=== PATIENT | female | born 1955 | race African-American/Black ===

== ENCOUNTER 2016-07-10 20:57 | Inpatient (IN) | payer OTHER ==
[2016-07-10] MEDS ORDERED: SODIUM CHLORIDE 0.9% 500 ML INFUS.BAG IV ONE ×2 (21:11→23:05)
[2016-07-10] MEDS ORDERED: ASPIRIN 81 MG CHEWABLE TABLETS PO ONE (21:12)
[2016-07-10 21:40] LABS: BASOPHIL 0.7 % (0-2.0); MCH 32.3 pg (25.7-33.7); MCHC 34.2 g/dl (32.0-36.0); MEAN CELL VOLUME 94.4 fl (80-96); MEAN PLT VOLUME 8.6 fl (7.5-11.1); NEUTROPHILS 66.3 % (42.8-82.8); PLATELET COUNT 184 K/MM3 (134-434); RDW 14.2 % (11.6-15.6); WHITE BLOOD COUNT 7.5 K/mm3 (4.0-10.0)
[2016-07-10] MEDS ORDERED: ASPIRIN 325 MG TABLET ONE (21:41)
[2016-07-10 21:52] LABS: INR 0.91 (0.82-1.09)
[2016-07-10 21:57] LABS: URINE APPEARANCE CLEAR; URINE BLOOD NEGATIVE (NEGATIVE); URINE COLOR YELLOW; URINE GLUCOSE (UA) NEGATIVE (NEGATIVE); URINE KETONE TRACE (NEGATIVE); URINE NITRITE NEGATIVE (NEGATIVE); URINE PROTEIN NEGATIVE (NEGATIVE); URINE UROBILINOGEN NEGATIVE E.U./dl (0.2-1.0)
[2016-07-10 22:01] LABS: URINE LEUK ESTERASE TRACE (NEGATIVE)
[2016-07-10 22:02] LABS: URINE BACTERIA RARE /hpf (NONE SEEN); URINE HYALINE CAST 9 /lpf; URINE RBC 1 /hpf (0-3); URINE WBC 6 /hpf (3-5)
[2016-07-10 22:02] LABS: ALBUMIN 3.8 g/dl (3.4-5.0); ANION GAP 8 (8-16); BILIRUBIN,TOTAL 0.6 mg/dL (0.2-1.0); CO2 31 mmol/L (21-32); CREATININE 1.3 mg/dL (0.55-1.02); GLUCOSE,RANDOM 142 mg/dL (74-106); MAGNESIUM 2.2 mg/dL (1.8-2.4); PHOSPHOROUS 3.5 mg/dL (2.5-4.9); SGOT/AST 14 U/L (15-37); SGPT/ALT 15 U/L (12-78); TOT PROT 6.4 g/dl (6.4-8.2)
[2016-07-10 22:03] LABS: ALK PHOS 67 U/L (45-117); TROPONIN I < 0.02 ng/ml (0.00-0.05)
--- NOTE | 2016-07-10 22:17 | PDOC ---
History of Present Illness - General History Source: Patient Exam Limitations: No Limitations - History of Present Illness Initial Comments: 07/10/16 22:18 The patient is a 61-year-old female with a significant past medical history of diabetes, HTN, CAD, A-fib, [place], heart stents, COPD, and presents to the emergency department via EMS with chest pain for 1 day. The patient reports that she experienced left shoulder pain yesterday, and she could not move her shoulder due to the pain. She reports she woke up today with chest pain. She states the pain is localized to the epigastric and substernal region, radiates to the right chest, and describes the pain as a burning sensation with a severity of 7/10. She was given a nitroglycerine tablet by EMS en route, with no relief of pain. The patient denies shortness of breath, headache and dizziness. The patient denies fever, chills, nausea, vomit, diarrhea and constipation. The patient denies dysuria, frequency, urgency and hematuria. Allergies: NKDA Past Surgical History: heart stent PCP: Dr. Bianchi <Tiffany Jamil - Last Filed: 07/10/16 22:38> <Alexis Horton - Last Filed: 07/10/16 23:26> - General Chief Complaint: Chest Pain Stated Complaint: CHEST PAIN Past History <Tiffany Jamil - Last Filed: 07/10/16 22:38> - Past Medical History Cardiac Disorders: Yes (cardiac stent, CAD, [place]) COPD: Yes CHF: No Diabetes: Yes GI Disorders: Yes (gallstones) HTN: Yes Hypercholesterolemia: Yes Psychiatric Problems: Yes (ANXIETY) Suicide Attempt (Hx): No Seizures: Yes - Surgical History Cardiac Surgery: Yes - Immunization History Immunization Up to Date: No - Psycho/Social/Smoking Cessation Hx Anxiety: No Suicidal Ideation: No Smoking Status: Yes Smoking History: Current some day smoker Have you smoked in the past 12 months: Yes Number of Cigarettes Smoked Daily: 3 Information on smoking cessation initiated: No 'Breaking Loose' booklet given: 05/28/15 Hx Alcohol Use: No Drug/Substance Use Hx: No Substance Use Type: None Hx Substance Use Treatment: No <Alexis Horton - Last Filed: 07/10/16 23:26> - Past Medical History Allergies/Adverse Reactions: Allergies Allergy/AdvReac Type Severity Reaction Status Date / Time No Known Allergies Allergy Verified 07/10/16 23:04 Home Medications: Ambulatory Orders Albuterol Sulfate Inhaler - [Ventolin HFA Inhaler -] 1 - 2 inh PO QID PRN #1 inhaler 07/02/14 Duloxetine HCl [Cymbalta -] 60 mg PO DAILY 07/02/14 Albuterol Sulfate 0.042% [Ventolin 0.042% (Half-Strength) -] 1 neb PO QID Cyanocobalamin [Vitamin B12 -] 1,000 mcg PO DAILY 07/16/14 Ranolazine [Ranexa] 500 mg PO BID 07/16/14 Doxepin HCl [Sinequan -] 25 mg PO HS 05/28/15 Acetaminophen [Tylenol .Regular Strength -] 650 mg PO Q4H PRN #0 tablet Alprazolam [Xanax] 1 mg PO HS PRN #0 06/01/15 Bacitracin - [Bacitracin Topical Ointment -] 1 applic TP BID #1 tube 06/01/15 Cholecalciferol (Vitamin D3) [Vitamin D3 -] 1,000 unit PO DAILY #30 tab Levetiracetam [Keppra -] 750 mg PO BID #180 tablet 06/01/15 Metoprolol Succinate [Toprol XL -] 12.5 mg PO DAILY #30 tab.sr.24h 06/01/15 Oxycodone HCl [Roxicodone -] 2.5 mg PO Q6H PRN #10 tablet 06/01/15 Polyethylene Glycol 3350 [Miralax 119 gm Btl -] 17 gm PO DAILY #1 bottle Zolpidem Tartrate [Ambien] 5 mg PO HS PRN #30 tablet 06/01/15 Review of Systems - Review of Systems Able to Perform ROS?: Yes Comments:: 07/10/16 22:18 GENERAL/CONSTITUTIONAL: No fever or chills. No weakness. HEAD, EYES, EARS, NOSE AND THROAT: No change in vision. No ear pain or discharge. No sore throat. CARDIOVASCULAR: (+) Chest pain. No shortness of breath. RESPIRATORY: No cough, wheezing, or hemoptysis. GASTROINTESTINAL: No nausea, vomiting, diarrhea or constipation. GENITOURINARY: No dysuria, frequency, or change in urination. MUSCULOSKELETAL: (+) Left shoulder pain. No joint or muscle swelling or pain. No neck or back pain. SKIN: No rash NEUROLOGIC: No headache, vertigo, loss of consciousness, or change in strength/ sensation. ENDOCRINE: No increased thirst. No abnormal weight change. HEMATOLOGIC/LYMPHATIC: No anemia, easy bleeding, or history of blood clots. ALLERGIC/IMMUNOLOGIC: No hives or skin allergy. <OmeroTiffany - Last Filed: 07/10/16 22:38> *Physical Exam - Vital Signs Last Vital Signs Temp Pulse Resp BP Pulse Ox 98.9 F 80 18 92/56 98 07/10/16 21:29 07/10/16 21:29 07/10/16 21:29 07/10/16 21:29 07/10/16 21:55 - Physical Exam Comments: 07/10/16 22:18 GENERAL: Awake, alert, and fully oriented, (+) appears mildly anxious HEAD: No signs of trauma EYES: PERRLA, EOMI, sclera anicteric, conjunctiva clear ENT: Auricles normal inspection, hearing grossly normal, nares patent, oropharynx clear without exudates. Moist mucosa NECK: Normal ROM, supple, no lymphadenopathy, JVD, or masses LUNGS: Breath sounds equal, clear to auscultation bilaterally. No wheezes, and no crackles HEART: Regular rate and rhythm, normal S1 and S2, no murmurs, rubs or gallops ABDOMEN: Soft, nontender, normoactive bowel sounds. No guarding, no rebound. No masses EXTREMITIES: Normal range of motion, no edema. No clubbing or cyanosis. No cords, erythema, or tenderness NEUROLOGICAL: Cranial nerves II through XII grossly intact. Normal speech, normal gait SKIN: Warm, (+) mildly dry, normal turgor, no rashes or lesions noted. <JamilTiffany - Last Filed: 07/10/16 22:38> - Vital Signs Last Vital Signs Temp Pulse Resp BP Pulse Ox 98.9 F 80 18 92/56 98 07/10/16 21:29 07/10/16 21:29 07/10/16 21:29 07/10/16 21:29 07/10/16 21:55 <Alexis Horton - Last Filed: 07/10/16 23:26> Heart Score/ECG Review - ECG Impressions Comment:: 07/10/16 22:19 Normal sinus rhythm Abnormal ECG nl axis + LVH Nonspecific T wave abnormality <Tiffany Jamil - Last Filed: 07/10/16 22:38> ED Treatment Course - LABORATORY CBC & Chemistry Diagram: 07/10/16 21:30 07/10/16 21:30 - ADDITIONAL ORDERS Additional order review: Laboratory Results 07/10/16 07/10/16 07/10/16 21:45 21:30 21:30 INR Sodium 139 Potassium 4.1 Chloride 100 Carbon Dioxide 31 Anion Gap 8 BUN 13 Creatinine 1.3 H D Creat Clearance w eGFR 41.50 Random Glucose 142 H D Lactic Acid 2.035 H* Calcium 9.0 Phosphorus 3.5 Magnesium 2.2 Total Bilirubin 0.6 D AST 14 L D ALT 15 Alkaline Phosphatase 67 Creatine Kinase 53 Troponin I < 0.02 B-Natriuretic Peptide 134.49 H Total Protein 6.4 Albumin 3.8 Lipase 143 Urine Color Yellow Urine Appearance Clear Urine pH 5.0 Ur Specific [place] 1.023 Urine Protein Negative Urine Glucose (UA) Negative Urine Ketones Trace H Urine Blood Negative Urine Nitrite Negative Urine Bilirubin 2.0 Urine Urobilinogen Negative Ur Leukocyte Esterase Trace H Urine RBC 1 Urine WBC 6 Ur Epithelial Cells Moderate Urine Bacteria Rare Hyaline Casts 9 07/10/16 21:30 INR 0.91 Sodium Potassium Chloride Carbon Dioxide Anion Gap BUN Creatinine Creat Clearance w eGFR Random Glucose Lactic Acid Calcium Phosphorus Magnesium Total Bilirubin AST ALT Alkaline Phosphatase Creatine Kinase Troponin I B-Natriuretic Peptide Total Protein Albumin Lipase Urine Color Urine Appearance Urine pH Ur Specific [place] Urine Protein Urine Glucose (UA) Urine Ketones Urine Blood Urine Nitrite Urine Bilirubin Urine Urobilinogen Ur Leukocyte Esterase Urine RBC Urine WBC Ur Epithelial Cells Urine Bacteria Hyaline Casts 07/10/16 21:30 RBC 4.30 MCV 94.4 MCHC 34.2 RDW 14.2 MPV 8.6 Neutrophils % 66.3 D Lymphocytes % 23.8 D Monocytes % 7.2 Eosinophils % 2.0 Basophils % 0.7 - Medications Given in the ED: ED Medications Discontinued Medications Generic Name Dose Route Start Last Admin Trade Name Freq PRN Reason Stop Dose Admin Aspirin 324 mg 07/10/16 21:12 07/10/16 21:37 Asa - PO 07/10/16 21:13 324 mg ONCE ONE Administration Sodium Chloride 500 ml 07/10/16 21:11 07/10/16 21:37 Normal Saline - IV 07/10/16 21:12 500 ml ONCE ONE Administration <Tiffany Jamil - Last Filed: 07/10/16 22:38> - LABORATORY CBC & Chemistry Diagram: 07/10/16 21:30 07/10/16 21:30 - ADDITIONAL ORDERS Additional order review: Laboratory Results 07/10/16 07/10/16 07/10/16 21:45 21:30 21:30 INR 0.91 Sodium 139 Potassium 4.1 Chloride 100 Carbon Dioxide 31 Anion Gap 8 BUN 13 Creatinine 1.3 H D Creat Clearance w eGFR 41.50 Random Glucose 142 H D Calcium 9.0 Phosphorus 3.5 Magnesium 2.2 Total Bilirubin 0.6 D AST 14 L D ALT 15 Alkaline Phosphatase 67 Creatine Kinase 53 Troponin I < 0.02 B-Natriuretic Peptide 134.49 H Total Protein 6.4 Albumin 3.8 Lipase 143 Urine Color Yellow Urine Appearance Clear Urine pH 5.0 Ur Specific [place] 1.023 Urine Protein Negative Urine Glucose (UA) Negative Urine Ketones Trace H Urine Blood Negative Urine Nitrite Negative Urine Bilirubin 2.0 Urine Urobilinogen Negative Ur Leukocyte Esterase Trace H Urine RBC 1 Urine WBC 6 Ur Epithelial Cells Moderate Urine Bacteria Rare Hyaline Casts 9 07/10/16 21:30 RBC 4.30 MCV 94.4 MCHC 34.2 RDW 14.2 MPV 8.6 Neutrophils % 66.3 D Lymphocytes % 23.8 D Monocytes % 7.2 Eosinophils % 2.0 Basophils % 0.7 - RADIOLOGY Radiology Studies Ordered: Category Date Time Status CHEST X-RAY PORTABLE* [RAD] Stat Radiology 07/10/16 21:14 Ordered Radiograph Interpretation: 07/10/16 23:23 CXR shows adequate inflammation; osteopenia noted; no acute pathology otherwise ; there is calcification of the chondral aspects b/l. - Medications Given in the ED: ED Medications Discontinued Medications Generic Name Dose Route Start Last Admin Trade Name Freq PRN Reason Stop Dose Admin Aspirin 324 mg 07/10/16 21:12 07/10/16 21:37 Asa - PO 07/10/16 21:13 324 mg ONCE ONE Administration Sodium Chloride 500 ml 07/10/16 21:11 07/10/16 21:37 Normal Saline - IV 07/10/16 21:12 500 ml ONCE ONE Administration <Alexis Horton - Last Filed: 07/10/16 23:26> Medical Decision Making - Medical Decision Making 07/10/16 23:24 This is a 61yo F with PMH CAD s/p stenting, DM, hypertension, hyperlipidemia who presents with chest pain and radiation to the RIGHT shoulder. She has a subclinical UTI and lactate elevation, which may be related to this or dehydration as she appears clinically dry. She has a reassuring EKG with only subtle changes from previous on file. Troponin is negative at this time and her WBC is also wnl. She will be endorsed to Dr. Barriga who will continue evaluation of the patient; admit to telemetry. <Alexis Horton - Last Filed: 07/10/16 23:26> *DC/Admit/Observation/Transfer - Attestations Scribe Attestion: 07/10/16 22:19 Documentation prepared by Tiffany Jamil, acting as medical billing instructor for Alexis Horton MD. <Tiffany Jamil - Last Filed: 07/10/16 22:38> - Discharge Dispostion Admit: Yes Decision to Admit order Date/Time: 07/10/16 23:26 - Attestations Physician Attestion: 07/10/16 23:26 I, Dr. Alexis Horton MD, attest that this document has been prepared under my direction and personally reviewed by me in its entirety. I further attest, that it accurately reflects all work, treatment, procedures and medical decision -making performed by me. <Alexis Horton - Last Filed: 07/10/16 23:26> Diagnosis at time of Disposition: Dehydration Urinary tract infection Qualifiers: Urinary tract infection type: acute cystitis Hematuria presence: without hematuria Qualified Code(s): N30.00 - Acute cystitis without hematuria Chest pain Qualifiers: Chest pain type: precordial pain Qualified Code(s): R07.2 - Precordial pain - Discharge Dispostion Condition at time of disposition: Guarded - Referrals Referrals: Kulwant Bianchi MD [Primary Care Provider] -
[2016-07-10] MEDS ORDERED: OXYCODONE/APAP 5/325MG COMBO TABLET PO ONE (23:09)
[2016-07-10] MEDS ORDERED: OXYCODONE/APAP 5/325MG COMBO TABLET ONE (23:16)
[2016-07-10] MEDS ORDERED: NITROFURANTOIN MACROCRYSTAL 50 MG CAPSULE (FP) ONE (23:25)
[2016-07-10] MEDS: NITROFURANTOIN MACROCRYSTAL 50 MG CAPSULE (FP) PO SCH (23:26)
[2016-07-10 23:58] LABS: CHOLESTEROL 176 mg/dL (50-200); LDL CHOLESTEROL (ONLY SJRH) 69 mg/dL (5-100)
[2016-07-11] MEDS ORDERED: ATORVASTATIN CA 40 MG TABLET (FP) PO ONE (00:30)
[2016-07-11] MEDS: ZOLPIDEM TARTRATE 5 MG TABLET PO PRN ×2 (01:21→21:35)
[2016-07-11 02:08] LABS: TROPONIN I < 0.02 ng/ml (0.00-0.05)
[2016-07-11 05:52] VITALS: BMI 17.4
[2016-07-11] MEDS ORDERED: DULoxetine HCL 30 MG CAPSULE.DR (FP) PO ONE (09:11)
--- NOTE | 2016-07-11 09:32 | HP ---
Admitting History and Physical - Admission History of Present Illness: 61-year-old female with a significant past medical history of diabetes, HTN, CAD , A-fib, [place], heart stents, COPD, and presents to the emergency department via EMS with chest pain --epigastric painfor 1 day. The patient reports that she experienced left shoulder pain yesterday, and she could not move her shoulder due to the pain. She reports she woke up yesterday with chest pain. She states the pain is localized to the epigastric and substernal region, radiates to the right chest, and describes the pain as a burning sensation with a severity of 7/ 10. She was given a nitroglycerine tablet by EMS en route, with no relief of pain. 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 No: CVA Cardiovascular: Yes: CAD, HTN, Other (PCI STENT). No: AFIB Pulmonary: Yes: Asthma, COPD Endocrine: Yes: Diabetes Mellitus - Past Surgical History Past Surgical History: Yes: Hysterectomy, Stent - Smoking History Smoking history: Current some day smoker Have you smoked in the past 12 months: Yes Aproximately how many cigarettes per day: 3 - Alcohol/Substance Use Hx Alcohol Use: No History of Substance Use: reports: None - Social History ADL: Independent History of Recent Travel: No Home Medications - Allergies Allergies/Adverse Reactions: Allergies Allergy/AdvReac Type Severity Reaction Status Date / Time No Known Allergies Allergy Verified 07/10/16 23:04 - Home Medications Home Medications: Ambulatory Orders Albuterol Sulfate Inhaler - [Ventolin HFA Inhaler -] 1 - 2 inh PO QID PRN #1 inhaler 07/02/14 Duloxetine HCl [Cymbalta -] 60 mg PO DAILY 07/02/14 Albuterol Sulfate 0.042% [Ventolin 0.042% (Half-Strength) -] 1 neb PO QID Cyanocobalamin [Vitamin B12 -] 1,000 mcg PO DAILY 07/16/14 Ranolazine [Ranexa] 500 mg PO BID 07/16/14 Doxepin HCl [Sinequan -] 25 mg PO HS 05/28/15 Acetaminophen [Tylenol .Regular Strength -] 650 mg PO Q4H PRN #0 tablet Alprazolam [Xanax] 1 mg PO HS PRN #0 06/01/15 Bacitracin - [Bacitracin Topical Ointment -] 1 applic TP BID #1 tube 06/01/15 Cholecalciferol (Vitamin D3) [Vitamin D3 -] 1,000 unit PO DAILY #30 tab Levetiracetam [Keppra -] 750 mg PO BID #180 tablet 06/01/15 Metoprolol Succinate [Toprol XL -] 12.5 mg PO DAILY #30 tab.sr.24h 06/01/15 Oxycodone HCl [Roxicodone -] 2.5 mg PO Q6H PRN #10 tablet 06/01/15 Polyethylene Glycol 3350 [Miralax 119 gm Btl -] 17 gm PO DAILY #1 bottle Zolpidem Tartrate [Ambien] 5 mg PO HS PRN #30 tablet 06/01/15 Family Disease History - Family Disease History Family Disease History: Diabetes: Father, Other: Mother (alzheimers), Sister (3 strokes) Review of Systems - Review of Systems Cardiovascular: reports: Chest Pain. denies: Palpitations Respiratory: denies: Cough, Hemoptysis, Wheezing Gastrointestinal: reports: Abdominal Pain. denies: Diarrhea Genitourinary: reports: No Symptoms Neurological: reports: No Symptoms Physical Examination Vital Signs: Vital Signs Temperature 98.1 F 07/11/16 06:00 Pulse Rate 75 07/11/16 06:00 Respiratory Rate 16 07/11/16 06:00 Blood Pressure 106/53 07/11/16 06:00 O2 Sat by Pulse Oximetry (%) 99 07/11/16 01:51 Cardiovascular: Yes: Regular Rate and Rhythm, Murmur Respiratory: Yes: Regular, CTA Bilaterally Gastrointestinal: Yes: Normal Bowel Sounds, Soft, Tenderness, Epigastrium Edema: No Imaging - Results X-ray: Report Reviewed Problem List - Problems (1) Chest pain Assessment/Plan: ATYPICAL BUT WITH H/O STENT MUST CONSIDER CARDIAC SOURCE FOLLOW CE CARDIO ECHO OBTAIN PREVIOUS W/U ON ASA Code(s): R07.9 - CHEST PAIN, UNSPECIFIED Qualifiers: Chest pain type: precordial pain Qualified Code(s): R07.2 - Precordial pain (2) Epigastric abdominal pain Assessment/Plan: US GI PPI MAY NEED EGD Code(s): R10.13 - EPIGASTRIC PAIN (3) Seizure disorder Assessment/Plan: SAME MEDS Code(s): G40.909 - EPILEPSY, UNSP, NOT INTRACTABLE, WITHOUT STATUS EPILEPTICUS (4) CAD (coronary artery disease) Assessment/Plan: ABOVE Code(s): I25.10 - ATHSCL HEART DISEASE OF [place] CORONARY ARTERY W/O ANG PCTRS (5) DM (diabetes mellitus) Assessment/Plan: MONITOR BGM W SS Code(s): E11.9 - TYPE 2 DIABETES MELLITUS WITHOUT COMPLICATIONS
[2016-07-11] MEDS: DULoxetine HCL 60 MG CAPSULE.DR PO SCH (09:50)
[2016-07-11] MEDS: RANOLAZINE E.R. 500 MG TABLET (FP) PO SCH ×2 (09:50→21:26)
[2016-07-11] MEDS: CHOLECALCIFEROL (VITAMIN D3) 1,000 UNIT TABLET (FP) PO SCH (09:51)
[2016-07-11] MEDS: levETIRAcetam 250 MG TABLET (FP) PO SCH ×2 (09:51→21:26)
[2016-07-11] MEDS: CYANOCOBALAMIN 1,000 MCG TABLET (FP) PO SCH (09:51)
[2016-07-11] MEDS: HEPARIN NA (PORCINE) 5,000 UNITS/ML 1ML VIAL SQ SCH ×2 (09:51→21:26)
[2016-07-11] MEDS: METOPROLOL SUCCINATE 25 MG TAB.SR.24H (FP) PO SCH (09:56)
[2016-07-11] MEDS: POLYETHYLENE GLYCOL 3350 119 GM BTL PO SCH (09:59)
[2016-07-11] MEDS ORDERED: ASPIRIN 325 MG ENTERIC COATED TABLET (FP) PO SCH (10:00)
[2016-07-11] MEDS: PANTOPRAZOLE SODIUM 100 ML IVPB SCH ×2 (10:02→21:27)
--- NOTE | 2016-07-11 11:09 | EKG ---
Test Reason : Blood Pressure : / mmHG Vent. Rate : 084 BPM Atrial Rate : 084 BPM P-R Int : 126 ms QRS Dur : 082 ms QT Int : 350 ms P-R-T Axes : 070 057 080 degrees QTc Int : 413 ms NORMAL SINUS RHYTHM NORMAL ECG WHEN COMPARED WITH ECG OF 10-JUL-2016 21:10, CRITERIA FOR SEPTAL INFARCT ARE NO LONGER PRESENT Confirmed by ALISON MONTAGUE MD ([id number]) on 07/11/2016 11:09:05 AM Referred By: Pam CROSS Confirmed By:ALISON MONTAGUE MD
--- NOTE | 2016-07-11 11:33 | EKG ---
Test Reason : Blood Pressure : / mmHG Vent. Rate : 083 BPM Atrial Rate : 083 BPM P-R Int : 122 ms QRS Dur : 082 ms QT Int : 370 ms P-R-T Axes : 068 058 080 degrees QTc Int : 434 ms NORMAL SINUS RHYTHM SEPTAL INFARCT (CITED ON OR BEFORE 16-JUL-2014) ABNORMAL ECG WHEN COMPARED WITH ECG OF 28-MAY-2015 17:16, NO SIGNIFICANT CHANGE WAS FOUND Confirmed by ALISON MONTAGUE MD ([id number]) on 07/11/2016 11:32:56 AM Referred By: Confirmed By:ALISON MONTAGUE MD
--- NOTE | 2016-07-11 11:41 | CONSULT ---
Consult - text type - Consultation Consultation Note: CARDIOLOGY. SKED BY DR. Fajardo TO SEE PT. 61 YO FEMALE 07/10/16 CHEST PAIN. PT SEEN, EXAMINED. X RAYS, ECG REVIEWED. WORKING DX: NON CARDIAC MUSCULOSKELETAL CHEST PAIN. HISTORY CONSISTENT WITH THIS DIAGNOSIS. DIFF DX: MYOCARDIAL ISCHEMIA /ASHD WITHOUT INFARCTION AND NORMAL ECG. REC: OBTAIN PRIOR RECORDS CARDIAC CATH REPORTS, ETC NOT PRESENTLY AVAILABLE. REPEAT ECG TROPONIN LEVELS. CHRISTINA-I / ARB THERAPY IF NOT CONTRAINDICATED OR INTOLERANT IN THE PAST AWAIT ECHOCARDIOGRAM STRESS NUCLEAR STUDY OUT PATIENT. THANKS FULL NOTE DICTATED. WILL FOLLOW
--- NOTE | 2016-07-11 13:13 | CON.GI ---
Consult Consult Specialty:: GI Referred by:: Dr Barriga Reason for Consultation:: Abdominal pain - History of Present Illness Chief Complaint: Severe chest pain initially and now abdominal pain History of Present Illness: 61 F with h/o CAD s/p PCI, HTN, DM, AF (currently in sinus rhythm) COPD (active smoker) admitted with 2 day h/o CP with earlier L arm radiation. She subsequently states her pain became epigastric. She states the pain is severe and she is requesting pain meds. She had no response to NTG earlier. She has not been to our office for an extended period of time and states she had EGD 4 years ago-unk results. 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 No: AFIB Pulmonary: Yes: Asthma, COPD Endocrine: Yes: Diabetes Mellitus - Past Surgical History Past Surgical History: Yes: Hysterectomy, Stent - Alcohol/Substance Use Hx Alcohol Use: No History of Substance Use: reports: None - Smoking History Smoking history: Current some day smoker Have you smoked in the past 12 months: Yes Aproximately how many cigarettes per day: 3 - Social History Usual Living Arrangement: Alone ADL: Independent History of Recent Travel: No Home Medications - Allergies Allergies/Adverse Reactions: Allergies Allergy/AdvReac Type Severity Reaction Status Date / Time No Known Allergies Allergy Verified 07/10/16 23:04 - Home Medications Home Medications: Ambulatory Orders Albuterol Sulfate Inhaler - [Ventolin HFA Inhaler -] 1 - 2 inh PO QID PRN #1 inhaler 07/02/14 Duloxetine HCl [Cymbalta -] 60 mg PO DAILY 07/02/14 Albuterol Sulfate 0.042% [Ventolin 0.042% (Half-Strength) -] 1 neb PO QID Cyanocobalamin [Vitamin B12 -] 1,000 mcg PO DAILY 07/16/14 Ranolazine [Ranexa] 500 mg PO BID 07/16/14 Doxepin HCl [Sinequan -] 25 mg PO HS 05/28/15 Acetaminophen [Tylenol .Regular Strength -] 650 mg PO Q4H PRN #0 tablet Alprazolam [Xanax] 1 mg PO HS PRN #0 06/01/15 Bacitracin - [Bacitracin Topical Ointment -] 1 applic TP BID #1 tube 06/01/15 Cholecalciferol (Vitamin D3) [Vitamin D3 -] 1,000 unit PO DAILY #30 tab Levetiracetam [Keppra -] 750 mg PO BID #180 tablet 06/01/15 Metoprolol Succinate [Toprol XL -] 12.5 mg PO DAILY #30 tab.sr.24h 06/01/15 Oxycodone HCl [Roxicodone -] 2.5 mg PO Q6H PRN #10 tablet 06/01/15 Polyethylene Glycol 3350 [Miralax 119 gm Btl -] 17 gm PO DAILY #1 bottle Zolpidem Tartrate [Ambien] 5 mg PO HS PRN #30 tablet 06/01/15 Family Disease History - Family Disease History Family Disease History: Diabetes: Father, Other: Mother (alzheimers), Sister (3 strokes) Physical Exam-GI Vital Signs: Vital Signs Temperature 97.5 F L 07/11/16 09:49 Pulse Rate 78 07/11/16 09:49 Respiratory Rate 18 07/11/16 09:49 Blood Pressure 123/65 07/11/16 09:49 O2 Sat by Pulse Oximetry (%) 99 07/11/16 09:00 Constitutional: Yes: Anxious, Moderate Distress, Thin HENT: Yes: Normocephalic Neck: Yes: Supple Cardiovascular: Yes: Regular Rate and Rhythm Respiratory: Yes: CTA Bilaterally, Poor Air Entry (bilat) Gastrointestinal Inspection: Yes: WNL ...Auscultate: Yes: Normoactive Bowel Sounds ...Palpate: Yes: Soft, Tenderness, Tenderness, Epigastium (She had involuntary guarding and there was tenderness in every quadrant.) Labs: INR, PTT INR 0.91 (0.82-1.09) 07/10/16 21:30 CBC, BMP 07/10/16 21:30 07/10/16 21:30 Hepatic Panel Total Bilirubin 0.6 mg/dL (0.2-1.0) D 07/10/16 21:30 AST 14 U/L (15-37) L D 07/10/16 21:30 ALT 15 U/L (12-78) 07/10/16 21:30 Alkaline Phosphatase 67 U/L (45-117) 07/10/16 21:30 Albumin 3.8 g/dl (3.4-5.0) 07/10/16 21:30 Abnormal Lab Results 07/10/16 07/10/16 07/10/16 21:30 21:30 21:45 Creatinine 1.3 H D Random Glucose 142 H D Lactic Acid 2.035 H* AST 14 L D B-Natriuretic Peptide 134.49 H HDL Cholesterol Urine Ketones Trace H Ur Leukocyte Esterase Trace H 07/10/16 23:06 Creatinine Random Glucose Lactic Acid AST B-Natriuretic Peptide HDL Cholesterol 106 H Urine Ketones Ur Leukocyte Esterase Imaging - Results EKG: Report Reviewed (No change since prior EKG) Assessment/Plan 61 Patient with above history with severe abdominal pain. She now states she is having post-prandial vomiting Of note, lactic acid elevated on admission (now normal) and prior sonogram showed mild dilatation of both the CBD and the PD. Triglycerides and Lipase normal and LFTs normal Rec: Clear liquid diet MRI/MRCP to better evaluate ductal abnormalities CA19-9 Protonix Pain meds
[2016-07-11] MEDS: ACETAMINOPHEN 325 MG TABLET (FP) PO PRN ×2 (14:03→22:23)
[2016-07-11] MEDS: oxyCODONE HCL 5 MG TABLET PO PRN ×2 (14:03→22:22)
--- NOTE | 2016-07-11 16:01 | CONS ---
DATE OF CONSULTATION: 07/11/2016 REQUESTING PHYSICIAN: Flo Barriga MD PATIENT PROFILE: The patient is a 61-year-old female admitted on July 10, 2016, because of chest pain. The patient has known atherosclerotic heart disease. She had a "small" myocardial infarction in 2004 and underwent coronary arteriography and revascularization by PCTA/stenting. The details of the angiographic report, myocardial infarction, and subsequent followup is not presently available. She states that she has undergone regular angiographic procedures to check on the stent, which has been reportedly patent as of 2 years ago. She does not know who her electric switch tester is. She was in her usual state of health until about 2 days prior to admission, when she complained of left shoulder pain. On the night prior to admission, she had severe pain in the left shoulder and on the day of admission she had severe chest pain with associated nausea. No diaphoresis. The symptoms occurred at rest. Moving the left shoulder caused discomfort. She came to the hospital urgently. She was given nitroglycerin without any particular benefit. She continues to complain of chest pressure but states that it is diminished from prior to admission. She complains primarily at this time of dizziness/lightheadedness without syncope. The patient was told that she had atrial fibrillation in the past, previously treated with Plavix and aspirin but not any other anticoagulation or antithrombotic therapy. Has a previous history of diabetes, hypertension, and hyperlipidemia. Present medications include Ranexa 500 mg b.i.d., aspirin 325 mg daily, Lipitor 40 mg per day, vitamin D3, vitamin B12, Sinequan 25 mg per day, Cymbalta 60 mg per day, heparin 5000 units b.i.d., Keppra 750 daily, Toprol 12.5 mg daily, nitrofuran, Protonix. ALLERGIES: None known. REVIEW OF SYSTEMS: General: No fever or chills. Gastrointestinal: She reports having had gallstones and feels that these symptoms are secondary to "my gallbladder." Seizure disorder. Anxious depression. Hypertension, hyperlipidemia, [id number] diabetes. SOCIAL HISTORY: She lives at home and manages her own affairs. There is no history of alcohol abuse. She continues to smoke less than one-half pack of cigarettes per day. She has a devoted family. FAMILY HISTORY: There is a family history of diabetes. Mother had dementia and sisters had strokes. EXAMINATION: General: On examination, the patient appears in no acute distress, lying flat. Vital Signs: Temperature afebrile. Pulse is 70 and regular. Blood pressure is 123/60. The respiratory rate is 18 per minute. The weight is 95 pounds. The oxygen saturation is 99% on ambient air. NECK: There is no neck vein distention. There is no carotid bruit. Lungs: The lung mena are clear. Heart: The heart sounds are normal. No murmur, no gallop is audible. The PMI is normal and not displaced. Abdomen: Soft and nontender. There is no organ enlargement. There is no scleral icterus. Extremities: There is no peripheral edema. DATABASE: The electrocardiogram demonstrates sinus rhythm, normal tracing. There are no ST and T-wave changes seen. The chest x-ray was reviewed, it is an AP portal film. The heart size cannot be adequately assessed due to the technique of the film, however, there is no infiltrate, effusion, or pulmonary vascular congestion. LABORATORY STUDIES OF NOTE: The white blood cell count is 7.5, hematocrit 41%, platelet count is 184,000. The INR is 0.9. The electrolytes are normal. BUN 13, creatinine 1.3, glucose 142. The BNP level is 135, troponin level is less than 0.02 on 2 determinations. The cholesterol is 176, triglycerides 129, LDL 69, and HDL 106. The urinalysis is negative for protein and glucose. IMPRESSION: The working diagnosis is non-cardiac musculoskeletal chest pain. The history is consistent with this diagnosis. The differential diagnosis would include myocardial ischemia/atherosclerotic heart disease despite a normal electrocardiogram and normal troponin levels. The patient has multiple risk factors for the development of atherosclerotic disease and has known atherosclerotic coronary disease as reflected by requirement for PCTA/stenting procedures. With regard to medical therapy, CHRISTINA-I/ARB therapy is attractive in the setting of a previous myocardial infarction, diabetes, and atherosclerotic heart disease with hypertension. The patient's history of atrial fibrillation raises the concern of adequate anticoagulation/antithrombotic therapy despite the presence of sinus rhythm at this time. Of critical importance in the management of this patient will be review of prior data not presently available. I have recommended the followin. Obtain prior records regarding cardiac catheterization report, noninvasive studies, cardiology followup, etcetera, not presently available. 2. Repeat ECG and troponin level. 3. Complete cessation of smoking. 4. Risk factor modification. 5. CHRISTINA-I/ARB therapy if not contraindicated or was thought to be intolerant of these agents in the past. 6. Await echocardiogram ordered by primary care. 7. Stress nuclear study as an outpatient. Thank you for allowing me to take part in the care of this pleasant patient. Will follow along with you. OLLIE BYRD M.D. KATLIN/[id number]
[2016-07-11] MEDS ORDERED: PT OWN MED DRAWER 7, Y5N ONE (21:21)
[2016-07-11] MEDS: ATORVASTATIN CA 40 MG TABLET (FP) PO SCH (21:26)
[2016-07-11] MEDS: DOXEPIN HCL 25 MG CAPSULE PO SCH (21:26)
[2016-07-11] MEDS: NITROFURANTOIN MACROCRYSTAL 50 MG CAPSULE (FP) PO SCH (22:30)
[2016-07-12 07:42] LABS: BASOPHIL 0.9 % (0-2.0); EOSINOPHIL 2.8 % (0-4.5); MCH 32.3 pg (25.7-33.7); MCHC 33.9 g/dl (32.0-36.0); MEAN CELL VOLUME 95.2 fl (80-96); NEUTROPHILS 47.9 % (42.8-82.8); PLATELET COUNT 156 K/MM3 (134-434); RDW 14.2 % (11.6-15.6); WHITE BLOOD COUNT 4.9 K/mm3 (4.0-10.0)
--- NOTE | 2016-07-12 08:57 | PN ---
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 RN NOTE -> C/O ABD PAIN - Current Medication List Current Medications: Active Medications Acetaminophen (Tylenol -) 650 mg PO Q4H PRN PRN Reason: FEVER OR PAIN Last Admin: 07/11/16 22:23 Dose: 650 mg Aspirin (Ecotrin -) 325 mg PO DAILY [facility] Last Admin: 07/11/16 09:51 Dose: 325 mg Atorvastatin Calcium (Lipitor -) 40 mg PO HS [facility] Last Admin: 07/11/16 21:26 Dose: 40 mg Cholecalciferol (Vitamin D3 -) 1,000 unit PO DAILY [facility] Last Admin: 07/11/16 09:51 Dose: 1,000 unit Cyanocobalamin (Vitamin B12 -) 1,000 mcg PO DAILY [facility] Last Admin: 07/11/16 09:51 Dose: 1,000 mcg Doxepin HCl (Sinequan -) 25 mg PO HS [facility] Last Admin: 07/11/16 21:26 Dose: 25 mg Duloxetine HCl (Cymbalta -) 60 mg PO DAILY [facility] Last Admin: 07/11/16 09:50 Dose: 60 mg Heparin Sodium (Porcine) (Heparin -) 5,000 unit SQ BID [facility] Last Admin: 07/11/16 21:26 Dose: 5,000 unit Pantoprazole Sodium (Protonix 40mg Ivpb (Pre-Docked)) 100 mls @ 200 mls/hr IVPB BID [facility] Last Admin: 07/11/16 21:27 Dose: 200 mls/hr Levetiracetam (Keppra -) 750 mg PO BID [facility] Last Admin: 07/11/16 21:26 Dose: 750 mg Metoprolol Succinate (Toprol Xl -) 12.5 mg PO DAILY [facility] Last Admin: 07/11/16 09:56 Dose: 12.5 mg Nitrofurantoin Macrocrystals (Macrodantin -) 100 mg PO ONCE [facility] Last Admin: 07/11/16 22:30 Dose: 100 mg Oxycodone HCl (Roxicodone -) 2.5 mg PO Q6H PRN PRN Reason: PAIN Last Admin: 07/11/16 22:22 Dose: 2.5 mg Polyethylene Glycol (Miralax (For Daily Use) -) 17 gm PO DAILY [facility] Last Admin: 07/11/16 09:59 Dose: 17 gm Ranolazine (Ranexa -) 500 mg PO BID [facility] Last Admin: 07/11/16 21:26 Dose: 500 mg Zolpidem Tartrate (Ambien -) 5 mg PO HS PRN PRN Reason: INSOMNIA Last Admin: 07/11/16 21:35 Dose: 5 mg - Objective Vital Signs: Vital Signs Temperature 97.3 F L 07/12/16 08:25 Pulse Rate 75 07/12/16 08:25 Respiratory Rate 18 07/12/16 08:26 Blood Pressure 121/73 07/12/16 08:25 O2 Sat by Pulse Oximetry (%) 99 07/12/16 08:26 Constitutional: Yes: Calm Cardiovascular: Yes: WNL Respiratory: Yes: WNL Gastrointestinal: Yes: Tenderness (MILD DISCOMFORT WITH DEEP PALPATION). No: Tenderness, Rebound Edema: No Labs: CBC, BMP 07/12/16 05:35 INR, PTT INR 0.91 (0.82-1.09) 07/10/16 21:30 Assessment/Plan (1) Chest pain Assessment/Plan: ATYPICAL BUT WITH H/O STENT MUST CONSIDER CARDIAC SOURCE TROP NEG > NO ACS CARDIO ON CASE ECHO -> F/U OBTAIN PREVIOUS W/U ON ASA Code(s): R07.9 - CHEST PAIN, UNSPECIFIED Qualifiers: Chest pain type: precordial pain Qualified Code(s): R07.2 - Precordial pain (2) Epigastric abdominal pain Assessment/Plan: US -> MILD CBD & PANCREATIC DUCT DILATED GI ON CASE PPI MAY NEED EGD MRI/MRCP PENDING Na 152 -> F/U REPEAT CMP + NEED RENAL IF PERSIST Code(s): R10.13 - EPIGASTRIC PAIN (3) Seizure disorder Assessment/Plan: SAME MEDS Code(s): G40.909 - EPILEPSY, UNSP, NOT INTRACTABLE, WITHOUT STATUS EPILEPTICUS (4) CAD (coronary artery disease) Assessment/Plan: ABOVE Code(s): I25.10 - ATHSCL HEART DISEASE OF [place] CORONARY ARTERY W/O ANG PCTRS (5) DM (diabetes mellitus) Assessment/Plan: MONITOR BGM W SS Code(s): E11.9 - TYPE 2 DIABETES MELLITUS WITHOUT COMPLICATIONS 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
[2016-07-12] MEDS ORDERED: DULoxetine HCL 30 MG CAPSULE.DR (FP) PO ONE (10:57)
[2016-07-12] MEDS ORDERED: PT OWN MED DRAWER 7, Y5N ONE (10:58)
[2016-07-12] MEDS: levETIRAcetam 250 MG TABLET (FP) PO SCH ×2 (11:00→21:57)
[2016-07-12] MEDS: METOPROLOL SUCCINATE 25 MG TAB.SR.24H (FP) PO SCH (11:00)
[2016-07-12] MEDS: CYANOCOBALAMIN 1,000 MCG TABLET (FP) PO SCH (11:00)
[2016-07-12] MEDS: HEPARIN NA (PORCINE) 5,000 UNITS/ML 1ML VIAL SQ SCH ×2 (11:01→21:58)
[2016-07-12] MEDS: RANOLAZINE E.R. 500 MG TABLET (FP) PO SCH ×2 (11:01→21:57)
[2016-07-12] MEDS: CHOLECALCIFEROL (VITAMIN D3) 1,000 UNIT TABLET (FP) PO SCH (11:01)
[2016-07-12] MEDS: DULoxetine HCL 60 MG CAPSULE.DR PO SCH (11:01)
[2016-07-12] MEDS: PANTOPRAZOLE SODIUM 100 ML IVPB SCH ×2 (11:02→21:58)
[2016-07-12] MEDS: oxyCODONE HCL 5 MG TABLET PO PRN ×2 (11:07→17:43)
[2016-07-12] MEDS: POLYETHYLENE GLYCOL 3350 119 GM BTL PO SCH (11:14)
[2016-07-12 11:25] LABS: ALBUMIN 3.7 g/dl (3.4-5.0); ANION GAP 9 (8-16); BILIRUBIN,TOTAL 0.5 mg/dL (0.2-1.0); CALCIUM 9.7 mg/dL (8.5-10.1); CHOLESTEROL 189 mg/dL (50-200); CO2 33 mmol/L (21-32); CREATININE 0.9 mg/dL (0.55-1.02); GLUCOSE,RANDOM 86 mg/dL (74-106); SGOT/AST 17 U/L (15-37); SGPT/ALT 12 U/L (12-78); TOT PROT 6.4 g/dl (6.4-8.2)
[2016-07-12 11:28] LABS: ALK PHOS 68 U/L (45-117); TROPONIN I < 0.02 ng/ml (0.00-0.05)
[2016-07-12 11:31] LABS: LDL CHOLESTEROL (ONLY SJRH) 68 mg/dL (5-100)
[2016-07-12] MEDS: ACETAMINOPHEN 325 MG TABLET (FP) PO PRN ×2 (17:44→23:57)
[2016-07-12] MEDS: ZOLPIDEM TARTRATE 5 MG TABLET PO PRN (21:56)
[2016-07-12] MEDS: DOXEPIN HCL 25 MG CAPSULE PO SCH (21:56)
[2016-07-12] MEDS: ATORVASTATIN CA 40 MG TABLET (FP) PO SCH (21:57)
[2016-07-13 07:19] LABS: BASOPHIL 1.3 % (0-2.0); EOSINOPHIL 4.3 % (0-4.5); MCH 32.3 pg (25.7-33.7); MCHC 34.1 g/dl (32.0-36.0); MEAN CELL VOLUME 94.7 fl (80-96); MEAN PLT VOLUME 8.6 fl (7.5-11.1); NEUTROPHILS 44.8 % (42.8-82.8); PLATELET COUNT 161 K/MM3 (134-434); WHITE BLOOD COUNT 4.7 K/mm3 (4.0-10.0)
[2016-07-13 07:44] LABS: ALBUMIN 3.2 g/dl (3.4-5.0); ALK PHOS 54 U/L (45-117); ANION GAP 4 (8-16); BILIRUBIN,TOTAL 0.3 mg/dL (0.2-1.0); CALCIUM 9.1 mg/dL (8.5-10.1); CO2 36 mmol/L (21-32); CREATININE 0.8 mg/dL (0.55-1.02); GLUCOSE,RANDOM 93 mg/dL (74-106); SGOT/AST 12 U/L (15-37); SGPT/ALT 13 U/L (12-78); TOT PROT 5.9 g/dl (6.4-8.2)
[2016-07-13] MEDS ORDERED: DULoxetine HCL 30 MG CAPSULE.DR (FP) PO SCH (10:00)
[2016-07-13] MEDS: RANOLAZINE E.R. 500 MG TABLET (FP) PO SCH (10:02)
[2016-07-13] MEDS: PANTOPRAZOLE SODIUM 100 ML IVPB SCH (10:02)
[2016-07-13] MEDS: levETIRAcetam 250 MG TABLET (FP) PO SCH (10:03)
[2016-07-13] MEDS: METOPROLOL SUCCINATE 25 MG TAB.SR.24H (FP) PO SCH (10:03)
[2016-07-13] MEDS: CHOLECALCIFEROL (VITAMIN D3) 1,000 UNIT TABLET (FP) PO SCH (10:03)
[2016-07-13] MEDS: CYANOCOBALAMIN 1,000 MCG TABLET (FP) PO SCH (10:04)
[2016-07-13] MEDS: oxyCODONE HCL 5 MG TABLET PO PRN (10:04)
[2016-07-13] MEDS: POLYETHYLENE GLYCOL 3350 119 GM BTL PO SCH (10:05)
[2016-07-13] MEDS: HEPARIN NA (PORCINE) 5,000 UNITS/ML 1ML VIAL SQ SCH (10:05)
[2016-07-13] MEDS ORDERED: PT OWN MED DRAWER 7, Y5N ONE (13:39)
[2016-07-13] MEDS ORDERED: metroNIDAZOLE 250 MG TABLET PO SCH (14:00)
[2016-07-13 14:50] VITALS: BP 111/67; PULSE 85; TEMP 99.3
--- NOTE | 2016-07-13 16:29 | DS ---
Physical Examination Vital Signs: Vital Signs Temperature 99.3 F 07/13/16 14:00 Pulse Rate 85 07/13/16 14:00 Respiratory Rate 20 07/13/16 14:00 Blood Pressure 111/67 07/13/16 14:00 O2 Sat by Pulse Oximetry (%) 96 07/12/16 21:00 Constitutional: Yes: No Distress Eyes: Yes: WNL HENT: Yes: WNL Neck: Yes: WNL Cardiovascular: Yes: WNL Respiratory: Yes: WNL Gastrointestinal: Yes: WNL ...Rectal Exam: Yes: WNL Renal/: Yes: WNL Breast(s): Yes: WNL Musculoskeletal: Yes: WNL Extremities: Yes: WNL Edema: No Peripheral Pulses WNL: Yes Integumentary: Yes: WNL Wound/Incision: Yes: Clean/Dry Neurological: Yes: WNL ...Motor Strength: WNL Psychiatric: Yes: WNL Labs: CBC, BMP 07/13/16 05:35 07/13/16 05:35 Discharge Summary Reason For Visit: CHEST PAIN Current Active Problems Adult behavior problem (Acute) Chest pain (Acute) Dehydration (Acute) Epigastric abdominal pain (Acute) Fall at home (Acute) Seizure disorder (Acute) UTI (urinary tract infection) (Acute) Procedures: Principal: mrcp no acute mass/normal Other Procedures: labs/sono Hospital Course: admitted worked up for abd and chest pain, mrcp shows no acute mass but may need to repeat as outpatient with contrast if symptoms persist. see gi dr monteiro as outpatient, see pmd in 1 week. stress test outpatient. Condition: Improved - Instructions Diet, Activity, Other Instructions: soft kayce Referrals: Kulwant Bianchi MD [Primary Care Provider] - Disposition: HOME - Home Medications Comprehensive Discharge Medication List: Ambulatory Orders Albuterol Sulfate Inhaler - [Ventolin HFA Inhaler -] 1 - 2 inh PO QID PRN #1 inhaler 07/02/14 Duloxetine HCl [Cymbalta -] 60 mg PO DAILY 07/02/14 Albuterol Sulfate 0.042% [Ventolin 0.042% (Half-Strength) -] 1 neb PO QID Cyanocobalamin [Vitamin B12 -] 1,000 mcg PO DAILY 07/16/14 Ranolazine [Ranexa] 500 mg PO BID 07/16/14 Doxepin HCl [Sinequan -] 25 mg PO HS 05/28/15 Acetaminophen [Tylenol .Regular Strength -] 650 mg PO Q4H PRN #0 tablet Alprazolam [Xanax] 1 mg PO HS PRN #0 06/01/15 Bacitracin - [Bacitracin Topical Ointment -] 1 applic TP BID #1 tube 06/01/15 Cholecalciferol (Vitamin D3) [Vitamin D3 -] 1,000 unit PO DAILY #30 tab Levetiracetam [Keppra -] 750 mg PO BID #180 tablet 06/01/15 Metoprolol Succinate [Toprol XL -] 12.5 mg PO DAILY #30 tab.sr.24h 06/01/15 Oxycodone HCl [Roxicodone -] 2.5 mg PO Q6H PRN #10 tablet 06/01/15 Polyethylene Glycol 3350 [Miralax 119 gm Btl -] 17 gm PO DAILY #1 bottle Zolpidem Tartrate [Ambien] 5 mg PO HS PRN #30 tablet 06/01/15 Aspirin Coated [Ecotrin -] 325 mg PO DAILY 07/13/16 Atorvastatin Ca [Lipitor] 40 mg PO HS #30 tablet 07/13/16 Metoclopramide HCl [Reglan -] 5 mg PO TIDAC #30 tablet 07/13/16 Nitrofurantoin Macrocrystal [Macrodantin -] 100 mg PO QID #12 07/13/16 Pantoprazole Sodium [Protonix 40Mg Ivpb (Pre-Docked)] 100 ml IVPB BID #30 bag
[2016-07-13] MEDS ORDERED: METOCLOPRAMIDE HCL 10 MG TABLET (FP) PO SCH (16:30)
--- NOTE | 2016-07-13 18:05 | PN ---
GI Progress Note Subjective: reviwed chart,patient still with epigastric pain, MRCP --dilated Gallb ladder with mildly dilated CBD, lfts, normal - Objective Vital Signs: Vital Signs Temperature 99.3 F 07/13/16 14:00 Pulse Rate 85 07/13/16 14:00 Respiratory Rate 20 07/13/16 14:00 Blood Pressure 111/67 07/13/16 14:00 O2 Sat by Pulse Oximetry (%) 96 07/12/16 21:00 Constitutional: Well Nourished Eyes: Yes: Conjunctiva Clear HENT: Yes: Atraumatic Neck: Yes: Supple Cardiovascular: Yes: Regular Rate and Rhythm Respiratory: Yes: CTA Bilaterally ...Palpate: Yes: Soft, Tenderness, Epigastium. No: Firm/Rigid, Guarding, Hepatomegaly, Mass, Pulsatile Mass Labs: CBC, BMP 07/13/16 05:35 07/13/16 05:35 INR, PTT INR 0.91 (0.82-1.09) 07/10/16 21:30 Problem List - Problems (1) Sphincter of Oddi dysfunction Assessment/Plan: abdominal ultrasound in 2013 had similar dilated CBD R> will continue conservative management if pain persists will need sphincter of oddi manommetry Code(s): K83.4 - SPASM OF SPHINCTER OF ODDI
== END 2016-07-13 17:15 | disposition home or self-care (01) | DRG 445 ==
LOC: JER 20:57 → JERBED 23:21 → J4W 07-11 01:29
PROVIDERS: ADMIT Family Medicine; ATTEND Family Medicine
DX: K83.4 Spasm of sphincter of Oddi (principal); N39.0 Urinary tract infection, site not specified; R07.89 Other chest pain; I25.10 Atherosclerotic heart disease of native coronary artery without angina pectoris; I48.91 Unspecified atrial fibrillation; I25.2 Old myocardial infarction; J44.9 Chronic obstructive pulmonary disease, unspecified; E86.0 Dehydration; J45.909 Unspecified asthma, uncomplicated; E11.9 Type 2 diabetes mellitus without complications; F17.210 Nicotine dependence, cigarettes, uncomplicated; R10.13 Epigastric pain; G40.909 Epilepsy, unspecified, not intractable, without status epilepticus; Z95.5 Presence of coronary angioplasty implant and graft
CPT/HCPCS: 36415; 71010-TC; 74182-TC; 76700-TC; 80053; 80061; 81003; 81015; 82550; 83036; 83605; 83690; 83721; 83735; 83880; 84100; 84484; 85025; 85610; 86301; 86850; 86900; 86901; 87040; 87086; 93005; 93010; 99285-25; A9576; J1644

== ENCOUNTER 2016-11-17 18:19 | Inpatient (IN) | payer OTHER ==
--- NOTE | 2016-11-17 20:25 | PDOC ---
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 History obtained from the patient is contradictory to that which is obtained by the daughters. The patient herself notes that for the past couple of weeks, she has been having more seizures, wetting her bed (very abnormal for her), having difficulty balancing and walking, and falling more frequently. She notes headache, vision changes (everything appears white), tingling in her fingers, and mild left-sided weakness. She notes memory problems which are worsening. She also notes recent productive cough, but denies any fever, chills, nausea, vomiting, diarrhea, constipation, abdominal pain, chest pain, palpitations, or shortness of breath. The daughters' recollection of their mother's recent change in health begins with increase in her alcohol consumption and self-administered narcotic pain medications. They state she is drinking up to 20 beers a day, hiding pain medications from family and her home health aid, and taking excessive pain medications. They note her memory has worsened significantly and she has had difficulty speaking, worsening over the past two weeks. Per their report, she has become paranoid that they are trying to take her money and control her. The only physical signs they note are different are a worsened cough with sputum production. Past History - Past Medical History Allergies/Adverse Reactions: Allergies Allergy/AdvReac Type Severity Reaction Status Date / Time No Known Allergies Allergy Verified 11/17/16 18:30 Home Medications: Ambulatory Orders Albuterol Sulfate Inhaler - [Ventolin HFA Inhaler -] 1 - 2 inh PO QID PRN #1 inhaler 07/02/14 Duloxetine HCl [Cymbalta -] 60 mg PO DAILY 07/02/14 Albuterol Sulfate 0.042% [Ventolin 0.042% (Half-Strength) -] 1 neb PO QID Cyanocobalamin [Vitamin B12 -] 1,000 mcg PO DAILY 07/16/14 Ranolazine [Ranexa] 500 mg PO BID 07/16/14 Doxepin HCl [Sinequan -] 25 mg PO HS 05/28/15 Alprazolam [Xanax] 1 mg PO HS PRN #0 06/01/15 Cholecalciferol (Vitamin D3) [Vitamin D3 -] 1,000 unit PO DAILY #30 tab Levetiracetam [Keppra -] 750 mg PO BID #180 tablet 06/01/15 Metoprolol Succinate [Toprol XL -] 12.5 mg PO DAILY #30 tab.sr.24h 06/01/15 Oxycodone HCl [Roxicodone -] 2.5 mg PO Q6H PRN #10 tablet 06/01/15 Polyethylene Glycol 3350 [Miralax 119 gm Btl -] 17 gm PO DAILY #1 bottle Zolpidem Tartrate [Ambien] 5 mg PO HS PRN #30 tablet 06/01/15 Aspirin Coated [Ecotrin -] 325 mg PO DAILY 07/13/16 Atorvastatin Ca [Lipitor] 40 mg PO HS #30 tablet 07/13/16 Metoclopramide HCl [Reglan -] 5 mg PO TIDAC #30 tablet 07/13/16 Cardiac Disorders: Yes (cardiac stent, CAD, [place]) COPD: Yes CHF: No Diabetes: Yes GI Disorders: Yes (gallstones) HTN: Yes Hypercholesterolemia: Yes Psychiatric Problems: Yes (ANXIETY) Suicide Attempt (Hx): No Seizures: Yes - Surgical History Cardiac Surgery: Yes - Immunization History Immunization Up to Date: No - Psycho/Social/Smoking Cessation Hx Anxiety: No Suicidal Ideation: No Smoking Status: Yes Smoking History: Current some day smoker Have you smoked in the past 12 months: Yes Number of Cigarettes Smoked Daily: 10 Information on smoking cessation initiated: No 'Breaking Loose' booklet given: 05/28/15 Hx Alcohol Use: No Drug/Substance Use Hx: No Substance Use Type: None Hx Substance Use Treatment: No Review of Systems - Review of Systems Able to Perform ROS?: Yes (some memory issues) Constitutional: Yes: Weakness. No: Chills, Fever, Unexplained wgt Loss HEENTM: Yes: Recent change in vision. No: Nose Congestion, Throat Pain Respiratory: Yes: Cough, Shortness of Breath Cardiac (ROS): No: Chest Pain, Palpitations ABD/GI: No: Constipated, Diarrhea, Nausea, Vomiting : No: Burning, Dysuria Musculoskeletal: No: Back Pain, Neck Pain Integumentary: No: Bruising, Rash Neurological: Yes: Headache, Seizure, Tingling, Weakness (mild left-sided), Dizziness, Other (bed wetting). No: Numbness Psychiatric: Yes: Depression Endocrine: No: Unexplained Weight Gain, Unexplained Weight Loss *Physical Exam - Vital Signs Last Vital Signs Temp Pulse Resp BP Pulse Ox 98.5 F 83 18 107/70 100 11/17/16 18:20 11/17/16 18:20 11/17/16 18:20 11/17/16 18:20 11/17/16 18:20 - Physical Exam General Appearance: Yes: Thin, Other. No: Apparent Distress HEENT: positive: EOMI, Normal Voice, Hearing Grossly Normal. negative: Scleral Icterus (R), Scleral Icterus (L), Nasal Congestion Neck: positive: Trachea midline, Supple. negative: Tender, Rigid Respiratory/Chest: positive: Lungs Clear, Normal Breath Sounds. negative: Respiratory Distress, Crackles, Rhonchi, Stridor, Wheezing Cardiovascular: positive: Regular Rhythm, Regular Rate. negative: Murmur Gastrointestinal/Abdominal: positive: Normal Bowel Sounds, Soft. negative: Tender, Organomegaly, Pulsatile Mass, Guarding Musculoskeletal: positive: Normal Inspection. negative: Decreased Range of Motion, Vertebral Tenderness Extremity: positive: Normal Capillary Refill, Normal Inspection, Normal Range of Motion. negative: Tender, Cyanosis Integumentary: positive: Normal Color, Dry, Warm. negative: Erythema, Rash, Bruising Neurologic: positive: county ordinary II-XII NML intact (slight left-sided facial droop stated to be chronic), Alert, Normal Mood/Affect, Normal Response, Motor Strength 5/5, Finger to Nose (normal), Disoriented (oriented to own name, birthday, hospital name, and city, but believes this is February), Other (no pronator drift) Heart Score/ECG Review #1 ECG reviewed & interpreted by me at: 20:50 NSR, rate of 79, old septal infarct ED Treatment Course - LABORATORY CBC & Chemistry Diagram: 11/17/16 20:48 11/17/16 20:48 Medical Decision Making - Medical Decision Making 61 yo female with h/o CVA p/w word-finding difficulty, balance issues, multiple falls, wetting bed x2 weeks. DDX includes Wenicke's encephalopathy, CVA, substance abuse, dementia, infection (e.g. UTI, pneumonia). Workup w/ CBC, CMP, Mg, UA, urine cx, UDS, serum acetaminophen, CXR, non- contrast head CT. Ordered are 1 L IVF NS, thiamine, folate. 11/17/16 23:16 UA clean catch shows leukocyte esterase but many squamous cells. Will give empiric abx but order straight cath specimen UA and culture as well. Spoke with daughter on the phone who expresses deep concern and requests admission. Plan is to admit for further management and long-term care planning. *DC/Admit/Observation/Transfer Diagnosis at time of Disposition: Depression with suicidal ideation, Dizziness Opiate dependence Qualifiers: Substance use status: uncomplicated Qualified Code(s): F11.20 - Opioid dependence, uncomplicated UTI (urinary tract infection) Qualifiers: Urinary tract infection type: acute cystitis Hematuria presence: without hematuria Qualified Code(s): N30.00 - Acute cystitis without hematuria - Discharge Dispostion Condition at time of disposition: Guarded Admit: Yes - Attestations Physician Attestion: 11/17/16 23:56 I, Dr. Milla Leal, attest that this document has been prepared under my direction and personally reviewed by me in its entirety. I further attest, that it accurately reflects all work, treatment, procedures and medical decision -making performed by me.
[2016-11-17] MEDS ORDERED: THIAMINE HCL 200 MG/2 ML VIAL IVPB ONE (20:31)
[2016-11-17] MEDS ORDERED: SODIUM CHLORIDE 500 ML IV STA (20:31)
[2016-11-17] MEDS ORDERED: FOLIC ACID 5 MG/1 ML IVPB ONE (20:31)
[2016-11-17 21:19] LABS: URINE APPEARANCE CLOUDY; URINE BILIRUBIN NEGATIVE (NEGATIVE); URINE BLOOD NEGATIVE (NEGATIVE); URINE COLOR YELLOW; URINE GLUCOSE (UA) NEGATIVE (NEGATIVE); URINE KETONE NEGATIVE (NEGATIVE); URINE NITRITE NEGATIVE (NEGATIVE); URINE PROTEIN NEGATIVE (NEGATIVE); URINE UROBILINOGEN NEGATIVE mg/dL (0.2-1.0)
[2016-11-17 21:23] LABS: BASOPHIL 0.4 % (0-2.0); EOSINOPHIL 3.2 % (0-4.5); MCH 31.5 pg (25.7-33.7); MCHC 33.7 g/dl (32.0-36.0); MEAN CELL VOLUME 93.3 fl (80-96); MEAN PLT VOLUME 9.6 fl (7.5-11.1); NEUTROPHILS 62.3 % (42.8-82.8); PLATELET COUNT 178 K/MM3 (134-434); RDW 14.8 % (11.6-15.6); WHITE BLOOD COUNT 7.3 K/mm3 (4.0-10.0)
[2016-11-17 21:29] LABS: URINE LEUK ESTERASE 1+ (NEGATIVE)
[2016-11-17] MEDS ORDERED: FOLIC ACID INJECTION - 1 MG, THIAMINE HCL 100 MG, MULTIVIT INJECTION ADULT 10 ML in SOD... IVPB ONE (21:30)
[2016-11-17 21:38] LABS: URINE MARIJUANA THC NEGATIVE ng/ml (CUTOFF=50)
[2016-11-17 21:54] LABS: ALBUMIN 3.4 g/dl (3.4-5.0); ANION GAP 6 (8-16); CALCIUM 9.2 mg/dL (8.5-10.1); CO2 33 mmol/L (21-32); CREATININE 0.8 mg/dL (0.55-1.02); GLUCOSE,RANDOM 79 mg/dL (74-106); SGPT/ALT 20 U/L (12-78)
[2016-11-17 21:55] LABS: URINE BACTERIA FEW /hpf (NONE SEEN); URINE MUCUS RARE; URINE RBC 4 /hpf (0-3); URINE WBC 19 /hpf (3-5)
[2016-11-17 21:56] LABS: ALK PHOS 70 U/L (45-117); BILIRUBIN,TOTAL 0.3 mg/dL (0.2-1.0); TOT PROT 6.5 g/dl (6.4-8.2)
[2016-11-17 21:57] LABS: MAGNESIUM 2.5 mg/dL (1.8-2.4); SGOT/AST 22 U/L (15-37)
[2016-11-18] MEDS ORDERED: CEFAZOLIN 1 GM in DEXTROSE 5%-WATER - 50 ML IVPB ONE (00:03)
--- NOTE | 2016-11-18 01:29 | PDOC ---
Attending Attestation - Resident Resident Name: ElvisMilla - ED Attending Attestation I have performed the following: I have examined & evaluated the patient, The case was reviewed & discussed with the resident, I agree w/resident's findings & plan, Exceptions are as noted - HPI HPI: 11/18/16 01:23 61-year-old female with multiple comorbidities, history of opiate dependence, psychiatric illness is brought in by EMS for numerous complaints including generalized weakness, malaise, frequent falls, ataxia, increased forgetfulness, confusion, and suicidal ideations. - Physicial Exam PE: 11/18/16 01:25 Patient's awake and alert, oriented to self and place but not date, follows commands, moving all tremors symmetrically. There is no evidence of meningismus. Lungs are clear, serial abdominal exams reveal no focal tenderness. There is no petechial rash lower extremity deformity. - Medical Decision Making 11/18/16 01:28 61-year-old female with multiple comorbidities, history of appeared dependence presents to the ER with confusion, ataxia, frequent falls, and suicidal ideations. CT of head shows no evidence of acute intracranial pathology. Chest x -ray reveals no evidence of infiltrate or effusion. EKG reveals no evidence of acute ischemia or arrhythmia. CBC/CMP are within normal limit. Urinalysis reveals numerous WBCs but also many epithelial cells. Urine toxicology screen reveals opiates only. Will treat for urinary tract infection. We'll administer thiamine for possible Wernicke's encephalopathy given history of heavy alcohol use. Will admit for further evaluation and treatment.
[2016-11-18] MEDS ORDERED: CEFAZOLIN (PRE-DOCKED) 50 ML IVPB ONE (02:58)
[2016-11-18 03:45] VITALS: BMI 17.9
[2016-11-18] MEDS ORDERED: FOLIC ACID INJECTION - 1 MG, THIAMINE HCL 100 MG, MULTIVIT INJECTION ADULT 10 ML in SOD... IVPB ONE (06:12)
[2016-11-18] MEDS ORDERED: ACETAMINOPHEN 325 MG TABLET (FP) PO PRN (06:12)
[2016-11-18] MEDS ORDERED: ALBUTEROL SO4 0.083% IH SOL 2.5 MG/3 ML VIAL.NEB. NEB PRN (06:15)
--- NOTE | 2016-11-18 08:50 | CON.NEURO ---
Consult - History of Present Illness History of Present Illness: 61-year-old female with multiple comorbidities, history of opiate dependence, psychiatric illness is brought in by EMS for numerous complaints including generalized weakness, malaise, frequent falls, ataxia, increased forgetfulness, confusion, and suicidal ideations (as per chart) As per her she states she fell down stairs and became confused,; unclear if she hit her head; she denies drugs, last ETOH was mother day; she denies medication overuse or opiods. she states she ahs been sad since her twin two yrs ago, lsoing weight etc,- has psychiatrist as oupt. she appaers cooperative now. wants to go home. 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 No: AFIB Pulmonary: Yes: Asthma, COPD ...: No Endocrine: Yes: Diabetes Mellitus - Past Surgical History Past Surgical History: Yes: Hysterectomy, Stent - Alcohol/Substance Use Hx Alcohol Use: No History of Substance Use: reports: None - Smoking History Smoking history: Current some day smoker Have you smoked in the past 12 months: Yes Aproximately how many cigarettes per day: 10 - Social History Usual Living Arrangement: Alone ADL: Independent History of Recent Travel: No Home Medications - Allergies Allergies/Adverse Reactions: Allergies Allergy/AdvReac Type Severity Reaction Status Date / Time No Known Allergies Allergy Verified 11/17/16 18:30 - Home Medications Home Medications: Ambulatory Orders Albuterol Sulfate Inhaler - [Ventolin HFA Inhaler -] 1 - 2 inh PO QID PRN #1 inhaler 07/02/14 Duloxetine HCl [Cymbalta -] 60 mg PO DAILY 07/02/14 Albuterol Sulfate 0.042% [Ventolin 0.042% (Half-Strength) -] 1 neb PO QID Cyanocobalamin [Vitamin B12 -] 1,000 mcg PO DAILY 07/16/14 Ranolazine [Ranexa] 500 mg PO BID 07/16/14 Doxepin HCl [Sinequan -] 25 mg PO HS 05/28/15 Alprazolam [Xanax] 1 mg PO HS PRN #0 06/01/15 Cholecalciferol (Vitamin D3) [Vitamin D3 -] 1,000 unit PO DAILY #30 tab Levetiracetam [Keppra -] 750 mg PO BID #180 tablet 06/01/15 Metoprolol Succinate [Toprol XL -] 12.5 mg PO DAILY #30 tab.sr.24h 06/01/15 Oxycodone HCl [Roxicodone -] 2.5 mg PO Q6H PRN #10 tablet 06/01/15 Polyethylene Glycol 3350 [Miralax 119 gm Btl -] 17 gm PO DAILY #1 bottle Zolpidem Tartrate [Ambien] 5 mg PO HS PRN #30 tablet 06/01/15 Aspirin Coated [Ecotrin -] 325 mg PO DAILY 07/13/16 Atorvastatin Ca [Lipitor] 40 mg PO HS #30 tablet 07/13/16 Metoclopramide HCl [Reglan -] 5 mg PO TIDAC #30 tablet 07/13/16 Family Disease History - Family Disease History Family Disease History: Diabetes: Father, Other: Mother (alzheimers), Sister (3 strokes) Physical Exam-Neuro Vital Signs: Vital Signs Temperature 98.5 F 11/18/16 06:01 Pulse Rate 77 11/18/16 06:01 Respiratory Rate 18 11/18/16 06:01 Blood Pressure 104/53 11/18/16 06:01 O2 Sat by Pulse Oximetry (%) 100 11/18/16 00:38 Constitutional: Yes: Well Nourished, No Distress, Calm Neck: Yes: Supple Labs: CBCD WBC 7.3 K/mm3 (4.0-10.0) D 11/17/16 20:48 RBC 3.91 M/mm3 (3.60-5.2) 11/17/16 20:48 Hgb 12.3 GM/dL (10.7-15.3) 11/17/16 20:48 Hct 36.5 % (32.4-45.2) 11/17/16 20:48 MCV 93.3 fl (80-96) 11/17/16 20:48 MCHC 33.7 g/dl (32.0-36.0) 11/17/16 20:48 RDW 14.8 % (11.6-15.6) 11/17/16 20:48 Plt Count 178 K/MM3 (134-434) 11/17/16 20:48 MPV 9.6 fl (7.5-11.1) D 11/17/16 20:48 CMP Sodium 141 mmol/L (136-145) 11/17/16 20:48 Potassium 5.0 mmol/L (3.5-5.1) D 11/17/16 20:48 Chloride 102 mmol/L (98-107) 11/17/16 20:48 Carbon Dioxide 33 mmol/L (21-32) H 11/17/16 20:48 Anion Gap 6 (8-16) L 11/17/16 20:48 BUN 14 mg/dL (7-18) D 11/17/16 20:48 Creatinine 0.8 mg/dL (0.55-1.02) 11/17/16 20:48 Creat Clearance w eGFR > 60 (>60) 11/17/16 20:48 Calcium 9.2 mg/dL (8.5-10.1) 11/17/16 20:48 Total Bilirubin 0.3 mg/dL (0.2-1.0) 11/17/16 20:48 AST 22 U/L (15-37) D 11/17/16 20:48 ALT 20 U/L (12-78) D 11/17/16 20:48 Alkaline Phosphatase 70 U/L (45-117) D 11/17/16 20:48 Total Protein 6.5 g/dl (6.4-8.2) 11/17/16 20:48 Albumin 3.4 g/dl (3.4-5.0) 11/17/16 20:48 - Neuro Exam Level Of Consciousness: Yes: Alert, Oriented to Person, Oriented to Place (awake , alert , oriented to perosnn, place, month, yr, president, calm and cooperative ; EOMI, no Facial, motor : 5/5, no drift, no tremor or asterixis, reflxes symmetric) NIH Stroke Scale - Total Score NIH Stroke Scale Score: 0 Imaging - Results Cat Scan: Report Reviewed, Image Reviewed Assessment/Plan 61-year-old female with multiple comorbidities, history of opiate dependence, psychiatric illness is brought in by EMS for numerous complaints including generalized weakness, malaise, frequent falls, ataxia, increased forgetfulness, confusion, and suicidal ideations (as per chart) As per her she states she fell down stairs and became confused,; unclear if she hit her head; she denies drugs, last ETOH was mother day; she denies medication overuse or opiods. she states she ahs been sad since her twin two yrs ago, lsoing weight etc,- has psychiatrist as oupt. she appears cooperative now. wants to go home. CT Hd (-), no focal exam ? psychotic breakdown, no signs of drug toxicity, stroke, meningitis , seizures etc; labs WNL not sure why she is on keppra though may maintain for now tox screen +opioid -no signs of withdrawl suspect she is close to baseline now PSYCH FU /addiction medicine Dr Gomez [phone]
[2016-11-18] MEDS ORDERED: levETIRAcetam 500 MG TABLET (FP) PO SCH (10:00)
[2016-11-18 10:08] LABS: LDL CHOLESTEROL (ONLY SJRH) 60 mg/dL (5-100)
--- NOTE | 2016-11-18 10:10 | HP ---
Admitting History and Physical - Primary Care Physician PCP: Kulwant Bianchi - Admission Chief Complaint: AMS/UTI History of Present Illness: 61 Y/O FEMALE HISTORY OF ETOH/SUBS ABUSE PRESENTS TO ED WITH FAMILY C/O CONFUSION, MEMORY LOSS, AND AGITATED. PATIENT WITH HTN, OA, ON TYLENOL #3 OUT PATIENT. SEIZURE HISTORY UNCLEAR, NEUROLOGY CONSULT CALLED FOR WORKUP. 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 No: CVA Cardiovascular: Yes: CAD, HTN, Other (PCI STENT). No: AFIB Pulmonary: Yes: Asthma, COPD ...: No Endocrine: Yes: Diabetes Mellitus - Past Surgical History Past Surgical History: Yes: Hysterectomy, Stent - Smoking History Smoking history: Current some day smoker Have you smoked in the past 12 months: Yes Aproximately how many cigarettes per day: 10 - Alcohol/Substance Use Hx Alcohol Use: No History of Substance Use: reports: None - Social History ADL: Independent History of Recent Travel: No Home Medications - Allergies Allergies/Adverse Reactions: Allergies Allergy/AdvReac Type Severity Reaction Status Date / Time No Known Allergies Allergy Verified 11/17/16 18:30 - Home Medications Home Medications: Ambulatory Orders Albuterol Sulfate Inhaler - [Ventolin HFA Inhaler -] 1 - 2 inh PO QID PRN #1 inhaler 07/02/14 Duloxetine HCl [Cymbalta -] 60 mg PO DAILY 07/02/14 Albuterol Sulfate 0.042% [Ventolin 0.042% (Half-Strength) -] 1 neb PO QID Cyanocobalamin [Vitamin B12 -] 1,000 mcg PO DAILY 07/16/14 Ranolazine [Ranexa] 500 mg PO BID 07/16/14 Doxepin HCl [Sinequan -] 25 mg PO HS 05/28/15 Alprazolam [Xanax] 1 mg PO HS PRN #0 06/01/15 Cholecalciferol (Vitamin D3) [Vitamin D3 -] 1,000 unit PO DAILY #30 tab Levetiracetam [Keppra -] 750 mg PO BID #180 tablet 06/01/15 Metoprolol Succinate [Toprol XL -] 12.5 mg PO DAILY #30 tab.sr.24h 06/01/15 Oxycodone HCl [Roxicodone -] 2.5 mg PO Q6H PRN #10 tablet 06/01/15 Polyethylene Glycol 3350 [Miralax 119 gm Btl -] 17 gm PO DAILY #1 bottle Zolpidem Tartrate [Ambien] 5 mg PO HS PRN #30 tablet 06/01/15 Aspirin Coated [Ecotrin -] 325 mg PO DAILY 07/13/16 Atorvastatin Ca [Lipitor] 40 mg PO HS #30 tablet 07/13/16 Metoclopramide HCl [Reglan -] 5 mg PO TIDAC #30 tablet 07/13/16 Family Disease History - Family Disease History Family Disease History: Diabetes: Father, Other: Mother (alzheimers), Sister (3 strokes) Review of Systems - Review of Systems Constitutional: reports: Loss of Appetite, Weakness Eyes: reports: No Symptoms HENT: reports: No Symptoms Neck: reports: No Symptoms Cardiovascular: reports: No Symptoms Respiratory: reports: No Symptoms Gastrointestinal: reports: Abdominal Pain Genitourinary: reports: Frequency Breasts: reports: No Symptoms Reported Musculoskeletal: reports: No Symptoms, Extremity Pain Integumentary: reports: No Symptoms Neurological: reports: Pre-Existing Deficit Endocrine: reports: No Symptoms Hematology/Lymphatic: reports: No Symptoms Psychiatric: reports: Anxiety, Depression, Panic, Paranoia Physical Examination Vital Signs: Vital Signs Temperature 98.5 F 11/18/16 06:01 Pulse Rate 77 11/18/16 06:01 Respiratory Rate 18 11/18/16 06:01 Blood Pressure 104/53 11/18/16 06:01 O2 Sat by Pulse Oximetry (%) 100 11/18/16 00:38 Findings/Remarks: in bed. urinary frequency Constitutional: Yes: Mild Distress Eyes: Yes: WNL HENT: Yes: WNL Neck: Yes: WNL Cardiovascular: Yes: WNL Respiratory: Yes: WNL Gastrointestinal: Yes: WNL Renal/: Yes: WNL Musculoskeletal: Yes: Back Pain Extremities: Yes: WNL Edema: No Peripheral Pulses WNL: Yes Integumentary: Yes: WNL Wound/Incision: Yes: Clean/Dry Neurological: Yes: Pre-Existing Deficit ...Motor Strength: LLE, RLE Psychiatric: Yes: Agitated, Other Problem List - Problems (1) Adult behavior problem Code(s): F69 - UNSPECIFIED DISORDER OF ADULT PERSONALITY AND BEHAVIOR (2) Alcohol dependence with uncomplicated withdrawal Code(s): F10.230 - ALCOHOL DEPENDENCE WITH WITHDRAWAL, UNCOMPLICATED (3) Depression with suicidal ideation Code(s): F32.9 - MAJOR DEPRESSIVE DISORDER, SINGLE EPISODE, UNSPECIFIED R45.851 - SUICIDAL IDEATIONS (4) Opiate dependence Code(s): F11.20 - OPIOID DEPENDENCE, UNCOMPLICATED Qualifiers: Substance use status: uncomplicated Qualified Code(s): F11.20 - Opioid dependence, uncomplicated (5) Seizure disorder Code(s): G40.909 - EPILEPSY, UNSP, NOT INTRACTABLE, WITHOUT STATUS EPILEPTICUS (6) UTI (urinary tract infection) Code(s): N39.0 - URINARY TRACT INFECTION, SITE NOT SPECIFIED Qualifiers: Urinary tract infection type: acute cystitis Hematuria presence: without hematuria Qualified Code(s): N30.00 - Acute cystitis without hematuria Assessment/Plan DR LAURYN LAW FOR SUBSTANCE ABUSE LIBRIUM TAPER THIAMINE AND FOLIC ACID LABS PSYCHIATRY AND NEURO EVAL DVT PROPHYLAXIS
[2016-11-18 10:12] LABS: CHOLESTEROL 160 mg/dL (50-200)
[2016-11-18] MEDS: METOPROLOL SUCCINATE 25 MG TAB.SR.24H (FP) PO SCH (10:57)
[2016-11-18] MEDS: RANOLAZINE E.R. 500 MG TABLET (FP) PO SCH ×2 (10:57→21:27)
[2016-11-18] MEDS: ASPIRIN 325 MG ENTERIC COATED TABLET (FP) PO SCH (10:57)
[2016-11-18] MEDS: PANTOPRAZOLE 40 MG TABLET (FP) PO SCH (10:57)
[2016-11-18] MEDS: DULoxetine HCL 30 MG CAPSULE.DR (FP) PO SCH (10:57)
[2016-11-18] MEDS: DOXEPIN HCL 25 MG CAPSULE PO SCH (10:58)
[2016-11-18] MEDS: LEVETIRACETAM 500 MG, LEVETIRACETAM 250 MG PO SCH ×2 (10:58→21:27)
--- NOTE | 2016-11-18 11:52 | EKG ---
Test Reason : Blood Pressure : / mmHG Vent. Rate : 079 BPM Atrial Rate : 079 BPM P-R Int : 146 ms QRS Dur : 086 ms QT Int : 380 ms P-R-T Axes : 065 065 079 degrees QTc Int : 435 ms NORMAL SINUS RHYTHM SEPTAL INFARCT , AGE UNDETERMINED ABNORMAL ECG WHEN COMPARED WITH ECG OF 11-JUL-2016 09:36, SEPTAL INFARCT IS NOW PRESENT Confirmed by SAMIA BORRERO, SHAHZAD ([id number]) on 11/18/2016 11:52:18 AM Referred By: Confirmed By:SHAHZAD GRACIA MD
[2016-11-18] MEDS ORDERED: chlordiazePOXIDE HCL 25 MG CAPSULE PO SCH (12:00)
[2016-11-18] MEDS ORDERED: chlordiazePOXIDE HCL 25 MG CAPSULE PO PRN (12:58)
--- NOTE | 2016-11-18 13:09 | CONSULT ---
Consult Detox [facility] Reason for Current Admission/Consult: Alcohol withdrawal sx. Referred by:: Kulwant Bianchi MD - History History of Present Illness: 61 y/o woman was BIBA to ED because her daughters were very concern about her frequent falls,memory loss and continued alcohol consumption. Pt. minimizes her alcohol intake,however it appears that her daughters are correct. 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 No: AFIB Pulmonary: Yes: Asthma, COPD ...: No Endocrine: Yes: Diabetes Mellitus - Past Surgical History Past Surgical History: Yes: Hysterectomy, Stent - Significant Medical Findings: Laboratory Results - last 24 hr 11/17/16 11/17/16 11/17/16 20:45 20:48 20:48 WBC 7.3 D RBC 3.91 Hgb 12.3 Hct 36.5 MCV 93.3 MCH 31.5 MCHC 33.7 RDW 14.8 Plt Count 178 MPV 9.6 D Neutrophils % 62.3 D Lymphocytes % 26.2 D Monocytes % 7.9 Eosinophils % 3.2 Basophils % 0.4 Sodium 141 Potassium 5.0 D Chloride 102 Carbon Dioxide 33 H Anion Gap 6 L BUN 14 D Creatinine 0.8 Creat Clearance w eGFR > 60 POC Glucometer Random Glucose 79 Hemoglobin A1c % Calcium 9.2 Magnesium 2.5 H Total Bilirubin 0.3 AST 22 D ALT 20 D Alkaline Phosphatase 70 D Total Protein 6.5 Albumin 3.4 Triglycerides Cholesterol Total LDL Cholesterol HDL Cholesterol Urine Color Urine Appearance Urine pH Ur Specific Rule Urine Protein Urine Glucose (UA) Urine Ketones Urine Blood Urine Nitrite Urine Bilirubin Urine Urobilinogen Ur Leukocyte Esterase Urine RBC Urine WBC Ur Epithelial Cells Urine Bacteria Urine Mucus Opiates Screen Methadone Screen Acetaminophen < 2.000 L Barbiturate Screen Phencyclidine Screen Ur Amphetamines Screen MDMA (Ecstasy) Screen Benzodiazepines Screen Cocaine Screen U Marijuana (THC) Screen 11/17/16 11/17/16 11/18/16 21:04 21:04 06:39 WBC RBC Hgb Hct MCV MCH MCHC RDW Plt Count MPV Neutrophils % Lymphocytes % Monocytes % Eosinophils % Basophils % Sodium Potassium Chloride Carbon Dioxide Anion Gap BUN Creatinine Creat Clearance w eGFR POC Glucometer 112 Random Glucose Hemoglobin A1c % Calcium Magnesium Total Bilirubin AST ALT Alkaline Phosphatase Total Protein Albumin Triglycerides Cholesterol Total LDL Cholesterol HDL Cholesterol Urine Color Yellow Urine Appearance Cloudy Urine pH 6.0 Ur Specific Rule 1.015 Urine Protein Negative Urine Glucose (UA) Negative Urine Ketones Negative Urine Blood Negative Urine Nitrite Negative Urine Bilirubin Negative Urine Urobilinogen Negative Ur Leukocyte Esterase 1+ H Urine RBC 4 Urine WBC 19 Ur Epithelial Cells Many Urine Bacteria Few Urine Mucus Rare Opiates Screen Positive Methadone Screen Negative Acetaminophen Barbiturate Screen Negative Phencyclidine Screen Negative Ur Amphetamines Screen Negative MDMA (Ecstasy) Screen Negative Benzodiazepines Screen Negative Cocaine Screen Negative U Marijuana (THC) Screen Negative 11/18/16 11/18/16 08:40 08:40 WBC RBC Hgb Hct MCV MCH MCHC RDW Plt Count MPV Neutrophils % Lymphocytes % Monocytes % Eosinophils % Basophils % Sodium Potassium Chloride Carbon Dioxide Anion Gap BUN Creatinine Creat Clearance w eGFR POC Glucometer Random Glucose Hemoglobin A1c % 5.7 D Calcium Magnesium Total Bilirubin AST ALT Alkaline Phosphatase Total Protein Albumin Triglycerides 173 H Cholesterol 160 Total LDL Cholesterol 60 HDL Cholesterol 81 Urine Color Urine Appearance Urine pH Ur Specific Rule Urine Protein Urine Glucose (UA) Urine Ketones Urine Blood Urine Nitrite Urine Bilirubin Urine Urobilinogen Ur Leukocyte Esterase Urine RBC Urine WBC Ur Epithelial Cells Urine Bacteria Urine Mucus Opiates Screen Methadone Screen Acetaminophen Barbiturate Screen Phencyclidine Screen Ur Amphetamines Screen MDMA (Ecstasy) Screen Benzodiazepines Screen Cocaine Screen U Marijuana (THC) Screen labs noted CIWA Score - CIWA Score Nausea/Vomitin-No Nausea/No Vomiting Muscle Tremors: 4-Moderate,w/Arms Extend Anxiety: 4-Mod. Anxious/Guarded Agitation: 3 Paroxysmal Sweats: 3 Orientation: 0-Oriented Tacttile Disturbances: 2-Mild Itch/Numbness/Burn Auditory Disturbances: 0-None Visual Disturbances: 0-None Headache: 0-None Present CIWA-Ar Total Score: 16 Assessment Plan - Diagnosis (1) Alcohol dependence with uncomplicated withdrawal Status: Acute - Medication Detox Regimen/Protocol: Librium
--- NOTE | 2016-11-18 14:28 | CONSULT ---
Consult Consult Specialty:: infectious diseases Reason for Consultation:: uti - History of Present Illness History of Present Illness: 61 yo female with h/o CVA and seizures , .. The patient mentions that for the past couple of weeks, she has been having more seizures, wetting her bed (, having difficulty balancing and walking, and falling more frequently. She notes headache, vision changes (everything appears white), tingling in her fingers, and mild left-sided weakness. She notes memory problems which are worsening. She also notes recent productive cough, but denies any fever, chills, nausea, vomiting, diarrhea, constipation, abdominal pain, chest pain, palpitations, or shortness of breath. according to the daughters' of their mother's recent change in health begins with increase in her alcohol consumption and self-administered narcotic pain medications. They state she is drinking up to 20 beers a day, hiding pain medications from family and her home health aid, and taking excessive pain medications. They note her memory has worsened significantly and she has had difficulty speaking, worsening over the past two weeks. Per their report, she has become paranoid that they are trying to take her money and control her. The only physical signs they note are different are a worsened cough with sputum production. 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 No: AFIB Pulmonary: Yes: Asthma, COPD ...: No Endocrine: Yes: Diabetes Mellitus - Past Surgical History Past Surgical History: Yes: Hysterectomy, Stent - Alcohol/Substance Use Hx Alcohol Use: No History of Substance Use: reports: None - Smoking History Smoking history: Current some day smoker Have you smoked in the past 12 months: Yes Aproximately how many cigarettes per day: 10 - Social History Usual Living Arrangement: Alone ADL: Independent History of Recent Travel: No Home Medications - Allergies Allergies/Adverse Reactions: Allergies Allergy/AdvReac Type Severity Reaction Status Date / Time No Known Allergies Allergy Verified 11/17/16 18:30 - Home Medications Home Medications: Ambulatory Orders Albuterol Sulfate Inhaler - [Ventolin HFA Inhaler -] 1 - 2 inh PO QID PRN #1 inhaler 07/02/14 Duloxetine HCl [Cymbalta -] 60 mg PO DAILY 07/02/14 Albuterol Sulfate 0.042% [Ventolin 0.042% (Half-Strength) -] 1 neb PO QID Cyanocobalamin [Vitamin B12 -] 1,000 mcg PO DAILY 07/16/14 Ranolazine [Ranexa] 500 mg PO BID 07/16/14 Doxepin HCl [Sinequan -] 25 mg PO HS 05/28/15 Alprazolam [Xanax] 1 mg PO HS PRN #0 06/01/15 Cholecalciferol (Vitamin D3) [Vitamin D3 -] 1,000 unit PO DAILY #30 tab Levetiracetam [Keppra -] 750 mg PO BID #180 tablet 06/01/15 Metoprolol Succinate [Toprol XL -] 12.5 mg PO DAILY #30 tab.sr.24h 06/01/15 Oxycodone HCl [Roxicodone -] 2.5 mg PO Q6H PRN #10 tablet 06/01/15 Polyethylene Glycol 3350 [Miralax 119 gm Btl -] 17 gm PO DAILY #1 bottle Zolpidem Tartrate [Ambien] 5 mg PO HS PRN #30 tablet 06/01/15 Aspirin Coated [Ecotrin -] 325 mg PO DAILY 07/13/16 Atorvastatin Ca [Lipitor] 40 mg PO HS #30 tablet 07/13/16 Metoclopramide HCl [Reglan -] 5 mg PO TIDAC #30 tablet 07/13/16 Family Disease History - Family Disease History Family Disease History: Diabetes: Father, Other: Mother (alzheimers), Sister (3 strokes) Review of Systems - Review of Systems Constitutional: reports: No Symptoms Eyes: reports: No Symptoms HENT: reports: No Symptoms Neck: reports: No Symptoms Cardiovascular: reports: No Symptoms Respiratory: reports: No Symptoms Gastrointestinal: reports: No Symptoms Genitourinary: reports: No Symptoms Musculoskeletal: reports: No Symptoms Integumentary: reports: No Symptoms Neurological: reports: Confusion, Other Endocrine: reports: No Symptoms Hematology/Lymphatic: reports: No Symptoms Psychiatric: reports: No Symptoms Physical Exam Vital Signs: Vital Signs Temperature 98.3 F 11/18/16 14:23 Pulse Rate 79 11/18/16 14:23 Respiratory Rate 18 11/18/16 14:23 Blood Pressure 112/63 11/18/16 14:23 O2 Sat by Pulse Oximetry (%) 100 11/18/16 11:12 Constitutional: Yes: Calm, Other Eyes: Yes: Conjunctiva Clear Cardiovascular: Yes: Regular Rate and Rhythm Respiratory: Yes: Regular, CTA Bilaterally Gastrointestinal: Yes: Normal Bowel Sounds, Soft Musculoskeletal: Yes: WNL Extremities: Yes: WNL Neurological: Yes: Alert, Other (patient stuttering) Psychiatric: Yes: Alert Imaging - Results Chest X-ray: Report Reviewed, Image Reviewed Cat Scan: Report Reviewed, Image Reviewed Assessment/Plan with her alcholo issues i also think she might have a uti as she is not bale to hold urine - Diagnosis (1) Alcohol dependence with uncomplicated withdrawal Status: Acute uti confusion neuro has seen the patient plan will start on ceftriaxone await for all cx reports
[2016-11-18] MEDS ORDERED: cefTRIAXone SODIUM 1 GM VIAL ONE (15:19)
[2016-11-18] MEDS ORDERED: DEXTROSE 5%-WATER - 50 ML IVPB ONE (15:19)
[2016-11-18] MEDS: CEFTRIAXONE 1 GM in DEXTROSE 5%-WATER - 50 ML IVPB SCH (16:31)
[2016-11-18] MEDS: chlordiazePOXIDE HCL 25 MG CAPSULE PO SCH ×2 (16:32→23:25)
[2016-11-18] MEDS ORDERED: PT OWN MED DRAWER 7, Y5N ONE (18:31)
[2016-11-18] MEDS ORDERED: CLOTRIMAZOLE 1% VAGINAL CREAM WITH APPLICATOR 45 GM TUBE VG SCH (22:00)
[2016-11-19] MEDS: chlordiazePOXIDE HCL 25 MG CAPSULE PO SCH ×2 (05:12→10:03)
[2016-11-19] MEDS ORDERED: cefTRIAXone SODIUM 1 GM VIAL ONE (09:18)
[2016-11-19] MEDS ORDERED: PT OWN MED DRAWER 7, Y5N ONE (09:18)
[2016-11-19] MEDS ORDERED: DEXTROSE 5%-WATER - 50 ML IVPB ONE (09:18)
[2016-11-19] MEDS: METOPROLOL SUCCINATE 25 MG TAB.SR.24H (FP) PO SCH (09:23)
[2016-11-19] MEDS: DOXEPIN HCL 25 MG CAPSULE PO SCH (09:23)
[2016-11-19] MEDS: PANTOPRAZOLE 40 MG TABLET (FP) PO SCH (09:23)
[2016-11-19] MEDS: RANOLAZINE E.R. 500 MG TABLET (FP) PO SCH (09:23)
[2016-11-19] MEDS: ASPIRIN 325 MG ENTERIC COATED TABLET (FP) PO SCH (09:25)
[2016-11-19] MEDS: DULoxetine HCL 30 MG CAPSULE.DR (FP) PO SCH (09:25)
[2016-11-19] MEDS: CEFTRIAXONE 1 GM in DEXTROSE 5%-WATER - 50 ML IVPB SCH (09:25)
[2016-11-19] MEDS: LEVETIRACETAM 500 MG, LEVETIRACETAM 250 MG PO SCH (09:25)
--- NOTE | 2016-11-19 10:47 | CON.PSY ---
Psychiatry Consult Chief Complaint: I dont want to kill mysalf, Life is good. My daughter telling everyone. she wants money from. My sistervdied TWO YERS AGO, I AM OK WITH IT. I dont want to . - Previous Psychiatric Treatment Outpatient: Less than 6 mos ago Inpatient: None - Previous Substance Abuse Treatment Outpatient: None - Reason for Previous Treatment Reason for Previous Treatment: Major Depression - Current Medications Current Medications: Active Medications Acetaminophen (Tylenol -) 650 mg PO Q8H PRN PRN Reason: FEVER OR PAIN Last Admin: 11/18/16 10:58 Dose: 650 mg Albuterol Sulfate (Ventolin 0.083% Nebulizer Soln -) 1 amp NEB Q8H PRN PRN Reason: SHORT OF BREATH/WHEEZING Aspirin (Ecotrin -) 325 mg PO DAILY [facility] [place] Last Admin: 11/19/16 09:25 Dose: 325 mg Chlordiazepoxide HCl (Librium -) 25 mg PO Q4H PRN PRN Reason: WITHDRAWAL(CONT SUBST) Stop: 11/21/16 12:57 Chlordiazepoxide HCl (Librium -) 50 mg PO [id number] [facility] [place] Stop: 11/19/16 11:01 Last Admin: 11/19/16 10:03 Dose: 50 mg Doxepin HCl (Sinequan -) 25 mg PO DAILY [facility] [place] Last Admin: 11/19/16 09:23 Dose: 25 mg Duloxetine HCl (Cymbalta -) 60 mg PO DAILY [facility] [place] Last Admin: 11/19/16 09:25 Dose: 60 mg Ceftriaxone Sodium 1 gm/ (Dextrose) 50 mls @ 100 mls/hr IVPB DAILY [facility] [place] Last Admin: 11/19/16 09:25 Dose: 100 mls/hr Levetiracetam 500 mg/ (Levetiracetam 250 mg) 750 mg PO BID [facility] [place] Last Admin: 11/19/16 09:25 Dose: 750 mg Metoprolol Succinate (Toprol Xl -) 12.5 mg PO DAILY [facility] [place] Last Admin: 11/19/16 09:23 Dose: 12.5 mg Pantoprazole Sodium (Protonix -) 40 mg PO DAILY [facility] [place] Last Admin: 11/19/16 09:23 Dose: 40 mg Ranolazine (Ranexa -) 500 mg PO BID [facility] [place] Last Admin: 11/19/16 09:23 Dose: 500 mg - Allergies Allergies: Allergies Allergy/AdvReac Type Severity Reaction Status Date / Time No Known Allergies Allergy Verified 11/17/16 18:30 - Current Living Status Usual Living Arrangement: Alone - Current Mental Status Evaluation Appearance: Well Groomed Attitude: Cooperative - Affect Affect: Constrictive Appropriateness: Appropriate to Content - Mood Mood: Euthymic - Speech/Language Expressive: Coherent - Psychomotor Activity Psychomotor Activity: Normal - Thought Process Thought Process: Intact - Thought Content Hallucinations: Absent Delusions: Absent - Self Perception Self Perception: No Impairment - Cognition Attention: Alert Orientation: Time Memory, Immediate Recall: Intact Memory, Short Term: 3/3 Memory, Remote with Promptin/3 - Concentration Serial Sevens Intact: No Simple Calculations Intact: No - Abstraction Proverb Interpretation: Intact Judgement: Minimally Impaired - Insight Insight: Intact - Impulse Control Impulse Control: Minimally Impaired - Suicidal Ideation Suicidal Ideation: No Assessment/Plan 1) Patient is not suicidal at this time. 2) d/C 1:1 3) D/C Librium yohannes call , patient is very sedated. give Librium Prn if needed. 4) Discharge when medically stable. 5) Follow up at [facility]. Gsa an appointment on Tuesday.
--- NOTE | 2016-11-19 13:01 | PN ---
Progress Note, Physician History of Present Illness: patient looking much better no events - Current Medication List Current Medications: Active Medications Acetaminophen (Tylenol -) 650 mg PO Q8H PRN PRN Reason: FEVER OR PAIN Last Admin: 11/18/16 10:58 Dose: 650 mg Albuterol Sulfate (Ventolin 0.083% Nebulizer Soln -) 1 amp NEB Q8H PRN PRN Reason: SHORT OF BREATH/WHEEZING Aspirin (Ecotrin -) 325 mg PO DAILY [facility] Last Admin: 11/19/16 09:25 Dose: 325 mg Chlordiazepoxide HCl (Librium -) 25 mg PO Q4H PRN PRN Reason: WITHDRAWAL(CONT SUBST) Stop: 11/21/16 12:57 Doxepin HCl (Sinequan -) 25 mg PO DAILY [facility] Last Admin: 11/19/16 09:23 Dose: 25 mg Duloxetine HCl (Cymbalta -) 60 mg PO DAILY [facility] Last Admin: 11/19/16 09:25 Dose: 60 mg Ceftriaxone Sodium 1 gm/ (Dextrose) 50 mls @ 100 mls/hr IVPB DAILY [facility] Last Admin: 11/19/16 09:25 Dose: 100 mls/hr Levetiracetam 500 mg/ (Levetiracetam 250 mg) 750 mg PO BID [facility] Last Admin: 11/19/16 09:25 Dose: 750 mg Metoprolol Succinate (Toprol Xl -) 12.5 mg PO DAILY [facility] Last Admin: 11/19/16 09:23 Dose: 12.5 mg Pantoprazole Sodium (Protonix -) 40 mg PO DAILY [facility] Last Admin: 11/19/16 09:23 Dose: 40 mg Ranolazine (Ranexa -) 500 mg PO BID [facility] Last Admin: 11/19/16 09:23 Dose: 500 mg - Objective Vital Signs: Vital Signs Temperature 98.6 F 11/19/16 08:38 Pulse Rate 67 11/19/16 11:32 Respiratory Rate 18 11/19/16 09:00 Blood Pressure 111/60 11/19/16 08:38 O2 Sat by Pulse Oximetry (%) 91 L 11/19/16 11:32 Constitutional: Yes: No Distress, Calm Cardiovascular: Yes: Regular Rate and Rhythm Respiratory: Yes: Regular, CTA Bilaterally Gastrointestinal: Yes: Normal Bowel Sounds, Soft Musculoskeletal: Yes: WNL Extremities: Yes: WNL Neurological: Yes: Alert, Oriented Psychiatric: Yes: Alert Assessment/Plan e - Diagnosis (1) Alcohol dependence with uncomplicated withdrawal Status: Acute uti confusion neuro has seen the patient plan will start on ceftriaxone await for all cx reports
[2016-11-19 15:11] VITALS: BP 104/59; PULSE 75; TEMP 97.5
--- NOTE | 2016-11-19 15:13 | DS ---
Physical Examination Vital Signs: Vital Signs Temperature 98.6 F 11/19/16 08:38 Pulse Rate 67 11/19/16 11:32 Respiratory Rate 18 11/19/16 09:00 Blood Pressure 111/60 11/19/16 08:38 O2 Sat by Pulse Oximetry (%) 91 L 11/19/16 11:32 Findings/Remarks: patient has appointment with psychiatry tuesday, no aggression, feeling better, seen by dr galvez psychiatry and has been taken off librium. on iv abx for uti. Constitutional: Yes: No Distress Eyes: Yes: WNL HENT: Yes: WNL Neck: Yes: WNL Cardiovascular: Yes: WNL Respiratory: Yes: WNL Gastrointestinal: Yes: WNL Renal/: Yes: WNL Musculoskeletal: Yes: WNL Extremities: Yes: WNL Edema: No Peripheral Pulses WNL: Yes Integumentary: Yes: WNL Wound/Incision: Yes: Clean/Dry Neurological: Yes: WNL ...Motor Strength: WNL Psychiatric: Yes: Other Discharge Summary Reason For Visit: DEPRESSION W/ SUICIDAL IDEATION OPIATE DEPENDENCE Current Active Problems Adult behavior problem (Acute) Alcohol dependence with uncomplicated withdrawal (Acute) Depression with suicidal ideation (Acute) Dizziness (Acute) Fall at home (Acute) Opiate dependence (Acute) Seizure disorder (Acute) UTI (urinary tract infection) (Acute) Procedures: Principal: head ct scan /labs Hospital Course: admitted for librium taper, taken off by psychiatry, changed iv abx for po abx treating uti, follow up with psychiatry out patient, see dr ohara in 1 week, f/ u urine cultures. Condition: Improved - Instructions Diet, Activity, Other Instructions: low sodium see dr ohara 1 week psychiatry follow up tuesday11/22/16 Disposition: HOME - Home Medications Comprehensive Discharge Medication List: Ambulatory Orders Albuterol Sulfate Inhaler - [Ventolin HFA Inhaler -] 1 - 2 inh PO QID PRN #1 inhaler 07/02/14 Duloxetine HCl [Cymbalta -] 60 mg PO DAILY 07/02/14 Albuterol Sulfate 0.042% [Ventolin 0.042% (Half-Strength) -] 1 neb PO QID Cyanocobalamin [Vitamin B12 -] 1,000 mcg PO DAILY 07/16/14 Ranolazine [Ranexa] 500 mg PO BID 07/16/14 Doxepin HCl [Sinequan -] 25 mg PO HS 05/28/15 Alprazolam [Xanax] 1 mg PO HS PRN #0 06/01/15 Cholecalciferol (Vitamin D3) [Vitamin D3 -] 1,000 unit PO DAILY #30 tab Levetiracetam [Keppra -] 750 mg PO BID #180 tablet 06/01/15 Metoprolol Succinate [Toprol XL -] 12.5 mg PO DAILY #30 tab.sr.24h 06/01/15 Oxycodone HCl [Roxicodone -] 2.5 mg PO Q6H PRN #10 tablet 06/01/15 Polyethylene Glycol 3350 [Miralax 119 gm Btl -] 17 gm PO DAILY #1 bottle Zolpidem Tartrate [Ambien] 5 mg PO HS PRN #30 tablet 06/01/15 Aspirin Coated [Ecotrin -] 325 mg PO DAILY 07/13/16 Atorvastatin Ca [Lipitor] 40 mg PO HS #30 tablet 07/13/16 Metoclopramide HCl [Reglan -] 5 mg PO TIDAC #30 tablet 07/13/16
[2016-11-19] MEDS ORDERED: chlordiazePOXIDE HCL 25 MG CAPSULE PO SCH (17:00)
[2016-11-19] MEDS ORDERED: CEPHALEXIN MONOHYDRATE 500 MG CAPSULE (UD) PO SCH (22:00)
[2016-11-20] MEDS ORDERED: chlordiazePOXIDE 5 MG CAPSULE PO SCH (17:00)
== END 2016-11-19 16:01 | disposition home or self-care (01) | DRG 897 ==
LOC: JER 18:19 → JERBED 11-18 00:38 → J7W 11-18 03:33
PROVIDERS: ADMIT Family Medicine; ATTEND Family Medicine
PROC: HZ2ZZZZ Detoxification Services for Substance Abuse Treatment (ICD-10-PCS; principal; 2016-11-17)
DX: F10.230 Alcohol dependence with withdrawal, uncomplicated (principal); N39.0 Urinary tract infection, site not specified; Z68.1 Body mass index [BMI] 19.9 or less, adult; Z72.0 Tobacco use; F69 Unspecified disorder of adult personality and behavior; F32.9 Major depressive disorder, single episode, unspecified; G40.909 Epilepsy, unspecified, not intractable, without status epilepticus; R41.82 Altered mental status, unspecified
CPT/HCPCS: 36415; 70450-TC; 71010-TC; 80053; 80061; 80307; 81003; 81015; 83036; 83721; 83735; 85025; 87086; 93005; 93010; 97116-GP; 97162-GP; 99285-25

== ENCOUNTER 2016-12-20 06:11 | Day surgery (SDC) | payer OTHER ==
[2016-12-16 14:20] VITALS: BMI 16.8
[2016-12-20] MEDS ORDERED: PROPOFOL 20 ML ONE ×2 (08:04)
[2016-12-20] MEDS ORDERED: SUCCINYLCHOLINE CHLORIDE 200 MG/10 ML VIAL ONE (08:05)
[2016-12-20] MEDS ORDERED: MIDAZOLAM HCL 2 MG/2 ML SINGLE DOSE VIAL ONE ×2 (08:05→10:06)
[2016-12-20] MEDS ORDERED: ONDANSETRON 4 MG/2 ML VIAL IVPUSH PRN (08:55)
[2016-12-20] MEDS ORDERED: oxyCODONE HCL 5 MG TABLET PO PRN (08:55)
[2016-12-20] MEDS ORDERED: LACTATED RINGERS SOLUTION 1,000 ML IV SCH (09:00)
[2016-12-20] MEDS ORDERED: ceFAZolin SODIUM 1 GM VIAL IVPB ONE (09:40)
[2016-12-20] MEDS ORDERED: ceFAZolin SODIUM 1 GM VIAL ONE ×2 (09:53)
[2016-12-20] MEDS ORDERED: LIDOCAINE HCL 1%, 10 MG/ML (20ML VIAL) IJ ONE ×2 (10:17)
--- NOTE | 2016-12-20 11:10 | OP ---
Operative Note - Note: Operative Date: 12/20/16 Pre-Operative Diagnosis: urge incontinence; neurogenic bladder Operation: InterStim II Therapy Full System Implant Implants: InterStim II Neuromodulator Post-Operative Diagnosis: Same as Pre-op Surgeon: Gabriel Brooke Anesthesia: Fractional
[2016-12-20] MEDS ORDERED: oxyCODONE HCL 5 MG TABLET ONE (11:59)
[2016-12-20 12:00] VITALS: TEMP 98.5
[2016-12-20 13:30] VITALS: BP 130/70; PULSE 97
--- NOTE | 2016-12-21 00:52 | OP ---
DATE OF OPERATION: 12/20/2016 PREOPERATIVE DIAGNOSIS: Urge incontinence and neurogenic bladder. POSTOPERATIVE DIAGNOSIS: Urge incontinence and neurogenic bladder. PROCEDURE: Interstim 2 therapy full system implant. SURGEON: Jason Walls MD ANESTHESIA: General. INDICATIONS FOR THE PROCEDURE: Patient has severe urinary frequency and urgency with urge incontinence. The patient was informed of the risks and benefits of the procedures and agreed to undertake this procedure. DESCRIPTION OF PROCEDURE: The patient was properly identified and placed in prone position as per operating room protocol. MAC anesthesia was administered. The patient was given 1 g of Ancef. Pillows were placed under the lower abdomen to flatten the sacrum and under the shins to allow the toes to dangle freely. Tape was placed on each buttock and pulled laterally to separate cheeks adequately to visualize anal sphincter. The patient was prepped and draped in the usual sterile manner using ChloraPrep prep solution. The C-arm was moved into the PA position to provide fluoroscopy visual and the midline of the vertebrae. S1 notches and medial foraminal borders were marked. The C-arm was moved to the lateral position to image the area from sacral promontory to the coccyx. Local injection of lidocaine was administered. A 3.5-inch size needle was introduced approximately 2 cm above the SI notch and 3 cm lateral to the vertebral midline, feeling for foraminal margins until the S3 foramen was identified and penetrated. The depth of the needle was confirmed and adjusted fluoroscopically. Proper needle position was confirmed by patient identification of location of sensation, direct observation of the lifting of the perineum or bellowing, and observation of plantar flexion of the great toe utilizing the test stimulator box. The needle stylet was removed and a directional guidewire was placed and confirmed fluoroscopically. The foramen needle was removed. An incision was made peripherally to the directional guidewire through the fascial layer. The dilator and introducer sheath were placed over the directional guidewire and directed into the foramen until the opaque marker of the dilator was seen on the anterior rim of the sacrum. The dilator obturator was unlocked and removed. The lead was then placed through the introducer sheath to the first white line. Position was checked fluoroscopically. The lead was then further introduced until 3 electrodes were visible below the sacrum. Each electrode was tested for location of patient sensation, visualization of elliot and plantar flexion of the great toe. After satisfactory positioning was confirmed, under continuous fluoroscopy, the introducer sheath was retracted, deploying the lead tines into the perisacral tissue. Further incision was made into the subcutaneous tissue posterior to the iliac crest and blunt dissection was continued until the gluteal fascia was identified and hemostasis was achieved, allowing for a sufficient pocket for the neurostimulator. A tunneling tool and tube were placed from the lead subcutaneously to the incised pocket site. The tunneling tool was removed and the lead was fed through the tube and pulled out at the pocket site. The lead was cleansed of bodily fluids and a boot was placed over the lead. The lead was inserted into the InterStim II pulse generator and the metal bands were aligned with the white lead tip clearly visible in the distal portion of the pulse generator header. The single set screw was tightened with the hex wrench. The pulse generator was placed into the subcutaneous pocket with the etched identification side placed upward and the extension wrapped counterclockwise around the pulse generator. The programming head was placed over the implanted neurostimulator. The impedance was verified to ensure adequate lead placement and the parameters were within normal limits. If impedance is greater than the normal limits, a second interrogation is required. If the second interrogation is required, further troubleshooting may be required. Impedances were checked, confirmed to be within normal limits at greater than 50 and less than 4000. After implantation of the neurostimulator was completed, complex programming of the neurostimulator was performed based on impedance values. Final electrode sensations were set to 0+1-2-. Estimated time for analysis and complex programming was 30 minutes. The wounds were irrigated with antibiotic solution and water and closed with a subcutaneous and subcuticular stitch. Counts were correct. Steri-Strips and gauze were placed over the incision under the cable connector. The estimated blood loss was less than 3 mL. The patient was transferred to postop in satisfactory condition. Using the clinician sas programmer, the patient was programmed to the lead of optimum sensation and given instructions on utilizing the patient sas programmer prior to discharge. JASON WALLS M.D. [id number]
== END 2016-12-20 13:00 | disposition home or self-care (01) ==
LOC: JASU-SURG 06:11
PROVIDERS: ATTEND Urology
PROC: 01HY0MZ Insertion of Neurostimulator Lead into Peripheral Nerve, Open Approach (ICD-10-PCS; 2016-12-20)
PROC: 0JH70BZ Insertion of Single Array Stimulator Generator into Back Subcutaneous Tissue and Fascia, Open Approach (ICD-10-PCS; principal; 2016-12-20 08:00)
DX: N31.9 Neuromuscular dysfunction of bladder, unspecified (principal); N39.41 Urge incontinence
CPT/HCPCS: 64581; 64590; C1767; C1778; 76000-TC; 94760

== ENCOUNTER 2017-01-26 07:15 | Day surgery (SDC) | payer OTHER ==
[2017-01-24 10:28] VITALS: BMI 16.8
[2017-01-26] MEDS ORDERED: ROPIVACAINE HCL 0.5% 30ML VIAL ONE (09:09)
[2017-01-26] MEDS ORDERED: MIDAZOLAM HCL 2 MG/2 ML SINGLE DOSE VIAL ONE ×2 (09:11)
--- NOTE | 2017-01-26 09:14 | HP ---
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 No: CVA Cardiovascular: Yes: CAD, HTN, Other (PCI STENT). No: AFIB Pulmonary: Yes: Asthma, COPD Endocrine: Yes: Diabetes Mellitus - Current Medications Current Medications: Home Medications Medication Instructions Recorded Albuterol Sulfate Inhaler - 1 - 2 inh PO QID PRN #1 inhaler 07/02/14 [Ventolin HFA Inhaler -] Cyanocobalamin [Vitamin B12 -] 1,000 mcg PO DAILY 07/16/14 Cholecalciferol (Vitamin D3) 1,000 unit PO DAILY #30 tab 06/01/15 [Vitamin D3 -] Levetiracetam [Keppra -] 750 mg PO BID #180 tablet 06/01/15 Metoprolol Succinate [Toprol XL -] 12.5 mg PO DAILY #30 tab.sr.24h 06/01/15 Metoclopramide HCl [Reglan -] 5 mg PO TIDAC #30 tablet 07/13/16 Aspirin Coated [Ecotrin -] 325 mg PO DAILY #30 tab 11/19/16 Linagliptin [Tradjenta] 5 mg PO DAILY 12/16/16 Amlodipine Besylate 2.5 mg PO DAILY 01/24/[address] 36,000 Units Capsule 36,000 units PO DAILY 01/24/17 Nitroglycerin Sublingual 0.4 mg SL PRN PRN 01/24/17 Ranolazine [Ranexa] 500 mg PO BID 01/24/17 Hydrocodone/Acetaminophen [[place] 1 each PO Q6H PRN #40 tablet MDD 4 01/26/17 5-325 Tablet] Satellite Physical Exam - Physical Examination Vital Signs: Vital Signs Period Temp Pulse Resp BP Sys/Voss Pulse Ox Last 24 Hr 98.8 F 79 20 94/58 96 General Appearance: Well Nourished, Well Developed, Alert & Oriented x3 ENT: Clear Lung: Normal air movement Heart: Regular rate & rhythm Extremities: Other (right shoulder- + ttp, decr rom, + neer, + wang, nvi MRI = impingement, labral tear) Neurological: Intact, Alert, Oriented Satellite Impression/Plan - Impression/Plan Impression: right shoulder impingement, labral tear Operative Procedure: right shoulder arthroscopy with SAD and possible labral repair Date to be Performed: 01/26/17
[2017-01-26] MEDS ORDERED: ceFAZolin SODIUM 1 GM VIAL IVPB ONE (10:25)
[2017-01-26] MEDS ORDERED: ACETAMINOPHEN 325 MG TABLET (FP) PO PRN (10:40)
[2017-01-26] MEDS ORDERED: morphine CARPU-JECT 2 MG/1 ML DISP.SYRIN IVPUSH PRN (10:40)
[2017-01-26] MEDS ORDERED: ONDANSETRON 4 MG/2 ML VIAL IVPUSH PRN (10:40)
[2017-01-26] MEDS ORDERED: LACTATED RINGERS SOLUTION 1,000 ML IV SCH (10:45)
--- NOTE | 2017-01-26 11:19 | OP ---
Operative Note - Note: Operative Date: 01/26/17 ([facility]) Pre-Operative Diagnosis: right shoulder internal derangement Operation: right shoulder arthroscopy with labral repair, subacromial decompression, distal clavicle excision, and manioulation under anesthesia Implants: 2 arthrex pushlocks Post-Operative Diagnosis: Same as Pre-op Surgeon: Mino Hernandez Mailing Section Clerk: Randy Dominguez Anesthesiologist/FORKLIFT TECHNICIAN: Alexx Lund Anesthesia: General, Local Specimens Removed: shavings Estimated Blood Loss (mls): 5 Operative Report Dictated: Yes
--- NOTE | 2017-01-26 12:10 | OP ---
DATE OF OPERATION: 01/26/2017 PREOPERATIVE DIAGNOSIS: Right shoulder impingement syndrome, labral tear, and adhesive capsulitis. POSTOPERATIVE DIAGNOSIS: Right shoulder impingement syndrome, labral tear, and adhesive capsulitis. PROCEDURES: 1. Right shoulder arthroscopy and arthroscopic labral repair. 2. Right shoulder subacromial decompression. 3. Distal clavicle excision. 4. Manipulation under anesthesia. SURGEON: Belinda Chapman MD HEALTHCARE ANALYST: RONNELL Rogers AUTOMOTIVE COLLISION ESTIMATOR: Alexx Lund CRNA ANESTHESIA: Right interscalene block and LMA anesthesia. DRAINS: None. COMPLICATIONS: None. BLOOD LOSS: None. BLOOD GIVEN: None. FLUID REPLACEMENT: 500 mL. DESCRIPTION OF PROCEDURE: The patient is a 61-year-old female with a preoperative diagnosis of a right shoulder impingement syndrome, labral tear, and adhesive capsulitis. After understanding the potential risks, complications, alternatives, benefits of surgery versus nonsurgical treatment, the patient elected to undergo this procedure. Patient brought to the operating room, peripheral IV placed, and IV sedation was given. One gram of IV Ancef was given. A right interscalene block was performed. LMA anesthesia was induced. She was placed in the beach-chair position with ample padding throughout. There was a manipulation under anesthesia putting the patient through a full range of motion for flexion and abduction, and when it got to forward flexion above 120 degrees, I felt something give way, and she had a much improved range of motion. The right upper extremity was prepped and draped in sterile fashion. The bony landmarks were marked out with a marking pen. Posterior portal was established. A diagnostic glenohumeral arthroscopy was performed. The patient did have a little, very small undersurface supraspinatus fraying. She had a clear labral tear from the 12 o'clock to the 3 o'clock position. There was intraarticular synovitis. She had no significant glenohumeral osteoarthritis. An anterior portal was established with a spinal needle. A Green cannula was introduced into the glenohumeral joint. An arthroscopic synovectomy was performed with ArthroCare wand. A holden was used to free up the torn portion of the labrum from the glenoid rim. Next, in the standard technique, we put in 2 Arthrex push-lock anchors to repair the labrum from the 1 o'clock to 3 o'clock position. A probe was introduced into the joint after the arthroscopic labral repair was seen to have a good anterior bumper with good stability. Next, our attention turned to the subacromial space. A lateral portal was established under direct visualization using a spinal needle. A Green cannula was introduced into the subacromial space. The patient had a lot of subacromial bursitis. An extensive debridement was done with the ArthroCare Wand doing a soft tissue bursectomy. This exposed a large spur on the undersurface of the acromion and an even larger double spur on the undersurface of the clavicle. A 5.5-mm oval bur was used to do a bony subacromial decompression, was fine-tuned in reverse, and was used to take off these 2 spurs on the end of the distal clavicle. It was also cleaned up and reversed. The shaver was then introduced into the joint. All debris was removed. The bursectomy was completed. The top surface of the rotator cuff was directly visualized through a full range of motion. There was no rotator cuff tear. The area was copiously irrigated and washed out. All instrumentation and saline removed. The arthroscopy portals were closed with 3-0 nylon sutures. It was Aquacel, and she was put into a shoulder immobilizer. Total operative repair was about 40 minutes. There were no complications during the case. The patient tolerated the procedure quite well and was brought to the ambulatory recovery room in stable condition. BELINDA CHAPMAN M.D. [id number]
[2017-01-26 13:02] VITALS: TEMP 98.4
[2017-01-26 16:04] VITALS: BP 108/73; PULSE 94
--- NOTE | 2017-01-27 15:19 | PATH ---
Surgical Pathology Report Patient Name: SANDEEP HERNANDEZ [facility]. Rec. #: [id number] /Age/Gender: 1955 (Age: 61) / F Account: [id number] Location: [facility] SURGICAL Taken: 01/26/2017 Received: 01/26/2017 Reported: 01/27/2017 Physicians: Mino Hernandez M.D. Specimen(s) Received RIGHT SHOULDER SHAVINGS Clinical History Right shoulder tear Final Diagnosis RIGHT SHOULDER, ARTHROSCOPIC SHAVING: PORTIONS OF SYNOVIUM, CARTILAGE, SKELETAL MUSCLE AND BONE CONSISTENT WITH ARTHROSCOPIC SHAVINGS. Electronically Signed Yeyo Matta M.D. Gross Description Received in formalin, labeled "right shoulder shavings," is a 4.3 x 3.0 x 0.3 cm. aggregate of guido-yellow soft tissue fragments. A software sales representative portion is submitted in one cassette. /01/26/201701/26/2017
== END 2017-01-26 13:15 | disposition home or self-care (01) ==
LOC: JASU-SURG 07:15
PROVIDERS: ATTEND Orthopaedic Surgery
PROC: 0PB94ZZ Excision of Right Clavicle, Percutaneous Endoscopic Approach (ICD-10-PCS; 2017-01-26)
PROC: 0RBJ4ZZ Excision of Right Shoulder Joint, Percutaneous Endoscopic Approach (ICD-10-PCS; 2017-01-26)
PROC: 0RQJ4ZZ Repair Right Shoulder Joint, Percutaneous Endoscopic Approach (ICD-10-PCS; principal; 2017-01-26 09:30)
DX: M75.41 Impingement syndrome of right shoulder (principal); M75.01 Adhesive capsulitis of right shoulder; S43.491A Other sprain of right shoulder joint, initial encounter; X58.XXXA Exposure to other specified factors, initial encounter; Y93.9 Activity, unspecified; Y92.9 Unspecified place or not applicable
CPT/HCPCS: 88304-TC; 94760

== ENCOUNTER 2017-05-24 14:58 | Emergency (ER) | payer OTHER ==
--- NOTE | 2017-05-24 15:26 | PDOC ---
History of Present Illness - General Stated Complaint: CHEST PAIN Time Seen by Provider: 05/24/17 15:10 - History of Present Illness Initial Comments: 05/24/17 15:28 62 yo F with h/o HTN, NIDDM, HLD, CAD, COPD, CVA ( w/residual right sided deficits/weakness), psychiatric illness, seizure disorder who presents with chest pain. Pt. reports acute onset substernal chest pain at rest at aprox. 0600 AM this morning while sleeping. Pleuritic chest pain worse with cough, deep inhalation. Also endorses chronic cough, but now productive with green sputum for the past week. Endorses fevers/chills with home temp 101. Denies SOB , hemoptysis, leg swelling/pain, or wheezing. 3 Nitro and 1 ASA today, with no improvement in pain. Denies home 02 use. Denies abdominal pain, constipation, diarrhea, BPR, urinary complaints, lightheadedness, sensory disturbances, LOC. Patient awaiting call to schedule EKG stress test. Last stress test 1 year ago. Tobacco 1/2 PPD for [address] years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 Lainez. PMD Dr. Barriga. Flu+ 04/2017 Past History - Past Medical History Allergies/Adverse Reactions: Allergies Allergy/AdvReac Type Severity Reaction Status Date / Time No Known Allergies Allergy Verified 01/26/17 07:52 Home Medications: Ambulatory Orders Albuterol Sulfate Inhaler - [Ventolin HFA Inhaler -] 1 - 2 inh PO QID PRN #1 inhaler 07/02/14 Cyanocobalamin [Vitamin B12 -] 1,000 mcg PO DAILY 07/16/14 Cholecalciferol (Vitamin D3) [Vitamin D3 -] 1,000 unit PO DAILY #30 tab Levetiracetam [Keppra -] 750 mg PO BID #180 tablet 06/01/15 Metoprolol Succinate [Toprol XL -] 12.5 mg PO DAILY #30 tab.sr.24h 06/01/15 Metoclopramide HCl [Reglan -] 5 mg PO TIDAC #30 tablet 07/13/16 Aspirin Coated [Ecotrin -] 325 mg PO DAILY #30 tab 11/19/16 Linagliptin [Tradjenta] 5 mg PO DAILY 12/16/16 Amlodipine Besylate 2.5 mg PO DAILY 01/24/[address] 36,000 Units Capsule 36,000 units PO DAILY 01/24/17 Nitroglycerin Sublingual 0.4 mg SL PRN PRN 01/24/17 Ranolazine [Ranexa] 500 mg PO BID 01/24/17 Azithromycin 250 mg PO DAILY 4 Days #4 tablet MDD 1 tab 05/24/17 Doxepin HCl 50 mg PO HS 05/24/17 Trazodone HCl 150 mg PO DAILY 05/24/17 Anemia: No Asthma: No Cancer: No Cardiac Disorders: Yes (cardiac stent, CAD, [place]) CVA: No COPD: Yes CHF: No Diabetes: Yes GI Disorders: Yes (gallstones) Disorders: No HTN: Yes Hypercholesterolemia: Yes Liver Disease: No Psychiatric Problems: Yes (ANXIETY) Seizures: Yes (hx grand mal seizures, last one 11/2016) Thyroid Disease: No - Surgical History Abdominal Surgery: No Appendectomy: No Cardiac Surgery: Yes (stents 2011) Cholecystectomy: No Lung Surgery: No Neurologic Surgery: No Orthopedic Surgery: No - Immunization History Immunization Up to Date: No - Suicide/Smoking/Psychosocial Hx Smoking Status: Yes Smoking History: Current some day smoker Have you smoked in the past 12 months: Yes Number of Cigarettes Smoked Daily: 10 'Breaking Loose' booklet given: 01/26/17 Hx Alcohol Use: No Drug/Substance Use Hx: No Substance Use Type: None Hx Substance Use Treatment: No Review of Systems - Review of Systems Comments:: 05/24/17 15:24 GENERAL/CONSTITUTIONAL: No fever or chills. No weakness. HEAD, EYES, EARS, NOSE AND THROAT: No change in vision. No ear pain or discharge. No sore throat.- CARDIOVASCULAR: + chest pain. No SOB RESPIRATORY:+ cough. No wheezing, or hemoptysis. GASTROINTESTINAL: No nausea, vomiting, diarrhea or constipation. GENITOURINARY: No dysuria, frequency, or change in urination. MUSCULOSKELETAL: No joint or muscle swelling or pain. No neck or back pain. SKIN: No rash NEUROLOGIC: No headache, vertigo, loss of consciousness, or change in strength/ sensation. ENDOCRINE: No increased thirst. No abnormal weight change HEMATOLOGIC/LYMPHATIC: No anemia, easy bleeding, or history of blood clots. ALLERGIC/IMMUNOLOGIC: No hives or skin allergy. *Physical Exam - Physical Exam Comments: 05/24/17 15:42 GENERAL: Awake, alert, and fully oriented, in no acute distress HEAD: No signs of trauma, normocephalic, atraumatic EYES: PERRLA, EOMI, sclera anicteric, conjunctiva clear ENT: Hearing grossly normal, nares patent, oropharynx clear without exudates. Moist mucosa NECK: Normal ROM, supple, no lymphadenopathy, JVD, or masses LUNGS: Labored breathing. speaks full sentences, clear to auscultation bilaterally HEART: Regular rate and rhythm, normal S1 and S2, no murmurs, rubs or gallops, peripheral pulses normal and equal bilaterally. EXTREMITIES : Normal inspection, Normal range of motion, no edema. No clubbing or cyanosis. SKIN: Warm, Dry, normal turgor, no rashes or lesions noted. ED Treatment Course - LABORATORY CBC & Chemistry Diagram: 05/24/17 16:15 05/24/17 16:16 Medical Decision Making - Medical Decision Making 05/24/17 16:04 62 yo F with h/o HTN, NIDDM, HLD, CAD, COPD, CVA ( w/residual right sided deficits/weakness), psychiatric illness, seizure disorder who presents with acute onset substernal chest pain at rest at aprox. 0600 AM this morning while sleeping. Pleuritic chest pain worse with cough, deep inhalation. + productive cough, fevers/chills. 3 Nitro and 1 ASA today, with no improvement in pain. Denies SOB, hemoptysis, leg swelling/pain, or wheezing, abdominal pain, constipation, diarrhea, BPR, urinary complaints, lightheadedness, sensory disturbances, LOC.Tobacco 1/2 PPD for 20 years. 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 Lainez. PMD Dr. Barriga. Physical exam unremarkable. Hemodynamically stable. ACS/AR r/o d/t atypical chest pain and risk factors. Pleuritic chest pain and presentation suspicious for PNA vs. acute COPD exacerbation in setting of increased sputum production and tobacco use. ED Course: CBC, CMP, Cardiac Profile, Influenza A/B EKG, CXR UA 05/24/17 17:15 CXR: No acute pathology CBC: Unremarkable EKG: NSR with absent BIB or STD. Normal interval duration. Azithromycin 500 mg PO. 05/24/17 18:15 CMP: Unremarkable. Trop: neg 05/24/17 18:28 Azithromycin sent to pharmacy. Pt. stable and ready for d/c with return precautions. Advsied to f/u with PMD. *DC/Admit/Observation/Transfer Diagnosis at time of Disposition: COPD (chronic obstructive pulmonary disease) Qualifiers: COPD type: COPD with acute exacerbation Qualified Code(s): J44.1 - Chronic obstructive pulmonary disease with (acute) exacerbation Chest pain Qualifiers: Chest pain type: chest pain on breathing Qualified Code(s): R07.1 - Chest pain on breathing - Discharge Dispostion Condition at time of disposition: Stable Admit: No - Prescriptions Prescriptions: Azithromycin 250 mg PO DAILY 4 Days #4 tablet MDD 1 tab - Referrals - Patient Instructions Printed Discharge Instructions: DI for Atypical Chest Pain Additional Instructions: Please return to the emergency department with any new or worsening symptoms or concerns. Please follow up with your primary care physician within the next 1-3 days. Please take Azithromycin daily for four days. - Post Discharge Activity - Attestations Physician Attestion: 05/24/17 18:13 I attest to the information provided in this note.
[2017-05-24 15:43] VITALS: BMI 17.7
[2017-05-24 16:51] LABS: BASO % 0.9 % (0-2.0); EOS % 1.1 % (0-4.5); HEMATOCRIT 39.3 % (32.4-45.2); HEMOGLOBIN 13.4 GM/dL (10.7-15.3); LYMPH % 22.9 % (8-40); MCH 31.3 pg (25.7-33.7); MCHC 34.1 g/dl (32.0-36.0); MEAN CELL VOLUME 91.9 fl (80-96); MEAN PLT VOLUME 9.6 fl (7.5-11.1); MONO % 6.7 % (3.8-10.2); NEUT % 68.4 % (42.8-82.8); PLATELET COUNT 216 K/MM3 (134-434); RBC 4.28 M/mm3 (3.60-5.2); RDW 13.6 % (11.6-15.6); WHITE BLOOD COUNT 7.7 K/mm3 (4.0-10.0)
[2017-05-24 17:05] LABS: INR 0.93 (0.82-1.09); PROTHROMBIN TIME (PATIENT) 10.5 SEC (9.98-11.88)
[2017-05-24 17:47] LABS: ALBUMIN 3.7 g/dl (3.4-5.0); ANION GAP 7 (8-16); BLOOD UREA NITROGEN 9 mg/dL (7-18); CALCIUM 9.3 mg/dL (8.5-10.1); CHLORIDE 100 mmol/L (98-107); CO2 31 mmol/L (21-32); CREATININE 0.8 mg/dL (0.55-1.02); GLUCOSE,RANDOM 114 mg/dL (74-106); SGPT/ALT 15 U/L (12-78); SODIUM 138 mmol/L (136-145)
[2017-05-24 17:48] LABS: ALK PHOS 82 U/L (45-117); BILIRUBIN,TOTAL 0.4 mg/dL (0.2-1.0); TOT PROT 7.2 g/dl (6.4-8.2)
[2017-05-24 17:50] LABS: POTASSIUM 4.2 mmol/L (3.5-5.1); SGOT/AST 18 U/L (15-37)
--- NOTE | 2017-05-24 18:04 | PDOC ---
Attending Attestation - Resident Resident Name: Chandra Marino - ED Attending Attestation I have performed the following: I have examined & evaluated the patient, The case was reviewed & discussed with the resident, I agree w/resident's findings & plan, Exceptions are as noted - HPI HPI: 05/24/17 18:02 62y F hx of htn, dm, copd, cva with residual R sided weakness, seizure, presents with chest pain that is substernal, woke her from sleep, that is pleuritic, worse with cough that is productive of greenish sputum, endorses some subjective fever/chils. denies sob, hemoptysis, wheezing. took nitro at home without significant improvement. was recently treated for flu recently. - Physicial Exam PE: exam noted for clear lungs pt in no acute distress, speaing complete sentences, no accessory muscle use no edema in lower extermities - Medical Decision Making cxr clear influenza negative labs otherwise unremaqrkable will tx with zpack for copd exacerbation due to increased cough/sputum production Heart Score/ECG Review - ECG Impressions Comment:: 05/24/17 20:18 ekg performed at 15:19 on 05/24/17 rate of 80 sinus rhythm no signs of ischemia normal axis
[2017-05-24] MEDS ORDERED: AZITHROMYCIN 250 MG TABLET PO ONE (18:11)
[2017-05-24] MEDS ORDERED: AZITHROMYCIN 500 MG TABLET ONE (18:16)
[2017-05-24] MEDS ORDERED: ACETAMINOPHEN 325 MG TABLET (FP) PO ONE (18:20)
[2017-05-24] MEDS ORDERED: ACETAMINOPHEN 325 MG TABLET (FP) ONE (18:24)
[2017-05-24] MEDS ORDERED: IBUPROFEN 400 MG TABLET (FP) PO ONE ×2 (18:26)
[2017-05-24 18:35] LABS: URINE APPEARANCE CLEAR; URINE BILIRUBIN NEGATIVE (NEGATIVE); URINE BLOOD NEGATIVE (NEGATIVE); URINE COLOR LTYELLOW; URINE GLUCOSE (UA) NEGATIVE (NEGATIVE); URINE KETONE TRACE (NEGATIVE); URINE LEUK ESTERASE NEGATIVE (NEGATIVE); URINE NITRITE NEGATIVE (NEGATIVE); URINE PROTEIN NEGATIVE (NEGATIVE); URINE UROBILINOGEN NEGATIVE mg/dL (0.2-1.0)
[2017-05-24 18:49] VITALS: BP 109/67; PULSE 88; TEMP 98
--- NOTE | 2017-05-25 08:04 | EKG ---
Test Reason : Blood Pressure : / mmHG Vent. Rate : 080 BPM Atrial Rate : 080 BPM P-R Int : 116 ms QRS Dur : 078 ms QT Int : 360 ms P-R-T Axes : 069 044 082 degrees QTc Int : 415 ms NORMAL SINUS RHYTHM POSSIBLE ANTERIOR INFARCT (CITED ON OR BEFORE 16-JUL-2014) T WAVE ABNORMALITY, CONSIDER LATERAL ISCHEMIA ABNORMAL ECG WHEN COMPARED WITH ECG OF 17-NOV-2016 20:41, QUESTIONABLE CHANGE IN INITIAL FORCES OF ANTEROSEPTAL LEADS Confirmed by MATI BORRERO, AURELIA ([id number]) on 05/25/2017 8:04:15 AM Referred By: Confirmed By:AURELIA THORNE MD
== END 2017-05-24 18:49 | disposition home or self-care (01) ==
LOC: JER 14:58
DX: J44.1 Chronic obstructive pulmonary disease with (acute) exacerbation (principal); R07.1 Chest pain on breathing; I25.10 Atherosclerotic heart disease of native coronary artery without angina pectoris; I10 Essential (primary) hypertension; F17.210 Nicotine dependence, cigarettes, uncomplicated; Z95.5 Presence of coronary angioplasty implant and graft; E11.9 Type 2 diabetes mellitus without complications; Z79.84 Long term (current) use of oral hypoglycemic drugs; E78.00 Pure hypercholesterolemia, unspecified; G40.909 Epilepsy, unspecified, not intractable, without status epilepticus; I69.851 Hemiplegia and hemiparesis following other cerebrovascular disease affecting right dominant side
CPT/HCPCS: 36415; 71045-TC; 80053; 81003; 82550; 84484; 85025; 85610; 87804; 93005; 93010; 99285-25

== ENCOUNTER 2017-12-20 15:16 | Inpatient (IN) | payer OTHER ==
--- NOTE | 2017-12-20 15:32 | PDOC ---
History of Present Illness - General History Source: Patient Exam Limitations: No Limitations - History of Present Illness Initial Comments: 12/20/17 16:15 The patient is a 62 year old female, with a significant PMH of CAD, cardiac stents (2011), [place], COPD, DM, HTN, HLD, gallstones, grand mal seizures, and anxiety, who presents to the ED with 1 week of shortness of breath. The patient states that she has been giving herself nebulizer treatments at home with no relief of her symptoms. She visited Dr. Bianchi (PCP) yesterday and was given steroids and antibiotics The patients symptoms worsened today while she was in the shower and her daughter called for an ambulance. On exam, the patient states that she is feeling better after a few treatments, but is experiencing a mild headache. The patient denies chest pain and dizziness. Denies fever, chills, nausea, vomiting, diarrhea and constipation. Allergies: NKA Past surgical history: Cardiac stents (2011). Social history: None reported PCP: Dr. Kulwant Bianchi <Gretchen Brush - Last Filed: 12/20/17 17:19> <Madiha Mcdonald - Last Filed: 12/20/17 17:54> - General Chief Complaint: Shortness of Breath Stated Complaint: SOB Time Seen by Provider: 12/20/17 15:32 Past History <Gretchen Brush - Last Filed: 12/20/17 17:19> - Past Medical History Anemia: No Asthma: No Cancer: No Cardiac Disorders: Yes (cardiac stent, CAD, [place]) CVA: No COPD: Yes CHF: No Diabetes: Yes GI Disorders: Yes (gallstones) Disorders: No HTN: Yes Hypercholesterolemia: Yes Liver Disease: No Psychiatric Problems: Yes (ANXIETY) Seizures: Yes (hx grand mal seizures, last one 11/2016) Thyroid Disease: No - Surgical History Abdominal Surgery: No Appendectomy: No Cardiac Surgery: Yes (stents 2011) Cholecystectomy: No Lung Surgery: No Neurologic Surgery: No Orthopedic Surgery: No - Immunization History Immunization Up to Date: No - Suicide/Smoking/Psychosocial Hx Smoking Status: Yes Smoking History: Current some day smoker Have you smoked in the past 12 months: Yes Number of Cigarettes Smoked Daily: 10 'Breaking Loose' booklet given: 01/26/17 Hx Alcohol Use: No Drug/Substance Use Hx: No Substance Use Type: None Hx Substance Use Treatment: No <Madiha Mcdonald - Last Filed: 12/20/17 17:54> - Past Medical History Allergies/Adverse Reactions: Allergies Allergy/AdvReac Type Severity Reaction Status Date / Time No Known Allergies Allergy Verified 12/20/17 15:32 Home Medications: Ambulatory Orders Albuterol Sulfate Inhaler - [Ventolin HFA Inhaler -] 1 - 2 inh PO QID PRN #1 inhaler 07/02/14 Cyanocobalamin [Vitamin B12 -] 1,000 mcg PO DAILY 07/16/14 levETIRAcetam [Keppra -] 750 mg PO BID #180 tablet 06/01/15 Metoclopramide HCl [Reglan -] 5 mg PO TIDAC #30 tablet 07/13/16 Linagliptin [Tradjenta] 5 mg PO DAILY 12/16/16 Nitroglycerin Sublingual 0.4 mg SL PRN PRN 01/24/17 Ranolazine [Ranexa] 500 mg PO BID 01/24/17 Doxepin HCl 100 mg PO HS 05/24/17 Aspirin Coated [Ecotrin -] 81 mg PO DAILY 12/20/17 Cholecalciferol (Vitamin D3) [Vitamin D3 -] 5,000 unit PO Q7D 12/20/17 Lipase/Protease/Amylase [Zenpep Dr 25,000 Unit Capsule] 1 each PO TID 12/20/17 Metoprolol Succinate [Toprol XL -] 25 mg PO BID 12/20/17 Rifaximin [Xifaxan] 550 mg PO TID 12/20/17 Review of Systems - Review of Systems Able to Perform ROS?: Yes Comments:: 12/20/17 16:20 GENERAL/CONSTITUTIONAL: No fever or chills. No weakness. HEAD, EYES, EARS, NOSE AND THROAT: No change in vision. No ear pain or discharge. No sore throat. CARDIOVASCULAR: (+)shortness of breath. No chest pain. RESPIRATORY: (+)wheezing. No cough, or hemoptysis. GASTROINTESTINAL: No nausea, vomiting, diarrhea or constipation. GENITOURINARY: No dysuria, frequency, or change in urination. MUSCULOSKELETAL: No joint or muscle swelling or pain. No neck or back pain. SKIN: No rash NEUROLOGIC: (+)headache. No vertigo, loss of consciousness, or change in strength/sensation. ENDOCRINE: No increased thirst. No abnormal weight change. HEMATOLOGIC/LYMPHATIC: No anemia, easy bleeding, or history of blood clots. ALLERGIC/IMMUNOLOGIC: No hives or skin allergy. <Gretchen Brush - Last Filed: 12/20/17 17:19> *Physical Exam - Vital Signs Last Vital Signs Temp Pulse Resp BP Pulse Ox 98.5 F 78 18 106/67 97 12/20/17 15:30 12/20/17 15:30 12/20/17 15:30 12/20/17 15:30 12/20/17 15:30 - Physical Exam Comments: 12/20/17 16:22 GENERAL: Awake, alert, and fully oriented, in no acute distress HEAD: No signs of trauma EYES: PERRLA, EOMI, sclera anicteric, conjunctiva clear ENT: Auricles normal inspection, hearing grossly normal, nares patent, oropharynx clear without exudates. Moist mucosa NECK: Normal ROM, supple, no lymphadenopathy, JVD, or masses LUNGS: (+)Diffuse wheezing, mild conversational dyspnea. No crackles HEART: Regular rate and rhythm, normal S1 and S2, no murmurs, rubs or gallops ABDOMEN: Soft, nontender, normoactive bowel sounds. No guarding, no rebound. No masses EXTREMITIES: Normal range of motion, no edema. No clubbing or cyanosis. No cords, erythema, or tenderness NEUROLOGICAL: Cranial nerves II through XII grossly intact. SKIN: Warm, Dry, normal turgor, no rashes or lesions noted. <Gretchen Brush - Last Filed: 12/20/17 17:19> ED Treatment Course - LABORATORY CBC & Chemistry Diagram: 12/20/17 15:40 12/20/17 15:40 - RADIOLOGY Radiology Studies Ordered: 12/20/17 17:19 Chest X-Ray was reviewed by Dr. Mcdonald and over-read by Radiology. Impression: No acute pathology. Slight hyperaeration. <Gretchen Brush - Last Filed: 12/20/17 17:19> - LABORATORY CBC & Chemistry Diagram: 12/20/17 15:40 12/20/17 15:40 <Madiha Mcdonald - Last Filed: 12/20/17 17:54> Medical Decision Making - Medical Decision Making 12/20/17 16:15 pt presents to the ED complaining of wheezing and shortness of breath despite nebs, medrol and antibiotics. Sent by Dr. Bianchi for admission. Patient feels improved after nebs from EMs but is still tachypneic with diffuse wheezing. Will admit to medicine for continued treatment of COPD exacerbation. Will treat with nebs and steroids, check CXR and labs. <Madiha Mcdonald - Last Filed: 12/20/17 17:54> *DC/Admit/Observation/Transfer - Attestations Scribe Attestion: 12/20/17 16:23 Documentation prepared by Gretchen Brush, acting as medical assistant supervisor for Madiha Mcdonald MD. <Gretchen Brush - Last Filed: 12/20/17 17:19> - Discharge Dispostion Decision to Admit order: Yes <Madiha Mcdonald - Last Filed: 12/20/17 17:54> Diagnosis at time of Disposition: COPD (chronic obstructive pulmonary disease) - Discharge Dispostion Condition at time of disposition: Good - Referrals Referrals: Kulwant Bianchi MD [Primary Care Provider] -
[2017-12-20] MEDS ORDERED: methylPREDNISolone NA SUCC 125 MG/2 ML VIAL IVPUSH ONE (15:49)
[2017-12-20] MEDS ORDERED: ALBUTEROL SO4 2.5/IPRATROPIUM 0.5 INH SOL 3 ML VIAL.NEB. NEB ONE (16:00)
[2017-12-20] MEDS ORDERED: methylPREDNISolone NA SUCC 125 MG/2 ML VIAL ONE (16:00)
[2017-12-20] MEDS: ALBUTEROL SO4 2.5/IPRATROPIUM 0.5 INH SOL 3 ML VIAL.NEB. NEB SCH (16:04)
[2017-12-20 16:20] LABS: BASO % 1.4 % (0-2.0); EOS % 8.1 % (0-4.5); HEMATOCRIT 32.9 % (32.4-45.2); HEMOGLOBIN 10.7 GM/dL (10.7-15.3); MCH 26.7 pg (25.7-33.7); MCHC 32.4 g/dl (32.0-36.0); MEAN CELL VOLUME 82.5 fl (80-96); MEAN PLT VOLUME 7.8 fl (7.5-11.1); MONO % 8.1 % (3.8-10.2); NEUT % 58.4 % (42.8-82.8); PLATELET COUNT 324 K/MM3 (134-434); RBC 3.99 M/mm3 (3.60-5.2); RDW 17.9 % (11.6-15.6); WHITE BLOOD COUNT 7.4 K/mm3 (4.0-10.0)
[2017-12-20 17:00] LABS: ALBUMIN 3.4 g/dl (3.4-5.0); ALK PHOS 58 U/L (45-117); ANION GAP 9 MMOL/L (8-16); BILIRUBIN,TOTAL 0.2 mg/dL (0.2-1.0); BLOOD UREA NITROGEN 13 mg/dL (7-18); CALCIUM 9.2 mg/dL (8.5-10.1); CHLORIDE 105 mmol/L (98-107); CO2 28 mmol/L (21-32); CREATININE 0.7 mg/dL (0.55-1.02); GLUCOSE,RANDOM 83 mg/dL (74-106); N-TERMINAL BNP 182.63 pg/ml (5-125); POTASSIUM 4.6 mmol/L (3.5-5.1); SGOT/AST 10 U/L (15-37); SGPT/ALT 11 U/L (12-78); SODIUM 142 mmol/L (136-145); TOT PROT 6.7 g/dl (6.4-8.2)
[2017-12-20] MEDS ORDERED: ALBUTEROL SO4 2.5/IPRATROPIUM 0.5 INH SOL 3 ML VIAL.NEB. NEB PRN (17:49)
[2017-12-20] MEDS: methylPREDNISolone NA SUCC 40 MG/1 ML VIAL IVPUSH SCH (17:56)
[2017-12-20] MEDS ORDERED: methylPREDNISolone NA SUCC 40 MG/1 ML VIAL ONE (17:56)
--- NOTE | 2017-12-20 17:56 | HP ---
Admitting History and Physical - Primary Care Physician PCP: Kulwant Bianchi - Admission Chief Complaint: SOB. CHEST PAIN History of Present Illness: SEEN IN MY OFFICE YESTERDAY DEVELOPED ACUTE ON CHRONIC ASTHMA EXACERBATION. TREATED OUTPATIENT WITH NEBS, ZPAC, MEDROL DOSE PACK BUT WORSENED WITH SEVERE DYSPNEA TODAY. H/O SEIZURE, HTN, DM . 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 No: CVA Cardiovascular: Yes: CAD, HTN, Other (PCI STENT). No: AFIB Pulmonary: Yes: Asthma, COPD Endocrine: Yes: Diabetes Mellitus - Past Surgical History Past Surgical History: Yes: Hysterectomy, Stent - Smoking History Smoking history: Current some day smoker Have you smoked in the past 12 months: Yes Aproximately how many cigarettes per day: 10 - Alcohol/Substance Use Hx Alcohol Use: No History of Substance Use: reports: None - Social History ADL: Independent History of Recent Travel: No Home Medications - Allergies Allergies/Adverse Reactions: Allergies Allergy/AdvReac Type Severity Reaction Status Date / Time No Known Allergies Allergy Verified 12/20/17 15:32 - Home Medications Home Medications: Ambulatory Orders Albuterol Sulfate Inhaler - [Ventolin HFA Inhaler -] 1 - 2 inh PO QID PRN #1 inhaler 07/02/14 Cyanocobalamin [Vitamin B12 -] 1,000 mcg PO DAILY 07/16/14 Cholecalciferol (Vitamin D3) [Vitamin D3 -] 1,000 unit PO DAILY #30 tab Metoprolol Succinate [Toprol XL -] 12.5 mg PO DAILY #30 tab.sr.24h 06/01/15 levETIRAcetam [Keppra -] 750 mg PO BID #180 tablet 06/01/15 Metoclopramide HCl [Reglan -] 5 mg PO TIDAC #30 tablet 07/13/16 Aspirin Coated [Ecotrin -] 325 mg PO DAILY #30 tab 11/19/16 Linagliptin [Tradjenta] 5 mg PO DAILY 12/16/16 Amlodipine Besylate 2.5 mg PO DAILY 01/24/[address] 36,000 Units Capsule 36,000 units PO DAILY 01/24/17 Nitroglycerin Sublingual 0.4 mg SL PRN PRN 01/24/17 Ranolazine [Ranexa] 500 mg PO BID 01/24/17 Azithromycin 250 mg PO DAILY 4 Days #4 tablet MDD 1 tab 05/24/17 Doxepin HCl 50 mg PO HS 05/24/17 Trazodone HCl 150 mg PO DAILY 05/24/17 Family Disease History - Family Disease History Family Disease History: Diabetes: Father, Other: Mother (alzheimers), Sister (3 strokes) Review of Systems - Review of Systems Constitutional: reports: Weakness Eyes: reports: No Symptoms HENT: reports: No Symptoms Neck: reports: No Symptoms Cardiovascular: reports: Shortness of Breath Respiratory: reports: SOB Gastrointestinal: reports: No Symptoms Genitourinary: reports: No Symptoms Musculoskeletal: reports: No Symptoms Integumentary: reports: No Symptoms Neurological: reports: No Symptoms Endocrine: reports: No Symptoms Hematology/Lymphatic: reports: No Symptoms Psychiatric: reports: No Symptoms Physical Examination Vital Signs: Vital Signs Temperature 98.5 F 12/20/17 15:30 Pulse Rate 78 12/20/17 15:30 Respiratory Rate 18 12/20/17 15:30 Blood Pressure 106/67 12/20/17 15:30 O2 Sat by Pulse Oximetry (%) 96 12/20/17 17:46 Constitutional: Yes: Moderate Distress Eyes: Yes: WNL HENT: Yes: WNL Neck: Yes: WNL Cardiovascular: Yes: Tachycardia Respiratory: Yes: Cough, On Nasal O2, SOB, Wheezes Gastrointestinal: Yes: WNL Renal/: Yes: WNL Musculoskeletal: Yes: WNL Extremities: Yes: WNL Edema: No Peripheral Pulses WNL: Yes Integumentary: Yes: WNL Wound/Incision: Yes: Clean/Dry Neurological: Yes: WNL ...Motor Strength: WNL Psychiatric: Yes: WNL Labs: CBC, BMP 12/20/17 15:40 12/20/17 15:40 Imaging - Results Chest X-ray: Report Reviewed Problem List - Problems (1) Asthma exacerbation in COPD Code(s): J44.1 - CHRONIC OBSTRUCTIVE PULMONARY DISEASE W (ACUTE) EXACERBATION; J45.901 - UNSPECIFIED ASTHMA WITH (ACUTE) EXACERBATION (2) COPD (chronic obstructive pulmonary disease) Code(s): J44.9 - CHRONIC OBSTRUCTIVE PULMONARY DISEASE, UNSPECIFIED (3) Chest pain Code(s): R07.9 - CHEST PAIN, UNSPECIFIED (4) DM (diabetes mellitus) Code(s): E11.9 - TYPE 2 DIABETES MELLITUS WITHOUT COMPLICATIONS (5) Hypertension Code(s): I10 - ESSENTIAL (PRIMARY) HYPERTENSION Assessment/Plan IV STEROIDS NEBS PULM EVAL DVT PROPHYLAXIS ECHO R/O CARDIAC EVENT CHECK ENZYMES 02 SUPPORT
[2017-12-20 20:57] VITALS: BMI 17.9
[2017-12-20] MEDS: INSULIN SLIDING SCALE (NOVOLOG) 1 VIAL SQ SCH (21:46)
[2017-12-20] MEDS: HEPARIN NA (PORCINE) 5,000 UNITS/ML 1ML VIAL SQ SCH (21:46)
[2017-12-20] MEDS: traZODone HCL 50 MG TABLET (FP) PO SCH (21:47)
[2017-12-20] MEDS: levETIRAcetam 500 MG TABLET (FP) PO SCH (21:47)
[2017-12-20] MEDS: RANOLAZINE E.R. 500 MG TABLET (FP) PO SCH (21:47)
[2017-12-21] MEDS: methylPREDNISolone NA SUCC 40 MG/1 ML VIAL IVPUSH SCH ×3 (02:00→18:09)
[2017-12-21] MEDS: INSULIN SLIDING SCALE (NOVOLOG) 1 VIAL SQ SCH ×4 (06:31→21:29)
[2017-12-21 06:59] LABS: HEMATOCRIT 35.1 % (32.4-45.2); MCHC 31.4 g/dl (32.0-36.0); MEAN CELL VOLUME 82.8 fl (80-96); MEAN PLT VOLUME 7.7 fl (7.5-11.1); PLATELET COUNT 327 K/MM3 (134-434); RBC 4.24 M/mm3 (3.60-5.2); WHITE BLOOD COUNT 9.2 K/mm3 (4.0-10.0)
[2017-12-21 07:35] LABS: ALBUMIN 3.4 g/dl (3.4-5.0); ANION GAP 10 MMOL/L (8-16); BLOOD UREA NITROGEN 15 mg/dL (7-18); CALCIUM 9.6 mg/dL (8.5-10.1); CHLORIDE 105 mmol/L (98-107); CHOLESTEROL 174 mg/dL (50-200); CO2 28 mmol/L (21-32); CREATININE 0.9 mg/dL (0.55-1.02); GLUCOSE,RANDOM 196 mg/dL (74-106); POTASSIUM 4.7 mmol/L (3.5-5.1); SGOT/AST 9 U/L (15-37); SGPT/ALT 11 U/L (12-78); SODIUM 143 mmol/L (136-145)
[2017-12-21 07:37] LABS: ALK PHOS 57 U/L (45-117); BILIRUBIN,TOTAL 0.2 mg/dL (0.2-1.0); HDL CHOLESTEROL 99 mg/dL (40-60); TRIGLYCERIDES 71 mg/dL (35-160)
--- NOTE | 2017-12-21 08:34 | PN ---
Progress Note, Physician Chief Complaint: AWAKE ALERT ECHO BEDSIDE NAD - Current Medication List Current Medications: Active Medications Albuterol/Ipratropium (Duoneb -) 1 amp NEB Q6H PRN PRN Reason: SHORTNESS OF BREATH Aspirin (Asa -) 325 mg PO DAILY [facility] Doxepin HCl (Sinequan -) 50 mg PO DAILY [facility] Heparin Sodium (Porcine) (Heparin -) 5,000 unit SQ BID [facility] Last Admin: 12/20/17 21:46 Dose: 5,000 unit Insulin Aspart (Novolog Vial Sliding Scale -) 1 vial SQ ACHS [facility]; Protocol Last Admin: 12/21/17 06:31 Dose: Not Given Levetiracetam (Keppra -) 750 mg PO BID [facility] Last Admin: 12/20/17 21:47 Dose: 750 mg Methylprednisolone Sodium Succinate (Solu-Medrol -) 40 mg IVPUSH Q8H-IV [facility] Last Admin: 12/21/17 02:00 Dose: 40 mg Metoprolol Succinate (Toprol Xl -) 12.5 mg PO DAILY [facility] Pantoprazole Sodium (Protonix -) 40 mg PO DAILY [facility] Ranolazine (Ranexa -) 500 mg PO BID [facility] Last Admin: 12/20/17 21:47 Dose: 500 mg Trazodone HCl (Desyrel -) 150 mg PO HS [facility] Last Admin: 12/20/17 21:47 Dose: 150 mg - Objective Vital Signs: Vital Signs Temperature 98.9 F 12/20/17 20:47 Pulse Rate 89 12/20/17 20:47 Respiratory Rate 18 12/20/17 21:00 Blood Pressure 127/47 12/20/17 20:47 O2 Sat by Pulse Oximetry (%) 96 12/20/17 21:00 Constitutional: Yes: Mild Distress Eyes: Yes: WNL HENT: Yes: WNL Neck: Yes: WNL Cardiovascular: Yes: WNL Respiratory: Yes: On Nasal O2, Wheezes Gastrointestinal: Yes: WNL Genitourinary: Yes: WNL Musculoskeletal: Yes: WNL Extremities: Yes: WNL Edema: No Peripheral Pulses WNL: Yes Integumentary: Yes: WNL Wound/Incision: Yes: Clean/Dry Neurological: Yes: WNL ...Motor Strength: WNL Psychiatric: Yes: WNL Labs: CBC, BMP 12/21/17 06:00 12/21/17 06:00 Problem List - Problems (1) Asthma exacerbation in COPD Code(s): J44.1 - CHRONIC OBSTRUCTIVE PULMONARY DISEASE W (ACUTE) EXACERBATION; J45.901 - UNSPECIFIED ASTHMA WITH (ACUTE) EXACERBATION (2) COPD (chronic obstructive pulmonary disease) Code(s): J44.9 - CHRONIC OBSTRUCTIVE PULMONARY DISEASE, UNSPECIFIED (3) Chest pain Code(s): R07.9 - CHEST PAIN, UNSPECIFIED (4) DM (diabetes mellitus) Code(s): E11.9 - TYPE 2 DIABETES MELLITUS WITHOUT COMPLICATIONS (5) Hypertension Code(s): I10 - ESSENTIAL (PRIMARY) HYPERTENSION Assessment/Plan ECHO RESULTS PENDING CARDIO/PULM WORKUP IV STEROIDS NEBS 02 SUPPORT PAIN CONTROL
[2017-12-21] MEDS ORDERED: INSULIN (NOVOLOG) ASPART 100 UNITS/ML 10ML VIAL ONE ×2 (10:32→16:51)
[2017-12-21] MEDS ORDERED: PT OWN MED DRAWER 7, Y5N ONE ×2 (10:33→21:16)
[2017-12-21] MEDS: PANTOPRAZOLE 40 MG TABLET (FP) PO SCH (10:38)
[2017-12-21] MEDS: ASPIRIN 325 MG TABLET PO SCH (10:39)
[2017-12-21] MEDS: levETIRAcetam 500 MG TABLET (FP) PO SCH ×2 (10:39→21:29)
[2017-12-21] MEDS: RANOLAZINE E.R. 500 MG TABLET (FP) PO SCH ×2 (10:40→21:30)
[2017-12-21] MEDS: HEPARIN NA (PORCINE) 5,000 UNITS/ML 1ML VIAL SQ SCH ×2 (10:40→21:29)
[2017-12-21] MEDS: metoPROLOL SUCCINATE 25 MG TAB.SR.24H (FP) PO SCH (10:47)
--- NOTE | 2017-12-21 10:49 | EKG ---
Test Reason : Blood Pressure : / mmHG Vent. Rate : 079 BPM Atrial Rate : 079 BPM P-R Int : 116 ms QRS Dur : 074 ms QT Int : 378 ms P-R-T Axes : 072 066 083 degrees QTc Int : 433 ms NORMAL SINUS RHYTHM NORMAL ECG WHEN COMPARED WITH ECG OF 24-MAY-2017 15:19, BORDERLINE CRITERIA FOR ANTERIOR INFARCT ARE NO LONGER PRESENT Confirmed by MATI BORRERO, AURELIA ([id number]) on 12/21/2017 10:49:01 AM Referred By: Confirmed By:AURELIA THORNE MD
[2017-12-21] MEDS: DOXEPIN HCL 25 MG CAPSULE PO SCH (12:40)
--- NOTE | 2017-12-21 13:56 | CON.CARD ---
Consult Consult Specialty:: cardiology Referred by:: Tash Reason for Consultation:: Shortness of breath - History of Present Illness Chief Complaint: Shortness of breath History of Present Illness: The patient is a 62-year-old female, former smoker (quit 2 months ago), history of diabetes, hypertension, hyperlipidemia, COPD/asthma, coronary artery disease and myocardial infarction, prior stents in 2011, seizure disorder, anxiety, now presenting with shortness of breath over the past 2 days. The patient was giving bronchodilator inhalers and nebulizers. She symptomatically better. She claims that she has good exercise tolerance. Denied exertional dyspnea nor chest pains. She is currently comfortable and symptom free. 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 No: AFIB Pulmonary: Yes: Asthma, COPD Endocrine: Yes: Diabetes Mellitus - Past Surgical History Past Surgical History: Yes: Hysterectomy, Stent - Alcohol/Substance Use Hx Alcohol Use: No History of Substance Use: reports: None - Smoking History Smoking history: Former smoker Have you smoked in the past 12 months: Yes Aproximately how many cigarettes per day: 10 - Social History Usual Living Arrangement: Alone ADL: Independent History of Recent Travel: No Home Medications - Allergies Allergies/Adverse Reactions: Allergies Allergy/AdvReac Type Severity Reaction Status Date / Time No Known Allergies Allergy Verified 12/20/17 15:32 - Home Medications Home Medications: Ambulatory Orders Albuterol Sulfate Inhaler - [Ventolin HFA Inhaler -] 1 - 2 inh PO QID PRN #1 inhaler 07/02/14 Cyanocobalamin [Vitamin B12 -] 1,000 mcg PO DAILY 07/16/14 levETIRAcetam [Keppra -] 750 mg PO BID #180 tablet 06/01/15 Metoclopramide HCl [Reglan -] 5 mg PO TIDAC #30 tablet 07/13/16 Linagliptin [Tradjenta] 5 mg PO DAILY 12/16/16 Nitroglycerin Sublingual 0.4 mg SL PRN PRN 01/24/17 Ranolazine [Ranexa] 500 mg PO BID 01/24/17 Doxepin HCl 100 mg PO HS 05/24/17 Aspirin Coated [Ecotrin -] 81 mg PO DAILY 12/20/17 Cholecalciferol (Vitamin D3) [Vitamin D3 -] 5,000 unit PO Q7D 12/20/17 Lipase/Protease/Amylase [Zenpep Dr 25,000 Unit Capsule] 1 each PO TID 12/20/17 Megestrol Acetate [Megace -] 20 mg PO DAILY 12/20/17 Metoprolol Succinate [Toprol XL -] 25 mg PO BID 12/20/17 Rifaximin [Xifaxan] 550 mg PO TID 12/20/17 Family Disease History - Family Disease History Family Disease History: Diabetes: Father, Other: Mother (alzheimers), Sister (3 strokes) Review of Systems - Review of Systems Constitutional: reports: No Symptoms Eyes: reports: No Symptoms HENT: reports: No Symptoms Neck: reports: No Symptoms Cardiovascular: reports: Shortness of Breath Respiratory: reports: SOB on Exertion, Wheezing Gastrointestinal: reports: No Symptoms Genitourinary: reports: No Symptoms Breasts: reports: No Symptoms Reported Musculoskeletal: reports: No Symptoms Integumentary: reports: No Symptoms Neurological: reports: No Symptoms Endocrine: reports: No Symptoms Hematology/Lymphatic: reports: No Symptoms Psychiatric: reports: No Symptoms Vital Signs: Vital Signs Temperature 98.3 F 12/21/17 09:41 Pulse Rate 88 12/21/17 09:41 Respiratory Rate 20 12/21/17 09:41 Blood Pressure 110/57 12/21/17 09:41 O2 Sat by Pulse Oximetry (%) 96 12/20/17 21:00 Constitutional: Yes: Well Nourished, No Distress, Calm Eyes: Yes: WNL, Conjunctiva Clear, EOM Intact HENT: Yes: WNL, Atraumatic, Normocephalic Neck: Yes: WNL, Supple, Trachea Midline Respiratory: Yes: On Nasal O2, Wheezes Gastrointestinal: Yes: WNL, Normal Bowel Sounds, Soft Renal/: Yes: WNL Cardiovascular: Yes: WNL, Regular Rate and Rhythm JVD: No Carotid Bruit: No PMI: Non-Displaced Heart Sounds: Yes: S1, S2 Murmur: Yes: Systolic Murmur, Grade 2 Musculoskeletal: Yes: WNL Extremities: Yes: WNL Edema: No Peripheral Pulses WNL: Yes Peripheral Pulses: 2+ Left Carotid, 2+ Right Carotid, 2+ Left Femoral, 2+ Right Femoral, 2+ Left Popliteal, 2+ Right Popliteal, 2+ Left Doralis Pedis, 2+ Right Dorsalis Pedis Integumentary: Yes: WNL Neurological: Yes: WNL ...Motor Strength: WNL Psychiatric: Yes: WNL - Other Data Labs, Other Data: CBC, BMP 12/21/17 06:00 12/21/17 06:00 Troponin, BNP 12/20/17 15:40 Troponin I < 0.02 B-Natriuretic Peptide 182.63 H Troponin, BNP 12/20/17 15:40 Troponin I < 0.02 B-Natriuretic Peptide 182.63 H Assessment/Plan 62-year-old female with a history of diabetes, hypertension, hyperlipidemia, COPD, coronary artery disease and myocardial infarction, status post stenting in 2011, seizure disorder, anxiety, now presenting with shortness of breath. There is no evidence of ischemia nor acute coronary syndrome. No chest pains. The patient is in sinus rhythm. There are no acute ECG changes. Cardiac markers are normal. The patient improved with nebulizer and bronchodilator inhalers. There is no CHF. There is no need for further cardiac workup at this point. The patient is stable from the cardiac standpoint. Continue home medications. Please do not hesitate to call us PRN. Please arrange for an outpatient appointment with within 2 weeks of discharge.
--- NOTE | 2017-12-21 14:59 | PN ---
Progress Note (short form) - Note Progress Note: PULMONARY CONSULTATION DICTATED 12/21/17 IMP COPD EXACERBATION ASHD S/P STENT DM SEIZURES HTN HLD PLAN IV STEROIDS INHALED BRONCHODILATORS O2 PFTS OUTPATIENT LOW DOSE CHEST CT OUTPATIENT FOR LUNG CANCER SCREENING DR ROBERTO Problem List - Problems (1) CAD (coronary artery disease) Code(s): I25.10 - ATHSCL HEART DISEASE OF [place] CORONARY ARTERY W/O ANG PCTRS Qualifiers: Coronary Disease-Associated Artery/Lesion type: [place] artery [place] vs. transplanted heart: [place] heart (2) COPD exacerbation Code(s): J44.1 - CHRONIC OBSTRUCTIVE PULMONARY DISEASE W (ACUTE) EXACERBATION (3) Chest pain Code(s): R07.9 - CHEST PAIN, UNSPECIFIED (4) DM (diabetes mellitus) Code(s): E11.9 - TYPE 2 DIABETES MELLITUS WITHOUT COMPLICATIONS (5) Hypertension Code(s): I10 - ESSENTIAL (PRIMARY) HYPERTENSION (6) Seizure disorder Code(s): G40.909 - EPILEPSY, UNSP, NOT INTRACTABLE, WITHOUT STATUS EPILEPTICUS (7) Tobacco dependence Code(s): F17.200 - NICOTINE DEPENDENCE, UNSPECIFIED, UNCOMPLICATED
[2017-12-21] MEDS ORDERED: ALBUTEROL SO4 0.083% IH SOL 2.5 MG/3 ML VIAL.NEB. NEB PRN (15:00)
[2017-12-21] MEDS: ACETAMINOPHEN 325 MG TABLET (FP) PO PRN (15:52)
--- NOTE | 2017-12-21 15:56 | CONS ---
PULMONARY CONSULTATION DATE OF CONSULTATION: 12/21/2017 REFERRING PHYSICIAN: Kulwant Bianchi MD HISTORY OF PRESENT ILLNESS: The patient is a 62-year-old female with a past medical history of ASHD, status post stent; hypertension; COPD; diabetes, noninsulin dependent; long-standing history of tobacco use, quit approximately a month ago; admitted to [facility] with a few-day history of increasing shortness of breath, cough, and chest congestion. Patient developed some shortness of breath and wheezing a few days prior to admission. At the time, she was treated with nebulizer therapy, Z-Jose Francisco, and a Medrol Dosepak. Despite these measures symptoms worsened, at which time she presented to the emergency room. In the ER, she was felt to be in acute exacerbation of COPD. She was started on bronchodilators and steroids with good clinical response and transferred up to the floor for further management. Patient denies any history of recent travel. She denies any history of DVT or PE in the past. Does have a weight loss of a few pounds. Denies any hemoptysis. She states she has a dry cough. There is no history of recent URI symptoms. PAST MEDICAL HISTORY: Again includes history of hypertension, ASHD status post stents, COPD, diabetes, history of seizures. REVIEW OF SYSTEMS: Positive cough. Positive shortness of breath. Positive wheezing. Positive left-sided chest discomfort. She had no midsternal chest pain, no hemoptysis, no fevers, no night sweats, no recent URI, no chest congestion. CURRENT MEDICATIONS: Include Solu-Medrol of 40 q.8, heparin, Keppra, Desyrel, Sinequan, DuoNeb, Ranexa, pantoprazole, and aspirin. SOCIAL HISTORY: Born in [place] and moved to the [facility] many years ago. No occupational exposures. PHYSICAL EXAMINATION: General: The patient is a well-developed, well-nourished female, awake, alert, in no acute distress. Vital signs: She is afebrile, blood pressure is 110/57, respiratory rate is 20, O2 saturation is 96% on room air. HEENT: Exam is normocephalic, atraumatic. Neck: Supple without any adenopathy. Heart: Regular S1 and S2. Chest: Has a few scattered bilateral wheezes. Abdomen: Soft. Bowel sounds are positive. Extremities: No cyanosis, edema. LABORATORIES: WBC is 9.2, hemoglobin 11, hematocrit 35.2, with a platelet count of 347,000. BUN is 15, creatinine 0.9. IMAGING: Chest x-ray: No infiltrates and no effusions. IMPRESSION: 1. Dyspnea, secondary to chronic obstructive pulmonary disease exacerbation. 2. Atherosclerotic heart disease, status post stents. 3. Diabetes. 4. History of seizure disorder. PLAN: IV steroids. Inhaled bronchodilators. Will start inhaled steroids low-dose CT in view of the patient's long-standing history of tobacco use. Monitor peak flow. Pulmonary function tests as an outpatient. AISSATOU ROBERTO M.D. [id number]
--- NOTE | 2017-12-21 16:42 | ECHO ---
Name: SANDEEP HERNANDEZ Exam:Adult Echocardiogram Study Date: 12/21/2017 09:07 AM Age: 62 yrs Reason For Study: SOB CHECK VALVES Height: 62 in Weight: 96 lb BSA: 1.4 m2 MMode/2D Measurements & Calculations IVSd: 0.75 cm Ao root diam: 2.6 cm LVIDd: 4.5 cm LA dimension: 3.1 cm LVIDs: 2.9 cm LVPWd: 0.76 cm EDV(Teich): 94.2 ml ESV(Teich): 31.2 ml Doppler Measurements & Calculations MV E max calderon: 67.6 cm/sec MR max calderon: 235.3 cm/sec MV A max calderon: 74.5 cm/sec MR max P.1 mmHg MV E/A: 0.91 TR max calderon: 119.0 cm/sec Med Peak E' Calderon: 3.8 cm/sec TR max P.7 mmHg Med E/e': 17.8 Lat Peak E' Calderon: 4.4 cm/sec Lat E/e': 15.4 Procedure A two-dimensional transthoracic echocardiogram with color flow and Doppler was performed. Left Ventricle The left ventricular size, thickness and function are normal. The left ventricular ejection fraction is normal. E/A reversal consistent with but not diagnostic of poor LV compliance. The left ventricular w all motion is normal. Right Ventricle The right ventricle is not well visualized. Atria Normal left and right atrial size and function. Mitral Valve There is mild mitral valve thickening. There is no mitral valve stenosis. There is trace to mild mitr al regurgitation. Tricuspid Valve There is mild tricuspid valve thickening. There is Trace to mild tricuspid regurgitation. Right ventr icular systolic pressure is normal. Aortic Valve The aortic valve is normal in structure and function. No hemodynamically significant valvular aortic stenosis. No aortic regurgitation is present. Pulmonic Valve The pulmonic valve is not well visualized. There is no pulmonic valvular stenosis. There is no pulmon ic valvular regurgitation. Great Vessels The aortic root is normal size. Pericardium/Pleura There is no pericardial effusion. Interpretation Summary The left ventricular size, thickness and function are normal There is Trace to mild tricuspid regurgitation. Right ventricular systolic pressure is normal. The left ventricular wall motion is normal. E/A reversal consistent with but not diagnostic of poor LV compliance The left ventricular ejection fraction is normal. There is trace to mild mitral regurgitation. MD Guille Lorenz 12/21/2017 02:16 PM
[2017-12-21] MEDS: traZODone HCL 50 MG TABLET (FP) PO SCH (21:28)
[2017-12-21] MEDS: BUDESONIDE/FORMETEROL FUMARATE 160/4.5 mcg INHALER IH SCH (21:30)
[2017-12-21] MEDS ORDERED: guaiFENesin/D-METHORPHAN HB 5 ML UNIT-DOSE CUPS PO ONE (23:00)
[2017-12-21] MEDS ORDERED: guaiFENesin/D-M SUGAR-FREE/ACLHOL-FREE 118 ML BOTTLE PO ONE (23:00)
[2017-12-22] MEDS: methylPREDNISolone NA SUCC 40 MG/1 ML VIAL IVPUSH SCH ×2 (02:04→10:41)
[2017-12-22] MEDS: INSULIN SLIDING SCALE (NOVOLOG) 1 VIAL SQ SCH ×4 (06:34→21:35)
[2017-12-22] MEDS ORDERED: INSULIN (NOVOLOG) ASPART 100 UNITS/ML 10ML VIAL ONE (06:46)
--- NOTE | 2017-12-22 07:43 | PN ---
Progress Note, Physician History of Present Illness: c/o wheezing - Current Medication List Current Medications: Active Medications Acetaminophen (Tylenol -) 650 mg PO Q6H PRN PRN Reason: FEVER Last Admin: 12/21/17 15:52 Dose: 650 mg Albuterol Sulfate (Ventolin 0.083% Nebulizer Soln -) 1 amp NEB Q4H PRN PRN Reason: SHORT OF BREATH/WHEEZING Last Admin: 12/21/17 20:43 Dose: 1 amp Aspirin (Asa -) 325 mg PO DAILY [facility] Last Admin: 12/21/17 10:39 Dose: 325 mg Budesonide/Formoterol Fumarate (Symbicort 160/4.5mcg -) 2 puff IH BID [facility] Last Admin: 12/21/17 21:30 Dose: 2 puff Doxepin HCl (Sinequan -) 50 mg PO DAILY [facility] Last Admin: 12/21/17 12:40 Dose: 50 mg Heparin Sodium (Porcine) (Heparin -) 5,000 unit SQ BID [facility] Last Admin: 12/21/17 21:29 Dose: 5,000 unit Insulin Aspart (Novolog Vial Sliding Scale -) 1 vial SQ [facility]; Protocol Last Admin: 12/22/17 06:34 Dose: 2 units Levetiracetam (Keppra -) 750 mg PO BID [facility] Last Admin: 12/21/17 21:29 Dose: 750 mg Methylprednisolone Sodium Succinate (Solu-Medrol -) 40 mg IVPUSH Q8H-IV [facility] Last Admin: 12/22/17 02:04 Dose: 40 mg Metoprolol Succinate (Toprol Xl -) 12.5 mg PO DAILY [facility] Last Admin: 12/21/17 10:47 Dose: 12.5 mg Pantoprazole Sodium (Protonix -) 40 mg PO DAILY [facility] Last Admin: 12/21/17 10:38 Dose: 40 mg Ranolazine (Ranexa -) 500 mg PO BID [facility] Last Admin: 12/21/17 21:30 Dose: 500 mg Tiotropium [place] (Spiriva Respimat) 2 puff IH DAILY [facility] Trazodone HCl (Desyrel -) 150 mg PO HS [facility] Last Admin: 12/21/17 21:28 Dose: 150 mg - Objective Vital Signs: Vital Signs Temperature 98.8 F 12/22/17 06:00 Pulse Rate 66 12/22/17 06:00 Respiratory Rate 20 12/22/17 06:00 Blood Pressure 101/44 12/22/17 06:00 O2 Sat by Pulse Oximetry (%) 96 12/21/17 21:00 Cardiovascular: Yes: S1, S2 Respiratory: Yes: On Nasal O2, SOB on Exertion, Wheezes Gastrointestinal: Yes: Normal Bowel Sounds, Soft Edema: No Labs: CBC, BMP 12/21/17 06:00 12/21/17 06:00 Problem List - Problems (1) Asthma exacerbation in COPD Assessment/Plan: IV STEROIDS NEBS PULM EVAL DVT PROPHYLAXIS NEBS 02 SUPPORT Code(s): J44.1 - CHRONIC OBSTRUCTIVE PULMONARY DISEASE W (ACUTE) EXACERBATION; J45.901 - UNSPECIFIED ASTHMA WITH (ACUTE) EXACERBATION (2) CAD (coronary artery disease) Assessment/Plan: ECHO NL LV -CE ENZYMES NEG -CRDIO ON BOARD Code(s): I25.10 - ATHSCL HEART DISEASE OF [place] CORONARY ARTERY W/O ANG PCTRS Qualifiers: Coronary Disease-Associated Artery/Lesion type: [place] artery [place] vs. transplanted heart: [place] heart (3) DM (diabetes mellitus) Assessment/Plan: BGM WITH SS Code(s): E11.9 - TYPE 2 DIABETES MELLITUS WITHOUT COMPLICATIONS (4) Hypertension Assessment/Plan: Vital Signs Period Temp Pulse Resp BP Sys/Voss Pulse Ox Last 24 Hr 98.3 F-98.8 F 66-89 20-22 101-124/44-62 96-96 Code(s): I10 - ESSENTIAL (PRIMARY) HYPERTENSION
[2017-12-22] MEDS: ALBUTEROL SO4 2.5/IPRATROPIUM 0.5 INH SOL 3 ML VIAL.NEB. NEB SCH ×4 (08:00→20:31)
[2017-12-22] MEDS ORDERED: PT OWN MED DRAWER 7, Y5N ONE ×2 (10:35→10:56)
[2017-12-22] MEDS: TIOTROPIUM BROMIDE 2.5 MCG (SPIRIVA) RESPIMAT INHALER IH SCH (10:39)
[2017-12-22] MEDS: PANTOPRAZOLE 40 MG TABLET (FP) PO SCH (10:40)
[2017-12-22] MEDS: BUDESONIDE/FORMETEROL FUMARATE 160/4.5 mcg INHALER IH SCH ×2 (10:40→21:35)
[2017-12-22] MEDS: HEPARIN NA (PORCINE) 5,000 UNITS/ML 1ML VIAL SQ SCH ×2 (10:40→21:36)
[2017-12-22] MEDS: levETIRAcetam 500 MG TABLET (FP) PO SCH ×2 (10:41→21:36)
[2017-12-22] MEDS: RANOLAZINE E.R. 500 MG TABLET (FP) PO SCH ×2 (10:41→21:35)
[2017-12-22] MEDS: ASPIRIN 325 MG TABLET PO SCH (10:41)
[2017-12-22] MEDS: metoPROLOL SUCCINATE 25 MG TAB.SR.24H (FP) PO SCH (10:42)
[2017-12-22] MEDS: DOXEPIN HCL 25 MG CAPSULE PO SCH (10:44)
[2017-12-22] MEDS ORDERED: guaiFENesin/D-METHORPHAN HB 10 ML UNIT-DOSE CUPS PO PRN (11:35)
--- NOTE | 2017-12-22 13:58 | PN ---
Progress Note (short form) - Note Progress Note: PULMONARY States breathing is better today. Cough and wheezing less. Vital Signs Period Temp Pulse Resp BP Sys/Voss Pulse Ox Last 24 Hr 98.3 F-98.8 F 66-89 18-22 101-124/44-62 96 Intake & Output 12/19/17 12/20/17 12/21/17 12/22/17 23:59 23:59 23:59 23:59 Intake Total 1190 300 Balance 1190 300 Weight 44.565 kg 44.452 kg Gen: NAD at rest Heart: RRR Lung: decreased breath sounds at the bases Abd: soft, nontender Ext: no edema CBC, BMP 12/21/17 06:00 12/21/17 06:00 Active Medications Acetaminophen (Tylenol -) 650 mg PO Q6H PRN PRN Reason: FEVER Last Admin: 12/21/17 15:52 Dose: 650 mg Albuterol Sulfate (Ventolin 0.083% Nebulizer Soln -) 1 amp NEB Q4H PRN PRN Reason: SHORT OF BREATH/WHEEZING Last Admin: 12/21/17 20:43 Dose: 1 amp Albuterol/Ipratropium (Duoneb -) 1 amp NEB RQID [facility] Last Admin: 12/22/17 11:40 Dose: 1 amp Aspirin (Asa -) 325 mg PO DAILY [facility] Last Admin: 12/22/17 10:41 Dose: 325 mg Budesonide/Formoterol Fumarate (Symbicort 160/4.5mcg -) 2 puff IH BID [facility] Last Admin: 12/22/17 10:40 Dose: 2 puff Doxepin HCl (Sinequan -) 50 mg PO DAILY [facility] Last Admin: 12/22/17 10:44 Dose: 50 mg Guaifenesin (Robitussin Dm -) 10 ml PO Q6H PRN PRN Reason: COUGH Last Admin: 12/22/17 13:10 Dose: 10 ml Heparin Sodium (Porcine) (Heparin -) 5,000 unit SQ BID [facility] Last Admin: 12/22/17 10:40 Dose: 5,000 unit Insulin Aspart (Novolog Vial Sliding Scale -) 1 vial SQ [facility]; Protocol Last Admin: 12/22/17 11:40 Dose: 4 units Levetiracetam (Keppra -) 750 mg PO BID [facility] Last Admin: 12/22/17 10:41 Dose: 750 mg Methylprednisolone Sodium Succinate (Solu-Medrol -) 40 mg IVPUSH Q8H-IV [facility] Last Admin: 12/22/17 10:41 Dose: 40 mg Metoprolol Succinate (Toprol Xl -) 12.5 mg PO DAILY [facility] Last Admin: 12/22/17 10:42 Dose: 12.5 mg Pantoprazole Sodium (Protonix -) 40 mg PO DAILY [facility] Last Admin: 12/22/17 10:40 Dose: 40 mg Ranolazine (Ranexa -) 500 mg PO BID [facility] Last Admin: 12/22/17 10:41 Dose: 500 mg Tiotropium [place] (Spiriva Respimat) 2 puff IH DAILY [facility] Last Admin: 12/22/17 10:39 Dose: 2 puff Trazodone HCl (Desyrel -) 150 mg PO HS [facility] Last Admin: 12/21/17 21:28 Dose: 150 mg A/P Acute COPD Exacerbation CAD HTN DM Seizure Disorder - can decrease medrol to q12h - inhaled bronchodilators - if continues to improve, can likely change steroids to PO prednisone 40mg daily in AM and taper as outpt - outpt PFTs - when ready for discharge, check ambulatory SpO2 to assess for home O2 - DVT prophylaxis
[2017-12-22] MEDS: traZODone HCL 50 MG TABLET (FP) PO SCH (21:35)
[2017-12-22] MEDS ORDERED: methylPREDNISolone NA SUCC 40 MG/1 ML VIAL IVPUSH SCH (22:00)
[2017-12-22] MEDS: ACETAMINOPHEN 325 MG TABLET (FP) PO PRN (23:05)
[2017-12-23] MEDS: INSULIN SLIDING SCALE (NOVOLOG) 1 VIAL SQ SCH ×4 (06:16→22:46)
--- NOTE | 2017-12-23 08:32 | DS ---
Physical Examination Vital Signs: Vital Signs Temperature 98.7 F 12/22/17 21:28 Pulse Rate 77 12/22/17 21:28 Respiratory Rate 18 12/22/17 21:28 Blood Pressure 104/58 12/22/17 21:28 O2 Sat by Pulse Oximetry (%) 96 12/22/17 21:00 Findings/Remarks: The patient is a 62-year-old female, former smoker (quit 2 months ago), history of diabetes, hypertension, hyperlipidemia, COPD/asthma, coronary artery disease and myocardial infarction, prior stents in 2011, seizure disorder, anxiety, now presenting with shortness of breath over the past 2 days. Cardiovascular: Yes: Regular Rate and Rhythm Respiratory: Yes: Wheezes (MINMAL) Gastrointestinal: Yes: Normal Bowel Sounds, Soft Edema: No Labs: CBC, BMP 12/21/17 06:00 12/21/17 06:00 Discharge Summary Reason For Visit: OBSTRUCTIVE CHRONIC BRONCHITIS WITH EXACERBATION Current Active Problems Asthma exacerbation in COPD (Acute) COPD (chronic obstructive pulmonary disease) (Acute) Hospital Course: - Problems (1) Asthma exacerbation in COPD Assessment/Plan: IV STEROIDS NEBS--TO PO PULM EVAL NOTED DVT PROPHYLAXIS NEBS 02 SUPPORT Code(s): J44.1 - CHRONIC OBSTRUCTIVE PULMONARY DISEASE W (ACUTE) EXACERBATION; J45.901 - UNSPECIFIED ASTHMA WITH (ACUTE) EXACERBATION (2) CAD (coronary artery disease) Assessment/Plan: ECHO NL LV -CE ENZYMES NEG -CRDIO ON BOARD Code(s): I25.10 - ATHSCL HEART DISEASE OF [place] CORONARY ARTERY W/O ANG PCTRS Qualifiers: Coronary Disease-Associated Artery/Lesion type: [place] artery [place] vs. transplanted heart: [place] heart (3) DM (diabetes mellitus) Assessment/Plan: BGM WITH SS Code(s): E11.9 - TYPE 2 DIABETES MELLITUS WITHOUT COMPLICATIONS (4) Hypertension Assessment/Plan: Vital Signs Period Temp Pulse Resp BP Sys/Voss Pulse Ox Last 24 Hr 98.3 F-98.8 F 66-89 20-22 101-124/44-62 96-96 Code(s): I10 - ESSENTIAL (PRIMARY) HYPERTENSION DC HOME IF OK WITH PULM Condition: Good - Instructions Referrals: Kulwant Bianchi MD [Primary Care Provider] - 1 Week Disposition: HOME - Home Medications Comprehensive Discharge Medication List: Ambulatory Orders Albuterol Sulfate Inhaler - [Ventolin HFA Inhaler -] 1 - 2 inh PO QID PRN #1 inhaler 07/02/14 Cyanocobalamin [Vitamin B12 -] 1,000 mcg PO DAILY 07/16/14 levETIRAcetam [Keppra -] 750 mg PO BID #180 tablet 06/01/15 Metoclopramide HCl [Reglan -] 5 mg PO TIDAC #30 tablet 07/13/16 Linagliptin [Tradjenta] 5 mg PO DAILY 12/16/16 Nitroglycerin Sublingual 0.4 mg SL PRN PRN 01/24/17 Ranolazine [Ranexa] 500 mg PO BID 01/24/17 Doxepin HCl 100 mg PO HS 05/24/17 Aspirin Coated [Ecotrin -] 81 mg PO DAILY 12/20/17 Cholecalciferol (Vitamin D3) [Vitamin D3 -] 5,000 unit PO Q7D 12/20/17 Lipase/Protease/Amylase [Zenpep Dr 25,000 Unit Capsule] 1 each PO TID 12/20/17 Megestrol Acetate [Megace -] 20 mg PO DAILY 12/20/17 Metoprolol Succinate [Toprol XL -] 25 mg PO BID 12/20/17 Rifaximin [Xifaxan -] 550 mg PO TID 12/20/17 Guaifenesin Dm [Robitussin Dm -] 10 ml PO Q6H PRN cup 12/23/17 Metoprolol Succinate [Toprol XL -] 12.5 mg PO DAILY tab.sr.24h 12/23/17 Pantoprazole Sodium [Protonix -] 40 mg PO DAILY #30 tablet.ec 12/23/17 predniSONE [Deltasone -] 10 mg PO DAILY #30 tablet 12/23/17
[2017-12-23] MEDS: ALBUTEROL SO4 2.5/IPRATROPIUM 0.5 INH SOL 3 ML VIAL.NEB. NEB SCH ×4 (08:54→20:50)
[2017-12-23] MEDS ORDERED: PT OWN MED DRAWER 7, Y5N ONE ×3 (09:38→22:36)
[2017-12-23] MEDS: ACETAMINOPHEN 325 MG TABLET (FP) PO PRN (09:51)
[2017-12-23] MEDS: levETIRAcetam 500 MG TABLET (FP) PO SCH ×2 (09:52→22:40)
[2017-12-23] MEDS: RANOLAZINE E.R. 500 MG TABLET (FP) PO SCH ×2 (09:53→22:40)
[2017-12-23] MEDS: PANTOPRAZOLE 40 MG TABLET (FP) PO SCH (09:53)
[2017-12-23] MEDS: ASPIRIN 325 MG TABLET PO SCH (09:53)
[2017-12-23] MEDS: metoPROLOL SUCCINATE 25 MG TAB.SR.24H (FP) PO SCH (09:53)
[2017-12-23] MEDS: BUDESONIDE/FORMETEROL FUMARATE 160/4.5 mcg INHALER IH SCH ×2 (09:54→22:41)
[2017-12-23] MEDS: TIOTROPIUM BROMIDE 2.5 MCG (SPIRIVA) RESPIMAT INHALER IH SCH (09:54)
[2017-12-23] MEDS: HEPARIN NA (PORCINE) 5,000 UNITS/ML 1ML VIAL SQ SCH ×2 (09:59→22:41)
[2017-12-23] MEDS ORDERED: predniSONE 20 MG TABLET (UD) PO SCH (10:00)
[2017-12-23] MEDS: guaiFENesin/D-METHORPHAN HB 5 ML UNIT-DOSE CUPS PO PRN ×2 (10:18→22:56)
[2017-12-23] MEDS: DOXEPIN HCL 25 MG CAPSULE PO SCH (10:18)
[2017-12-23] MEDS ORDERED: INSULIN (NOVOLOG) ASPART 100 UNITS/ML 10ML VIAL ONE ×4 (11:51→18:07)
--- NOTE | 2017-12-23 12:29 | PN ---
Progress Note (short form) - Note Progress Note: PULMONARY LOW GRADE TEMP COMPLAINING OF WHEEZING THIS AM ANICTERIC B/L END EXP WHEEZE S1S1 BS+ SOFT NO EDEMA LABS/MEDS/IMAGES/NOTES REVIEWED IMP COPD EXACERBATION ASHD S/P STENT DM SEIZURES HTN HLD PLAN IV STEROIDS INHALED BRONCHODILATORS O2 PFTS OUTPATIENT LOW DOSE CHEST CT OUTPATIENT FOR LUNG CANCER SCREENING WILL CONTINUE INHOSPITAL TREATMENT FOR TODAY SPOKE WITH DEMARCO HUTTON MD
[2017-12-23] MEDS: methylPREDNISolone NA SUCC 40 MG/1 ML VIAL IVPUSH SCH ×2 (12:30→17:48)
[2017-12-23] MEDS: traZODone HCL 50 MG TABLET (FP) PO SCH (22:41)
[2017-12-24] MEDS: methylPREDNISolone NA SUCC 40 MG/1 ML VIAL IVPUSH SCH ×3 (02:36→17:13)
[2017-12-24] MEDS: INSULIN SLIDING SCALE (NOVOLOG) 1 VIAL SQ SCH ×3 (06:55→17:11)
[2017-12-24] MEDS: ALBUTEROL SO4 2.5/IPRATROPIUM 0.5 INH SOL 3 ML VIAL.NEB. NEB SCH ×3 (08:30→16:14)
--- NOTE | 2017-12-24 09:00 | PN ---
Progress Note, Physician Chief Complaint: COPD exacerbation History of Present Illness: NAD in bed receiving neb tx Wants to go home Continues to wheeze - Current Medication List Current Medications: Active Medications Acetaminophen (Tylenol -) 650 mg PO Q6H PRN PRN Reason: FEVER Last Admin: 12/23/17 09:51 Dose: 650 mg Albuterol Sulfate (Ventolin 0.083% Nebulizer Soln -) 1 amp NEB Q4H PRN PRN Reason: SHORT OF BREATH/WHEEZING Last Admin: 12/21/17 20:43 Dose: 1 amp Albuterol/Ipratropium (Duoneb -) 1 amp NEB RQID [facility] Last Admin: 12/23/17 20:50 Dose: 1 amp Aspirin (Asa -) 325 mg PO DAILY [facility] Last Admin: 12/23/17 09:53 Dose: 325 mg Budesonide/Formoterol Fumarate (Symbicort 160/4.5mcg -) 2 puff IH BID [facility] Last Admin: 12/23/17 22:41 Dose: 2 puff Doxepin HCl (Sinequan -) 50 mg PO DAILY [facility] Last Admin: 12/23/17 10:18 Dose: 50 mg Guaifenesin (Guaifenesin Dm Syrup) 10 ml PO Q6H PRN PRN Reason: COUGH Last Admin: 12/23/17 22:56 Dose: 10 ml Heparin Sodium (Porcine) (Heparin -) 5,000 unit SQ BID [facility] Last Admin: 12/23/17 22:41 Dose: 5,000 unit Insulin Aspart (Novolog Vial Sliding Scale -) 1 vial SQ ACHS [facility]; Protocol Last Admin: 12/24/17 06:55 Dose: 2 units Levetiracetam (Keppra -) 750 mg PO BID [facility] Last Admin: 12/23/17 22:40 Dose: 750 mg Methylprednisolone Sodium Succinate (Solu-Medrol -) 40 mg IVPUSH Q8H-IV [facility] Last Admin: 12/24/17 02:36 Dose: 40 mg Metoprolol Succinate (Toprol Xl -) 12.5 mg PO DAILY [facility] Last Admin: 12/23/17 09:53 Dose: 12.5 mg Pantoprazole Sodium (Protonix -) 40 mg PO DAILY [facility] Last Admin: 12/23/17 09:53 Dose: 40 mg Ranolazine (Ranexa -) 500 mg PO BID [facility] Last Admin: 12/23/17 22:40 Dose: 500 mg Tiotropium [place] (Spiriva Respimat) 2 puff IH DAILY [facility] Last Admin: 12/23/17 09:54 Dose: 2 puff Trazodone HCl (Desyrel -) 150 mg PO HS [facility] Last Admin: 12/23/17 22:41 Dose: 150 mg - Objective Vital Signs: Vital Signs Temperature 98.8 F 12/24/17 05:39 Pulse Rate 67 12/24/17 05:39 Respiratory Rate 18 12/24/17 05:39 Blood Pressure 134/58 12/24/17 05:39 O2 Sat by Pulse Oximetry (%) 95 12/23/17 21:00 Constitutional: Yes: Well Nourished, No Distress, Calm Cardiovascular: Yes: Regular Rate and Rhythm Respiratory: Yes: Wheezes (diffuse) Gastrointestinal: Yes: Normal Bowel Sounds, Soft Musculoskeletal: Yes: WNL Extremities: Yes: WNL Edema: No Peripheral Pulses WNL: Yes Neurological: Yes: Alert, Oriented Psychiatric: Yes: Alert, Oriented Labs: CBC, BMP 12/21/17 06:00 12/21/17 06:00 Problem List - Problems (1) Asthma exacerbation in COPD Assessment/Plan: -Seen by pulmonary -bronchodilators -IV solumedrol -Pre and post ambulating SpO2 -BGMs ACHS due to IV solumedrol -Pt not diabetic at A1C 6.0% Code(s): J44.1 - CHRONIC OBSTRUCTIVE PULMONARY DISEASE W (ACUTE) EXACERBATION; J45.901 - UNSPECIFIED ASTHMA WITH (ACUTE) EXACERBATION Assessment/Plan see problem list
[2017-12-24] MEDS: guaiFENesin/D-METHORPHAN HB 5 ML UNIT-DOSE CUPS PO PRN (09:50)
[2017-12-24] MEDS ORDERED: PT OWN MED DRAWER 7, Y5N ONE (10:32)
[2017-12-24] MEDS: ASPIRIN 325 MG TABLET PO SCH (10:33)
[2017-12-24] MEDS: levETIRAcetam 500 MG TABLET (FP) PO SCH (10:33)
[2017-12-24] MEDS: PANTOPRAZOLE 40 MG TABLET (FP) PO SCH (10:34)
[2017-12-24] MEDS: RANOLAZINE E.R. 500 MG TABLET (FP) PO SCH (10:34)
[2017-12-24] MEDS: metoPROLOL SUCCINATE 25 MG TAB.SR.24H (FP) PO SCH (10:34)
[2017-12-24] MEDS: BUDESONIDE/FORMETEROL FUMARATE 160/4.5 mcg INHALER IH SCH (10:35)
[2017-12-24] MEDS: TIOTROPIUM BROMIDE 2.5 MCG (SPIRIVA) RESPIMAT INHALER IH SCH (10:35)
[2017-12-24] MEDS: DOXEPIN HCL 25 MG CAPSULE PO SCH (10:36)
[2017-12-24] MEDS: HEPARIN NA (PORCINE) 5,000 UNITS/ML 1ML VIAL SQ SCH (10:39)
--- NOTE | 2017-12-24 12:33 | PN ---
Progress Note (short form) - Note Progress Note: PULMONARY States breathing continues to improve. Cough and wheezing less. Vital Signs Period Temp Pulse Resp BP Sys/Voss Pulse Ox Last 24 Hr 98.1 F-98.8 F 67-100 18-22 101-134/53-64 93-95 Gen: NAD at rest Heart: RRR Lung: scattered wheezes Abd: soft, nontender Ext: no edema CBC, BMP 12/21/17 06:00 12/21/17 06:00 Active Medications Acetaminophen (Tylenol -) 650 mg PO Q6H PRN PRN Reason: FEVER Last Admin: 12/23/17 09:51 Dose: 650 mg Albuterol Sulfate (Ventolin 0.083% Nebulizer Soln -) 1 amp NEB Q4H PRN PRN Reason: SHORT OF BREATH/WHEEZING Last Admin: 12/21/17 20:43 Dose: 1 amp Albuterol/Ipratropium (Duoneb -) 1 amp NEB RQID [facility] Last Admin: 12/24/17 11:49 Dose: 1 amp Aspirin (Asa -) 325 mg PO DAILY [facility] Last Admin: 12/24/17 10:33 Dose: 325 mg Budesonide/Formoterol Fumarate (Symbicort 160/4.5mcg -) 2 puff IH BID [facility] Last Admin: 12/24/17 10:35 Dose: 2 puff Doxepin HCl (Sinequan -) 50 mg PO DAILY [facility] Last Admin: 12/24/17 10:36 Dose: 50 mg Guaifenesin (Guaifenesin Dm Syrup) 10 ml PO Q6H PRN PRN Reason: COUGH Last Admin: 12/24/17 09:50 Dose: 10 ml Heparin Sodium (Porcine) (Heparin -) 5,000 unit SQ BID [facility] Last Admin: 12/24/17 10:39 Dose: 5,000 unit Insulin Aspart (Novolog Vial Sliding Scale -) 1 vial SQ ACHS [facility]; Protocol Last Admin: 12/24/17 11:58 Dose: 4 units Levetiracetam (Keppra -) 750 mg PO BID [facility] Last Admin: 12/24/17 10:33 Dose: 750 mg Methylprednisolone Sodium Succinate (Solu-Medrol -) 40 mg IVPUSH Q8H-IV [facility] Last Admin: 12/24/17 09:48 Dose: 40 mg Metoprolol Succinate (Toprol Xl -) 12.5 mg PO DAILY [facility] Last Admin: 12/24/17 10:34 Dose: 12.5 mg Pantoprazole Sodium (Protonix -) 40 mg PO DAILY [facility] Last Admin: 12/24/17 10:34 Dose: 40 mg Ranolazine (Ranexa -) 500 mg PO BID [facility] Last Admin: 12/24/17 10:34 Dose: 500 mg Tiotropium [place] (Spiriva Respimat) 2 puff IH DAILY [facility] Last Admin: 12/24/17 10:35 Dose: 2 puff Trazodone HCl (Desyrel -) 150 mg PO HS [facility] Last Admin: 12/23/17 22:41 Dose: 150 mg A/P Acute COPD Exacerbation CAD HTN DM Seizure Disorder - inhaled bronchodilators - can change steroids PO prednisone 40mg daily and taper as outpt - outpt PFTs - check ambulatory SpO2 to assess for home O2 - DVT prophylaxis - can d/c home with prednisone taper from pulmonary standpoint
[2017-12-24 14:56] VITALS: BP 124/72; PULSE 105; TEMP 98.6
== END 2017-12-24 18:18 | disposition home or self-care (01) | DRG 191 ==
LOC: JER 15:16 → JERBED 16:18 → J5S 19:40
PROVIDERS: ADMIT Family Medicine; ATTEND Family Medicine
DX: J44.1 Chronic obstructive pulmonary disease with (acute) exacerbation (principal); J45.901 Unspecified asthma with (acute) exacerbation; I25.10 Atherosclerotic heart disease of native coronary artery without angina pectoris; I25.2 Old myocardial infarction; I10 Essential (primary) hypertension; E11.9 Type 2 diabetes mellitus without complications; E78.5 Hyperlipidemia, unspecified; F41.9 Anxiety disorder, unspecified; G40.909 Epilepsy, unspecified, not intractable, without status epilepticus; F17.210 Nicotine dependence, cigarettes, uncomplicated
CPT/HCPCS: 36415; 71045-TC-FY; 80053; 80061; 82550; 82962; 83036; 83721; 83880; 84484; 85025; 85027; 93005; 93010; 93306-TC; 94640; 94761; 99284-25; J1644; J7620

== ENCOUNTER 2018-05-18 15:15 | Inpatient (IN) | payer OTHER ==
--- NOTE | 2018-05-18 15:35 | PDOC ---
History of Present Illness - General Chief Complaint: Chest Pain Stated Complaint: CHEST PAIN Time Seen by Provider: 05/18/18 15:34 History Source: Patient Exam Limitations: No Limitations - History of Present Illness Initial Comments: 05/18/18 15:37 The patient is a 62-year-old female, former smoker (quit 2 months ago), history of diabetes, hypertension, hyperlipidemia, COPD/asthma, coronary artery disease and myocardial infarction, prior stents in 2011, seizure disorder, anxiety, who presents due to L sided CP that started 2 days ago. preceding cp patient had n/v /d fri-sat that since resolved. her cp is new, charp, L sided over the entire rib cage, radiating to back and LUE, exacerbated by movement and deep inspiration. She had baseline palpitations, orthopnea (2 pillows), sob and dry cough that have slightly worsened. reports decreased appetite, denies peripheral edema, f/c, abd pain. + baseline vertigo limiting ambulation, ambulates with walker Last tte 11/2017 normal EF, mild TR, MR 05/18/18 16:10 05/18/18 16:14 05/18/18 16:32 Past History - Past Medical History Allergies/Adverse Reactions: Allergies Allergy/AdvReac Type Severity Reaction Status Date / Time No Known Allergies Allergy Verified 12/20/17 15:32 Home Medications: Ambulatory Orders Albuterol Sulfate Inhaler - [Ventolin HFA Inhaler -] 1 - 2 inh PO QID PRN #1 inhaler 07/02/14 Cyanocobalamin [Vitamin B12 -] 1,000 mcg PO DAILY 07/16/14 levETIRAcetam [Keppra -] 750 mg PO BID #180 tablet 06/01/15 Metoclopramide HCl [Reglan -] 5 mg PO TIDAC #30 tablet 07/13/16 Linagliptin [Tradjenta] 5 mg PO DAILY 12/16/16 Nitroglycerin Sublingual 0.4 mg SL PRN PRN 01/24/17 Ranolazine [Ranexa] 500 mg PO BID 01/24/17 Doxepin HCl 100 mg PO HS 05/24/17 Aspirin Coated [Ecotrin -] 81 mg PO DAILY 12/20/17 Cholecalciferol (Vitamin D3) [Vitamin D3 -] 5,000 unit PO Q7D 12/20/17 Lipase/Protease/Amylase [Zenpep Dr 25,000 Unit Capsule] 1 each PO TID 12/20/17 Megestrol Acetate [Megace -] 20 mg PO DAILY 12/20/17 Metoprolol Succinate [Toprol XL -] 25 mg PO BID 12/20/17 Rifaximin [Xifaxan -] 550 mg PO TID 12/20/17 Guaifenesin Dm [Robitussin Dm -] 10 ml PO Q6H PRN cup 12/23/17 Metoprolol Succinate [Toprol XL -] 12.5 mg PO DAILY tab.sr.24h 12/23/17 Pantoprazole Sodium [Protonix -] 40 mg PO DAILY #30 tablet.ec 12/23/17 predniSONE [Deltasone -] 10 mg PO DAILY #30 tablet 12/23/17 Anemia: No Asthma: No Cancer: No Cardiac Disorders: Yes (cardiac stent, CAD, DC) CVA: No COPD: Yes CHF: No Diabetes: Yes GI Disorders: Yes (gallstones) Disorders: No HTN: Yes Hypercholesterolemia: Yes Liver Disease: No Psychiatric Problems: Yes (ANXIETY) Seizures: Yes (hx grand mal seizures, last one 11/2016) Thyroid Disease: No - Surgical History Abdominal Surgery: No Appendectomy: No Cardiac Surgery: Yes (stents 2011) Cholecystectomy: No Lung Surgery: No Neurologic Surgery: No Orthopedic Surgery: No - Immunization History Immunization Up to Date: No - Suicide/Smoking/Psychosocial Hx Smoking Status: Yes Smoking History: Never smoked Have you smoked in the past 12 months: Yes Number of Cigarettes Smoked Daily: 10 'Breaking Loose' booklet given: 12/20/17 Hx Alcohol Use: No Drug/Substance Use Hx: No Substance Use Type: None Hx Substance Use Treatment: No Cardiac Specific PMH - Complaint Specific PMHX Cardiac Stent: Yes Pacemaker: No Review of Systems - Review of Systems Able to Perform ROS?: Yes Is the patient limited [place] proficient: No Constitutional: No: Chills, Fever HEENTM: No: Throat Pain, Difficulty Swallowing Respiratory: Yes: Cough, Orthopnea, Shortness of Breath, SOB with Exertion, SOB at Rest. No: Wheezing, Productive cough, Hemoptysis Cardiac (ROS): Yes: Chest Pain, Palpitations. No: Edema, Irregular Heart Rate, Syncope ABD/GI: No: Abdominal Distended, Constipated, Diarrhea, Nausea, Vomiting : No: Dysuria Musculoskeletal: Yes: Back Pain Neurological: No: Headache, Numbness, Paresthesia Psychiatric: Yes: Anxiety, Depression Hematologic/Lymphatic: Yes: Anemia *Physical Exam - Vital Signs Last Vital Signs Temp Pulse Resp BP Pulse Ox 98.2 F 84 18 102/51 L 100 05/18/18 15:27 05/18/18 15:27 05/18/18 15:27 05/18/18 15:27 05/18/18 15:41 - Physical Exam General Appearance: Yes: Nourished, Appropriately Dressed, Mild Distress HEENT: positive: EOMI, Normal Voice, Symmetrical. negative: Pale Conjunctivae, Scleral Icterus (R), Scleral Icterus (L) Neck: positive: Trachea midline, Normal Thyroid, Supple. negative: Tender, Rigid, Carotid bruit, Stridor, Lymphadenopathy (R), Lymphadenopathy (L) Respiratory/Chest: positive: Wheezing (diffusely [id number] air movement with mild expiratory wheezes) Cardiovascular: positive: Regular Rhythm, Regular Rate, S1, S2. negative: Edema , JVD, Murmur Gastrointestinal/Abdominal: positive: Normal Bowel Sounds, Tender (mildy tender epigastric ), Flat, Soft. negative: Organomegaly, Pulsatile Mass Moderate Sedation - Procedure Monitoring Vital Signs: Procedure Monitoring Vital Signs Temperature 98.2 F 05/18/18 15:27 Pulse Rate 84 05/18/18 15:27 Respiratory Rate 18 05/18/18 15:27 Blood Pressure 102/51 L 05/18/18 15:27 O2 Sat by Pulse Oximetry (%) 100 05/18/18 15:41 ED Treatment Course - LABORATORY CBC & Chemistry Diagram: 05/18/18 15:43 05/18/18 15:43 - ADDITIONAL ORDERS Additional order review: Laboratory Results 05/18/18 05/18/18 15:43 15:43 PT with INR 11.60 INR 0.98 PTT (Actin FS) 29.8 Sodium 137 Potassium 4.4 Chloride 101 Carbon Dioxide 32 Anion Gap 4 L BUN 9 Creatinine 0.7 Creat Clearance w eGFR > 60 Random Glucose 118 H Calcium 9.8 Total Bilirubin 0.2 AST 8 L ALT 9 L Alkaline Phosphatase 73 Troponin I < 0.02 Total Protein 5.8 L Albumin 2.6 L 05/18/18 15:43 RBC 4.21 MCV 79.0 L MCHC 32.3 RDW 23.4 H MPV 7.5 Neutrophils % 83.3 H D Lymphocytes % 8.9 D Monocytes % 5.7 Eosinophils % 1.2 D Basophils % 0.9 EKG NS 78, normal axis, nonspecific t changes/q waves in septal lead (V2), no evidence of acs 05/18/18 16:30 patient refuses tylenol for atypical reproducible cp and demands stronger medication. 05/18/18 17:48 patient has leukocytosis w left shift and negative trop x 1 . CXR shows DELVIN mass vs mucus plug vs atelectasis Ordering CT wo contrast, panculture, rocephin, zithromax, nebs, steroids, toradol for pain clinical picture more consistent with PNA/mucus plug, copd/asthma exacerbation. chest wall pain more likely pleuritic than a cardiac. 05/18/18 17:[address] Dobbins cardiology, who suggested 2 trops and if negative stop tele monitoring 05/18/18 17:52 05/18/18 18:09 05/18/18 18:10 planning admission m/s for further workup. 05/18/18 18:14 - RADIOLOGY Radiology Studies Ordered: Category Date Time Status CHEST CT WITHOUT CONTRAST [CT] Stat CT Scan 05/18/18 17:55 Ordered CXRPORT [CHEST X-RAY PORTABLE*] [RAD] Stat Radiology 05/18/18 16:00 Completed - Medications Given in the ED: ED Medications Discontinued Medications Generic Name Dose Route Start Last Admin Trade Name Freq PRN Reason Stop Dose Admin Acetaminophen 650 mg 05/18/18 16:10 05/18/18 16:14 Tylenol - PO 05/18/18 16:11 650 mg ONCE ONE Administration Albuterol/Ipratropium 1 amp 05/18/18 16:41 05/18/18 17:25 Duoneb - NEB 05/18/18 16:42 Not Given ONCE ONE Albuterol/Ipratropium 1 amp 05/18/18 16:45 05/18/18 17:25 Duoneb - NEB 05/18/18 17:16 1 amp Q15M ARIANA Administration Methylprednisolone Sodium Succinate 40 mg 05/18/18 16:42 05/18/18 17:25 Solu-Medrol - IVPUSH 05/18/18 16:43 40 mg ONCE ONE Administration Sodium Chloride 500 ml 05/18/18 16:54 05/18/18 17:25 Normal Saline - IV 05/18/18 16:55 500 ml ONCE ONE Administration *DC/Admit/Observation/Transfer Diagnosis at time of Disposition: COPD (chronic obstructive pulmonary disease), Lung mass, COPD exacerbation, Asthma exacerbation in COPD, DM (diabetes mellitus), Tobacco dependence, Hypertension, CAD (coronary artery disease), Chest pain - Discharge Dispostion Decision to Admit order: Yes - Referrals Referrals: Kulwant Bianchi MD [Primary Care Provider] - - Patient Instructions - Post Discharge Activity
[2018-05-18 15:56] LABS: BASO % 0.9 % (0-2.0); EOS % 1.2 % (0-4.5); HEMATOCRIT 33.2 % (32.4-45.2); HEMOGLOBIN 10.7 GM/dL (10.7-15.3); LYMPH % 8.9 % (8-40); MCH 25.5 pg (25.7-33.7); MCHC 32.3 g/dl (32.0-36.0); MEAN PLT VOLUME 7.5 fl (7.5-11.1); MONO % 5.7 % (3.8-10.2); NEUT % 83.3 % (42.8-82.8); PLATELET COUNT 360 K/MM3 (134-434); RBC 4.21 M/mm3 (3.60-5.2); RDW 23.4 % (11.6-15.6); WHITE BLOOD COUNT 14.9 K/mm3 (4.0-10.0)
[2018-05-18 16:04] LABS: INR 0.98 (0.83-1.09); PROTHROMBIN TIME (PATIENT) 11.6 SEC (9.7-13.0)
[2018-05-18 16:08] LABS: ACTIVATED PTT 29.8 SECONDS (25.2-36.5)
[2018-05-18] MEDS ORDERED: ACETAMINOPHEN 325 MG TABLET (FP) PO ONE (16:10)
--- NOTE | 2018-05-18 16:11 | PDOC ---
Attending Attestation - Resident Resident Name: Teri Black - ED Attending Attestation I have performed the following: I have examined & evaluated the patient, The case was reviewed & discussed with the resident, I agree w/resident's findings & plan, Exceptions are as noted - HPI HPI: 05/18/18 16:52 63yo female with hx of CAD/VA/COPD from home with 2 days of sob and L sided cp. Pt admits to a cough-nonproductive and no change from her COPD baseline cough. No fevers or chills. No sore throat or rhinorrhea. No abd pain. No n/v/d. Pt states she has taken tylenol at home for the pain, has used her albuterol inhaler twice without relief. Pt states her last appointment with her table hand Dr. Lainez was last summer. States pain is worse with movement, breathing, lifting her arm. Pt does have some chest wall ttp, but denies rash. - Physicial Exam PE: 05/18/18 16:51 Gen: aao3, nad heent: mmm, posterior pharynx clear heart: +s1s2 reg lungs: coarse bs b/l, wheezing diffusely, no rashes to chest wall abd: soft, nt/nd +bs ext: no c/c/e, +radial and pedal pulses intact - Medical Decision Making 05/18/18 16:10 I, Dr. Lindsay Sumner, DO, attest that this document has been prepared under my direction and personally reviewed by me in its entirety. I further attest, that it accurately reflects all work, treatment, procedures and medical decision -making performed by me. 05/18/18 16:49 a/p: 63yo female with sob/cp and cough -no fevers, pain with deep inspiration, no LE swelling -pt with wheezing, coarse bs on inspiration -concern for mild copd exacerbation as cause -hx of CAD -will send labs, ekg, trop -will give nebs -will give steroids -will discuss with cards- Dr. Vincent -tylenol for pain control -will monitor and reassess 05/18/18 16:51 pt refusing to take tylenol 05/18/18 18:03 elevated wbc abnl xray concerning for pna vs mass vs atelectasis abx ordered cultures ordered will obtain ct chest for further eval pt will need admission 05/18/18 19:02 resident discussed the case with KIM who accepts pt to service, covering for Dr. Bianchi Heart Score/ECG Review - ECG Intrepretation Comment:: 05/18/18 16:49 sinus at 78, t wave inversion V2, nl axis, no acute st/t wave findings, no changes from prior ekg
[2018-05-18] MEDS ORDERED: ACETAMINOPHEN 325 MG TABLET (FP) ONE (16:14)
--- NOTE | 2018-05-18 16:20 | EKG ---
Test Reason : Blood Pressure : / mmHG Vent. Rate : 078 BPM Atrial Rate : 078 BPM P-R Int : 112 ms QRS Dur : 080 ms QT Int : 356 ms P-R-T Axes : 068 076 085 degrees QTc Int : 405 ms NORMAL SINUS RHYTHM NONSPECIFIC ST AND T WAVE ABNORMALITY ABNORMAL ECG WHEN COMPARED WITH ECG OF 20-DEC-2017 16:13, NO SIGNIFICANT CHANGE WAS FOUND Confirmed by SAMIA BORRERO, SHAHZAD ([id number]) on 05/18/2018 4:20:36 PM Referred By: Confirmed By:SHAHZAD GRACIA MD
[2018-05-18] MEDS ORDERED: ALBUTEROL SO4 2.5/IPRATROPIUM 0.5 INH SOL 3 ML VIAL.NEB. NEB ONE ×2 (16:41→17:17)
[2018-05-18] MEDS ORDERED: methylPREDNISolone NA SUCC 40 MG/1 ML VIAL IVPUSH ONE (16:42)
[2018-05-18 16:44] LABS: ALBUMIN 2.6 g/dl (3.4-5.0); ALK PHOS 73 U/L (45-117); ANION GAP 4 MMOL/L (8-16); BILIRUBIN,TOTAL 0.2 mg/dL (0.2-1); BLOOD UREA NITROGEN 9 mg/dL (7-18); CALCIUM 9.8 mg/dL (8.5-10.1); CHLORIDE 101 mmol/L (98-107); CO2 32 mmol/L (21-32); CREATININE 0.7 mg/dL (0.55-1.3); GLUCOSE,RANDOM 118 mg/dL (74-106); POTASSIUM 4.4 mmol/L (3.5-5.1); SGOT/AST 8 U/L (15-37); SGPT/ALT 9 U/L (13-61); SODIUM 137 mmol/L (136-145); TOT PROT 5.8 g/dl (6.4-8.2)
[2018-05-18] MEDS ORDERED: SODIUM CHLORIDE 0.9% 1000 ML INFUS.BAG IV ONE (16:54)
[2018-05-18] MEDS ORDERED: methylPREDNISolone NA SUCC 40 MG/1 ML VIAL ONE (17:18)
[2018-05-18] MEDS: ALBUTEROL SO4 2.5/IPRATROPIUM 0.5 INH SOL 3 ML VIAL.NEB. NEB SCH ×2 (17:25→18:45)
[2018-05-18 17:45] LABS: ANISOCYTOSIS 3+; MACROCYTOSIS 2+; PLATELET ESTIMATE ADEQUATE
[2018-05-18] MEDS ORDERED: AZITHROMYCIN IVPB 500 MG in DEXTROSE 5%-WATER - 250 ML IVPB ONE (17:58)
[2018-05-18] MEDS ORDERED: CEFTRIAXONE 2,000 MG in DEXTROSE 5%-WATER - 50 ML IVPB ONE (17:58)
[2018-05-18] MEDS ORDERED: KETOROLAC TROMETHAMINE 60 MG/2 ML VIAL IVPUSH ONE (18:04)
[2018-05-18] MEDS ORDERED: KETOROLAC TROMETHAMINE 30 MG/1 ML VIAL IM ONE (18:46)
[2018-05-18] MEDS ORDERED: CEFTRIAXONE 2 GM/100 ML BAG IVPB ONE (18:48)
[2018-05-18] MEDS ORDERED: KETOROLAC TROMETHAMINE 30 MG/1 ML VIAL ONE (18:48)
[2018-05-18] MEDS ORDERED: AZITHROMYCIN IVPB 500 MG/250 ML BAG IVPB ONE (18:48)
[2018-05-18 19:41] LABS: URINE APPEARANCE CLEAR; URINE BILIRUBIN NEGATIVE (<2.0 mg/dL); URINE COLOR YELLOW; URINE GLUCOSE (UA) NEGATIVE (NEGATIVE); URINE KETONE TRACE (NEGATIVE); URINE LEUK ESTERASE NEGATIVE (NEGATIVE); URINE NITRITE NEGATIVE (NEGATIVE); URINE PROTEIN NEGATIVE (NEGATIVE); URINE UROBILINOGEN NEGATIVE mg/dL (0.2-1.0)
[2018-05-18] MEDS ORDERED: traMADol HCL 50 MG TABLET PO ONE (22:45)
--- NOTE | 2018-05-19 02:12 | HP ---
Admitting History and Physical - Primary Care Physician PCP: Kulwant Bianchi - Admission Chief Complaint: Chest Pain History of Present Illness: This is a 63 y/o woman with a significant medical history of HTN, HLD, CAD, CT s /p Stents (2011),DM, COPD, Asthma, Anxiety, Current Smoker (12 cigarettes/day). Who presents to the ED with left sided chest pain non-radiating while sitting x 4 days. Patient reports that the pain is increased with movement. Patient denies SOB, palpitations. Patient denies fever, chills, cough, dizziness, AP, N/ V,D, constipation, dysuria. 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 No: CVA Cardiovascular: Yes: CAD, HTN, Other (PCI STENT). No: AFIB Pulmonary: Yes: Asthma, COPD Endocrine: Yes: Diabetes Mellitus - Past Surgical History Past Surgical History: Yes: Hysterectomy, Stent - Smoking History Smoking history: Current every day smoker Have you smoked in the past 12 months: Yes Aproximately how many cigarettes per day: 12 - Alcohol/Substance Use Hx Alcohol Use: No History of Substance Use: reports: None - Social History Usual Living Arrangement: Yes: With Child ADL: Independent (ambulates with cane, walker) History of Recent Travel: No Home Medications - Allergies Allergies/Adverse Reactions: Allergies Allergy/AdvReac Type Severity Reaction Status Date / Time No Known Allergies Allergy Verified 12/20/17 15:32 - Home Medications Home Medications: Ambulatory Orders Albuterol Sulfate Inhaler - [Ventolin HFA Inhaler -] 1 - 2 inh PO QID PRN #1 inhaler 07/02/14 Cyanocobalamin [Vitamin B12 -] 1,000 mcg PO DAILY 07/16/14 levETIRAcetam [Keppra -] 750 mg PO BID #180 tablet 06/01/15 Linagliptin [Tradjenta] 5 mg PO DAILY 12/16/16 Nitroglycerin Sublingual 0.4 mg SL PRN PRN 01/24/17 Ranolazine [Ranexa] 500 mg PO BID 01/24/17 Doxepin HCl 100 mg PO HS 05/24/17 Aspirin Coated [Ecotrin -] 81 mg PO DAILY 12/20/17 Cholecalciferol (Vitamin D3) [Vitamin D3 -] 5,000 unit PO Q7D 12/20/17 Metoprolol Succinate [Toprol XL -] 25 mg PO BID 12/20/17 Pantoprazole Sodium [Protonix -] 40 mg PO DAILY #30 tablet.ec 12/23/17 Trazodone HCl 150 mg PO HS 05/18/18 Ferrous Sulfate [Feosol] 325 mg PO TID 05/19/18 Folic Acid - 1 mg PO DAILY 05/19/18 Meclizine HCl [Antivert -] 25 mg PO TID 05/19/18 Mirtazapine [Remeron -] 7.5 mg PO DAILY 05/19/18 Family Disease History - Family Disease History Family Disease History: Diabetes: Father, Mother (alzheimers), Heart Disease: Mother, CA: Brother (Pancreatic, ), Other: Mother, Sister (3 strokes) Review of Systems - Review of Systems Constitutional: reports: No Symptoms Eyes: reports: No Symptoms HENT: reports: No Symptoms Neck: reports: No Symptoms Cardiovascular: reports: Chest Pain Respiratory: reports: No Symptoms Gastrointestinal: reports: No Symptoms Genitourinary: reports: No Symptoms Breasts: reports: No Symptoms Reported Musculoskeletal: reports: No Symptoms Integumentary: reports: No Symptoms Neurological: reports: No Symptoms Endocrine: reports: No Symptoms Hematology/Lymphatic: reports: No Symptoms Psychiatric: reports: No Symptoms Pain Intensity: 4 Physical Examination Vital Signs: Vital Signs Temperature 98.2 F 05/18/18 15:27 Pulse Rate 95 H 05/18/18 19:36 Respiratory Rate 20 05/18/18 19:36 Blood Pressure 110/61 05/18/18 19:36 O2 Sat by Pulse Oximetry (%) 100 05/18/18 19:36 Constitutional: Yes: No Distress, Calm, Thin Eyes: Yes: WNL, Conjunctiva Clear, EOM Intact, PERRL HENT: Yes: WNL, Atraumatic, Normocephalic Neck: Yes: WNL, Supple, Trachea Midline Cardiovascular: Yes: WNL, Regular Rate and Rhythm, S1, S2 Respiratory: Yes: WNL, Regular, CTA Bilaterally Gastrointestinal: Yes: WNL, Normal Bowel Sounds, Soft Renal/: Yes: WNL Breast(s): Yes: WNL Musculoskeletal: Yes: WNL Extremities: Yes: WNL Edema: No Peripheral Pulses WNL: Yes Neurological: Yes: WNL, Alert, Oriented, Cran Nerves II-XII Intact ...Motor Strength: WNL Psychiatric: Yes: WNL, Alert, Oriented Labs: CBC, BMP 05/18/18 15:43 05/18/18 15:43 Imaging - Results Chest X-ray: Report Reviewed, Image Reviewed Cat Scan: Report Reviewed, Image Reviewed EKG: Image Reviewed Problem List - Problems (1) Chest pain Code(s): R07.9 - CHEST PAIN, UNSPECIFIED (2) COPD (chronic obstructive pulmonary disease) Code(s): J44.9 - CHRONIC OBSTRUCTIVE PULMONARY DISEASE, UNSPECIFIED (3) Lung mass Code(s): R91.8 - OTHER NONSPECIFIC ABNORMAL FINDING OF LUNG FIELD (4) CAD (coronary artery disease) Code(s): I25.10 - ATHSCL HEART DISEASE OF [place] CORONARY ARTERY W/O ANG PCTRS (5) DM (diabetes mellitus) Code(s): E11.9 - TYPE 2 DIABETES MELLITUS WITHOUT COMPLICATIONS (6) Hypertension Code(s): I10 - ESSENTIAL (PRIMARY) HYPERTENSION (7) Seizure disorder Code(s): G40.909 - EPILEPSY, UNSP, NOT INTRACTABLE, WITHOUT STATUS EPILEPTICUS (8) Tobacco dependence Code(s): F17.200 - NICOTINE DEPENDENCE, UNSPECIFIED, UNCOMPLICATED Assessment/Plan This is a 63 y/o woman PMHx of: HTN, HLD, CAD, CT s/p Stent, DM COPD, Asthma, Seizure Disorder, Anxiety. Admitted for Chest Pain, COPD Exacerbation for further evaluation of their emergent condition. Plan: Will admit to Telemetry r/o ACS Serial Enzymes neg x2 Cardiology following EKG- reviewed Chest Xray- new density DELVIN, CT chest suggested Chest CT- left upper lobe atelectasis, distal air filled branch vs Superimposed infection 5x3.4cm left superior hilar obstructing soft tissue mass/lesion. Trace left pleural effusion. Centriobular emphysema Rapid Influenza neg A & B Blood Cultures-pending Given Rocephin, Azithromycin, Prednisone, Toradol in ED Will continue Rocephin, Azithromycin for ? PNA and COPD flare Continue steroids w/taper Appreciate Pulmonology consult Duonebs O2 BGMs Monitor CBC, BMP, Lipid Panel, HgbA1c in am Continue home meds FEN- PO fluids as tolerated, replete lytes prn, Low Na, Diabetic Diet DVT ppx- OOB, SCDs, Heparin SQ Dispo: Requires Inpatient Care Visit type - Emergency Visit Emergency Visit: Yes ED Registration Date: 05/18/18 Care time: The patient presented to the Emergency Department on the above date and was hospitalized for further evaluation of their emergent condition. - New Patient This patient is new to me today: Yes Date on this admission: 05/18/18 - Critical Care Critical Care patient: No
[2018-05-19 03:23] VITALS: BMI 17.2
[2018-05-19] MEDS ORDERED: traMADol HCL 50 MG TABLET PO PRN (08:36)
[2018-05-19] MEDS: NICOTINE 7 MG/24 HOURS TOPICAL PATCH TD SCH (09:23)
[2018-05-19] MEDS ORDERED: KETOROLAC TROMETHAMINE 30 MG/1 ML VIAL IM ONE (14:00)
--- NOTE | 2018-05-19 14:53 | CON.PULM ---
Consult Consult Specialty:: PULMONARY Referred by:: DEMARCO Reason for Consultation:: SOB/BACK PAIN - History of Present Illness Chief Complaint: SOB/CHEST PAIN History of Present Illness: 63 FEMALE ACTIVE SMOKER WITH H/O COPD/ASHD/PCI STENTS/DM/SZ DISORDER/ HTN HLD PRESNTS TO ER VIA FAMILY WITH H/O 7 DAYS AGO WITH NAUSEA/VOMITTING AND DIARRHEA. PATIENT STATES 2 DAYS LATER SHE DEVELOPED LEFT MID BACK EXCRUCIATING PAIN UNRELIEVED WITH TYLENOL. SHE BECAME ANOREXIC AND DEVELOPED A COUGH NONPRODUCTIVE. FAMILY VISITED HER YESTERDAY AND INSISTED SHE COMES TO ER. PATIENT HAS LOST 3-[address] CHEST REVIEWED REVEALS A LARGE DENSITY IN DELVIN BOTH ON CXR/CT CHEST WHICH WAS NOT PRESENT IN NOVEMBER OF 2017 WHEN SHE WAS ADMITTED FOR EXACERBATION COPD. - History Source History Provided By: Patient, Family Member, Medical Record Limitations to Obtaining History: No Limitations - Past Medical History EMBEDDED NURSE: Yes: Seizure. 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 No: AFIB Pulmonary: Yes: Asthma, COPD Gastrointestinal: No: Ascites, Cancer Hepatobiliary: No: Cirrhosis Renal/: No: Renal Failure Reproductive: Yes: Postmenopausal ...: No Heme/Onc: No: Anemia Endocrine: Yes: Diabetes Mellitus - Past Surgical History Past Surgical History: Yes: Hysterectomy, Stent - Alcohol/Substance Use Hx Alcohol Use: No History of Substance Use: reports: None - Smoking History Smoking history: Current every day smoker Have you smoked in the past 12 months: Yes Aproximately how many cigarettes per day: 12 - Social History Usual Living Arrangement: Alone ADL: Independent (ambulates with cane, walker) Place of : Other History of Recent Travel: No Home Medications - Allergies Allergies/Adverse Reactions: Allergies Allergy/AdvReac Type Severity Reaction Status Date / Time No Known Allergies Allergy Verified 12/20/17 15:32 - Home Medications Home Medications: Ambulatory Orders Albuterol Sulfate Inhaler - [Ventolin HFA Inhaler -] 1 - 2 inh PO QID PRN #1 inhaler 07/02/14 Cyanocobalamin [Vitamin B12 -] 1,000 mcg PO DAILY 07/16/14 levETIRAcetam [Keppra -] 750 mg PO BID #180 tablet 06/01/15 Linagliptin [Tradjenta] 5 mg PO DAILY 12/16/16 Nitroglycerin Sublingual 0.4 mg SL PRN PRN 01/24/17 Ranolazine [Ranexa] 500 mg PO BID 01/24/17 Doxepin HCl 100 mg PO HS 05/24/17 Aspirin Coated [Ecotrin -] 81 mg PO DAILY 12/20/17 Cholecalciferol (Vitamin D3) [Vitamin D3 -] 5,000 unit PO Q7D 12/20/17 Metoprolol Succinate [Toprol XL -] 25 mg PO BID 12/20/17 Pantoprazole Sodium [Protonix -] 40 mg PO DAILY #30 tablet.ec 12/23/17 Trazodone HCl 150 mg PO HS 05/18/18 Ferrous Sulfate [Feosol] 325 mg PO TID 05/19/18 Folic Acid - 1 mg PO DAILY 05/19/18 Meclizine HCl [Antivert -] 25 mg PO TID 05/19/18 Mirtazapine [Remeron -] 7.5 mg PO DAILY 05/19/18 Family Disease History - Family Disease History Family Disease History: Diabetes: Father, Mother (alzheimers), Heart Disease: Mother, CA: Brother (Pancreatic, ), Other: Mother, Sister (3 strokes) Review of Systems - Review of Systems Cardiovascular: reports: Chest Pain Respiratory: reports: Exercise Intolerance, SOB, SOB on Exertion, Wheezing. denies: Hemoptysis Gastrointestinal: denies: Abdominal Pain Physical Exam Vital Sings: Vital Signs Temperature 98.4 F 05/19/18 09:28 Pulse Rate 84 05/19/18 09:28 Respiratory Rate 20 05/19/18 09:28 Blood Pressure 120/54 L 05/19/18 09:28 O2 Sat by Pulse Oximetry (%) 96 05/19/18 09:00 Constitutional: Yes: Calm Eyes: Yes: EOM Intact HENT: Yes: Normocephalic Neck: Yes: Trachea Midline Cardiovascular: Yes: Regular Rate and Rhythm Respiratory: Yes: Diminished (LEFT UPPER LUNG FIELD) Gastrointestinal: Yes: Normal Bowel Sounds Edema: No Integumentary: Yes: WNL Neurological: Yes: Alert Psychiatric: Yes: Alert Labs: CBC, BMP 05/18/18 15:43 05/18/18 15:43 REST REVIEWED Imaging - Results Chest X-ray: Report Reviewed, Image Reviewed Cat Scan: Report Reviewed, Image Reviewed Problem List - Problems (1) Asthma exacerbation in COPD Code(s): J44.1 - CHRONIC OBSTRUCTIVE PULMONARY DISEASE W (ACUTE) EXACERBATION; J45.901 - UNSPECIFIED ASTHMA WITH (ACUTE) EXACERBATION (2) CAD (coronary artery disease) Code(s): I25.10 - ATHSCL HEART DISEASE OF [place] CORONARY ARTERY W/O ANG PCTRS (3) COPD (chronic obstructive pulmonary disease) Code(s): J44.9 - CHRONIC OBSTRUCTIVE PULMONARY DISEASE, UNSPECIFIED (4) Chest pain Code(s): R07.9 - CHEST PAIN, UNSPECIFIED (5) DM (diabetes mellitus) Code(s): E11.9 - TYPE 2 DIABETES MELLITUS WITHOUT COMPLICATIONS (6) Hypertension Code(s): I10 - ESSENTIAL (PRIMARY) HYPERTENSION (7) Lung mass Code(s): R91.8 - OTHER NONSPECIFIC ABNORMAL FINDING OF LUNG FIELD Assessment/Plan LEFT UPPER LOBE DENSITY DEVELOPED SINCE NOVEMBER 2017 A LARGE COMPONENT OF DENSITY APPEARS TO BE ATELECTASIS GIVEN APPEARANCE ON CT EXTREME PAIN COMPONENT WORRISOME FOR UNDERLYING NEOPLASTIC DISEASE (LEFT ENDOBRONCHIAL LESION WITH ATELECTASIS AND POSSIBLE BONE METS) ANOTHER POSSIBILITY WOULD BE ASPIRATION GIVEN RECENT VOMITING EPISODES BUT WOULD NOT EXPLAIN THE PAIN. PATIENT WILL REQUIRE BRONCHOSCOPY TO EVALUATE ENDOBRONCHIAL ANATOMY SHOUD ALSO HAVE A BONE SCAN/CEA LEVEL O2 SUPPLEMENTATION REQUIRED/BRONCHODILATORS/NICOTINE PATCH ANALGESI DVT PROPHYLAXSIS WILL FOLLOW THANK YOU Perez HUTTON MD
[2018-05-19] MEDS ORDERED: oxyCODONE/APAP 1 EACH - MUST ORDER COMBO PRODUCT NR ONE (15:10)
[2018-05-19] MEDS: DOCUSATE SODIUM 100 MG CAPSULE (FP) PO PRN (16:32)
[2018-05-19] MEDS: FERROUS SO4 325 MG TABLET (FP) PO SCH (17:28)
[2018-05-19] MEDS ORDERED: MECLIZINE HCL 25 MG TABLET (FP) PO PRN (17:40)
--- NOTE | 2018-05-19 17:49 | PN ---
Progress Note, Physician Chief Complaint: Chest pain COPD exacerbation History of Present Illness: Previous notes and event reviewed awake and alert NAD continue to have chest pain, pain is reproducible with palpation, troponin x 3 neg - Current Medication List Current Medications: Active Medications Acetaminophen/Codeine Phosphate (Tylenol # 3 -) 1 tab PO Q6H PRN PRN Reason: PAIN LEVEL 4 - 6 Albuterol/Ipratropium (Duoneb -) 1 amp NEB Q6H PRN PRN Reason: SHORTNESS OF BREATH Aspirin (Ecotrin -) 81 mg PO DAILY [facility] Cyanocobalamin (Vitamin B12 -) 1,000 mcg PO DAILY [facility] Docusate Sodium (Colace -) 100 mg PO Q8H PRN PRN Reason: CONSTIPATION Last Admin: 05/19/18 16:32 Dose: 100 mg Doxepin HCl (Sinequan -) 100 mg PO HS [facility] Ferrous Sulfate (Feosol -) 325 mg PO TIDCM [facility] Last Admin: 05/19/18 17:28 Dose: 325 mg Folic Acid (Folic Acid -) 1 mg PO DAILY [facility] Insulin Aspart (Novolog Vial Sliding Scale -) 1 vial SQ [facility]; Protocol Levetiracetam (Keppra -) 750 mg PO BID [facility] Meclizine HCl (Antivert -) 25 mg PO TID PRN PRN Reason: VERTIGO Melatonin (Melatonin) 5 mg PO HS PRN PRN Reason: INSOMNIA Metoprolol Succinate (Toprol Xl -) 25 mg PO BID [facility] Mirtazapine (Remeron -) 7.5 mg PO HS [facility] Nicotine (Nicoderm Patch -) 7 mg TD DAILY [facility] Last Admin: 05/19/18 09:23 Dose: 7 mg Nitroglycerin (Nitrostat -) 0.4 mg SL Q5M PRN PRN Reason: FOR CHEST PAIN Non-Formulary Medication (Patient's Own Med) 1 each PO DAILY [facility] Pantoprazole Sodium (Protonix -) 40 mg PO DAILY [facility] Ranolazine (Ranexa -) 500 mg PO BID [facility] Trazodone HCl (Desyrel -) 150 mg PO HS [facility] - Objective Vital Signs: Vital Signs Temperature 98.3 F 05/19/18 15:12 Pulse Rate 86 05/19/18 15:12 Respiratory Rate 20 05/19/18 15:12 Blood Pressure 124/51 L 05/19/18 15:12 O2 Sat by Pulse Oximetry (%) 96 05/19/18 09:00 Constitutional: Yes: No Distress, Calm Eyes: Yes: Conjunctiva Clear Neck: Yes: Supple Cardiovascular: Yes: Regular Rate and Rhythm Respiratory: Yes: Wheezes (b/l) Gastrointestinal: Yes: Normal Bowel Sounds, Soft Musculoskeletal: Yes: WNL Extremities: Yes: WNL Edema: No Peripheral Pulses WNL: No Neurological: Yes: Alert, Oriented Psychiatric: Yes: Alert, Oriented Labs: CBC, BMP 05/18/18 15:43 05/18/18 15:43 INR, PTT INR 0.98 (0.83-1.09) 05/18/18 15:43 Troponin, BNP 05/18/18 05/19/18 21:00 06:48 Troponin I < 0.02 < 0.02 <Ana Cordova - Last Filed: 05/19/18 18:01> - Current Medication List Current Medications: Active Medications Acetaminophen/Codeine Phosphate (Tylenol # 3 -) 1 tab PO Q6H PRN PRN Reason: PAIN LEVEL 4 - 6 Last Admin: 05/20/18 08:50 Dose: 1 tab Albuterol/Ipratropium (Duoneb -) 1 amp NEB Q6H PRN PRN Reason: SHORTNESS OF BREATH Last Admin: 05/20/18 20:20 Dose: 1 amp Cyanocobalamin (Vitamin B12 -) 1,000 mcg PO DAILY [facility] Last Admin: 05/20/18 09:55 Dose: 1,000 mcg Docusate Sodium (Colace -) 100 mg PO Q8H PRN PRN Reason: CONSTIPATION Last Admin: 05/19/18 16:32 Dose: 100 mg Doxepin HCl (Sinequan -) 100 mg PO HS [facility] Last Admin: 05/20/18 21:39 Dose: 100 mg Ferrous Sulfate (Feosol -) 325 mg PO TIDCM [facility] Last Admin: 05/20/18 17:27 Dose: 325 mg Folic Acid (Folic Acid -) 1 mg PO DAILY [facility] Last Admin: 05/20/18 09:55 Dose: 1 mg Piperacillin Sod/Tazobactam (Sod 3.375 gm/ Dextrose) 50 mls @ 100 mls/hr IVPB Q8H-IV [facility]; Protocol Last Admin: 05/21/18 01:19 Dose: 100 mls/hr Insulin Aspart (Novolog Vial Sliding Scale -) 1 vial SQ ACHS [facility]; Protocol Last Admin: 05/21/18 06:35 Dose: Not Given Levetiracetam 500 mg/ (Levetiracetam 250 mg) 750 mg PO BID [facility] Last Admin: 05/20/18 21:42 Dose: 750 mg Meclizine HCl (Antivert -) 25 mg PO Q8H PRN PRN Reason: VERTIGO Last Admin: 05/19/18 23:11 Dose: 25 mg Melatonin (Melatonin) 5 mg PO HS PRN PRN Reason: INSOMNIA Last Admin: 05/19/18 22:50 Dose: 5 mg Metoprolol Succinate (Toprol Xl -) 25 mg PO BID [facility] Last Admin: 05/20/18 21:40 Dose: Not Given Mirtazapine (Remeron -) 7.5 mg PO [facility] Last Admin: 05/20/18 21:38 Dose: 7.5 mg Nicotine (Nicoderm Patch -) 7 mg TD DAILY [facility] Last Admin: 05/20/18 09:55 Dose: 7 mg Nitroglycerin (Nitrostat -) 0.4 mg SL Q5M PRN PRN Reason: FOR CHEST PAIN Last Admin: 05/19/18 23:12 Dose: 0.4 mg Pantoprazole Sodium (Protonix -) 40 mg PO DAILY [facility] Last Admin: 05/20/18 09:55 Dose: 40 mg Ranolazine (Ranexa -) 500 mg PO BID [facility] Last Admin: 05/20/18 21:37 Dose: Not Given Sitagliptin Phosphate (Januvia -) 100 mg PO DAILY@0700 [facility] Last Admin: 05/21/18 06:35 Dose: 100 mg Trazodone HCl (Desyrel -) 150 mg PO HS [facility] Last Admin: 05/20/18 21:37 Dose: 100 mg - Objective Vital Signs: Vital Signs Temperature 98.0 F 05/21/18 09:21 Pulse Rate 101 H 05/21/18 09:21 Respiratory Rate 20 05/21/18 09:21 Blood Pressure 110/56 L 05/21/18 09:21 O2 Sat by Pulse Oximetry (%) 96 05/20/18 21:00 Labs: CBC, BMP 05/21/18 06:00 05/21/18 06:00 INR, PTT INR 0.98 (0.83-1.09) 05/18/18 15:43 <Kulwant Bianchi - Last Filed: 05/21/18 09:28> Problem List - Problems (1) CAD (coronary artery disease) Assessment/Plan: -cont ASA daily -Nitro 0.4mg SL prn for chest pain -cardiology consult Code(s): I25.10 - ATHSCL HEART DISEASE OF [place] CORONARY ARTERY W/O ANG PCTRS (2) COPD exacerbation Assessment/Plan: -pulmonary on board -albuterol neb treatment PRN for SOB -O2 vial NC -keep SpO2 >90% Code(s): J44.1 - CHRONIC OBSTRUCTIVE PULMONARY DISEASE W (ACUTE) EXACERBATION (3) Chest pain Assessment/Plan: -cardiology consult -Nitro 0.4mg SL prn -troponin neg x 3 Code(s): R07.9 - CHEST PAIN, UNSPECIFIED (4) DM (diabetes mellitus) Assessment/Plan: -BGM ACHS, ISS -cont Tradjenta 5mg daily -HgA1c ordered Code(s): E11.9 - TYPE 2 DIABETES MELLITUS WITHOUT COMPLICATIONS (5) Hypertension Assessment/Plan: -continue Metoprolol 25mg BID -low Na diet Code(s): I10 - ESSENTIAL (PRIMARY) HYPERTENSION (6) Tobacco dependence Assessment/Plan: -nicotine patch applied daily Code(s): F17.200 - NICOTINE DEPENDENCE, UNSPECIFIED, UNCOMPLICATED (7) Asthma exacerbation in COPD Assessment/Plan: -pulmonary on board -albuterol neb treatment PRN for SOB -O2 vial NC -keep SpO2 >90% Code(s): J44.1 - CHRONIC OBSTRUCTIVE PULMONARY DISEASE W (ACUTE) EXACERBATION; J45.901 - UNSPECIFIED ASTHMA WITH (ACUTE) EXACERBATION (8) Lung mass Assessment/Plan: -pulmonary on board, recommendations appreciated -DELVIN density since -bone scan, CEA level Code(s): R91.8 - OTHER NONSPECIFIC ABNORMAL FINDING OF LUNG FIELD (9) Seizure disorder Assessment/Plan: -keppra BID -keppra level ordered -seizure precaution Code(s): G40.909 - EPILEPSY, UNSP, NOT INTRACTABLE, WITHOUT STATUS EPILEPTICUS <Ana Cordova - Last Filed: 05/19/18 18:01> Assessment/Plan dvt ppx <Ana Cordova - Last Filed: 05/19/18 18:01> PATIENT SEEN AND EXAMINED AND I AGREE WITH THE ABOVE NOTE <Kulwant Bianchi - Last Filed: 05/21/18 09:28>
[2018-05-19] MEDS: ACETAMINOPHEN WITH CODEINE 300MG/30MG TABLET PO PRN (18:34)
[2018-05-19] MEDS ORDERED: levETIRAcetam 500 MG TABLET (FP) PO SCH (22:00)
[2018-05-19] MEDS ORDERED: DOXEPIN HCL 50 MG CAPSULE PO SCH (22:00)
[2018-05-19] MEDS: traZODone HCL 50 MG TABLET (FP) PO SCH (22:50)
[2018-05-19] MEDS: MELATONIN 5 MG TABLETS PO PRN (22:50)
[2018-05-19] MEDS: metoPROLOL SUCCINATE 25 MG TAB.SR.24H (FP) PO SCH (22:50)
[2018-05-19] MEDS: MIRTAZAPINE 15 MG TABLET (FP) PO SCH (22:51)
[2018-05-19] MEDS: RANOLAZINE E.R. 500 MG TABLET (FP) PO SCH (22:51)
[2018-05-19] MEDS: INSULIN SLIDING SCALE (NOVOLOG) 1 VIAL SQ SCH (22:59)
[2018-05-19] MEDS: NITROGLYCERIN SUBLINGUAL 1/150 0.4 MG TAB SL PRN (23:12)
[2018-05-19] MEDS: DOXEPIN HCL 25 MG CAPSULE PO SCH (23:16)
[2018-05-19] MEDS: ALBUTEROL SO4 2.5/IPRATROPIUM 0.5 INH SOL 3 ML VIAL.NEB. NEB PRN (23:24)
[2018-05-20] MEDS: ACETAMINOPHEN WITH CODEINE 300MG/30MG TABLET PO PRN ×2 (00:03→08:50)
[2018-05-20] MEDS: INSULIN SLIDING SCALE (NOVOLOG) 1 VIAL SQ SCH ×4 (06:30→21:35)
[2018-05-20] MEDS: sitaGLIPtin PHOSPHATE 100 MG TABLET (FP) PO SCH (06:30)
[2018-05-20] MEDS: ALBUTEROL SO4 2.5/IPRATROPIUM 0.5 INH SOL 3 ML VIAL.NEB. NEB PRN ×2 (07:15→20:20)
[2018-05-20 07:26] LABS: HEMATOCRIT 30.7 % (32.4-45.2); HEMOGLOBIN 9.9 GM/dL (10.7-15.3); MCH 25.1 pg (25.7-33.7); MCHC 32.2 g/dl (32.0-36.0); MEAN CELL VOLUME 77.8 fl (80-96); PLATELET COUNT 347 K/MM3 (134-434); RBC 3.94 M/mm3 (3.60-5.2); RDW 23.3 % (11.6-15.6); WHITE BLOOD COUNT 13.1 K/mm3 (4.0-10.0)
[2018-05-20 08:21] LABS: ALBUMIN 2.4 g/dl (3.4-5.0); ALK PHOS 68 U/L (45-117); ANION GAP 8 MMOL/L (8-16); BILIRUBIN,TOTAL 0.1 mg/dL (0.2-1); BLOOD UREA NITROGEN 12 mg/dL (7-18); CALCIUM 10.2 mg/dL (8.5-10.1); CHLORIDE 103 mmol/L (98-107); CO2 30 mmol/L (21-32); CREATININE 0.7 mg/dL (0.55-1.3); GLUCOSE,RANDOM 140 mg/dL (74-106); POTASSIUM 3.9 mmol/L (3.5-5.1); SGOT/AST 11 U/L (15-37); SGPT/ALT 13 U/L (13-61); SODIUM 141 mmol/L (136-145); TOT PROT 5.4 g/dl (6.4-8.2)
[2018-05-20] MEDS: FERROUS SO4 325 MG TABLET (FP) PO SCH ×3 (09:00→17:27)
--- NOTE | 2018-05-20 09:34 | PN ---
Progress Note, Physician Chief Complaint: Chest pain COPD exacerbation DELVIN mass on CT scan History of Present Illness: Previous notes and event reviewed awake and alert NAD patient sts feeling less SOB Urine culture pending WBC elev but trending down - Current Medication List Current Medications: Active Medications Acetaminophen/Codeine Phosphate (Tylenol # 3 -) 1 tab PO Q6H PRN PRN Reason: PAIN LEVEL 4 - 6 Last Admin: 05/20/18 08:50 Dose: 1 tab Albuterol/Ipratropium (Duoneb -) 1 amp NEB Q6H PRN PRN Reason: SHORTNESS OF BREATH Last Admin: 05/20/18 07:15 Dose: 1 amp Aspirin (Ecotrin -) 81 mg PO DAILY [facility] Cyanocobalamin (Vitamin B12 -) 1,000 mcg PO DAILY [facility] Docusate Sodium (Colace -) 100 mg PO Q8H PRN PRN Reason: CONSTIPATION Last Admin: 05/19/18 16:32 Dose: 100 mg Doxepin HCl (Sinequan -) 100 mg PO [facility] Last Admin: 05/19/18 23:16 Dose: 100 mg Ferrous Sulfate (Feosol -) 325 mg PO TIDCM [facility] Last Admin: 05/20/18 09:00 Dose: 325 mg Folic Acid (Folic Acid -) 1 mg PO DAILY [facility] Insulin Aspart (Novolog Vial Sliding Scale -) 1 vial SQ [facility]; Protocol Last Admin: 05/20/18 06:30 Dose: Not Given Levetiracetam 500 mg/ (Levetiracetam 250 mg) 750 mg PO BID [facility] Last Admin: 05/19/18 22:50 Dose: 750 mg Meclizine HCl (Antivert -) 25 mg PO Q8H PRN PRN Reason: VERTIGO Last Admin: 05/19/18 23:11 Dose: 25 mg Melatonin (Melatonin) 5 mg PO HS PRN PRN Reason: INSOMNIA Last Admin: 05/19/18 22:50 Dose: 5 mg Metoprolol Succinate (Toprol Xl -) 25 mg PO BID [facility] Last Admin: 05/19/18 22:50 Dose: 25 mg Mirtazapine (Remeron -) 7.5 mg PO HS [facility] Last Admin: 05/19/18 22:51 Dose: 7.5 mg Nicotine (Nicoderm Patch -) 7 mg TD DAILY [facility] Last Admin: 05/19/18 09:23 Dose: 7 mg Nitroglycerin (Nitrostat -) 0.4 mg SL Q5M PRN PRN Reason: FOR CHEST PAIN Last Admin: 05/19/18 23:12 Dose: 0.4 mg Pantoprazole Sodium (Protonix -) 40 mg PO DAILY [facility] Ranolazine (Ranexa -) 500 mg PO BID [facility] Last Admin: 05/19/18 22:51 Dose: 500 mg Sitagliptin Phosphate (Januvia -) 100 mg PO DAILY@0700 [facility] Last Admin: 05/20/18 06:30 Dose: 100 mg Trazodone HCl (Desyrel -) 150 mg PO HS [facility] Last Admin: 05/19/18 22:50 Dose: 150 mg - Objective Vital Signs: Vital Signs Temperature 98.3 F 05/20/18 09:13 Pulse Rate 78 05/20/18 09:13 Respiratory Rate 20 05/20/18 09:13 Blood Pressure 106/56 L 05/20/18 09:13 O2 Sat by Pulse Oximetry (%) 97 05/19/18 21:00 Constitutional: Yes: No Distress, Calm Eyes: Yes: Conjunctiva Clear Cardiovascular: Yes: Regular Rate and Rhythm Respiratory: Yes: Regular, Diminished Gastrointestinal: Yes: Normal Bowel Sounds, Soft Musculoskeletal: Yes: Muscle Weakness Extremities: Yes: WNL Edema: No Neurological: Yes: Alert, Oriented Psychiatric: Yes: Alert, Oriented Labs: CBC, BMP 05/20/18 06:00 05/20/18 06:00 INR, PTT INR 0.98 (0.83-1.09) 05/18/18 15:43 Microbiology 05/18/18 18:03 Blood Culture - Preliminary Blood - Peripheral Venous NO GROWTH OBTAINED AFTER 24 HOURS, INCUBATION TO CONTINUE FOR 4 DAYS. 05/18/18 19:15 Blood Culture - Preliminary Blood - Peripheral Venous NO GROWTH OBTAINED AFTER 24 HOURS, INCUBATION TO CONTINUE FOR 4 DAYS. <Ana Cordova - Last Filed: 05/20/18 09:29> - Current Medication List Current Medications: Active Medications Acetaminophen/Codeine Phosphate (Tylenol # 3 -) 1 tab PO Q6H PRN PRN Reason: PAIN LEVEL 4 - 6 Last Admin: 05/20/18 08:50 Dose: 1 tab Albuterol/Ipratropium (Duoneb -) 1 amp NEB Q6H PRN PRN Reason: SHORTNESS OF BREATH Last Admin: 05/20/18 20:20 Dose: 1 amp Cyanocobalamin (Vitamin B12 -) 1,000 mcg PO DAILY [facility] Last Admin: 05/20/18 09:55 Dose: 1,000 mcg Docusate Sodium (Colace -) 100 mg PO Q8H PRN PRN Reason: CONSTIPATION Last Admin: 05/19/18 16:32 Dose: 100 mg Doxepin HCl (Sinequan -) 100 mg PO HS [facility] Last Admin: 05/20/18 21:39 Dose: 100 mg Ferrous Sulfate (Feosol -) 325 mg PO TIDCM [facility] Last Admin: 05/20/18 17:27 Dose: 325 mg Folic Acid (Folic Acid -) 1 mg PO DAILY [facility] Last Admin: 05/20/18 09:55 Dose: 1 mg Piperacillin Sod/Tazobactam (Sod 3.375 gm/ Dextrose) 50 mls @ 100 mls/hr IVPB Q8H-IV [facility]; Protocol Last Admin: 05/21/18 01:19 Dose: 100 mls/hr Insulin Aspart (Novolog Vial Sliding Scale -) 1 vial SQ ACHS [facility]; Protocol Last Admin: 05/21/18 06:35 Dose: Not Given Levetiracetam 500 mg/ (Levetiracetam 250 mg) 750 mg PO BID [facility] Last Admin: 05/20/18 21:42 Dose: 750 mg Meclizine HCl (Antivert -) 25 mg PO Q8H PRN PRN Reason: VERTIGO Last Admin: 05/19/18 23:11 Dose: 25 mg Melatonin (Melatonin) 5 mg PO HS PRN PRN Reason: INSOMNIA Last Admin: 05/19/18 22:50 Dose: 5 mg Metoprolol Succinate (Toprol Xl -) 25 mg PO BID [facility] Last Admin: 05/20/18 21:40 Dose: Not Given Mirtazapine (Remeron -) 7.5 mg PO HS [facility] Last Admin: 05/20/18 21:38 Dose: 7.5 mg Nicotine (Nicoderm Patch -) 7 mg TD DAILY [facility] Last Admin: 05/20/18 09:55 Dose: 7 mg Nitroglycerin (Nitrostat -) 0.4 mg SL Q5M PRN PRN Reason: FOR CHEST PAIN Last Admin: 05/19/18 23:12 Dose: 0.4 mg Pantoprazole Sodium (Protonix -) 40 mg PO DAILY [facility] Last Admin: 05/20/18 09:55 Dose: 40 mg Ranolazine (Ranexa -) 500 mg PO BID [facility] Last Admin: 05/20/18 21:37 Dose: Not Given Sitagliptin Phosphate (Januvia -) 100 mg PO DAILY@0700 [facility] Last Admin: 05/21/18 06:35 Dose: 100 mg Trazodone HCl (Desyrel -) 150 mg PO [facility] Last Admin: 05/20/18 21:37 Dose: 100 mg - Objective Vital Signs: Vital Signs Temperature 98.0 F 05/21/18 09:21 Pulse Rate 101 H 05/21/18 09:21 Respiratory Rate 20 05/21/18 09:21 Blood Pressure 110/56 L 05/21/18 09:21 O2 Sat by Pulse Oximetry (%) 96 05/20/18 21:00 Labs: CBC, BMP 05/21/18 06:00 05/21/18 06:00 INR, PTT INR 0.98 (0.83-1.09) 05/18/18 15:43 <Kulwant Bianchi - Last Filed: 05/21/18 09:29> Problem List - Problems (1) CAD (coronary artery disease) Assessment/Plan: -cont ASA daily -Nitro 0.4mg SL prn for chest pain -cardiology consult Code(s): I25.10 - ATHSCL HEART DISEASE OF [place] CORONARY ARTERY W/O ANG PCTRS (2) COPD exacerbation Assessment/Plan: -pulmonary on board -albuterol neb treatment PRN for SOB -O2 vial NC -keep SpO2 >90% Code(s): J44.1 - CHRONIC OBSTRUCTIVE PULMONARY DISEASE W (ACUTE) EXACERBATION (3) Chest pain Assessment/Plan: -cardiology consult -Nitro 0.4mg SL prn -troponin neg x 3 Code(s): R07.9 - CHEST PAIN, UNSPECIFIED (4) DM (diabetes mellitus) Assessment/Plan: -BGM ACHS, ISS -cont Tradjenta 5mg daily -HgA1c 6.9 Code(s): E11.9 - TYPE 2 DIABETES MELLITUS WITHOUT COMPLICATIONS (5) Hypertension Assessment/Plan: -continue Metoprolol 25mg BID -low Na diet Code(s): I10 - ESSENTIAL (PRIMARY) HYPERTENSION (6) Tobacco dependence Assessment/Plan: -nicotine patch applied daily Code(s): F17.200 - NICOTINE DEPENDENCE, UNSPECIFIED, UNCOMPLICATED (7) Asthma exacerbation in COPD Assessment/Plan: -pulmonary on board -albuterol neb treatment PRN for SOB -O2 vial NC -keep SpO2 >90% Code(s): J44.1 - CHRONIC OBSTRUCTIVE PULMONARY DISEASE W (ACUTE) EXACERBATION; J45.901 - UNSPECIFIED ASTHMA WITH (ACUTE) EXACERBATION (8) Lung mass Assessment/Plan: -pulmonary on board, recommendations appreciated -DELVIN density since -bone scan ordered -CEA level pending Code(s): R91.8 - OTHER NONSPECIFIC ABNORMAL FINDING OF LUNG FIELD (9) Seizure disorder Assessment/Plan: -keppra BID -keppra level pending -seizure precaution Code(s): G40.909 - EPILEPSY, UNSP, NOT INTRACTABLE, WITHOUT STATUS EPILEPTICUS <Ana Cordova - Last Filed: 05/20/18 09:29> Assessment/Plan dvt ppx <Ana Cordova - Last Filed: 05/20/18 09:29> PATIENT SEEN AND EXAMINED AND I AGREE WITH THE ABOVE NOTE <Kulwant Bianchi - Last Filed: 05/21/18 09:29>
[2018-05-20] MEDS: FOLIC ACID 1 MG TABLET (FP) PO SCH (09:55)
[2018-05-20] MEDS: CYANOCOBALAMIN 1,000 MCG TABLET (FP) PO SCH (09:55)
[2018-05-20] MEDS: metoPROLOL SUCCINATE 25 MG TAB.SR.24H (FP) PO SCH ×2 (09:55→21:40)
[2018-05-20] MEDS: RANOLAZINE E.R. 500 MG TABLET (FP) PO SCH ×2 (09:55→21:37)
[2018-05-20] MEDS: NICOTINE 7 MG/24 HOURS TOPICAL PATCH TD SCH (09:55)
[2018-05-20] MEDS: PANTOPRAZOLE 40 MG TABLET (FP) PO SCH (09:55)
[2018-05-20] MEDS ORDERED: ASPIRIN COATED 81 MG TABLET.EC PO SCH (10:00)
[2018-05-20] MEDS: traMADol HCL 50 MG TABLET PO ONE ×2 (13:33→13:57)
[2018-05-20] MEDS ORDERED: ACETAMINOPHEN 325 MG TABLET (FP) PO ONE ×2 (13:43→21:15)
[2018-05-20] MEDS ORDERED: oxyCODONE HCL 5 MG TABLET PO ONE ×2 (14:00→21:15)
--- NOTE | 2018-05-20 14:06 | CON.CARD ---
Consult Consult Specialty:: Cardiology - History of Present Illness Chief Complaint: Chest pain History of Present Illness: 63 F with newly diagnosed lung mass was admitted with vomiting diarrhea and severe left sided back and chest pain with normal ECG. CT imaging shows a left sided mass concerning for neoplasm. She has CAD with coronary stent in 2008 after an infarct. cardiac testing is available form a year ago was normal. 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 No: AFIB Pulmonary: Yes: Asthma, COPD Gastrointestinal: No: Ascites, Cancer Hepatobiliary: No: Cirrhosis Renal/: No: Renal Failure ...: No Endocrine: Yes: Diabetes Mellitus - Past Surgical History Past Surgical History: Yes: Hysterectomy, Stent - Alcohol/Substance Use Hx Alcohol Use: No History of Substance Use: reports: None - Smoking History Smoking history: Current every day smoker Have you smoked in the past 12 months: Yes Aproximately how many cigarettes per day: 12 - Social History Usual Living Arrangement: Alone ADL: Independent (ambulates with cane, walker) History of Recent Travel: No Home Medications - Allergies Allergies/Adverse Reactions: Allergies Allergy/AdvReac Type Severity Reaction Status Date / Time No Known Allergies Allergy Verified 12/20/17 15:32 - Home Medications Home Medications: Ambulatory Orders Albuterol Sulfate Inhaler - [Ventolin HFA Inhaler -] 1 - 2 inh PO QID PRN #1 inhaler 07/02/14 Cyanocobalamin [Vitamin B12 -] 1,000 mcg PO DAILY 07/16/14 levETIRAcetam [Keppra -] 750 mg PO BID #180 tablet 06/01/15 Linagliptin [Tradjenta] 5 mg PO DAILY 12/16/16 Nitroglycerin Sublingual 0.4 mg SL PRN PRN 01/24/17 Ranolazine [Ranexa] 500 mg PO BID 01/24/17 Doxepin HCl 100 mg PO HS 05/24/17 Aspirin Coated [Ecotrin -] 81 mg PO DAILY 12/20/17 Cholecalciferol (Vitamin D3) [Vitamin D3 -] 5,000 unit PO Q7D 12/20/17 Metoprolol Succinate [Toprol XL -] 25 mg PO BID 12/20/17 Pantoprazole Sodium [Protonix -] 40 mg PO DAILY #30 tablet.ec 12/23/17 Trazodone HCl 150 mg PO HS 05/18/18 Ferrous Sulfate [Feosol] 325 mg PO TID 05/19/18 Folic Acid - 1 mg PO DAILY 05/19/18 Meclizine HCl [Antivert -] 25 mg PO TID 05/19/18 Mirtazapine [Remeron -] 7.5 mg PO DAILY 05/19/18 Family Disease History - Family Disease History Family Disease History: Diabetes: Father, Mother (alzheimers), Heart Disease: Mother, CA: Brother (Pancreatic, ), Other: Mother, Sister (3 strokes) Review of Systems - Review of Systems Constitutional: reports: Unintentional Wgt. Loss Eyes: reports: No Symptoms HENT: reports: No Symptoms Neck: reports: No Symptoms Cardiovascular: reports: Chest Pain, Shortness of Breath Respiratory: reports: Cough, SOB Gastrointestinal: reports: Vomiting Genitourinary: reports: No Symptoms Vital Signs: Vital Signs Temperature 98.3 F 05/20/18 09:13 Pulse Rate 78 05/20/18 09:13 Respiratory Rate 20 05/20/18 09:13 Blood Pressure 106/56 L 05/20/18 09:13 O2 Sat by Pulse Oximetry (%) 97 05/19/18 21:00 Constitutional: Yes: Well Nourished, No Distress, Calm Eyes: Yes: Conjunctiva Clear HENT: Yes: Atraumatic, Normocephalic Neck: Yes: Supple, Trachea Midline Respiratory: Yes: Regular Gastrointestinal: Yes: Normal Bowel Sounds Cardiovascular: Yes: Regular Rate and Rhythm. No: Pulse Irregular, Gallop JVD: No Carotid Bruit: No PMI: Non-Displaced Heart Sounds: Yes: S1, S2 Murmur: No: Systolic Murmur, Diastolic Murmur Edema: No Peripheral Pulses WNL: Yes - Other Data Labs, Other Data: CBC, BMP 05/20/18 06:00 05/20/18 06:00 INR, PTT INR 0.98 (0.83-1.09) 05/18/18 15:[address] T changes. Problem List - Problems (1) CAD (coronary artery disease) Code(s): I25.10 - ATHSCL HEART DISEASE OF [place] CORONARY ARTERY W/O ANG PCTRS Assessment/Plan 63 F with newly diagnosed lung mass was admitted with vomiting diarrhea and severe left sided back and chest pain with normal ECG. CT imaging shows a left sided mass concerning for neoplasm. She has CAD with coronary stent in 2008 after an infarct. cardiac testing is available form a year ago was normal. No chest pain with exertion, Stable CAD without angina or heart failure. Stress test and echo in 2018 was normal. No cardiac contraindications to broncoscopy. Reconsult as needed.
--- NOTE | 2018-05-20 14:19 | PN ---
Progress Note (short form) - Note Progress Note: PULMONARY LEFT SIDED BACK PAIN CONTINUES VSS/AFEBRILE ANICTERIC DIMINISHED DIFFUSE BREATH SOUNDS S1S2 BS+ NO EDEMA LABS/MEDS/NOTES/IMAGES REVIEWED CALCIUM 10.2 LUNG MASS/LEFT UPPER LOBE ATELECTASIS/BONE PAIN/ELEVATED CALCIUM AWAIT BONE SCAN WILL HAVE FOB/ HOPEFULLY TUESDAY WILL KEEP NPO TUESDAY NIGHT/ASA DISCONTINUED FAMILY AND PATIENT INFORMED TO PLAN R [facility]ENN[facility] Problem List - Problems (1) Asthma exacerbation in COPD Code(s): J44.1 - CHRONIC OBSTRUCTIVE PULMONARY DISEASE W (ACUTE) EXACERBATION; J45.901 - UNSPECIFIED ASTHMA WITH (ACUTE) EXACERBATION (2) CAD (coronary artery disease) Code(s): I25.10 - ATHSCL HEART DISEASE OF [place] CORONARY ARTERY W/O ANG PCTRS (3) COPD (chronic obstructive pulmonary disease) Code(s): J44.9 - CHRONIC OBSTRUCTIVE PULMONARY DISEASE, UNSPECIFIED (4) Chest pain Code(s): R07.9 - CHEST PAIN, UNSPECIFIED (5) DM (diabetes mellitus) Code(s): E11.9 - TYPE 2 DIABETES MELLITUS WITHOUT COMPLICATIONS (6) Hypertension Code(s): I10 - ESSENTIAL (PRIMARY) HYPERTENSION (7) Lung mass Code(s): R91.8 - OTHER NONSPECIFIC ABNORMAL FINDING OF LUNG FIELD
--- NOTE | 2018-05-20 15:49 | PN ---
Progress Note (short form) - Note Progress Note: ID CONSULT DICTATED R/O POST OBSTRUCTIVE PNEUMONIA AWAIT C/S EMPIRIC ZOSYN FOR BRONCHOSCOPY
[2018-05-20] MEDS ORDERED: DEXTROSE 5%-WATER - 50 ML IVPB ONE ×2 (16:53→20:43)
[2018-05-20] MEDS ORDERED: PIPERACILLIN/TAZOBACTAM 3.375 GM VIAL IVPB ONE ×2 (16:53→20:43)
[2018-05-20] MEDS: PIPERACILLIN/TAZOB 3.375 GM 3.375 GM in DEXTROSE 5%-WATER - 50 ML IVPB SCH ×2 (17:27→17:28)
--- NOTE | 2018-05-20 17:33 | CONS ---
DATE OF CONSULTATION: DATE OF DICTATION: 05/20/2018 HISTORY OF PRESENT ILLNESS: The patient is a 63-year-old female with a history of tobacco use who is evaluated for pneumonia. She was admitted to the hospital on May 18, 2018 with a two-day history of worsening left-sided chest pain, dyspnea and poor oral intake. She had been suffering from nausea, vomiting and diarrhea for the week prior to the onset of symptoms. She presented to the hospital where a CAT scan of the chest shows left upper lobe atelectasis with consolidated lung containing air pockets. There was also suggestion of an occluded left upper lobe bronchus. The patient has a history of tobacco use. She reports increasing dyspnea. She denies any cough or sputum production, no hemoptysis. She denies any fever or chills. She has lost weight over the past several weeks. PAST MEDICAL HISTORY: Positive for COPD, coronary artery disease, myocardial infarction, seizure disorder, hyperlipidemia, hypertension, diabetes mellitus. ALLERGIES: No known drug allergies. MEDICATIONS: Tylenol, albuterol, Colace, Sinequan, insulin, Keppra, Antivert, metoprolol, oxycodone, tramadol. SOCIAL HISTORY: The patient lives in the community with family members. She is currently an every-day smoker. REVIEW OF SYSTEMS: Neurologic: No loss of consciousness, seizure activity or focal weakness. Cardiac: Negative for chest pain or palpitations. Respiratory: As per HPI. Gastrointestinal: Positive for nausea, vomiting and diarrhea. Genitourinary: Negative for urinary tract infection. LABORATORY DATA: White count 13.1, hematocrit 30.7, platelet count 347, creatinine 0.7. Urinalysis is negative. Blood and urine cultures are pending. PHYSICAL EXAMINATION: General: The patient is awake. She is lying in bed, slightly short of breath at rest on nasal cannula. Vital Signs: Temperature 97.8, pulse 82 and regular, blood pressure 115/63, respiratory rate 18 per minute. HEENT: Sclerae anicteric. Heart: Heart sounds S1, S2. Lungs: Diminished breath sounds, right upper lung field. No rhonchi or wheezing. No rales. Abdomen: Soft and nontender. Extremities: Negative for edema. IMPRESSION: 1. Rule out post-obstructive left upper lobe pneumonia. 2. Acute exacerbation of chronic obstructive pulmonary disease. PLAN: 1. Concerned about the possibility of an endobronchial lesion, specifically neoplasm, causing a post-obstruction pneumonitis. Will obtain a sputum culture, urine Legionella and pneumococcal antigens. 2. Empiric antibiotic coverage with Zosyn. 3. The patient is scheduled to have a bronchoscopy. The case was discussed with the patient's daughter who was present at the time of the examination. Thank you for the kind referral. CRISTOFER PENA M.D. [id number]
[2018-05-20] MEDS ORDERED: PT OWN MED DRAWER 7, Y5N ONE (20:43)
[2018-05-20] MEDS: traZODone HCL 50 MG TABLET (FP) PO SCH (21:37)
[2018-05-20] MEDS: MIRTAZAPINE 15 MG TABLET (FP) PO SCH (21:38)
[2018-05-20] MEDS: DOXEPIN HCL 25 MG CAPSULE PO SCH (21:39)
[2018-05-21] MEDS ORDERED: PIPERACILLIN/TAZOBACTAM 3.375 GM VIAL IVPB ONE ×3 (01:19→16:33)
[2018-05-21] MEDS: PIPERACILLIN/TAZOB 3.375 GM 3.375 GM in DEXTROSE 5%-WATER - 50 ML IVPB SCH ×3 (01:19→17:22)
[2018-05-21] MEDS ORDERED: DEXTROSE 5%-WATER - 50 ML IVPB ONE ×3 (01:19→16:33)
[2018-05-21] MEDS: INSULIN SLIDING SCALE (NOVOLOG) 1 VIAL SQ SCH ×4 (06:35→23:04)
[2018-05-21] MEDS: sitaGLIPtin PHOSPHATE 100 MG TABLET (FP) PO SCH (06:35)
[2018-05-21 07:18] LABS: HEMATOCRIT 32.2 % (32.4-45.2); HEMOGLOBIN 10.7 GM/dL (10.7-15.3); MCH 26.2 pg (25.7-33.7); MCHC 33.2 g/dl (32.0-36.0); MEAN CELL VOLUME 78.9 fl (80-96); MEAN PLT VOLUME 8.1 fl (7.5-11.1); PLATELET COUNT 363 K/MM3 (134-434); RBC 4.08 M/mm3 (3.60-5.2); RDW 22.8 % (11.6-15.6); WHITE BLOOD COUNT 13.2 K/mm3 (4.0-10.0)
[2018-05-21 07:58] LABS: ALBUMIN 2.4 g/dl (3.4-5.0); ALK PHOS 66 U/L (45-117); ANION GAP 6 MMOL/L (8-16); BILIRUBIN,TOTAL 0.2 mg/dL (0.2-1); BLOOD UREA NITROGEN 12 mg/dL (7-18); CALCIUM 9.5 mg/dL (8.5-10.1); CHLORIDE 101 mmol/L (98-107); CO2 34 mmol/L (21-32); CREATININE 0.7 mg/dL (0.55-1.3); GLUCOSE,RANDOM 122 mg/dL (74-106); SGOT/AST 7 U/L (15-37); SGPT/ALT 9 U/L (13-61); SODIUM 141 mmol/L (136-145); TOT PROT 5.5 g/dl (6.4-8.2)
[2018-05-21] MEDS: RANOLAZINE E.R. 500 MG TABLET (FP) PO SCH ×2 (09:54→23:04)
[2018-05-21] MEDS: FOLIC ACID 1 MG TABLET (FP) PO SCH (09:54)
[2018-05-21] MEDS: FERROUS SO4 325 MG TABLET (FP) PO SCH ×3 (09:54→16:43)
[2018-05-21] MEDS: NICOTINE 7 MG/24 HOURS TOPICAL PATCH TD SCH (09:54)
[2018-05-21] MEDS: CYANOCOBALAMIN 1,000 MCG TABLET (FP) PO SCH (09:54)
[2018-05-21] MEDS: PANTOPRAZOLE 40 MG TABLET (FP) PO SCH (09:54)
[2018-05-21] MEDS: metoPROLOL SUCCINATE 25 MG TAB.SR.24H (FP) PO SCH ×2 (09:56→23:05)
--- NOTE | 2018-05-21 09:57 | PN ---
Progress Note, Physician Chief Complaint: Chest pain COPD exacerbation DELVIN mass on CT scan History of Present Illness: Previous notes and event reviewed awake and alert NAD patient sts feeling less SOB afebrile WBC elev complain of L upper back pain - Current Medication List Current Medications: Active Medications Acetaminophen/Codeine Phosphate (Tylenol # 3 -) 1 tab PO Q6H PRN PRN Reason: PAIN LEVEL 4 - 6 Last Admin: 05/20/18 08:50 Dose: 1 tab Albuterol/Ipratropium (Duoneb -) 1 amp NEB Q6H PRN PRN Reason: SHORTNESS OF BREATH Last Admin: 05/20/18 20:20 Dose: 1 amp Cyanocobalamin (Vitamin B12 -) 1,000 mcg PO DAILY [facility] Last Admin: 05/20/18 09:55 Dose: 1,000 mcg Docusate Sodium (Colace -) 100 mg PO Q8H PRN PRN Reason: CONSTIPATION Last Admin: 05/19/18 16:32 Dose: 100 mg Doxepin HCl (Sinequan -) 100 mg PO HS [facility] Last Admin: 05/20/18 21:39 Dose: 100 mg Ferrous Sulfate (Feosol -) 325 mg PO TIDCM [facility] Last Admin: 05/20/18 17:27 Dose: 325 mg Folic Acid (Folic Acid -) 1 mg PO DAILY [facility] Last Admin: 05/20/18 09:55 Dose: 1 mg Piperacillin Sod/Tazobactam (Sod 3.375 gm/ Dextrose) 50 mls @ 100 mls/hr IVPB Q8H-IV [facility]; Protocol Last Admin: 05/21/18 01:19 Dose: 100 mls/hr Insulin Aspart (Novolog Vial Sliding Scale -) 1 vial SQ ACHS [facility]; Protocol Last Admin: 05/21/18 06:35 Dose: Not Given Levetiracetam 500 mg/ (Levetiracetam 250 mg) 750 mg PO BID [facility] Last Admin: 05/20/18 21:42 Dose: 750 mg Lidocaine (Lidoderm Patch -) 1 patch TP DAILY [facility] Meclizine HCl (Antivert -) 25 mg PO Q8H PRN PRN Reason: VERTIGO Last Admin: 05/19/18 23:11 Dose: 25 mg Melatonin (Melatonin) 5 mg PO HS PRN PRN Reason: INSOMNIA Last Admin: 05/19/18 22:50 Dose: 5 mg Metoprolol Succinate (Toprol Xl -) 25 mg PO BID [facility] Last Admin: 05/20/18 21:40 Dose: Not Given Mirtazapine (Remeron -) 7.5 mg PO [facility] Last Admin: 05/20/18 21:38 Dose: 7.5 mg Miscellaneous (Lidoderm Patch Removal) 1 each MC DAILY@2200 [facility] Nicotine (Nicoderm Patch -) 7 mg TD DAILY [facility] Last Admin: 05/20/18 09:55 Dose: 7 mg Nitroglycerin (Nitrostat -) 0.4 mg SL Q5M PRN PRN Reason: FOR CHEST PAIN Last Admin: 05/19/18 23:12 Dose: 0.4 mg Pantoprazole Sodium (Protonix -) 40 mg PO DAILY [facility] Last Admin: 05/20/18 09:55 Dose: 40 mg Ranolazine (Ranexa -) 500 mg PO BID [facility] Last Admin: 05/20/18 21:37 Dose: Not Given Sitagliptin Phosphate (Januvia -) 100 mg PO DAILY@0700 [facility] Last Admin: 05/21/18 06:35 Dose: 100 mg Trazodone HCl (Desyrel -) 150 mg PO [facility] Last Admin: 05/20/18 21:37 Dose: 100 mg - Objective Vital Signs: Vital Signs Temperature 98.0 F 05/21/18 09:21 Pulse Rate 101 H 05/21/18 09:21 Respiratory Rate 20 05/21/18 09:21 Blood Pressure 110/56 L 05/21/18 09:21 O2 Sat by Pulse Oximetry (%) 96 05/20/18 21:00 Constitutional: Yes: No Distress, Calm Eyes: Yes: Conjunctiva Clear Neck: Yes: Supple Cardiovascular: Yes: Regular Rate and Rhythm Respiratory: Yes: Regular, CTA Bilaterally Gastrointestinal: Yes: Normal Bowel Sounds, Soft Musculoskeletal: Yes: Muscle Weakness Extremities: Yes: WNL Edema: No Peripheral Pulses WNL: No Integumentary: Yes: WNL Neurological: Yes: Alert, Oriented Psychiatric: Yes: Alert, Oriented Labs: CBC, BMP 05/21/18 06:00 05/21/18 06:00 INR, PTT INR 0.98 (0.83-1.09) 05/18/18 15:43 Microbiology 05/18/18 18:03 Blood - Peripheral Venous Blood Culture - Preliminary NO GROWTH OBTAINED AFTER 48 HOURS, INCUBATION TO CONTINUE FOR 3 DAYS. 05/18/18 19:15 Blood - Peripheral Venous Blood Culture - Preliminary NO GROWTH OBTAINED AFTER 48 HOURS, INCUBATION TO CONTINUE FOR 3 DAYS. 05/18/18 18:03 Urine - Urine Clean Catch Urine Culture - Final NO GROWTH OBTAINED <Ana Cordova - Last Filed: 05/21/18 09:52> - Current Medication List Current Medications: Active Medications Albuterol Sulfate (Ventolin 0.083% Nebulizer Soln -) 1 amp NEB Q4H PRN PRN Reason: SHORT OF BREATH/WHEEZING Albuterol/Ipratropium (Duoneb -) 1 amp NEB RTID [facility] Last Admin: 05/22/18 20:51 Dose: 1 amp Cyanocobalamin (Vitamin B12 -) 1,000 mcg PO DAILY [facility] Last Admin: 05/22/18 11:07 Dose: 1,000 mcg Docusate Sodium (Colace -) 100 mg PO Q8H PRN PRN Reason: CONSTIPATION Last Admin: 05/22/18 16:40 Dose: 100 mg Doxepin HCl (Sinequan -) 100 mg PO HS [facility] Last Admin: 05/22/18 22:04 Dose: 100 mg Enoxaparin Sodium (Lovenox -) 40 mg SQ DAILY [facility] Last Admin: 05/22/18 11:20 Dose: 40 mg Ferrous Sulfate (Feosol -) 325 mg PO TIDCM [facility] Last Admin: 05/22/18 16:38 Dose: 325 mg Folic Acid (Folic Acid -) 1 mg PO DAILY [facility] Last Admin: 05/22/18 11:06 Dose: 1 mg Piperacillin Sod/Tazobactam (Sod 3.375 gm/ Dextrose) 50 mls @ 100 mls/hr IVPB Q8H-IV [facility]; Protocol Last Admin: 05/23/18 02:55 Dose: 100 mls/hr Insulin Aspart (Novolog Vial Sliding Scale -) 1 vial SQ ACHS [facility]; Protocol Last Admin: 05/22/18 22:05 Dose: 4 unit Levetiracetam 500 mg/ (Levetiracetam 250 mg) 750 mg PO BID [facility] Last Admin: 05/22/18 22:04 Dose: 750 mg Lidocaine (Lidoderm Patch -) 1 patch TP DAILY [facility] Last Admin: 05/22/18 11:05 Dose: Not Given Meclizine HCl (Antivert -) 25 mg PO Q8H PRN PRN Reason: VERTIGO Last Admin: 05/19/18 23:11 Dose: 25 mg Melatonin (Melatonin) 5 mg PO HS PRN PRN Reason: INSOMNIA Last Admin: 05/22/18 22:04 Dose: 5 mg Metoprolol Succinate (Toprol Xl -) 12.5 mg PO DAILY [facility] Mirtazapine (Remeron -) 7.5 mg PO HS [facility] Last Admin: 05/22/18 22:05 Dose: 7.5 mg Miscellaneous (Lidoderm Patch Removal) 1 each MC DAILY@2200 [facility] Last Admin: 05/22/18 22:05 Dose: Not Given Morphine Sulfate (Morphine Sulfate) 1 mg IVPUSH Q4H PRN PRN Reason: PAIN LEVEL 6-10 Last Admin: 05/23/18 00:20 Dose: 1 mg Nicotine (Nicoderm Patch -) 7 mg TD DAILY [facility] Last Admin: 05/22/18 09:15 Dose: 7 mg Nitroglycerin (Nitrostat -) 0.4 mg SL Q5M PRN PRN Reason: FOR CHEST PAIN Last Admin: 05/22/18 22:06 Dose: 0.4 mg Pantoprazole Sodium (Protonix -) 40 mg PO DAILY [facility] Last Admin: 05/22/18 11:06 Dose: 40 mg Ranolazine (Ranexa -) 500 mg PO BID [facility] Last Admin: 05/22/18 22:04 Dose: 500 mg Sitagliptin Phosphate (Januvia -) 100 mg PO DAILY@0700 [facility] Last Admin: 05/22/18 06:26 Dose: Not Given Trazodone HCl (Desyrel -) 150 mg PO HS [facility] Last Admin: 05/22/18 22:04 Dose: 150 mg - Objective Vital Signs: Vital Signs Temperature 98.3 F 05/22/18 22:00 Pulse Rate 85 05/22/18 22:00 Respiratory Rate 20 05/22/18 22:00 Blood Pressure 117/66 05/22/18 22:00 O2 Sat by Pulse Oximetry (%) 97 05/22/18 21:00 Labs: CBC, BMP 05/22/18 06:20 05/22/18 06:20 INR, PTT INR 0.98 (0.83-1.09) 05/18/18 15:43 <Kulwant Bianchi - Last Filed: 05/23/18 05:53> Problem List - Problems (1) CAD (coronary artery disease) Assessment/Plan: -cont ASA daily -Nitro 0.4mg SL prn for chest pain -cont Ranexa -cardiology consult Code(s): I25.10 - ATHSCL HEART DISEASE OF [place] CORONARY ARTERY W/O ANG PCTRS (2) COPD exacerbation Assessment/Plan: -pulmonary on board -albuterol neb treatment PRN for SOB -O2 vial NC -keep SpO2 >90% Code(s): J44.1 - CHRONIC OBSTRUCTIVE PULMONARY DISEASE W (ACUTE) EXACERBATION (3) Chest pain Assessment/Plan: -cardiology consult -Nitro 0.4mg SL prn -troponin neg x 3 Code(s): R07.9 - CHEST PAIN, UNSPECIFIED (4) DM (diabetes mellitus) Assessment/Plan: -BGM ACHS, ISS -cont Januvia 100mg daily Code(s): E11.9 - TYPE 2 DIABETES MELLITUS WITHOUT COMPLICATIONS (5) Hypertension Assessment/Plan: -continue Metoprolol 25mg BID -low Na diet Code(s): I10 - ESSENTIAL (PRIMARY) HYPERTENSION (6) Tobacco dependence Assessment/Plan: -nicotine patch applied daily Code(s): F17.200 - NICOTINE DEPENDENCE, UNSPECIFIED, UNCOMPLICATED (7) Asthma exacerbation in COPD Assessment/Plan: -pulmonary on board -albuterol neb treatment PRN for SOB -O2 vial NC -keep SpO2 >90% Code(s): J44.1 - CHRONIC OBSTRUCTIVE PULMONARY DISEASE W (ACUTE) EXACERBATION; J45.901 - UNSPECIFIED ASTHMA WITH (ACUTE) EXACERBATION (8) Lung mass Assessment/Plan: -pulmonary on board, recommendations appreciated -DELVIN density since -bone scan ordered -CEA 4.9 -ID on board, started on IV ABT -sputum culture ordered Code(s): R91.8 - OTHER NONSPECIFIC ABNORMAL FINDING OF LUNG FIELD (9) Seizure disorder Assessment/Plan: -keppra BID -keppra level pending -seizure precaution Code(s): G40.909 - EPILEPSY, UNSP, NOT INTRACTABLE, WITHOUT STATUS EPILEPTICUS <Ana Cordova - Last Filed: 05/21/18 09:52> Assessment/Plan PATIENT SEEN AND EXAMINED AND I AGREE WITH THE ABOVE NOTE <Kulwant Bianchi - Last Filed: 05/23/18 05:53>
[2018-05-21] MEDS: LIDOCAINE 5% TOPICAL PATCH TP SCH (10:10)
--- NOTE | 2018-05-21 13:23 | PN ---
Progress Note (short form) - Note Progress Note: PULMONARY LEFT SIDED BACK PAIN CONTINUES UNRELIEVED BY PERCOSET VSS/AFEBRILE ANICTERIC DIMINISHED DIFFUSE BREATH SOUNDS S1S2 BS+ NO EDEMA LABS/MEDS/NOTES/IMAGES REVIEWED CALCIUM 10.2 LUNG MASS/LEFT UPPER LOBE ATELECTASIS/BONE PAIN/ELEVATED CALCIUM AWAIT BONE SCAN WILL HAVE FOB/ HOPEFULLY TUESDAY WILL KEEP NPO TUESDAY NIGHT/ASA DISCONTINUED FAMILY AND PATIENT INFORMED TO PLAN HAVE STARTED MS IVP PRN Perez HUTTON MD Problem List - Problems (1) Asthma exacerbation in COPD Code(s): J44.1 - CHRONIC OBSTRUCTIVE PULMONARY DISEASE W (ACUTE) EXACERBATION; J45.901 - UNSPECIFIED ASTHMA WITH (ACUTE) EXACERBATION (2) CAD (coronary artery disease) Code(s): I25.10 - ATHSCL HEART DISEASE OF [place] CORONARY ARTERY W/O ANG PCTRS (3) COPD (chronic obstructive pulmonary disease) Code(s): J44.9 - CHRONIC OBSTRUCTIVE PULMONARY DISEASE, UNSPECIFIED (4) Chest pain Code(s): R07.9 - CHEST PAIN, UNSPECIFIED (5) DM (diabetes mellitus) Code(s): E11.9 - TYPE 2 DIABETES MELLITUS WITHOUT COMPLICATIONS (6) Hypertension Code(s): I10 - ESSENTIAL (PRIMARY) HYPERTENSION (7) Lung mass Code(s): R91.8 - OTHER NONSPECIFIC ABNORMAL FINDING OF LUNG FIELD
[2018-05-21] MEDS ORDERED: morphine SULFATE 4 MG/ML VIAL ONE (13:37)
[2018-05-21] MEDS: MORPHINE SULFATE 2 MG/ML VIAL IVPUSH PRN ×2 (14:01→20:29)
[2018-05-21] MEDS ORDERED: INSULIN (NOVOLOG) ASPART 100 UNITS/ML 10ML VIAL ONE (20:26)
[2018-05-21] MEDS: DOCUSATE SODIUM 100 MG CAPSULE (FP) PO PRN (20:36)
[2018-05-21] MEDS: traZODone HCL 50 MG TABLET (FP) PO SCH (23:03)
[2018-05-21] MEDS: LIDOCAINE PATCH REMOVAL MC SCH (23:04)
[2018-05-21] MEDS: MIRTAZAPINE 15 MG TABLET (FP) PO SCH (23:04)
[2018-05-21] MEDS: DOXEPIN HCL 25 MG CAPSULE PO SCH (23:05)
[2018-05-22] MEDS ORDERED: PIPERACILLIN/TAZOBACTAM 3.375 GM VIAL IVPB ONE ×3 (01:02→15:05)
[2018-05-22] MEDS ORDERED: DEXTROSE 5%-WATER - 50 ML IVPB ONE ×3 (01:02→15:05)
[2018-05-22] MEDS: PIPERACILLIN/TAZOB 3.375 GM 3.375 GM in DEXTROSE 5%-WATER - 50 ML IVPB SCH ×3 (01:13→17:01)
[2018-05-22] MEDS: MORPHINE SULFATE 2 MG/ML VIAL IVPUSH PRN ×4 (01:55→18:56)
[2018-05-22 06:07] LABS: SERUM IRON SATURATION 5 % (15-55); TOTAL IRON BINDING CAPACITY 248 ug/dL (250-450); UIBC 235 ug/dL (118-369)
[2018-05-22] MEDS: INSULIN SLIDING SCALE (NOVOLOG) 1 VIAL SQ SCH ×4 (06:25→22:05)
[2018-05-22] MEDS: sitaGLIPtin PHOSPHATE 100 MG TABLET (FP) PO SCH (06:26)
[2018-05-22 08:15] LABS: HEMATOCRIT 31.2 % (32.4-45.2); HEMOGLOBIN 10.2 GM/dL (10.7-15.3); MCH 25.5 pg (25.7-33.7); MCHC 32.7 g/dl (32.0-36.0); MEAN CELL VOLUME 77.8 fl (80-96); MEAN PLT VOLUME 7.9 fl (7.5-11.1); PLATELET COUNT 368 K/MM3 (134-434); RBC 4.01 M/mm3 (3.60-5.2); RDW 22.8 % (11.6-15.6); WHITE BLOOD COUNT 14.9 K/mm3 (4.0-10.0)
[2018-05-22] MEDS: FERROUS SO4 325 MG TABLET (FP) PO SCH ×3 (08:51→16:38)
[2018-05-22] MEDS ORDERED: INSULIN (NOVOLOG) ASPART 100 UNITS/ML 10ML VIAL ONE (08:53)
[2018-05-22 08:56] LABS: ALBUMIN 2.5 g/dl (3.4-5.0); ALK PHOS 66 U/L (45-117); ANION GAP 6 MMOL/L (8-16); BILIRUBIN,TOTAL 0.3 mg/dL (0.2-1); BLOOD UREA NITROGEN 8 mg/dL (7-18); CALCIUM 9.5 mg/dL (8.5-10.1); CHLORIDE 99 mmol/L (98-107); CO2 33 mmol/L (21-32); CREATININE 0.8 mg/dL (0.55-1.3); GLUCOSE,RANDOM 138 mg/dL (74-106); SGOT/AST 9 U/L (15-37); SGPT/ALT 10 U/L (13-61); SODIUM 138 mmol/L (136-145); TOT PROT 5.8 g/dl (6.4-8.2)
[2018-05-22] MEDS: LIDOCAINE 5% TOPICAL PATCH TP SCH ×2 (09:14→11:05)
[2018-05-22] MEDS: NICOTINE 7 MG/24 HOURS TOPICAL PATCH TD SCH (09:15)
[2018-05-22] MEDS ORDERED: ALBUTEROL SO4 0.083% IH SOL 2.5 MG/3 ML VIAL.NEB. NEB PRN (10:44)
--- NOTE | 2018-05-22 10:44 | PN ---
Progress Note (short form) - Note Progress Note: PULMONARY Still with chest discomfort and cough. No OR availability today. Vital Signs Period Temp Pulse Resp BP Sys/Voss Pulse Ox Last 24 Hr 98.5 F-99 F 76-85 20-20 92-110/50-61 100 Gen: NAD at rest Heart: RRR Lung: decreased breath sounds at the bases Abd: soft, nontender Ext: no edema CBC, BMP 05/22/18 06:20 05/22/18 06:20 Active Medications Albuterol/Ipratropium (Duoneb -) 1 amp NEB Q6H PRN PRN Reason: SHORTNESS OF BREATH Last Admin: 05/20/18 20:20 Dose: 1 amp Cyanocobalamin (Vitamin B12 -) 1,000 mcg PO DAILY [facility] Last Admin: 05/21/18 09:54 Dose: 1,000 mcg Docusate Sodium (Colace -) 100 mg PO Q8H PRN PRN Reason: CONSTIPATION Last Admin: 05/21/18 20:36 Dose: 100 mg Doxepin HCl (Sinequan -) 100 mg PO HS [facility] Last Admin: 05/21/18 23:05 Dose: 100 mg Ferrous Sulfate (Feosol -) 325 mg PO TIDCM [facility] Last Admin: 05/22/18 08:51 Dose: Not Given Folic Acid (Folic Acid -) 1 mg PO DAILY [facility] Last Admin: 05/21/18 09:54 Dose: 1 mg Piperacillin Sod/Tazobactam (Sod 3.375 gm/ Dextrose) 50 mls @ 100 mls/hr IVPB Q8H-IV [facility]; Protocol Last Admin: 05/22/18 09:14 Dose: 100 mls/hr Insulin Aspart (Novolog Vial Sliding Scale -) 1 vial SQ ACHS [facility]; Protocol Last Admin: 05/22/18 06:25 Dose: Not Given Levetiracetam 500 mg/ (Levetiracetam 250 mg) 750 mg PO BID [facility] Last Admin: 05/21/18 23:03 Dose: 750 mg Lidocaine (Lidoderm Patch -) 1 patch TP DAILY [facility] Last Admin: 05/22/18 09:14 Dose: 1 patch Meclizine HCl (Antivert -) 25 mg PO Q8H PRN PRN Reason: VERTIGO Last Admin: 05/19/18 23:11 Dose: 25 mg Melatonin (Melatonin) 5 mg PO HS PRN PRN Reason: INSOMNIA Last Admin: 05/19/18 22:50 Dose: 5 mg Metoprolol Succinate (Toprol Xl -) 25 mg PO BID [facility] Last Admin: 05/21/18 23:05 Dose: Not Given Mirtazapine (Remeron -) 7.5 mg PO HS [facility] Last Admin: 05/21/18 23:04 Dose: Not Given Miscellaneous (Lidoderm Patch Removal) 1 each MC DAILY@2200 [facility] Last Admin: 05/21/18 23:04 Dose: 1 each Morphine Sulfate (Morphine Sulfate) 1 mg IVPUSH Q4H PRN PRN Reason: PAIN LEVEL 6-10 Last Admin: 05/22/18 09:23 Dose: 1 mg Nicotine (Nicoderm Patch -) 7 mg TD DAILY [facility] Last Admin: 05/22/18 09:15 Dose: 7 mg Nitroglycerin (Nitrostat -) 0.4 mg SL Q5M PRN PRN Reason: FOR CHEST PAIN Last Admin: 05/19/18 23:12 Dose: 0.4 mg Pantoprazole Sodium (Protonix -) 40 mg PO DAILY [facility] Last Admin: 05/21/18 09:54 Dose: 40 mg Ranolazine (Ranexa -) 500 mg PO BID [facility] Last Admin: 05/21/18 23:04 Dose: Not Given Sitagliptin Phosphate (Januvia -) 100 mg PO DAILY@0700 [facility] Last Admin: 05/22/18 06:26 Dose: Not Given Trazodone HCl (Desyrel -) 150 mg PO HS [facility] Last Admin: 05/21/18 23:03 Dose: 150 mg A/P Pneumonia likely Post Obstructive Lung Mass COPD CAD HTN DM Seizure Disorder Smoker - continue antibiotics - inhaled bronchodilators - for bone scan - scheduled for bronchoscopy tomorrow 05/23 at 12PM - NPO after midnight - DVT prophylaxis
[2018-05-22] MEDS: PANTOPRAZOLE 40 MG TABLET (FP) PO SCH (11:06)
[2018-05-22] MEDS: FOLIC ACID 1 MG TABLET (FP) PO SCH (11:06)
[2018-05-22] MEDS: RANOLAZINE E.R. 500 MG TABLET (FP) PO SCH ×2 (11:06→22:04)
[2018-05-22] MEDS: metoPROLOL SUCCINATE 25 MG TAB.SR.24H (FP) PO SCH (11:07)
[2018-05-22] MEDS: CYANOCOBALAMIN 1,000 MCG TABLET (FP) PO SCH (11:07)
[2018-05-22] MEDS ORDERED: ENOXAPARIN NA (PORCINE) 40 MG/0.4 ML DISP.SYRIN SQ SCH (11:15)
--- NOTE | 2018-05-22 11:41 | PN ---
Progress Note, Physician Chief Complaint: Left sided chest pain Left bronchus obstructive mass History of Present Illness: NAD in bed daughter at bedside Bone scan pending Seen by Pulmonary Going for bronchoscopy tomorrow - Current Medication List Current Medications: Active Medications Albuterol Sulfate (Ventolin 0.083% Nebulizer Soln -) 1 amp NEB Q4H PRN PRN Reason: SHORT OF BREATH/WHEEZING Albuterol/Ipratropium (Duoneb -) 1 amp NEB RTID [facility] Cyanocobalamin (Vitamin B12 -) 1,000 mcg PO DAILY [facility] Last Admin: 05/22/18 11:07 Dose: 1,000 mcg Docusate Sodium (Colace -) 100 mg PO Q8H PRN PRN Reason: CONSTIPATION Last Admin: 05/21/18 20:36 Dose: 100 mg Doxepin HCl (Sinequan -) 100 mg PO HS [facility] Last Admin: 05/21/18 23:05 Dose: 100 mg Enoxaparin Sodium (Lovenox -) 40 mg SQ DAILY [facility] Last Admin: 05/22/18 11:20 Dose: 40 mg Ferrous Sulfate (Feosol -) 325 mg PO TIDCM [facility] Last Admin: 05/22/18 11:07 Dose: 325 mg Folic Acid (Folic Acid -) 1 mg PO DAILY [facility] Last Admin: 05/22/18 11:06 Dose: 1 mg Piperacillin Sod/Tazobactam (Sod 3.375 gm/ Dextrose) 50 mls @ 100 mls/hr IVPB Q8H-IV [facility]; Protocol Last Admin: 05/22/18 09:14 Dose: 100 mls/hr Insulin Aspart (Novolog Vial Sliding Scale -) 1 vial SQ ACHS [facility]; Protocol Last Admin: 05/22/18 11:20 Dose: Not Given Levetiracetam 500 mg/ (Levetiracetam 250 mg) 750 mg PO BID [facility] Last Admin: 05/22/18 11:06 Dose: 750 mg Lidocaine (Lidoderm Patch -) 1 patch TP DAILY [facility] Last Admin: 05/22/18 11:05 Dose: Not Given Meclizine HCl (Antivert -) 25 mg PO Q8H PRN PRN Reason: VERTIGO Last Admin: 05/19/18 23:11 Dose: 25 mg Melatonin (Melatonin) 5 mg PO HS PRN PRN Reason: INSOMNIA Last Admin: 05/19/18 22:50 Dose: 5 mg Metoprolol Succinate (Toprol Xl -) 25 mg PO BID [facility] Last Admin: 05/22/18 11:07 Dose: 25 mg Mirtazapine (Remeron -) 7.5 mg PO [facility] Last Admin: 05/21/18 23:04 Dose: Not Given Miscellaneous (Lidoderm Patch Removal) 1 each MC DAILY@2200 [facility] Last Admin: 05/21/18 23:04 Dose: 1 each Morphine Sulfate (Morphine Sulfate) 1 mg IVPUSH Q4H PRN PRN Reason: PAIN LEVEL 6-10 Last Admin: 05/22/18 09:23 Dose: 1 mg Nicotine (Nicoderm Patch -) 7 mg TD DAILY [facility] Last Admin: 05/22/18 09:15 Dose: 7 mg Nitroglycerin (Nitrostat -) 0.4 mg SL Q5M PRN PRN Reason: FOR CHEST PAIN Last Admin: 05/19/18 23:12 Dose: 0.4 mg Pantoprazole Sodium (Protonix -) 40 mg PO DAILY [facility] Last Admin: 05/22/18 11:06 Dose: 40 mg Ranolazine (Ranexa -) 500 mg PO BID [facility] Last Admin: 05/22/18 11:06 Dose: 500 mg Sitagliptin Phosphate (Januvia -) 100 mg PO DAILY@0700 [facility] Last Admin: 05/22/18 06:26 Dose: Not Given Trazodone HCl (Desyrel -) 150 mg PO [facility] Last Admin: 05/21/18 23:03 Dose: 150 mg - Objective Vital Signs: Vital Signs Temperature 99 F 05/22/18 08:25 Pulse Rate 78 05/22/18 08:25 Respiratory Rate 20 05/22/18 08:25 Blood Pressure 94/51 L 05/22/18 08:25 O2 Sat by Pulse Oximetry (%) 100 05/21/18 20:43 Constitutional: Yes: No Distress, Calm, Cachectic, Mild Distress Cardiovascular: Yes: Regular Rate and Rhythm Respiratory: Yes: Regular Gastrointestinal: Yes: Normal Bowel Sounds, Soft Musculoskeletal: Yes: WNL Extremities: Yes: WNL Edema: No Peripheral Pulses WNL: Yes Neurological: Yes: Alert, Oriented Psychiatric: Yes: Alert, Oriented Labs: CBC, BMP 05/22/18 06:20 05/22/18 06:20 INR, PTT INR 0.98 (0.83-1.09) 05/18/18 15:43 Problem List - Problems (1) Anemia Assessment/Plan: -TIFFANIE -On ferrous sulfate tid -monitor trend -stool OB Code(s): D64.9 - ANEMIA, UNSPECIFIED (2) COPD (chronic obstructive pulmonary disease) Assessment/Plan: -Nasal O2 -Bronchodilators -Pulmonary consult -IV abx Code(s): J44.9 - CHRONIC OBSTRUCTIVE PULMONARY DISEASE, UNSPECIFIED (3) DM (diabetes mellitus) Assessment/Plan: -A1c 6.9 -BGM ACHS -diabetic low sodium diet -Novolog sliding scale -Continue Januvia 100 mg po daily Code(s): E11.9 - TYPE 2 DIABETES MELLITUS WITHOUT COMPLICATIONS (4) Lung mass Assessment/Plan: -Seen by pulmonary -going for bronchoscopy tomorrow -Bone scan pending Code(s): R91.8 - OTHER NONSPECIFIC ABNORMAL FINDING OF LUNG FIELD (5) Malnourished Assessment/Plan: -Add multivitamin -add glucerna BID Code(s): E46 - UNSPECIFIED PROTEIN-CALORIE MALNUTRITION Qualifiers: Malnutrition type: protein-calorie malnutrition Assessment/Plan see problem list physical therapy
[2018-05-22] MEDS: ALBUTEROL SO4 2.5/IPRATROPIUM 0.5 INH SOL 3 ML VIAL.NEB. NEB SCH ×2 (13:31→20:51)
[2018-05-22] MEDS: DOCUSATE SODIUM 100 MG CAPSULE (FP) PO PRN (16:40)
[2018-05-22] MEDS: traZODone HCL 50 MG TABLET (FP) PO SCH (22:04)
[2018-05-22] MEDS: MELATONIN 5 MG TABLETS PO PRN (22:04)
[2018-05-22] MEDS: DOXEPIN HCL 25 MG CAPSULE PO SCH (22:04)
[2018-05-22] MEDS: MIRTAZAPINE 15 MG TABLET (FP) PO SCH (22:05)
[2018-05-22] MEDS: LIDOCAINE PATCH REMOVAL MC SCH (22:05)
[2018-05-22] MEDS: NITROGLYCERIN SUBLINGUAL 1/150 0.4 MG TAB SL PRN (22:30)
[2018-05-23] MEDS: MORPHINE SULFATE 2 MG/ML VIAL IVPUSH PRN ×4 (00:20→16:45)
[2018-05-23] MEDS ORDERED: DEXTROSE 5%-WATER - 50 ML IVPB ONE ×3 (01:26→16:42)
[2018-05-23] MEDS ORDERED: PIPERACILLIN/TAZOBACTAM 3.375 GM VIAL IVPB ONE ×3 (01:26→16:42)
[2018-05-23] MEDS: PIPERACILLIN/TAZOB 3.375 GM 3.375 GM in DEXTROSE 5%-WATER - 50 ML IVPB SCH ×3 (02:55→17:01)
[2018-05-23] MEDS: sitaGLIPtin PHOSPHATE 100 MG TABLET (FP) PO SCH (06:20)
[2018-05-23] MEDS: INSULIN SLIDING SCALE (NOVOLOG) 1 VIAL SQ SCH ×4 (06:20→23:02)
[2018-05-23] MEDS: DOCUSATE SODIUM 100 MG CAPSULE (FP) PO PRN (06:20)
[2018-05-23 06:58] LABS: BASO % 0.7 % (0-2.0); EOS % 2.1 % (0-4.5); HEMATOCRIT 30.7 % (32.4-45.2); LYMPH % 9.7 % (8-40); MCH 25.3 pg (25.7-33.7); MCHC 32.6 g/dl (32.0-36.0); MEAN CELL VOLUME 77.4 fl (80-96); MEAN PLT VOLUME 7.6 fl (7.5-11.1); MONO % 5.9 % (3.8-10.2); NEUT % 81.6 % (42.8-82.8); PLATELET COUNT 385 K/MM3 (134-434); RBC 3.96 M/mm3 (3.60-5.2); WHITE BLOOD COUNT 13.4 K/mm3 (4.0-10.0)
[2018-05-23 07:16] LABS: ALBUMIN 2.4 g/dl (3.4-5.0); ALK PHOS 62 U/L (45-117); ANION GAP 4 MMOL/L (8-16); BILIRUBIN,TOTAL 0.2 mg/dL (0.2-1); BLOOD UREA NITROGEN 8 mg/dL (7-18); CALCIUM 9.5 mg/dL (8.5-10.1); CHLORIDE 100 mmol/L (98-107); CO2 33 mmol/L (21-32); CREATININE 0.7 mg/dL (0.55-1.3); GLUCOSE,RANDOM 137 mg/dL (74-106); SGOT/AST 9 U/L (15-37); SGPT/ALT 12 U/L (13-61); SODIUM 137 mmol/L (136-145); TOT PROT 5.6 g/dl (6.4-8.2)
[2018-05-23] MEDS: ALBUTEROL SO4 2.5/IPRATROPIUM 0.5 INH SOL 3 ML VIAL.NEB. NEB SCH ×3 (07:30→21:00)
[2018-05-23] MEDS ORDERED: PT OWN MED DRAWER 7, Y5N ONE (08:46)
[2018-05-23 09:36] LABS: ANISOCYTOSIS 2+; MACROCYTOSIS 0; PLATELET ESTIMATE NORMAL
[2018-05-23] MEDS: FERROUS SO4 325 MG TABLET (FP) PO SCH ×3 (09:50→16:45)
[2018-05-23] MEDS: FOLIC ACID 1 MG TABLET (FP) PO SCH (09:50)
[2018-05-23] MEDS: LIDOCAINE 5% TOPICAL PATCH TP SCH (09:50)
[2018-05-23] MEDS: RANOLAZINE E.R. 500 MG TABLET (FP) PO SCH ×2 (09:50→22:58)
[2018-05-23] MEDS: PANTOPRAZOLE 40 MG TABLET (FP) PO SCH (09:50)
[2018-05-23] MEDS: NICOTINE 7 MG/24 HOURS TOPICAL PATCH TD SCH (09:50)
[2018-05-23] MEDS: CYANOCOBALAMIN 1,000 MCG TABLET (FP) PO SCH (09:52)
[2018-05-23] MEDS ORDERED: metoPROLOL SUCCINATE 25 MG TAB.SR.24H (FP) PO SCH (10:00)
--- NOTE | 2018-05-23 10:42 | PN ---
Progress Note (short form) - Note Progress Note: PULMONARY Still with chest discomfort and cough. Vital Signs Period Temp Pulse Resp BP Sys/Voss Pulse Ox Last 24 Hr 97.8 F-98.7 F 73-88 20-20 99-117/46-66 97 Gen: NAD at rest Heart: RRR Lung: decreased breath sounds at the bases Abd: soft, nontender Ext: no edema CBC, BMP 05/23/18 06:30 05/23/18 06:30 Active Medications Albuterol Sulfate (Ventolin 0.083% Nebulizer Soln -) 1 amp NEB Q4H PRN PRN Reason: SHORT OF BREATH/WHEEZING Albuterol/Ipratropium (Duoneb -) 1 amp NEB RTID [facility] Last Admin: 05/22/18 20:51 Dose: 1 amp Cyanocobalamin (Vitamin B12 -) 1,000 mcg PO DAILY [facility] Last Admin: 05/23/18 09:52 Dose: 1,000 mcg Docusate Sodium (Colace -) 100 mg PO Q8H PRN PRN Reason: CONSTIPATION Last Admin: 05/23/18 06:20 Dose: 100 mg Doxepin HCl (Sinequan -) 100 mg PO HS [facility] Last Admin: 05/22/18 22:04 Dose: 100 mg Enoxaparin Sodium (Lovenox -) 40 mg SQ DAILY [facility] Last Admin: 05/22/18 11:20 Dose: 40 mg Ferrous Sulfate (Feosol -) 325 mg PO TIDCM [facility] Last Admin: 05/23/18 09:50 Dose: 325 mg Folic Acid (Folic Acid -) 1 mg PO DAILY [facility] Last Admin: 05/23/18 09:50 Dose: 1 mg Piperacillin Sod/Tazobactam (Sod 3.375 gm/ Dextrose) 50 mls @ 100 mls/hr IVPB Q8H-IV [facility]; Protocol Last Admin: 05/23/18 09:49 Dose: 100 mls/hr Insulin Aspart (Novolog Vial Sliding Scale -) 1 vial SQ ACHS [facility]; Protocol Last Admin: 05/23/18 06:20 Dose: Not Given Levetiracetam 500 mg/ (Levetiracetam 250 mg) 750 mg PO BID [facility] Last Admin: 05/23/18 09:51 Dose: 750 mg Lidocaine (Lidoderm Patch -) 1 patch TP DAILY [facility] Last Admin: 05/23/18 09:50 Dose: Not Given Meclizine HCl (Antivert -) 25 mg PO Q8H PRN PRN Reason: VERTIGO Last Admin: 05/19/18 23:11 Dose: 25 mg Melatonin (Melatonin) 5 mg PO HS PRN PRN Reason: INSOMNIA Last Admin: 05/22/18 22:04 Dose: 5 mg Metoprolol Succinate (Toprol Xl -) 12.5 mg PO DAILY [facility] Last Admin: 05/23/18 09:51 Dose: 12.5 mg Mirtazapine (Remeron -) 7.5 mg PO HS [facility] Last Admin: 05/22/18 22:05 Dose: 7.5 mg Miscellaneous (Lidoderm Patch Removal) 1 each MC DAILY@2200 [facility] Last Admin: 05/22/18 22:05 Dose: Not Given Morphine Sulfate (Morphine Sulfate) 1 mg IVPUSH Q4H PRN PRN Reason: PAIN LEVEL 6-10 Last Admin: 05/23/18 10:29 Dose: 1 mg Nicotine (Nicoderm Patch -) 7 mg TD DAILY [facility] Last Admin: 05/23/18 09:50 Dose: 7 mg Nitroglycerin (Nitrostat -) 0.4 mg SL Q5M PRN PRN Reason: FOR CHEST PAIN Last Admin: 05/22/18 22:30 Dose: 0.4 mg Pantoprazole Sodium (Protonix -) 40 mg PO DAILY [facility] Last Admin: 05/23/18 09:50 Dose: 40 mg Ranolazine (Ranexa -) 500 mg PO BID [facility] Last Admin: 05/23/18 09:50 Dose: 500 mg Sitagliptin Phosphate (Januvia -) 100 mg PO DAILY@0700 [facility] Last Admin: 05/23/18 06:20 Dose: 100 mg Trazodone HCl (Desyrel -) 150 mg PO HS [facility] Last Admin: 05/22/18 22:04 Dose: 150 mg A/P Pneumonia likely Post Obstructive Lung Mass COPD CAD HTN DM Seizure Disorder Smoker - continue antibiotics - inhaled bronchodilators - f/u bone scan - will proceed with bronchoscopy today - DVT prophylaxis
--- NOTE | 2018-05-23 11:20 | PN ---
Progress Note, Physician Chief Complaint: Left sided chest pain Left bronchus obstructive mass History of Present Illness: NAD in bed daughter at bedside Bone scan results pending Seen by Pulmonary Going for bronchoscopy today - Current Medication List Current Medications: Active Medications Albuterol Sulfate (Ventolin 0.083% Nebulizer Soln -) 1 amp NEB Q4H PRN PRN Reason: SHORT OF BREATH/WHEEZING Albuterol/Ipratropium (Duoneb -) 1 amp NEB RTID [facility] Last Admin: 05/22/18 20:51 Dose: 1 amp Cyanocobalamin (Vitamin B12 -) 1,000 mcg PO DAILY [facility] Last Admin: 05/23/18 09:52 Dose: 1,000 mcg Docusate Sodium (Colace -) 100 mg PO Q8H PRN PRN Reason: CONSTIPATION Last Admin: 05/23/18 06:20 Dose: 100 mg Doxepin HCl (Sinequan -) 100 mg PO HS [facility] Last Admin: 05/22/18 22:04 Dose: 100 mg Enoxaparin Sodium (Lovenox -) 40 mg SQ DAILY [facility] Last Admin: 05/22/18 11:20 Dose: 40 mg Ferrous Sulfate (Feosol -) 325 mg PO TIDCM [facility] Last Admin: 05/23/18 09:50 Dose: 325 mg Folic Acid (Folic Acid -) 1 mg PO DAILY [facility] Last Admin: 05/23/18 09:50 Dose: 1 mg Piperacillin Sod/Tazobactam (Sod 3.375 gm/ Dextrose) 50 mls @ 100 mls/hr IVPB Q8H-IV [facility]; Protocol Last Admin: 05/23/18 09:49 Dose: 100 mls/hr Insulin Aspart (Novolog Vial Sliding Scale -) 1 vial SQ ACHS [facility]; Protocol Last Admin: 05/23/18 11:06 Dose: Not Given Levetiracetam 500 mg/ (Levetiracetam 250 mg) 750 mg PO BID [facility] Last Admin: 05/23/18 09:51 Dose: 750 mg Lidocaine (Lidoderm Patch -) 1 patch TP DAILY [facility] Last Admin: 05/23/18 09:50 Dose: Not Given Meclizine HCl (Antivert -) 25 mg PO Q8H PRN PRN Reason: VERTIGO Last Admin: 05/19/18 23:11 Dose: 25 mg Melatonin (Melatonin) 5 mg PO HS PRN PRN Reason: INSOMNIA Last Admin: 05/22/18 22:04 Dose: 5 mg Metoprolol Succinate (Toprol Xl -) 12.5 mg PO DAILY [facility] Last Admin: 05/23/18 09:51 Dose: 12.5 mg Mirtazapine (Remeron -) 7.5 mg PO HS [facility] Last Admin: 05/22/18 22:05 Dose: 7.5 mg Miscellaneous (Lidoderm Patch Removal) 1 each MC DAILY@2200 [facility] Last Admin: 05/22/18 22:05 Dose: Not Given Morphine Sulfate (Morphine Sulfate) 1 mg IVPUSH Q4H PRN PRN Reason: PAIN LEVEL 6-10 Last Admin: 05/23/18 10:29 Dose: 1 mg Nicotine (Nicoderm Patch -) 7 mg TD DAILY [facility] Last Admin: 05/23/18 09:50 Dose: 7 mg Nitroglycerin (Nitrostat -) 0.4 mg SL Q5M PRN PRN Reason: FOR CHEST PAIN Last Admin: 05/22/18 22:30 Dose: 0.4 mg Pantoprazole Sodium (Protonix -) 40 mg PO DAILY [facility] Last Admin: 05/23/18 09:50 Dose: 40 mg Ranolazine (Ranexa -) 500 mg PO BID [facility] Last Admin: 05/23/18 09:50 Dose: 500 mg Sitagliptin Phosphate (Januvia -) 100 mg PO DAILY@0700 [facility] Last Admin: 05/23/18 06:20 Dose: 100 mg Trazodone HCl (Desyrel -) [address] [facility] Last Admin: 05/22/18 22:04 Dose: 150 mg - Objective Vital Signs: Vital Signs Temperature 98.1 F 05/23/18 10:00 Pulse Rate 82 05/23/18 10:00 Respiratory Rate 20 05/23/18 10:00 Blood Pressure 102/58 L 05/23/18 10:00 O2 Sat by Pulse Oximetry (%) 94 L 05/23/18 09:00 Constitutional: Yes: No Distress, Calm, Cachectic Cardiovascular: Yes: Regular Rate and Rhythm Respiratory: Yes: Regular Gastrointestinal: Yes: WNL Musculoskeletal: Yes: WNL Extremities: Yes: WNL Edema: No Peripheral Pulses WNL: Yes Neurological: Yes: Alert, Oriented Psychiatric: Yes: Alert, Oriented Labs: CBC, BMP 05/23/18 06:30 05/23/18 06:30 INR, PTT INR 0.98 (0.83-1.09) 05/18/18 15:43 Problem List - Problems (1) Anemia Assessment/Plan: -TIFFANIE -On ferrous sulfate tid -monitor trend -stool OB pending Code(s): D64.9 - ANEMIA, UNSPECIFIED (2) COPD (chronic obstructive pulmonary disease) Assessment/Plan: -Nasal O2 -Bronchodilators -Pulmonary consult -IV abx Code(s): J44.9 - CHRONIC OBSTRUCTIVE PULMONARY DISEASE, UNSPECIFIED (3) DM (diabetes mellitus) Assessment/Plan: -A1c 6.9 -BGM ACHS -diabetic low sodium diet -Novolog sliding scale -Continue Januvia 100 mg po daily Code(s): E11.9 - TYPE 2 DIABETES MELLITUS WITHOUT COMPLICATIONS (4) Lung mass Assessment/Plan: -Seen by pulmonary -going for bronchoscopy today -Bone scan results pending Code(s): R91.8 - OTHER NONSPECIFIC ABNORMAL FINDING OF LUNG FIELD (5) Malnourished Assessment/Plan: -Add multivitamin -add glucerna BID Code(s): E46 - UNSPECIFIED PROTEIN-CALORIE MALNUTRITION Qualifiers: Malnutrition type: protein-calorie malnutrition Assessment/Plan see problem list physical therapy
[2018-05-23] MEDS ORDERED: PROPOFOL 20 ML ONE ×4 (11:45→12:23)
[2018-05-23] MEDS ORDERED: LIDOCAINE HCL/PF 2% SDV 5ML VIAL ONE (11:46)
[2018-05-23] MEDS ORDERED: ROCURONIUM BROMIDE 50 MG/5 ML VIAL ONE (11:46)
[2018-05-23] MEDS ORDERED: DEXAMETHASONE SOD PHOSPHATE 4 MG/1 ML VIAL ONE (11:46)
[2018-05-23] MEDS ORDERED: ONDANSETRON 4 MG/2 ML VIAL IVPUSH PRN ×2 (12:40→14:53)
[2018-05-23] MEDS ORDERED: LACTATED RINGERS SOLUTION 1,000 ML IV SCH (12:45)
[2018-05-23] MEDS ORDERED: ePHEDrine SULFATE 50 MG/1 ML AMPULE ONE (13:00)
[2018-05-23] MEDS ORDERED: GLYCOPYRROLATE 0.2 MG/1 ML VIAL ONE (13:14)
[2018-05-23] MEDS ORDERED: NEOSTIGMINE METHYLSULFATE 0.5 MG/ML - 10 ML MDV ONE (13:14)
--- NOTE | 2018-05-23 13:46 | PROC ---
Procedure Note Procedure: BRONCHOSCOPY NOTE After discussing the risks and benefits of the procedure including bleeding and pneumothorax, informed consent was obtained. Pt was placed under general anesthesia and intubated with a size 8.0 ETT by anesthesia. ZettaCore video bronchoscope was passed via the ETT and the airways were examined down to the subsegmental level. There were no endobronchial lesions noted in the right lung. In the left lung, there was a left upper lobe smooth mass obstructing the left upper lobe bronchus. Forcep biopsies, brushings and washings were taken from the left upper lobe. There was some post biopsy bleeding which stopped with lavages. Area visualized until hemostasis achieved. Bronchoscope then withdrawn and procedure terminated. Pre-op Dx: lung mass Post-op Dx: r/o lung cancer Plan: - f/u cultures, cytology and pathology Yeyo Tobar MD
[2018-05-23] MEDS ORDERED: ALBUTEROL SO4 0.083% IH SOL 2.5 MG/3 ML VIAL.NEB. NEB ONE (13:47)
[2018-05-23] MEDS ORDERED: NITROGLYCERIN SUBLINGUAL 1/150 0.4 MG TAB SL PRN (14:53)
[2018-05-23] MEDS ORDERED: MECLIZINE HCL 25 MG TABLET (FP) PO PRN (14:53)
--- NOTE | 2018-05-23 16:48 | PN ---
Progress Note, Physician History of Present Illness: S/P BRONCHOSCOPY STILL WITH L CHEST PAIN LESS COUGH WHITE SPUTUM SLIGHTLY TACHYPNEIC ON NASAL CANNULA O2 AFEBRILE WBC IMPROVED - Current Medication List Current Medications: Active Medications Albuterol Sulfate (Ventolin 0.083% Nebulizer Soln -) 1 amp NEB Q4H PRN PRN Reason: SHORT OF BREATH/WHEEZING Albuterol/Ipratropium (Duoneb -) 1 amp NEB RTID [facility] Cyanocobalamin (Vitamin B12 -) 1,000 mcg PO DAILY [facility] Docusate Sodium (Colace -) 100 mg PO Q8H PRN PRN Reason: CONSTIPATION Doxepin HCl (Sinequan -) 100 mg PO HS [facility] Enoxaparin Sodium (Lovenox -) 40 mg SQ DAILY [facility] Fentanyl (Sublimaze Injection -) 50 mcg IVPUSH Q5M PRN PRN Reason: PAIN-PACU ORDER X 4 DOSES ONLY Stop: 05/24/18 04:00 Ferrous Sulfate (Feosol -) 325 mg PO TIDCM [facility] Folic Acid (Folic Acid -) 1 mg PO DAILY [facility] Lactated Ringer's (Lactated Ringers Solution) 1,000 mls @ 75 mls/hr IV ASDIR [facility] Piperacillin Sod/Tazobactam (Sod 3.375 gm/ Dextrose) 50 mls @ 100 mls/hr IVPB Q8H-IV [facility]; Protocol Insulin Aspart (Novolog Vial Sliding Scale -) 1 vial SQ ACHS [facility]; Protocol Levetiracetam 500 mg/ (Levetiracetam 250 mg) 750 mg PO BID [facility] Lidocaine (Lidoderm Patch -) 1 patch TP DAILY [facility] Meclizine HCl (Antivert -) 25 mg PO Q8H PRN PRN Reason: VERTIGO Melatonin (Melatonin) 5 mg PO HS PRN PRN Reason: INSOMNIA Metoprolol Succinate (Toprol Xl -) 12.5 mg PO DAILY [facility] Mirtazapine (Remeron -) 7.5 mg PO HS [facility] Miscellaneous (Lidoderm Patch Removal) 1 each MC DAILY@2200 [facility] Morphine Sulfate (Morphine Sulfate) 1 mg IVPUSH Q4H PRN PRN Reason: PAIN LEVEL 6-10 Nicotine (Nicoderm Patch -) 7 mg TD DAILY [facility] Nitroglycerin (Nitrostat -) 0.4 mg SL Q5M PRN PRN Reason: FOR CHEST PAIN Ondansetron HCl (Zofran Injection) 4 mg IVPUSH Q6H PRN PRN Reason: NAUSEA AND/OR VOMITING Pantoprazole Sodium (Protonix -) 40 mg PO DAILY [facility] Ranolazine (Ranexa -) 500 mg PO BID [facility] Sitagliptin Phosphate (Januvia -) 100 mg PO DAILY@0700 [facility] Trazodone HCl (Desyrel -) 150 mg PO HS [facility] - Objective Vital Signs: Vital Signs Temperature 97.0 F L 05/23/18 15:43 Pulse Rate 81 05/23/18 15:43 Respiratory Rate 20 05/23/18 15:43 Blood Pressure 110/56 L 05/23/18 15:43 O2 Sat by Pulse Oximetry (%) 97 05/23/18 15:43 Constitutional: Yes: No Distress Cardiovascular: Yes: Regular Rate and Rhythm, S1, S2 Respiratory: Yes: Diminished Gastrointestinal: Yes: Normal Bowel Sounds, Soft. No: Tenderness Edema: No Labs: CBC, BMP 05/23/18 06:30 05/23/18 06:30 INR, PTT INR 0.98 (0.83-1.09) 05/18/18 15:43 Assessment/Plan S/P BRONCHOSCOPY. BX OF ENDOBRONCHIAL LESION R/O POST OBSTRUCTIVE PNEUMONIA AWAIT C/S, CYTOLOGY CONTINUE ZOSYN
[2018-05-23] MEDS: LACTATED RINGERS SOLUTION 1,000 ML IV SCH (16:52)
[2018-05-23] MEDS ORDERED: LIDOCAINE PATCH REMOVAL MC SCH (22:00)
[2018-05-23] MEDS: traZODone HCL 50 MG TABLET (FP) PO SCH (22:56)
[2018-05-23] MEDS: MIRTAZAPINE 15 MG TABLET (FP) PO SCH (22:57)
[2018-05-23] MEDS: DOXEPIN HCL 25 MG CAPSULE PO SCH (22:58)
[2018-05-23] MEDS: LIDOCAINE PATCH REMOVAL MC SCH (23:12)
[2018-05-24] MEDS ORDERED: PIPERACILLIN/TAZOBACTAM 3.375 GM VIAL IVPB ONE ×3 (00:05→16:25)
[2018-05-24] MEDS ORDERED: DEXTROSE 5%-WATER - 50 ML IVPB ONE ×3 (00:05→16:25)
[2018-05-24] MEDS: MORPHINE SULFATE 2 MG/ML VIAL IVPUSH PRN ×5 (00:23→23:25)
[2018-05-24] MEDS: PIPERACILLIN/TAZOB 3.375 GM 3.375 GM in DEXTROSE 5%-WATER - 50 ML IVPB SCH ×3 (01:35→17:25)
[2018-05-24] MEDS: INSULIN SLIDING SCALE (NOVOLOG) 1 VIAL SQ SCH ×4 (06:33→23:37)
[2018-05-24] MEDS: sitaGLIPtin PHOSPHATE 100 MG TABLET (FP) PO SCH (06:34)
[2018-05-24] MEDS ORDERED: INSULIN (LEVEMIR) 100 UNITS/ML UNITS SQ ONE (07:01)
[2018-05-24] MEDS ORDERED: INSULIN (NOVOLOG) ASPART 100 UNITS/ML 10ML VIAL ONE ×2 (07:01→17:49)
[2018-05-24] MEDS: ALBUTEROL SO4 2.5/IPRATROPIUM 0.5 INH SOL 3 ML VIAL.NEB. NEB SCH ×3 (07:30→20:24)
[2018-05-24 07:35] LABS: BASO % 0.1 % (0-2.0); EOS % 0.1 % (0-4.5); HEMATOCRIT 29.7 % (32.4-45.2); HEMOGLOBIN 9.6 GM/dL (10.7-15.3); LYMPH % 5.7 % (8-40); MCH 25.3 pg (25.7-33.7); MCHC 32.4 g/dl (32.0-36.0); MEAN PLT VOLUME 7.9 fl (7.5-11.1); MONO % 2.8 % (3.8-10.2); NEUT % 91.3 % (42.8-82.8); PLATELET COUNT 395 K/MM3 (134-434); RDW 22.5 % (11.6-15.6); WHITE BLOOD COUNT 18.8 K/mm3 (4.0-10.0)
[2018-05-24 07:54] LABS: ALBUMIN 2.5 g/dl (3.4-5.0); ALK PHOS 63 U/L (45-117); ANION GAP 7 MMOL/L (8-16); BILIRUBIN,TOTAL 0.2 mg/dL (0.2-1); BLOOD UREA NITROGEN 9 mg/dL (7-18); CALCIUM 10.6 mg/dL (8.5-10.1); CHLORIDE 101 mmol/L (98-107); CO2 32 mmol/L (21-32); CREATININE 0.7 mg/dL (0.55-1.3); GLUCOSE,RANDOM 183 mg/dL (74-106); POTASSIUM 3.9 mmol/L (3.5-5.1); SGOT/AST 8 U/L (15-37); SGPT/ALT 12 U/L (13-61); SODIUM 140 mmol/L (136-145); TOT PROT 5.8 g/dl (6.4-8.2)
[2018-05-24] MEDS ORDERED: PT OWN MED DRAWER 7, Y5N ONE (08:55)
[2018-05-24 09:57] LABS: ANISOCYTOSIS 1+; MACROCYTOSIS 0; PLATELET ESTIMATE NORMAL
[2018-05-24] MEDS: NICOTINE 7 MG/24 HOURS TOPICAL PATCH TD SCH (09:59)
[2018-05-24] MEDS: FERROUS SO4 325 MG TABLET (FP) PO SCH ×3 (10:00→17:25)
[2018-05-24] MEDS: metoPROLOL SUCCINATE 25 MG TAB.SR.24H (FP) PO SCH (10:00)
[2018-05-24] MEDS: PANTOPRAZOLE 40 MG TABLET (FP) PO SCH (10:00)
[2018-05-24] MEDS: RANOLAZINE E.R. 500 MG TABLET (FP) PO SCH ×2 (10:00→23:29)
[2018-05-24] MEDS: FOLIC ACID 1 MG TABLET (FP) PO SCH (10:00)
[2018-05-24] MEDS: CYANOCOBALAMIN 1,000 MCG TABLET (FP) PO SCH (10:00)
[2018-05-24] MEDS: LIDOCAINE 5% TOPICAL PATCH TP SCH (10:01)
[2018-05-24] MEDS: ENOXAPARIN NA (PORCINE) 40 MG/0.4 ML DISP.SYRIN SQ SCH (10:03)
[2018-05-24] MEDS: DOCUSATE SODIUM 100 MG CAPSULE (FP) PO PRN ×2 (11:09→23:30)
[2018-05-24] MEDS: ALBUTEROL SO4 0.083% IH SOL 2.5 MG/3 ML VIAL.NEB. NEB PRN ×2 (11:19→23:53)
--- NOTE | 2018-05-24 11:47 | PN ---
Progress Note (short form) - Note Progress Note: s/p bronch yesterday- noted to have DELVIN endobronchial lesion continues to cough and have chest discomfort Vital Signs Period Temp Pulse Resp BP Sys/Voss Pulse Ox Last 24 Hr 97.0 F-98.4 F 72-88 17-20 86-115/45-61 93-100 cor-rrr lungs bilateral wheezing and rhonchi abd soft,nt ext no edema CBC, BMP 05/24/18 06:30 05/24/18 06:30 Microbiology 05/23/18 14:30 Bronchial Washings - Left Upper Lobe AFB Smear Concentration - Preliminary 05/23/18 14:30 Bronchial Washings - Left Upper Lobe Mycobacterial Culture - Preliminary 05/18/18 18:03 Blood - Peripheral Venous Blood Culture - Final NO GROWTH AFTER 5 DAYS INCUBATION 05/18/18 19:15 Blood - Peripheral Venous Blood Culture - Final NO GROWTH AFTER 5 DAYS INCUBATION 05/21/18 00:15 Urine For Antigen Detection Legionella Antigen - Final 05/21/18 00:15 Urine For Antigen Detection Streptococcus pneumoniae Antigen (M - Final 05/18/18 18:03 Urine - Urine Clean Catch Urine Culture - Final NO GROWTH OBTAINED a/p probable post obstructive pneumonia awaiting pathology and cultures continue zosyn for now
[2018-05-24] MEDS: LACTATED RINGERS SOLUTION 1,000 ML IV SCH (15:06)
--- NOTE | 2018-05-24 15:21 | PN ---
Progress Note (short form) - Note Progress Note: PULMONARY Still with chest discomfort and cough. Spoke to pathology, preliminary result is positive for malignancy, type to be determined. Discussed results with patient who became very emotional, her daughter Taylor and sister Bessy. Vital Signs Period Temp Pulse Resp BP Sys/Voss Pulse Ox Last 24 Hr 97.0 F-98.4 F 71-88 17-20 100-110/51-61 97-100 Gen: tearful Heart: RRR Lung: decreased breath sounds at the bases Abd: soft, nontender Ext: no edema CBC, BMP 05/24/18 06:30 05/24/18 06:30 Active Medications Albuterol Sulfate (Ventolin 0.083% Nebulizer Soln -) 1 amp NEB Q4H PRN PRN Reason: SHORT OF BREATH/WHEEZING Last Admin: 05/24/18 11:19 Dose: 1 amp Albuterol/Ipratropium (Duoneb -) 1 amp NEB RTID [facility] Last Admin: 05/24/18 14:25 Dose: 1 amp Cyanocobalamin (Vitamin B12 -) 1,000 mcg PO DAILY [facility] Last Admin: 05/24/18 10:00 Dose: 1,000 mcg Docusate Sodium (Colace -) 100 mg PO Q8H PRN PRN Reason: CONSTIPATION Last Admin: 05/24/18 11:09 Dose: 100 mg Doxepin HCl (Sinequan -) 100 mg PO HS [facility] Last Admin: 05/23/18 22:58 Dose: 100 mg Enoxaparin Sodium (Lovenox -) 40 mg SQ DAILY [facility] Last Admin: 05/24/18 10:03 Dose: Not Given Ferrous Sulfate (Feosol -) 325 mg PO TIDCM [facility] Last Admin: 05/24/18 11:09 Dose: 325 mg Folic Acid (Folic Acid -) 1 mg PO DAILY [facility] Last Admin: 05/24/18 10:00 Dose: 1 mg Lactated Ringer's (Lactated Ringers Solution) 1,000 mls @ 75 mls/hr IV ASDIR [facility] Last Admin: 05/24/18 15:06 Dose: 75 mls/hr Piperacillin Sod/Tazobactam (Sod 3.375 gm/ Dextrose) 50 mls @ 100 mls/hr IVPB Q8H-IV [facility]; Protocol Last Admin: 05/24/18 09:59 Dose: 100 mls/hr Insulin Aspart (Novolog Vial Sliding Scale -) 1 vial SQ ACHS [facility]; Protocol Last Admin: 05/24/18 11:13 Dose: 2 units Levetiracetam 500 mg/ (Levetiracetam 250 mg) 750 mg PO BID [facility] Last Admin: 05/24/18 10:00 Dose: 750 mg Lidocaine (Lidoderm Patch -) 1 patch TP DAILY [facility] Last Admin: 05/24/18 10:01 Dose: Not Given Meclizine HCl (Antivert -) 25 mg PO Q8H PRN PRN Reason: VERTIGO Melatonin (Melatonin) 5 mg PO HS PRN PRN Reason: INSOMNIA Metoprolol Succinate (Toprol Xl -) 12.5 mg PO DAILY [facility] Last Admin: 05/24/18 10:00 Dose: 12.5 mg Mirtazapine (Remeron -) 7.5 mg PO HS [facility] Last Admin: 05/23/18 22:57 Dose: 7.5 mg Miscellaneous (Lidoderm Patch Removal) 1 each MC DAILY@2200 [facility] Last Admin: 05/23/18 23:12 Dose: 1 each Morphine Sulfate (Morphine Sulfate) 1 mg IVPUSH Q4H PRN PRN Reason: PAIN LEVEL 6-10 Last Admin: 05/24/18 13:44 Dose: 1 mg Nicotine (Nicoderm Patch -) 7 mg TD DAILY [facility] Last Admin: 05/24/18 09:59 Dose: 7 mg Nitroglycerin (Nitrostat -) 0.4 mg SL Q5M PRN PRN Reason: FOR CHEST PAIN Ondansetron HCl (Zofran Injection) 4 mg IVPUSH Q6H PRN PRN Reason: NAUSEA AND/OR VOMITING Pantoprazole Sodium (Protonix -) 40 mg PO DAILY [facility] Last Admin: 05/24/18 10:00 Dose: 40 mg Ranolazine (Ranexa -) 500 mg PO BID [facility] Last Admin: 05/24/18 10:00 Dose: 500 mg Sitagliptin Phosphate (Januvia -) 100 mg PO DAILY@0700 [facility] Last Admin: 05/24/18 06:34 Dose: 100 mg Trazodone HCl (Desyrel -) 150 mg PO HS [facility] Last Admin: 05/23/18 22:56 Dose: 150 mg A/P Pneumonia likely Post Obstructive Lung Mass COPD CAD HTN DM Seizure Disorder Smoker - continue antibiotics per ID - inhaled bronchodilators - will increase pain medications - will start anxiolytic as needed - oncology evaluation - will need staging work up, unable to obtain MRI as she has hardware - DVT prophylaxis
--- NOTE | 2018-05-24 15:38 | PN ---
Progress Note, Physician Chief Complaint: Left sided chest pain Left bronchus obstructive mass History of Present Illness: NAD in bed Bone scan results unremarkable Seen by Pulmonary s/p bronchoscopy As per pulmonary's notes-pathology, preliminary result is positive for malignancy, type to be determined. - Current Medication List Current Medications: Active Medications Albuterol Sulfate (Ventolin 0.083% Nebulizer Soln -) 1 amp NEB Q4H PRN PRN Reason: SHORT OF BREATH/WHEEZING Last Admin: 05/24/18 11:19 Dose: 1 amp Albuterol/Ipratropium (Duoneb -) 1 amp NEB RTID [facility] Last Admin: 05/24/18 14:25 Dose: 1 amp Alprazolam (Xanax -) 0.25 mg PO Q6H PRN PRN Reason: ANXIETY Cyanocobalamin (Vitamin B12 -) 1,000 mcg PO DAILY [facility] Last Admin: 05/24/18 10:00 Dose: 1,000 mcg Docusate Sodium (Colace -) 100 mg PO Q8H PRN PRN Reason: CONSTIPATION Last Admin: 05/24/18 11:09 Dose: 100 mg Doxepin HCl (Sinequan -) 100 mg PO HS [facility] Last Admin: 05/23/18 22:58 Dose: 100 mg Dronabinol (Marinol -) 5 mg PO DAILY@1630 [facility] Enoxaparin Sodium (Lovenox -) 40 mg SQ DAILY [facility] Last Admin: 05/24/18 10:03 Dose: Not Given Ferrous Sulfate (Feosol -) 325 mg PO TIDCM [facility] Last Admin: 05/24/18 11:09 Dose: 325 mg Folic Acid (Folic Acid -) 1 mg PO DAILY [facility] Last Admin: 05/24/18 10:00 Dose: 1 mg Lactated Ringer's (Lactated Ringers Solution) 1,000 mls @ 75 mls/hr IV ASDIR [facility] Last Admin: 05/24/18 15:06 Dose: 75 mls/hr Piperacillin Sod/Tazobactam (Sod 3.375 gm/ Dextrose) 50 mls @ 100 mls/hr IVPB Q8H-IV [facility]; Protocol Last Admin: 05/24/18 09:59 Dose: 100 mls/hr Insulin Aspart (Novolog Vial Sliding Scale -) 1 vial SQ ACHS [facility]; Protocol Last Admin: 05/24/18 11:13 Dose: 2 units Levetiracetam 500 mg/ (Levetiracetam 250 mg) 750 mg PO BID [facility] Last Admin: 05/24/18 10:00 Dose: 750 mg Lidocaine (Lidoderm Patch -) 1 patch TP DAILY [facility] Last Admin: 05/24/18 10:01 Dose: Not Given Meclizine HCl (Antivert -) 25 mg PO Q8H PRN PRN Reason: VERTIGO Melatonin (Melatonin) 5 mg PO HS PRN PRN Reason: INSOMNIA Metoprolol Succinate (Toprol Xl -) 12.5 mg PO DAILY [facility] Last Admin: 05/24/18 10:00 Dose: 12.5 mg Mirtazapine (Remeron -) 7.5 mg PO HS [facility] Last Admin: 05/23/18 22:57 Dose: 7.5 mg Miscellaneous (Lidoderm Patch Removal) 1 each MC DAILY@2200 [facility] Last Admin: 05/23/18 23:12 Dose: 1 each Morphine Sulfate (Morphine Sulfate) 4 mg IVPUSH Q4H PRN PRN Reason: PAIN LEVEL 6-10 Nicotine (Nicoderm Patch -) 7 mg TD DAILY [facility] Last Admin: 05/24/18 09:59 Dose: 7 mg Nitroglycerin (Nitrostat -) 0.4 mg SL Q5M PRN PRN Reason: FOR CHEST PAIN Ondansetron HCl (Zofran Injection) 4 mg IVPUSH Q6H PRN PRN Reason: NAUSEA AND/OR VOMITING Pantoprazole Sodium (Protonix -) 40 mg PO DAILY [facility] Last Admin: 05/24/18 10:00 Dose: 40 mg Ranolazine (Ranexa -) 500 mg PO BID [facility] Last Admin: 05/24/18 10:00 Dose: 500 mg Sitagliptin Phosphate (Januvia -) 100 mg PO DAILY@0700 [facility] Last Admin: 05/24/18 06:34 Dose: 100 mg Trazodone HCl (Desyrel -) 150 mg PO HS [facility] Last Admin: 05/23/18 22:56 Dose: 150 mg - Objective Vital Signs: Vital Signs Temperature 98.1 F 05/24/18 13:24 Pulse Rate 71 05/24/18 13:24 Respiratory Rate 20 05/24/18 13:24 Blood Pressure 100/53 L 05/24/18 13:24 O2 Sat by Pulse Oximetry (%) 100 05/24/18 09:00 Constitutional: Yes: No Distress, Calm, Cachectic Respiratory: Yes: Regular, Cough, Rhonchi (BL diffuse), SOB on Exertion Gastrointestinal: Yes: Normal Bowel Sounds, Soft Musculoskeletal: Yes: WNL Extremities: Yes: WNL Edema: No Peripheral Pulses WNL: Yes Neurological: Yes: Alert, Oriented Psychiatric: Yes: Alert, Oriented Labs: CBC, BMP 05/24/18 06:30 05/24/18 06:30 INR, PTT INR 0.98 (0.83-1.09) 05/18/18 15:43 Problem List - Problems (1) Anemia Assessment/Plan: -TIFFANIE -On ferrous sulfate tid -monitor trend -stool OB pending Code(s): D64.9 - ANEMIA, UNSPECIFIED (2) COPD (chronic obstructive pulmonary disease) Assessment/Plan: -Nasal O2 -Bronchodilators -Pulmonary consult -IV abx Code(s): J44.9 - CHRONIC OBSTRUCTIVE PULMONARY DISEASE, UNSPECIFIED (3) DM (diabetes mellitus) Assessment/Plan: -A1c 6.9 -BGM ACHS -diabetic low sodium diet -Novolog sliding scale -Continue Januvia 100 mg po daily Code(s): E11.9 - TYPE 2 DIABETES MELLITUS WITHOUT COMPLICATIONS (4) Lung mass Assessment/Plan: -Seen by pulmonary -s/p bronchoscopy -Bone scan results unremarkable -Preliminary pathology results positive for malignancy -Oncology consult -Spoke to patient, she definitely wants treatment Code(s): R91.8 - OTHER NONSPECIFIC ABNORMAL FINDING OF LUNG FIELD (5) Malnourished Assessment/Plan: -Add multivitamin -add glucerna BID -Added marinol Code(s): E46 - UNSPECIFIED PROTEIN-CALORIE MALNUTRITION Qualifiers: Malnutrition type: protein-calorie malnutrition (6) Constipation Assessment/Plan: -2/2 to opioids -On colace -Add miralax -Also add Relistor 8 mg SQ daily Code(s): K59.00 - CONSTIPATION, UNSPECIFIED Assessment/Plan see problem list Physical therapy
[2018-05-24] MEDS: ALPRAZolam 0.25 MG TABLET PO PRN (15:40)
[2018-05-24] MEDS: DRONABINOL 5 MG CAPSULE PO SCH (15:40)
--- NOTE | 2018-05-24 17:37 | PN ---
Progress Note (short form) - Note Progress Note: Consult dictated 63 year old Pakistani 1/2 ppd smoker from age 23 until one month earlier, presents with large DELVIN mass and atelectasis , with endobronchial obstructing lesion. Underwent bronchoscopy - malignant tumor - pathology awaited . Has had 25 kb weught koss over 3 years and 8 lb weight loss over past 3 months. Anorexia with food getting stuck mid chest. Has serum Fe++ of 13 with TIBC of 248 and ferritin of 31. Recently had GI work up at [facility] details of which are unknown. Has 2 bladder stimulators, so cannot have MRI imaging. Last Vital Signs Temp Pulse Resp BP Pulse Ox 98.1 F 71 20 100/53 L 100 05/24/18 13:24 05/24/18 13:24 05/24/18 13:24 05/24/18 13:24 05/24/18 09:00 HEENT: BARRY, EOM Intact Oropharynx: No thrush, No mucositis,dentures Neck: Supple Nodes: Without adenopathy Breasts: Without masses Cor: RSR, No murmurs, No gallops Lungs: bronchial breath sounds, rhonchi Abd: Soft, Normal bowel sounds, No organomegaly Ext:No significant edema,clubbing Skin: No rashes, Integument intact CBC, BMP 05/24/18 06:30 05/24/18 06:30 Current Medications Generic Name Dose Route Start Last Admin Trade Name Freq PRN Reason Stop Dose Admin Albuterol Sulfate 1 amp 05/23/18 14:53 05/24/18 11:19 Ventolin 0.083% Nebulizer Soln - NEB 1 amp Q4H PRN Administration SHORT OF BREATH/WHEEZING Albuterol/Ipratropium 1 amp 05/23/18 20:00 05/24/18 14:25 Duoneb - NEB 1 amp RTID [facility] Administration Alprazolam 0.25 mg 05/24/18 15:19 05/24/18 15:40 Xanax - PO 0.25 mg Q6H PRN Administration ANXIETY Cyanocobalamin 1,000 mcg 05/24/18 10:00 05/24/18 10:00 Vitamin B12 - PO 1,000 mcg DAILY [facility] Administration Docusate Sodium 100 mg 05/23/18 14:53 05/24/18 11:09 Colace - PO 100 mg Q8H PRN Administration CONSTIPATION Doxepin HCl 100 mg 05/23/18 22:00 05/23/18 22:58 Sinequan - PO 100 mg HS [facility] Administration Dronabinol 5 mg 05/24/18 16:30 05/24/18 15:40 Marinol - PO 5 mg DAILY@1630 [facility] Administration Enoxaparin Sodium 40 mg 05/24/18 10:00 05/24/18 10:03 Lovenox - SQ Not Given DAILY [facility] Ferrous Sulfate 325 mg 05/23/18 17:30 05/24/18 17:25 Feosol - PO 325 mg TIDCM [facility] Administration Folic Acid 1 mg 05/24/18 10:00 05/24/18 10:00 Folic Acid - PO 1 mg DAILY [facility] Administration Lactated Ringer's 1,000 mls @ 75 mls/hr 05/23/18 14:53 05/24/18 15:06 Lactated Ringers Solution IV 75 mls/hr ASDIR [facility] Administration Piperacillin Sod/Tazobactam 50 mls @ 100 mls/hr 05/23/18 18:00 05/24/18 17:25 Sod 3.375 gm/ Dextrose IVPB 100 mls/hr Q8H-IV [facility] Administration Protocol Insulin Aspart 1 vial 05/23/18 16:30 05/24/18 16:42 Novolog Vial Sliding Scale - SQ Not Given ACHS [facility] Protocol Levetiracetam 500 mg/ 750 mg 05/23/18 22:00 05/24/18 10:00 Levetiracetam 250 mg PO 750 mg BID [facility] Administration Lidocaine 1 patch 05/24/18 10:00 05/24/18 10:01 Lidoderm Patch - TP Not Given DAILY [facility] Meclizine HCl 25 mg 05/23/18 14:53 Antivert - PO Q8H PRN VERTIGO Melatonin 5 mg 05/23/18 14:53 Melatonin PO HS PRN INSOMNIA Methylnaltrexone [place] 8 mg 05/24/18 16:45 Relistor - SQ DAILY [facility] Metoprolol Succinate 12.5 mg 05/24/18 10:00 05/24/18 10:00 Toprol Xl - PO 12.5 mg DAILY [facility] Administration Mirtazapine 7.5 mg 05/23/18 22:00 05/23/18 22:57 Remeron - PO 7.5 mg HS [facility] Administration Miscellaneous 1 each 05/23/18 22:00 05/23/18 23:12 Lidoderm Patch Removal MC 1 each DAILY@2200 [facility] Administration Morphine Sulfate 4 mg 05/24/18 15:18 05/24/18 15:40 Morphine Sulfate IVPUSH 4 mg Q4H PRN Administration PAIN LEVEL 6-10 Nicotine 7 mg 05/24/18 10:00 05/24/18 09:59 Nicoderm Patch - TD 7 mg DAILY [facility] Administration Nitroglycerin 0.4 mg 05/23/18 14:53 Nitrostat - SL Q5M PRN FOR CHEST PAIN Ondansetron HCl 4 mg 05/23/18 14:53 Zofran Injection IVPUSH Q6H PRN NAUSEA AND/OR VOMITING Pantoprazole Sodium 40 mg 05/24/18 10:00 05/24/18 10:00 Protonix - PO 40 mg DAILY [facility] Administration Polyethylene Glycol 17 gm 05/25/18 10:00 Miralax (For Daily Use) - PO DAILY [facility] Ranolazine 500 mg 05/23/18 22:00 05/24/18 10:00 Ranexa - PO 500 mg BID [facility] Administration Sitagliptin Phosphate 100 mg 05/24/18 07:00 05/24/18 06:34 Januvia - PO 100 mg DAILY@0700 [facility] Administration Trazodone HCl 150 mg 05/23/18 22:00 05/23/18 22:56 Desyrel - PO 150 mg HS [facility] Administration Impression: 63 year old with endobronchial malignancy ( path pending) , DELVIN mass and atelectasis At least 30 pack year smokng history and smoking stopped one month earlier. Anorechtic with 8 lb weight loss over past 3 months. Unable to image with MRI scanning, so will need to stage (all with contrast ) Abdominal pelvic CT, as well as head CT . Will need outpatient PET Has picture compatible with Fe++ deficiency and recently with GI work up --> need to get results from [facility]. Has borderline Ca++ and will recheck. Will await path and follow up.
--- NOTE | 2018-05-24 18:03 | CONS ---
DATE OF CONSULTATION: DATE OF DICTATION: 05/24/2018 This 63-year-old female presented with chest pain, shortness of breath, poor p.o. intake. Prior to this, she was having a week of nausea, vomiting and diarrhea. Upon presentation, a chest CT revealed a large left upper lobe mass with atelectasis. The patient has undergone a bronchoscopy, which revealed an endobronchial lesion which was positive for malignancy, histology currently pending. The patient was born in [place] and came to the [facility] in 1970. 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 She smoked from age 23 until 1 month ago, states a half a pack per day. She does not drink. She lives with her daughter. There are no industrial exposures or intoxicants. Past medical history includes hypertension, diabetes, RI, seizure disorder, hyperlipidemia. No history of thyroid disease, kidney disease, history of anemia. No history of gout. No history of hepatitis or stroke. FAMILY HISTORY: The patient had an identical twin, who of multiple strokes. The patient's father is living, with Alzheimer disease. Mother with Alzheimer disease, hypertension, and cardiac disease. No known allergies. Current medications include Lidoderm patch, Zofran, Zosyn, Lovenox, Keppra 750 b.i.d., Remeron 7.5 nightly, trazodone 150 nightly, Marinol 5 daily, Antivert 25 q.8 p.r.n., Sinequan 100 , Lidoderm patch, NicoDerm patch, Xanax 0.25, albuterol, metoprolol 12.5 daily, Ranexa 500 b.i.d., Colace, MiraLax, Januvia 100 a day, Relistor 8 subcutaneous daily, insulin sliding scale, iron 325 t.i.d., Nitrostat 0.4, morphine 4 IV push p.r.n., melatonin 5 nightly p.r.n., Protonix 40 a day, and B12. REVIEW OF SYSTEMS: The patient headaches between the eyes, constant, persistent. No diplopia, no epistaxis. Some dysphagia, with food getting stuck in the midsternal area. Patient has had loss from a weight of 117 to 94 pounds over 3 years, states she has lost 8 pounds over the past 3 months. Patient has shortness of breath, dyspnea, nonproductive cough, reflux. Patient presented with nausea, vomiting, diarrhea, has abdominal discomfort. Patient recently had a colonoscopy and upper endoscopy. Details are unknown. They were done at [facility]. No dysuria. Patient has difficulty voiding and has had [address] Patient has chronic low back pain. PHYSICAL EXAMINATION: Vital Signs: BP 100/53, pulse 71, respiratory rate 20, temperature 98.1. HEENT: BARRY, EOM intact. Oropharynx unremarkable. Patient has dentures, upper and lower. Lymph Nodes: No cervical, supraclavicular, or axillary nodes. Lungs: Diminished breath sounds, bilateral rhonchi anteriorly and posteriorly. Bronchial breath sounds. Cardiac: Regular rhythm. Breasts: No dominant masses, no dimpling, no retraction. Abdomen: No definite organomegaly or masses. Extremities: No significant edema. There is clubbing. LABORATORY: Currently, WBC 18.8, hematocrit 29.7, MCV 78, platelets 395, 91 polys, INR 0.98. Chemistries: Sodium 140, K 3.9, chloride 101, CO2 32, creatinine 0.7, clearance greater than 60, glucose random 183, calcium 10.6, AST 8, ALT 12, alkaline phosphatase 63, protein 5.8, albumin 2.5. CT with large left upper lobe mass with atelectasis. IMPRESSION: A 63-year-old, half a pack per day smoker from age 23 through age 63, 40 years, minimum of 30 pack-years. Obstructing endobronchial lesion. Await pathology. Completion of staging workup. Patient, in view of bladder stimulators, cannot have MRI. Will therefore need PET scan as an outpatient as well as abdominal CT and head CT with contrast. Based upon results, further recommendations. LUIS E SIMMONS M.D. VALERIE/[id number]
[2018-05-24] MEDS: Methylnaltrexone Bromide 12 MG/0.6 ML KIT SQ SCH ×2 (18:34→18:40)
[2018-05-24] MEDS: guaiFENesin/D-M SUGAR-FREE/ACLHOL-FREE 118 ML BOTTLE PO PRN ×2 (18:39→23:28)
[2018-05-24] MEDS: MIRTAZAPINE 15 MG TABLET (FP) PO SCH (23:29)
[2018-05-24] MEDS: DOXEPIN HCL 25 MG CAPSULE PO SCH (23:30)
[2018-05-24] MEDS: MELATONIN 5 MG TABLETS PO PRN (23:30)
[2018-05-24] MEDS: traZODone HCL 50 MG TABLET (FP) PO SCH (23:30)
[2018-05-24] MEDS: LIDOCAINE PATCH REMOVAL MC SCH (23:38)
[2018-05-25] MEDS ORDERED: PIPERACILLIN/TAZOBACTAM 3.375 GM VIAL IVPB ONE ×3 (00:43→16:07)
[2018-05-25] MEDS ORDERED: DEXTROSE 5%-WATER - 50 ML IVPB ONE ×3 (00:43→16:07)
[2018-05-25] MEDS: PIPERACILLIN/TAZOB 3.375 GM 3.375 GM in DEXTROSE 5%-WATER - 50 ML IVPB SCH ×3 (01:22→17:23)
[2018-05-25] MEDS: morphine SULFATE 4 MG/ML VIAL IVPUSH PRN ×2 (03:26→13:37)
[2018-05-25] MEDS: guaiFENesin/D-M SUGAR-FREE/ACLHOL-FREE 118 ML BOTTLE PO PRN ×3 (03:26→23:15)
[2018-05-25] MEDS: sitaGLIPtin PHOSPHATE 100 MG TABLET (FP) PO SCH (06:02)
[2018-05-25] MEDS: INSULIN SLIDING SCALE (NOVOLOG) 1 VIAL SQ SCH ×4 (06:02→23:18)
[2018-05-25] MEDS: LACTATED RINGERS SOLUTION 1,000 ML IV SCH ×3 (06:05→17:24)
[2018-05-25 07:21] LABS: BASO % 1.2 % (0-2.0); HEMATOCRIT 29.6 % (32.4-45.2); HEMOGLOBIN 9.5 GM/dL (10.7-15.3); LYMPH % 9.9 % (8-40); MCH 25.3 pg (25.7-33.7); MCHC 32.2 g/dl (32.0-36.0); MEAN CELL VOLUME 78.7 fl (80-96); MEAN PLT VOLUME 7.7 fl (7.5-11.1); MONO % 7.3 % (3.8-10.2); NEUT % 79.6 % (42.8-82.8); PLATELET COUNT 391 K/MM3 (134-434); RBC 3.76 M/mm3 (3.60-5.2); RDW 23.1 % (11.6-15.6)
[2018-05-25 07:49] LABS: ALBUMIN 2.4 g/dl (3.4-5.0); ALK PHOS 57 U/L (45-117); ANION GAP 8 MMOL/L (8-16); BILIRUBIN,TOTAL 0.2 mg/dL (0.2-1); BLOOD UREA NITROGEN 7 mg/dL (7-18); CHLORIDE 100 mmol/L (98-107); CO2 31 mmol/L (21-32); CREATININE 0.7 mg/dL (0.55-1.3); GLUCOSE,RANDOM 163 mg/dL (74-106); MAGNESIUM 1.6 mg/dL (1.8-2.4); POTASSIUM 3.8 mmol/L (3.5-5.1); SGOT/AST 14 U/L (15-37); SGPT/ALT 12 U/L (13-61); SODIUM 139 mmol/L (136-145); TOT PROT 5.4 g/dl (6.4-8.2)
[2018-05-25] MEDS: ALBUTEROL SO4 2.5/IPRATROPIUM 0.5 INH SOL 3 ML VIAL.NEB. NEB SCH ×3 (08:07→21:10)
[2018-05-25] MEDS: FERROUS SO4 325 MG TABLET (FP) PO SCH ×3 (09:34→17:24)
[2018-05-25] MEDS: ENOXAPARIN NA (PORCINE) 40 MG/0.4 ML DISP.SYRIN SQ SCH (09:35)
[2018-05-25] MEDS: NICOTINE 7 MG/24 HOURS TOPICAL PATCH TD SCH (09:37)
[2018-05-25] MEDS: LIDOCAINE 5% TOPICAL PATCH TP SCH (09:48)
--- NOTE | 2018-05-25 10:31 | PN ---
Progress Note (short form) - Note Progress Note: PULMONARY Still with chest discomfort and cough but improved with pain medication adjustment. Vital Signs Period Temp Pulse Resp BP Sys/Voss Pulse Ox Last 24 Hr 98.1 F-99.8 F 71-90 20-20 100-131/43-80 98 Gen: NAD at rest Heart: RRR Lung: decreased breath sounds at the bases, scattered wheezes Abd: soft, nontender Ext: no edema CBC, BMP 05/25/18 06:30 05/25/18 06:30 Active Medications Albuterol Sulfate (Ventolin 0.083% Nebulizer Soln -) 1 amp NEB Q4H PRN PRN Reason: SHORT OF BREATH/WHEEZING Last Admin: 05/24/18 23:53 Dose: 1 amp Albuterol/Ipratropium (Duoneb -) 1 amp NEB RTID [facility] Last Admin: 05/25/18 08:07 Dose: 1 amp Alprazolam (Xanax -) 0.25 mg PO Q6H PRN PRN Reason: ANXIETY Last Admin: 05/24/18 15:40 Dose: 0.25 mg Cyanocobalamin (Vitamin B12 -) 1,000 mcg PO DAILY [facility] Last Admin: 05/24/18 10:00 Dose: 1,000 mcg Docusate Sodium (Colace -) 100 mg PO Q8H PRN PRN Reason: CONSTIPATION Last Admin: 05/24/18 23:30 Dose: 100 mg Doxepin HCl (Sinequan -) 100 mg PO HS [facility] Last Admin: 05/24/18 23:30 Dose: 100 mg Dronabinol (Marinol -) 5 mg PO DAILY@1630 [facility] Last Admin: 05/24/18 15:40 Dose: 5 mg Enoxaparin Sodium (Lovenox -) 40 mg SQ DAILY [facility] Last Admin: 05/25/18 09:35 Dose: 40 mg Ferrous Sulfate (Feosol -) 325 mg PO TIDCM [facility] Last Admin: 05/25/18 09:34 Dose: Not Given Folic Acid (Folic Acid -) 1 mg PO DAILY [facility] Last Admin: 05/24/18 10:00 Dose: 1 mg Guaifenesin (Diabetic Tussin Dm -) 5 ml PO Q4H PRN PRN Reason: COUGH Last Admin: 05/25/18 03:26 Dose: 5 ml Lactated Ringer's (Lactated Ringers Solution) 1,000 mls @ 75 mls/hr IV ASDIR [facility] Last Admin: 05/25/18 06:05 Dose: 75 mls/hr Piperacillin Sod/Tazobactam (Sod 3.375 gm/ Dextrose) 50 mls @ 100 mls/hr IVPB Q8H-IV [facility]; Protocol Last Admin: 05/25/18 09:38 Dose: 100 mls/hr Insulin Aspart (Novolog Vial Sliding Scale -) 1 vial SQ ACHS [facility]; Protocol Last Admin: 05/25/18 06:02 Dose: Not Given Levetiracetam 500 mg/ (Levetiracetam 250 mg) 750 mg PO BID [facility] Last Admin: 05/25/18 09:50 Dose: 750 mg Lidocaine (Lidoderm Patch -) 1 patch TP DAILY [facility] Last Admin: 05/25/18 09:48 Dose: 1 patch Meclizine HCl (Antivert -) 25 mg PO Q8H PRN PRN Reason: VERTIGO Melatonin (Melatonin) 5 mg PO HS PRN PRN Reason: INSOMNIA Last Admin: 05/24/18 23:30 Dose: 5 mg Methylnaltrexone [place] (Relistor -) 8 mg SQ DAILY [facility] Last Admin: 05/24/18 18:40 Dose: 8 mg Metoprolol Succinate (Toprol Xl -) 12.5 mg PO DAILY [facility] Last Admin: 05/24/18 10:00 Dose: 12.5 mg Mirtazapine (Remeron -) 7.5 mg PO HS [facility] Last Admin: 05/24/18 23:29 Dose: 7.5 mg Miscellaneous (Lidoderm Patch Removal) 1 each MC DAILY@2200 [facility] Last Admin: 05/24/18 23:38 Dose: Not Given Morphine Sulfate (Morphine Sulfate) 4 mg IVPUSH Q4H PRN PRN Reason: PAIN LEVEL 6-10 Last Admin: 05/25/18 03:26 Dose: 4 mg Nicotine (Nicoderm Patch -) 7 mg TD DAILY [facility] Last Admin: 05/25/18 09:37 Dose: 7 mg Nitroglycerin (Nitrostat -) 0.4 mg SL Q5M PRN PRN Reason: FOR CHEST PAIN Ondansetron HCl (Zofran Injection) 4 mg IVPUSH Q6H PRN PRN Reason: NAUSEA AND/OR VOMITING Pantoprazole Sodium (Protonix -) 40 mg PO DAILY [facility] Last Admin: 05/24/18 10:00 Dose: 40 mg Polyethylene Glycol (Miralax (For Daily Use) -) 17 gm PO DAILY [facility] Ranolazine (Ranexa -) 500 mg PO BID [facility] Last Admin: 05/24/18 23:29 Dose: 500 mg Sitagliptin Phosphate (Januvia -) 100 mg PO DAILY@0700 [facility] Last Admin: 05/25/18 06:02 Dose: 100 mg Trazodone HCl (Desyrel -) 150 mg PO HS [facility] Last Admin: 05/24/18 23:30 Dose: 150 mg A/P Pneumonia likely Post Obstructive Lung Mass COPD CAD HTN DM Seizure Disorder Smoker - continue antibiotics per ID - inhaled bronchodilators - will adjust pain medications - anxiolytic as needed - staging work up in progress - will need outpt PFTs and PET scan - DVT prophylaxis
--- NOTE | 2018-05-25 11:24 | PN ---
Progress Note, Physician Chief Complaint: Left sided chest pain Left bronchus obstructive mass History of Present Illness: NAD in bed Bone scan results unremarkable Seen by Pulmonary s/p bronchoscopy As per pulmonary's notes-pathology, preliminary result is positive for malignancy, type to be determined. - Current Medication List Current Medications: Active Medications Albuterol Sulfate (Ventolin 0.083% Nebulizer Soln -) 1 amp NEB Q4H PRN PRN Reason: SHORT OF BREATH/WHEEZING Last Admin: 05/24/18 23:53 Dose: 1 amp Albuterol/Ipratropium (Duoneb -) 1 amp NEB RTID [facility] Last Admin: 05/25/18 08:07 Dose: 1 amp Alprazolam (Xanax -) 0.25 mg PO Q6H PRN PRN Reason: ANXIETY Last Admin: 05/24/18 15:40 Dose: 0.25 mg Cyanocobalamin (Vitamin B12 -) 1,000 mcg PO DAILY [facility] Last Admin: 05/24/18 10:00 Dose: 1,000 mcg Docusate Sodium (Colace -) 100 mg PO Q8H PRN PRN Reason: CONSTIPATION Last Admin: 05/24/18 23:30 Dose: 100 mg Doxepin HCl (Sinequan -) 100 mg PO HS [facility] Last Admin: 05/24/18 23:30 Dose: 100 mg Dronabinol (Marinol -) 5 mg PO DAILY@1630 [facility] Last Admin: 05/24/18 15:40 Dose: 5 mg Enoxaparin Sodium (Lovenox -) 40 mg SQ DAILY [facility] Last Admin: 05/25/18 09:35 Dose: 40 mg Ferrous Sulfate (Feosol -) 325 mg PO TIDCM [facility] Last Admin: 05/25/18 09:34 Dose: Not Given Folic Acid (Folic Acid -) 1 mg PO DAILY [facility] Last Admin: 05/24/18 10:00 Dose: 1 mg Guaifenesin (Diabetic Tussin Dm -) 5 ml PO Q4H PRN PRN Reason: COUGH Last Admin: 05/25/18 03:26 Dose: 5 ml Lactated Ringer's (Lactated Ringers Solution) 1,000 mls @ 75 mls/hr IV ASDIR [facility] Last Admin: 05/25/18 06:05 Dose: 75 mls/hr Piperacillin Sod/Tazobactam (Sod 3.375 gm/ Dextrose) 50 mls @ 100 mls/hr IVPB Q8H-IV [facility]; Protocol Last Admin: 05/25/18 09:38 Dose: 100 mls/hr Insulin Aspart (Novolog Vial Sliding Scale -) 1 vial SQ ACHS [facility]; Protocol Last Admin: 05/25/18 11:21 Dose: Not Given Levetiracetam 500 mg/ (Levetiracetam 250 mg) 750 mg PO BID [facility] Last Admin: 05/25/18 09:50 Dose: 750 mg Lidocaine (Lidoderm Patch -) 1 patch TP DAILY [facility] Last Admin: 05/25/18 09:48 Dose: 1 patch Meclizine HCl (Antivert -) 25 mg PO Q8H PRN PRN Reason: VERTIGO Melatonin (Melatonin) 5 mg PO HS PRN PRN Reason: INSOMNIA Last Admin: 05/24/18 23:30 Dose: 5 mg Methylnaltrexone [place] (Relistor -) 8 mg SQ DAILY [facility] Last Admin: 05/24/18 18:40 Dose: 8 mg Metoprolol Succinate (Toprol Xl -) 12.5 mg PO DAILY [facility] Last Admin: 05/24/18 10:00 Dose: 12.5 mg Mirtazapine (Remeron -) 7.5 mg PO HS [facility] Last Admin: 05/24/18 23:29 Dose: 7.5 mg Miscellaneous (Lidoderm Patch Removal) 1 each MC DAILY@2200 [facility] Last Admin: 05/24/18 23:38 Dose: Not Given Morphine Sulfate (Morphine Sulfate) 4 mg IVPUSH Q4H PRN PRN Reason: PAIN LEVEL 6-10 Last Admin: 05/25/18 03:26 Dose: 4 mg Nicotine (Nicoderm Patch -) 7 mg TD DAILY [facility] Last Admin: 05/25/18 09:37 Dose: 7 mg Nitroglycerin (Nitrostat -) 0.4 mg SL Q5M PRN PRN Reason: FOR CHEST PAIN Ondansetron HCl (Zofran Injection) 4 mg IVPUSH Q6H PRN PRN Reason: NAUSEA AND/OR VOMITING Oxycodone HCl (Oxycontin -) 10 mg PO BID [facility] Pantoprazole Sodium (Protonix -) 40 mg PO DAILY [facility] Last Admin: 05/24/18 10:00 Dose: 40 mg Polyethylene Glycol (Miralax (For Daily Use) -) 17 gm PO DAILY [facility] Ranolazine (Ranexa -) 500 mg PO BID [facility] Last Admin: 05/24/18 23:29 Dose: 500 mg Sitagliptin Phosphate (Januvia -) 100 mg PO DAILY@0700 [facility] Last Admin: 05/25/18 06:02 Dose: 100 mg Trazodone HCl (Desyrel -) 150 mg PO HS [facility] Last Admin: 05/24/18 23:30 Dose: 150 mg - Objective Vital Signs: Vital Signs Temperature 99.8 F H 05/25/18 08:54 Pulse Rate 90 05/25/18 08:54 Respiratory Rate 20 05/25/18 08:54 Blood Pressure 110/55 L 05/25/18 08:54 O2 Sat by Pulse Oximetry (%) 98 05/24/18 21:00 Constitutional: Yes: No Distress, Calm, Cachectic Cardiovascular: Yes: Regular Rate and Rhythm Respiratory: Yes: Regular, Rhonchi (BLL) Gastrointestinal: Yes: Normal Bowel Sounds, Soft Musculoskeletal: Yes: WNL Extremities: Yes: WNL Edema: No Peripheral Pulses WNL: Yes Neurological: Yes: Alert, Oriented Psychiatric: Yes: Alert, Oriented Labs: CBC, BMP 05/25/18 06:30 05/25/18 06:30 INR, PTT INR 0.98 (0.83-1.09) 05/18/18 15:43 Problem List - Problems (1) Anemia Assessment/Plan: -TIFFANIE -On ferrous sulfate tid -monitor trend -stool OB pending Code(s): D64.9 - ANEMIA, UNSPECIFIED (2) COPD (chronic obstructive pulmonary disease) Assessment/Plan: -Nasal O2 -Bronchodilators -Pulmonary consult -IV abx Code(s): J44.9 - CHRONIC OBSTRUCTIVE PULMONARY DISEASE, UNSPECIFIED (3) DM (diabetes mellitus) Assessment/Plan: -A1c 6.9 -BGM ACHS -diabetic low sodium diet -Novolog sliding scale -Continue Januvia 100 mg po daily Code(s): E11.9 - TYPE 2 DIABETES MELLITUS WITHOUT COMPLICATIONS (4) Lung mass Assessment/Plan: -Seen by pulmonary -s/p bronchoscopy -Bone scan results unremarkable -Preliminary pathology results positive for malignancy -Oncology consult -Spoke to patient, she definitely wants treatment -Pain improved on morphine 4 mg IVP Code(s): R91.8 - OTHER NONSPECIFIC ABNORMAL FINDING OF LUNG FIELD (5) Malnourished Assessment/Plan: -Add multivitamin -add glucerna BID -Added marinol Code(s): E46 - UNSPECIFIED PROTEIN-CALORIE MALNUTRITION Qualifiers: Malnutrition type: protein-calorie malnutrition (6) Constipation Assessment/Plan: -2/2 to opioids -On colace -Add miralax -Also add Relistor 8 mg SQ daily Code(s): K59.00 - CONSTIPATION, UNSPECIFIED Assessment/Plan see problem list Physical therapy
[2018-05-25] MEDS: oxyCODONE HCL 10 MG SUSTAINED ACTING TABLET PO SCH ×2 (11:27→23:18)
[2018-05-25] MEDS: PANTOPRAZOLE 40 MG TABLET (FP) PO SCH (11:29)
[2018-05-25] MEDS: Methylnaltrexone Bromide 12 MG/0.6 ML KIT SQ SCH (13:41)
[2018-05-25] MEDS: POLYETHYLENE GLYCOL 3350 119 GM BTL PO SCH (13:48)
[2018-05-25] MEDS: FOLIC ACID 1 MG TABLET (FP) PO SCH (13:48)
[2018-05-25] MEDS: RANOLAZINE E.R. 500 MG TABLET (FP) PO SCH ×2 (13:49→23:17)
[2018-05-25] MEDS: CYANOCOBALAMIN 1,000 MCG TABLET (FP) PO SCH (13:50)
[2018-05-25] MEDS: metoPROLOL SUCCINATE 25 MG TAB.SR.24H (FP) PO SCH (13:51)
[2018-05-25] MEDS: DRONABINOL 5 MG CAPSULE PO SCH (15:58)
--- NOTE | 2018-05-25 16:01 | PN ---
Progress Note, Physician History of Present Illness: LOW GRADE TEMP WBC REMAINS SL ELEVATED STILL WITH L CHEST PAIN LESS COUGH WHITE SPUTUM - Current Medication List Current Medications: Active Medications Albuterol Sulfate (Ventolin 0.083% Nebulizer Soln -) 1 amp NEB Q4H PRN PRN Reason: SHORT OF BREATH/WHEEZING Last Admin: 05/24/18 23:53 Dose: 1 amp Albuterol/Ipratropium (Duoneb -) 1 amp NEB RTID [facility] Last Admin: 05/25/18 13:48 Dose: 1 amp Alprazolam (Xanax -) 0.25 mg PO Q6H PRN PRN Reason: ANXIETY Last Admin: 05/24/18 15:40 Dose: 0.25 mg Cyanocobalamin (Vitamin B12 -) 1,000 mcg PO DAILY [facility] Last Admin: 05/25/18 13:50 Dose: 1,000 mcg Docusate Sodium (Colace -) 100 mg PO Q8H PRN PRN Reason: CONSTIPATION Last Admin: 05/24/18 23:30 Dose: 100 mg Doxepin HCl (Sinequan -) 100 mg PO HS [facility] Last Admin: 05/24/18 23:30 Dose: 100 mg Dronabinol (Marinol -) 5 mg PO DAILY@1630 [facility] Last Admin: 05/25/18 15:58 Dose: 5 mg Enoxaparin Sodium (Lovenox -) 40 mg SQ DAILY [facility] Last Admin: 05/25/18 09:35 Dose: 40 mg Ferrous Sulfate (Feosol -) 325 mg PO TIDCM [facility] Last Admin: 05/25/18 11:59 Dose: Not Given Folic Acid (Folic Acid -) 1 mg PO DAILY [facility] Last Admin: 05/25/18 13:48 Dose: 1 mg Guaifenesin (Diabetic Tussin Dm -) 5 ml PO Q4H PRN PRN Reason: COUGH Last Admin: 05/25/18 13:51 Dose: 5 ml Lactated Ringer's (Lactated Ringers Solution) 1,000 mls @ 75 mls/hr IV ASDIR [facility] Last Admin: 05/25/18 15:57 Dose: Not Given Piperacillin Sod/Tazobactam (Sod 3.375 gm/ Dextrose) 50 mls @ 100 mls/hr IVPB Q8H-IV [facility]; Protocol Last Admin: 05/25/18 09:38 Dose: 100 mls/hr Insulin Aspart (Novolog Vial Sliding Scale -) 1 vial SQ ACHS [facility]; Protocol Last Admin: 05/25/18 11:21 Dose: Not Given Levetiracetam 500 mg/ (Levetiracetam 250 mg) 750 mg PO BID [facility] Last Admin: 05/25/18 09:50 Dose: 750 mg Lidocaine (Lidoderm Patch -) 1 patch TP DAILY [facility] Last Admin: 05/25/18 09:48 Dose: 1 patch Meclizine HCl (Antivert -) 25 mg PO Q8H PRN PRN Reason: VERTIGO Melatonin (Melatonin) 5 mg PO HS PRN PRN Reason: INSOMNIA Last Admin: 05/24/18 23:30 Dose: 5 mg Methylnaltrexone [place] (Relistor -) 8 mg SQ DAILY [facility] Last Admin: 05/25/18 13:41 Dose: 8 mg Metoprolol Succinate (Toprol Xl -) 12.5 mg PO DAILY [facility] Last Admin: 05/25/18 13:51 Dose: Not Given Mirtazapine (Remeron -) 7.5 mg PO HS [facility] Last Admin: 05/24/18 23:29 Dose: 7.5 mg Miscellaneous (Lidoderm Patch Removal) 1 each MC DAILY@2200 [facility] Last Admin: 05/24/18 23:38 Dose: Not Given Morphine Sulfate (Morphine Sulfate) 4 mg IVPUSH Q4H PRN PRN Reason: PAIN LEVEL 6-10 Last Admin: 05/25/18 13:37 Dose: 4 mg Nicotine (Nicoderm Patch -) 7 mg TD DAILY [facility] Last Admin: 05/25/18 09:37 Dose: 7 mg Nitroglycerin (Nitrostat -) 0.4 mg SL Q5M PRN PRN Reason: FOR CHEST PAIN Ondansetron HCl (Zofran Injection) 4 mg IVPUSH Q6H PRN PRN Reason: NAUSEA AND/OR VOMITING Oxycodone HCl (Oxycontin -) 10 mg PO BID [facility] Last Admin: 05/25/18 11:27 Dose: 10 mg Pantoprazole Sodium (Protonix -) 40 mg PO DAILY [facility] Last Admin: 05/25/18 11:29 Dose: 40 mg Polyethylene Glycol (Miralax (For Daily Use) -) 17 gm PO DAILY [facility] Last Admin: 05/25/18 13:48 Dose: 17 grams Ranolazine (Ranexa -) 500 mg PO BID [facility] Last Admin: 05/25/18 13:49 Dose: 500 mg Sitagliptin Phosphate (Januvia -) 100 mg PO DAILY@0700 [facility] Last Admin: 05/25/18 06:02 Dose: 100 mg Trazodone HCl (Desyrel -) 150 mg PO HS [facility] Last Admin: 05/24/18 23:30 Dose: 150 mg - Objective Vital Signs: Vital Signs Temperature 98.5 F 05/25/18 14:24 Pulse Rate 79 05/25/18 14:24 Respiratory Rate 20 05/25/18 14:24 Blood Pressure 103/57 L 05/25/18 14:24 O2 Sat by Pulse Oximetry (%) 98 05/25/18 09:00 Constitutional: Yes: No Distress Eyes: Yes: Conjunctiva Clear Cardiovascular: Yes: Regular Rate and Rhythm, S1, S2 Respiratory: Yes: Diminished Gastrointestinal: Yes: Normal Bowel Sounds, Soft. No: Tenderness Labs: CBC, BMP 05/25/18 06:30 05/25/18 06:30 INR, PTT INR 0.98 (0.83-1.09) 05/18/18 15:43 Assessment/Plan S/P BRONCHOSCOPY. BX OF ENDOBRONCHIAL LESION R/O POST OBSTRUCTIVE PNEUMONIA AWAIT C/S, CYTOLOGY CONTINUE ZOSYN
--- NOTE | 2018-05-25 16:02 | PATH ---
Surgical Pathology Report Patient Name: SANDEEP HERNANDEZ Med. Rec. #: [id number] /Age/Gender: 1955 (Age: 63) / F Account: [id number] Location: [facility] MED/SURG Taken: 05/23/2018 Received: 05/23/2018 Reported: 05/25/2018 Physicians: Yeyo Tobar M.D. Darshan Alcantar M.D. Specimen(s) Received LUNG BIOPSY LEFT UPPER LOBE Clinical History Chronic OBS asthma with exacerbation, chest pain Final Diagnosis LUNG, LEFT UPPER LOBE, BIOPSY: INVASIVE SQUAMOUS CELL CARCINOMA, POORLY DIFFERENTIATED. COMMENT: Immunohistochemical stained slides demonstrate tumor cells to be positive for AE1/AE3, CK7, P63, and P40, while negative for CK20, TTF-1, and Napsin A. The morphology and immunophenotype support a diagnosis of squamous cell carcinoma. Immunohistochemistry stains P40 and Napsin A performed at [place], [place] ([id number]) interpreted at [facility]. Immunohistochemistry stains AE1/AE3, CK7, CK20, and TTF-1performed and interpreted at [facility]. Positive and negative controls (internal if applicable) show appropriate results. This case was discussed with Dr. Tobar on May 24, 2018. Electronically Signed Halie Haley M.D. Gross Description Received in formalin labeled "biopsy left upper lobe," are 7 guido-brown soft tissue fragments ranging from 0.2-0.5 cm in greatest dimension. The specimens are submitted in toto in one cassette. /05/23/2018 [facility]05/23/2018
[2018-05-25] MEDS: MIRTAZAPINE 15 MG TABLET (FP) PO SCH (23:15)
[2018-05-25] MEDS: DOCUSATE SODIUM 100 MG CAPSULE (FP) PO PRN (23:15)
[2018-05-25] MEDS: DOXEPIN HCL 25 MG CAPSULE PO SCH (23:15)
[2018-05-25] MEDS: traZODone HCL 50 MG TABLET (FP) PO SCH (23:16)
[2018-05-25] MEDS: MELATONIN 5 MG TABLETS PO PRN (23:17)
[2018-05-26] MEDS: LIDOCAINE PATCH REMOVAL MC SCH ×2 (00:02→21:27)
[2018-05-26] MEDS ORDERED: DEXTROSE 5%-WATER - 50 ML IVPB ONE ×3 (00:52→16:34)
[2018-05-26] MEDS ORDERED: PIPERACILLIN/TAZOBACTAM 3.375 GM VIAL IVPB ONE ×3 (00:52→16:34)
[2018-05-26] MEDS: PIPERACILLIN/TAZOB 3.375 GM 3.375 GM in DEXTROSE 5%-WATER - 50 ML IVPB SCH ×3 (01:37→17:01)
[2018-05-26] MEDS: morphine SULFATE 4 MG/ML VIAL IVPUSH PRN ×2 (01:50→14:25)
[2018-05-26] MEDS: INSULIN SLIDING SCALE (NOVOLOG) 1 VIAL SQ SCH ×4 (06:13→21:28)
[2018-05-26] MEDS: sitaGLIPtin PHOSPHATE 100 MG TABLET (FP) PO SCH (06:14)
[2018-05-26] MEDS: guaiFENesin/D-M SUGAR-FREE/ACLHOL-FREE 118 ML BOTTLE PO PRN ×2 (06:14→18:21)
[2018-05-26] MEDS: ALBUTEROL SO4 2.5/IPRATROPIUM 0.5 INH SOL 3 ML VIAL.NEB. NEB SCH ×3 (07:37→20:18)
[2018-05-26] MEDS: DOCUSATE SODIUM 100 MG CAPSULE (FP) PO PRN ×2 (09:44→21:25)
[2018-05-26] MEDS: LIDOCAINE 5% TOPICAL PATCH TP SCH (09:44)
[2018-05-26] MEDS: Methylnaltrexone Bromide 12 MG/0.6 ML KIT SQ SCH (09:44)
[2018-05-26] MEDS: ENOXAPARIN NA (PORCINE) 40 MG/0.4 ML DISP.SYRIN SQ SCH (09:44)
[2018-05-26] MEDS: RANOLAZINE E.R. 500 MG TABLET (FP) PO SCH ×2 (09:44→21:25)
[2018-05-26] MEDS: FOLIC ACID 1 MG TABLET (FP) PO SCH (09:45)
[2018-05-26] MEDS: CYANOCOBALAMIN 1,000 MCG TABLET (FP) PO SCH (09:45)
[2018-05-26] MEDS: PANTOPRAZOLE 40 MG TABLET (FP) PO SCH (09:45)
[2018-05-26] MEDS: NICOTINE 7 MG/24 HOURS TOPICAL PATCH TD SCH (09:45)
[2018-05-26] MEDS: FERROUS SO4 325 MG TABLET (FP) PO SCH ×3 (09:45→16:36)
[2018-05-26] MEDS: metoPROLOL SUCCINATE 25 MG TAB.SR.24H (FP) PO SCH (09:45)
[2018-05-26] MEDS: oxyCODONE HCL 10 MG SUSTAINED ACTING TABLET PO SCH ×2 (09:46→21:25)
[2018-05-26] MEDS: POLYETHYLENE GLYCOL 3350 119 GM BTL PO SCH (09:46)
--- NOTE | 2018-05-26 11:43 | PN ---
Progress Note (short form) - Note Progress Note: Patient seen and examined C/O SOB No chest pain s/p bronchoscopy and biopsy of endobronchial lesion P.E. HEENT: BARRY, EOM Intact Oropharynx: thrush, No mucositis, coated tongue Cor: RSR, No murmurs, No gallops Lungs: rhonchi and wheezes diffusely anteriorly and posteriorly Abd: Soft, Normal bowel sounds, No organomegaly Ext:No significant edema Skin: No rashes, Integument intact Last Vital Signs Temp Pulse Resp BP Pulse Ox 98.9 F 86 20 115/60 97 05/26/18 10:00 05/26/18 10:00 05/26/18 10:00 05/26/18 10:00 05/26/18 09:00 CBC, BMP 05/25/18 06:30 05/25/18 06:30 Current Medications Generic Name Dose Route Start Last Admin Trade Name Freq PRN Reason Stop Dose Admin Albuterol Sulfate 1 amp 05/23/18 14:53 05/24/18 23:53 Ventolin 0.083% Nebulizer Soln - NEB 1 amp Q4H PRN Administration SHORT OF BREATH/WHEEZING Albuterol/Ipratropium 1 amp 05/23/18 20:00 05/26/18 07:37 Duoneb - NEB 1 amp RTID [facility] Administration Alprazolam 0.25 mg 05/24/18 15:19 05/24/18 15:40 Xanax - PO 0.25 mg Q6H PRN Administration ANXIETY Cyanocobalamin 1,000 mcg 05/24/18 10:00 05/26/18 09:45 Vitamin B12 - PO 1,000 mcg DAILY [facility] Administration Docusate Sodium 100 mg 05/23/18 14:53 05/26/18 09:44 Colace - PO 100 mg Q8H PRN Administration CONSTIPATION Doxepin HCl 100 mg 05/23/18 22:00 05/25/18 23:15 Sinequan - PO 100 mg HS [facility] Administration Dronabinol 5 mg 05/24/18 16:30 05/25/18 15:58 Marinol - PO 5 mg DAILY@1630 [facility] Administration Enoxaparin Sodium 40 mg 05/24/18 10:00 05/26/18 09:44 Lovenox - SQ 40 mg DAILY [facility] Administration Ferrous Sulfate 325 mg 05/23/18 17:30 05/26/18 11:32 Feosol - PO 325 mg TIDCM [facility] Administration Folic Acid 1 mg 05/24/18 10:00 05/26/18 09:45 Folic Acid - PO 1 mg DAILY [facility] Administration Guaifenesin 5 ml 05/24/18 17:39 05/26/18 06:14 Diabetic Tussin Dm - PO 5 ml Q4H PRN Administration COUGH Lactated Ringer's 1,000 mls @ 75 mls/hr 05/23/18 14:53 05/25/18 17:24 Lactated Ringers Solution IV 75 mls/hr ASDIR [facility] Administration Piperacillin Sod/Tazobactam 50 mls @ 100 mls/hr 05/23/18 18:00 05/26/18 09:43 Sod 3.375 gm/ Dextrose IVPB 100 mls/hr Q8H-IV [facility] Administration Protocol Insulin Aspart 1 vial 05/23/18 16:30 05/26/18 11:04 Novolog Vial Sliding Scale - SQ 2 units ACHS [facility] Administration Protocol Levetiracetam 500 mg/ 750 mg 05/23/18 22:00 05/26/18 09:45 Levetiracetam 250 mg PO 750 mg BID [facility] Administration Lidocaine 1 patch 05/24/18 10:00 05/26/18 09:44 Lidoderm Patch - TP Not Given DAILY [facility] Meclizine HCl 25 mg 05/23/18 14:53 05/26/18 09:45 Antivert - PO 25 mg Q8H PRN Administration VERTIGO Melatonin 5 mg 05/23/18 14:53 05/25/18 23:17 Melatonin PO 5 mg HS PRN Administration INSOMNIA Methylnaltrexone [place] 8 mg 05/24/18 16:45 05/26/18 09:44 Relistor - SQ 8 mg DAILY [facility] Administration Metoprolol Succinate 12.5 mg 05/24/18 10:00 05/26/18 09:45 Toprol Xl - PO 12.5 mg DAILY [facility] Administration Mirtazapine 7.5 mg 05/23/18 22:00 05/25/18 23:15 Remeron - PO 7.5 mg HS [facility] Administration Miscellaneous 1 each 05/23/18 22:00 05/26/18 00:02 Lidoderm Patch Removal MC Not Given DAILY@2200 [facility] Morphine Sulfate 4 mg 05/25/18 03:19 05/26/18 01:50 Morphine Sulfate IVPUSH 4 mg Q4H PRN Administration PAIN LEVEL 6-10 Nicotine 7 mg 05/24/18 10:00 05/26/18 09:45 Nicoderm Patch - TD 7 mg DAILY [facility] Administration Nitroglycerin 0.4 mg 05/23/18 14:53 Nitrostat - SL Q5M PRN FOR CHEST PAIN Ondansetron HCl 4 mg 05/23/18 14:53 Zofran Injection IVPUSH Q6H PRN NAUSEA AND/OR VOMITING Oxycodone HCl 10 mg 05/25/18 10:45 05/26/18 09:46 Oxycontin - PO 10 mg BID [facility] Administration Pantoprazole Sodium 40 mg 05/24/18 10:00 05/26/18 09:45 Protonix - PO 40 mg DAILY [facility] Administration Polyethylene Glycol 17 gm 05/25/18 10:00 05/26/18 09:46 Miralax (For Daily Use) - PO 17 grams DAILY [facility] Administration Ranolazine 500 mg 05/23/18 22:00 05/26/18 09:44 Ranexa - PO 500 mg BID [facility] Administration Sitagliptin Phosphate 100 mg 05/24/18 07:00 05/26/18 06:14 Januvia - PO 100 mg DAILY@0700 [facility] Administration Trazodone HCl 150 mg 05/23/18 22:00 05/25/18 23:16 Desyrel - PO 150 mg HS [facility] Administration Impression: S/P bronchoscopy and endobronchial biopsy LULmass /atelectasis ? post obstructive pneumonia Head CT- no obvious mets Abd/pelvic CT - no obvious mets Bone scan- no obvious mets Awaiting biopsy Will need PET as outpatient Currently on 31 medicines Will give nystatin for thrush Attempt to decrease # of meds. Nystatin suspension
--- NOTE | 2018-05-26 12:00 | PN ---
Progress Note, Physician Chief Complaint: Left sided chest pain Left bronchus obstructive mass History of Present Illness: NAD in bed Bone scan results unremarkable Seen by Pulmonary s/p bronchoscopy/endobronchial biopsy LULmass /atelectasis As per pulmonary's notes-pathology, preliminary result is positive for malignancy, type to be determined. Head CT- no obvious mets Abd/pelvic CT - no obvious mets Bone scan- no obvious mets Awaiting biopsy results Will need PET as outpatient - Current Medication List Current Medications: Active Medications Albuterol Sulfate (Ventolin 0.083% Nebulizer Soln -) 1 amp NEB Q4H PRN PRN Reason: SHORT OF BREATH/WHEEZING Last Admin: 05/24/18 23:53 Dose: 1 amp Albuterol/Ipratropium (Duoneb -) 1 amp NEB RTID [facility] Last Admin: 05/26/18 07:37 Dose: 1 amp Alprazolam (Xanax -) 0.25 mg PO Q6H PRN PRN Reason: ANXIETY Last Admin: 05/24/18 15:40 Dose: 0.25 mg Cyanocobalamin (Vitamin B12 -) 1,000 mcg PO DAILY [facility] Last Admin: 05/26/18 09:45 Dose: 1,000 mcg Docusate Sodium (Colace -) 100 mg PO Q8H PRN PRN Reason: CONSTIPATION Last Admin: 05/26/18 09:44 Dose: 100 mg Doxepin HCl (Sinequan -) 100 mg PO HS [facility] Last Admin: 05/25/18 23:15 Dose: 100 mg Dronabinol (Marinol -) 5 mg PO DAILY@1630 [facility] Last Admin: 05/25/18 15:58 Dose: 5 mg Enoxaparin Sodium (Lovenox -) 40 mg SQ DAILY [facility] Last Admin: 05/26/18 09:44 Dose: 40 mg Ferrous Sulfate (Feosol -) 325 mg PO TIDCM [facility] Last Admin: 05/26/18 11:32 Dose: 325 mg Folic Acid (Folic Acid -) 1 mg PO DAILY [facility] Last Admin: 05/26/18 09:45 Dose: 1 mg Guaifenesin (Diabetic Tussin Dm -) 5 ml PO Q4H PRN PRN Reason: COUGH Last Admin: 05/26/18 06:14 Dose: 5 ml Lactated Ringer's (Lactated Ringers Solution) 1,000 mls @ 75 mls/hr IV ASDIR [facility] Last Admin: 05/25/18 17:24 Dose: 75 mls/hr Piperacillin Sod/Tazobactam (Sod 3.375 gm/ Dextrose) 50 mls @ 100 mls/hr IVPB Q8H-IV [facility]; Protocol Last Admin: 05/26/18 09:43 Dose: 100 mls/hr Insulin Aspart (Novolog Vial Sliding Scale -) 1 vial SQ ACHS [facility]; Protocol Last Admin: 05/26/18 11:04 Dose: 2 units Levetiracetam 500 mg/ (Levetiracetam 250 mg) 750 mg PO BID [facility] Last Admin: 05/26/18 09:45 Dose: 750 mg Lidocaine (Lidoderm Patch -) 1 patch TP DAILY [facility] Last Admin: 05/26/18 09:44 Dose: Not Given Meclizine HCl (Antivert -) 25 mg PO Q8H PRN PRN Reason: VERTIGO Last Admin: 05/26/18 09:45 Dose: 25 mg Melatonin (Melatonin) 5 mg PO HS PRN PRN Reason: INSOMNIA Last Admin: 05/25/18 23:17 Dose: 5 mg Methylnaltrexone [place] (Relistor -) 8 mg SQ DAILY [facility] Last Admin: 05/26/18 09:44 Dose: 8 mg Metoprolol Succinate (Toprol Xl -) 12.5 mg PO DAILY [facility] Last Admin: 05/26/18 09:45 Dose: 12.5 mg Mirtazapine (Remeron -) 7.5 mg PO HS [facility] Last Admin: 05/25/18 23:15 Dose: 7.5 mg Miscellaneous (Lidoderm Patch Removal) 1 each MC DAILY@2200 [facility] Last Admin: 05/26/18 00:02 Dose: Not Given Morphine Sulfate (Morphine Sulfate) 4 mg IVPUSH Q4H PRN PRN Reason: PAIN LEVEL 6-10 Last Admin: 05/26/18 01:50 Dose: 4 mg Nicotine (Nicoderm Patch -) 7 mg TD DAILY [facility] Last Admin: 05/26/18 09:45 Dose: 7 mg Nitroglycerin (Nitrostat -) 0.4 mg SL Q5M PRN PRN Reason: FOR CHEST PAIN Nystatin (Nystatin) 500,000 unit PO TID [facility] Ondansetron HCl (Zofran Injection) 4 mg IVPUSH Q6H PRN PRN Reason: NAUSEA AND/OR VOMITING Oxycodone HCl (Oxycontin -) 10 mg PO BID [facility] Last Admin: 05/26/18 09:46 Dose: 10 mg Pantoprazole Sodium (Protonix -) 40 mg PO DAILY [facility] Last Admin: 05/26/18 09:45 Dose: 40 mg Polyethylene Glycol (Miralax (For Daily Use) -) 17 gm PO DAILY [facility] Last Admin: 05/26/18 09:46 Dose: 17 grams Ranolazine (Ranexa -) 500 mg PO BID [facility] Last Admin: 05/26/18 09:44 Dose: 500 mg Sitagliptin Phosphate (Januvia -) 100 mg PO DAILY@0700 [facility] Last Admin: 05/26/18 06:14 Dose: 100 mg Trazodone HCl (Desyrel -) 150 mg PO HS [facility] Last Admin: 05/25/18 23:16 Dose: 150 mg - Objective Vital Signs: Vital Signs Temperature 98.9 F 05/26/18 10:00 Pulse Rate 86 05/26/18 10:00 Respiratory Rate 20 05/26/18 10:00 Blood Pressure 115/60 05/26/18 10:00 O2 Sat by Pulse Oximetry (%) 97 05/26/18 09:00 Constitutional: Yes: No Distress, Calm, Cachectic Cardiovascular: Yes: Regular Rate and Rhythm Respiratory: Yes: Regular Gastrointestinal: Yes: Normal Bowel Sounds, Soft Genitourinary: Yes: WNL Musculoskeletal: Yes: WNL Extremities: Yes: WNL Edema: No Peripheral Pulses WNL: Yes Neurological: Yes: Alert, Oriented Psychiatric: Yes: Alert, Oriented Labs: CBC, BMP 05/25/18 06:30 05/25/18 06:30 INR, PTT INR 0.98 (0.83-1.09) 05/18/18 15:43 Problem List - Problems (1) Anemia Assessment/Plan: -TIFFANIE -On ferrous sulfate tid -monitor trend -stool OB pending Code(s): D64.9 - ANEMIA, UNSPECIFIED (2) COPD (chronic obstructive pulmonary disease) Assessment/Plan: -Nasal O2 -Bronchodilators -Pulmonary consult -IV abx Code(s): J44.9 - CHRONIC OBSTRUCTIVE PULMONARY DISEASE, UNSPECIFIED (3) DM (diabetes mellitus) Assessment/Plan: -A1c 6.9 -BGM ACHS -diabetic low sodium diet -Novolog sliding scale -Continue Januvia 100 mg po daily Code(s): E11.9 - TYPE 2 DIABETES MELLITUS WITHOUT COMPLICATIONS (4) Lung mass Assessment/Plan: -Seen by pulmonary -s/p bronchoscopy -Bone scan results unremarkable -Preliminary pathology results positive for malignancy -Oncology consult -Spoke to patient, she definitely wants treatment -Pain improved on morphine 4 mg IVP Code(s): R91.8 - OTHER NONSPECIFIC ABNORMAL FINDING OF LUNG FIELD (5) Malnourished Assessment/Plan: -Add multivitamin -add glucerna BID -Added marinol Code(s): E46 - UNSPECIFIED PROTEIN-CALORIE MALNUTRITION Qualifiers: Malnutrition type: protein-calorie malnutrition (6) Constipation Assessment/Plan: -2/2 to opioids -On colace -Add miralax -Also add Relistor 8 mg SQ daily Code(s): K59.00 - CONSTIPATION, UNSPECIFIED Assessment/Plan see problem list Physical therapy
--- NOTE | 2018-05-26 12:14 | PN ---
Progress Note, Physician History of Present Illness: SUPINE IN BED COUGH NOTED C/O PLEURITIC CP WITH COUGH LOW GRADE TEMP NOTED WBC REMAINS SL ELEVATED BREATHING NON-LABORED - Current Medication List Current Medications: Active Medications Albuterol Sulfate (Ventolin 0.083% Nebulizer Soln -) 1 amp NEB Q4H PRN PRN Reason: SHORT OF BREATH/WHEEZING Last Admin: 05/24/18 23:53 Dose: 1 amp Albuterol/Ipratropium (Duoneb -) 1 amp NEB RTID [facility] Last Admin: 05/26/18 07:37 Dose: 1 amp Alprazolam (Xanax -) 0.25 mg PO Q6H PRN PRN Reason: ANXIETY Last Admin: 05/24/18 15:40 Dose: 0.25 mg Cyanocobalamin (Vitamin B12 -) 1,000 mcg PO DAILY [facility] Last Admin: 05/26/18 09:45 Dose: 1,000 mcg Docusate Sodium (Colace -) 100 mg PO Q8H PRN PRN Reason: CONSTIPATION Last Admin: 05/26/18 09:44 Dose: 100 mg Doxepin HCl (Sinequan -) 100 mg PO HS [facility] Last Admin: 05/25/18 23:15 Dose: 100 mg Dronabinol (Marinol -) 5 mg PO DAILY@1630 [facility] Last Admin: 05/25/18 15:58 Dose: 5 mg Enoxaparin Sodium (Lovenox -) 40 mg SQ DAILY [facility] Last Admin: 05/26/18 09:44 Dose: 40 mg Ferrous Sulfate (Feosol -) 325 mg PO TIDCM [facility] Last Admin: 05/26/18 11:32 Dose: 325 mg Folic Acid (Folic Acid -) 1 mg PO DAILY [facility] Last Admin: 05/26/18 09:45 Dose: 1 mg Guaifenesin (Diabetic Tussin Dm -) 5 ml PO Q4H PRN PRN Reason: COUGH Last Admin: 05/26/18 06:14 Dose: 5 ml Lactated Ringer's (Lactated Ringers Solution) 1,000 mls @ 75 mls/hr IV ASDIR [facility] Last Admin: 05/25/18 17:24 Dose: 75 mls/hr Piperacillin Sod/Tazobactam (Sod 3.375 gm/ Dextrose) 50 mls @ 100 mls/hr IVPB Q8H-IV [facility]; Protocol Last Admin: 05/26/18 09:43 Dose: 100 mls/hr Insulin Aspart (Novolog Vial Sliding Scale -) 1 vial SQ ACHS [facility]; Protocol Last Admin: 05/26/18 11:04 Dose: 2 units Levetiracetam 500 mg/ (Levetiracetam 250 mg) 750 mg PO BID [facility] Last Admin: 05/26/18 09:45 Dose: 750 mg Lidocaine (Lidoderm Patch -) 1 patch TP DAILY [facility] Last Admin: 05/26/18 09:44 Dose: Not Given Meclizine HCl (Antivert -) 25 mg PO Q8H PRN PRN Reason: VERTIGO Last Admin: 05/26/18 09:45 Dose: 25 mg Melatonin (Melatonin) 5 mg PO HS PRN PRN Reason: INSOMNIA Last Admin: 05/25/18 23:17 Dose: 5 mg Methylnaltrexone [place] (Relistor -) 8 mg SQ DAILY [facility] Last Admin: 05/26/18 09:44 Dose: 8 mg Metoprolol Succinate (Toprol Xl -) 12.5 mg PO DAILY [facility] Last Admin: 05/26/18 09:45 Dose: 12.5 mg Mirtazapine (Remeron -) 7.5 mg PO HS [facility] Last Admin: 05/25/18 23:15 Dose: 7.5 mg Miscellaneous (Lidoderm Patch Removal) 1 each MC DAILY@2200 [facility] Last Admin: 05/26/18 00:02 Dose: Not Given Morphine Sulfate (Morphine Sulfate) 4 mg IVPUSH Q4H PRN PRN Reason: PAIN LEVEL 6-10 Last Admin: 05/26/18 01:50 Dose: 4 mg Nicotine (Nicoderm Patch -) 7 mg TD DAILY [facility] Last Admin: 05/26/18 09:45 Dose: 7 mg Nitroglycerin (Nitrostat -) 0.4 mg SL Q5M PRN PRN Reason: FOR CHEST PAIN Nystatin (Nystatin) 500,000 unit PO TID [facility] Ondansetron HCl (Zofran Injection) 4 mg IVPUSH Q6H PRN PRN Reason: NAUSEA AND/OR VOMITING Oxycodone HCl (Oxycontin -) 10 mg PO BID [facility] Last Admin: 05/26/18 09:46 Dose: 10 mg Pantoprazole Sodium (Protonix -) 40 mg PO DAILY [facility] Last Admin: 05/26/18 09:45 Dose: 40 mg Polyethylene Glycol (Miralax (For Daily Use) -) 17 gm PO DAILY [facility] Last Admin: 05/26/18 09:46 Dose: 17 grams Ranolazine (Ranexa -) 500 mg PO BID [facility] Last Admin: 05/26/18 09:44 Dose: 500 mg Sitagliptin Phosphate (Januvia -) 100 mg PO DAILY@0700 [facility] Last Admin: 05/26/18 06:14 Dose: 100 mg Trazodone HCl (Desyrel -) 150 mg PO HS [facility] Last Admin: 05/25/18 23:16 Dose: 150 mg - Objective Vital Signs: Vital Signs Temperature 98.9 F 05/26/18 10:00 Pulse Rate 86 05/26/18 10:00 Respiratory Rate 20 05/26/18 10:00 Blood Pressure 115/60 05/26/18 10:00 O2 Sat by Pulse Oximetry (%) 97 05/26/18 09:00 Constitutional: Yes: No Distress Eyes: Yes: Conjunctiva Clear Cardiovascular: Yes: Regular Rate and Rhythm, S1, S2 Respiratory: Yes: Rhonchi, Other (DECREASED BS DELVIN) Gastrointestinal: Yes: Normal Bowel Sounds, Soft. No: Tenderness Labs: CBC, BMP 05/25/18 06:30 05/25/18 06:30 INR, PTT INR 0.98 (0.83-1.09) 05/18/18 15:43 Assessment/Plan S/P BRONCHOSCOPY. BX OF ENDOBRONCHIAL LESION + INVASIVE SQUAMOUS CELL CA R/O POST OBSTRUCTIVE PNEUMONIA CONTINUE ZOSYN, DAY #7
[2018-05-26] MEDS ORDERED: PT OWN MED DRAWER 7, Y5N ONE ×4 (13:42→18:57)
[2018-05-26] MEDS ORDERED: SODIUM CHLORIDE NASAL SPRAY 44 ML BOTTLE NS PRN (14:21)
--- NOTE | 2018-05-26 14:21 | PN ---
Progress Note (short form) - Note Progress Note: Slowly resolving chest discomfort and cough. Positional dizziness and feeling of "heaviness". Intake & Output 05/23/18 05/24/18 05/25/18 05/26/18 23:59 23:59 23:59 23:59 Intake Total 890 3140 3125 825 Output Total 0 Balance 890 3140 3125 825 Last Vital Signs Temp Pulse Resp BP Pulse Ox 98.9 F 86 20 115/60 97 05/26/18 10:00 05/26/18 10:00 05/26/18 10:00 05/26/18 10:00 05/26/18 09:00 Active Medications Albuterol Sulfate (Ventolin 0.083% Nebulizer Soln -) 1 amp NEB Q4H PRN PRN Reason: SHORT OF BREATH/WHEEZING Last Admin: 05/24/18 23:53 Dose: 1 amp Albuterol/Ipratropium (Duoneb -) 1 amp NEB RTID [facility] Last Admin: 05/26/18 13:17 Dose: 1 amp Alprazolam (Xanax -) 0.25 mg PO Q6H PRN PRN Reason: ANXIETY Last Admin: 05/24/18 15:40 Dose: 0.25 mg Cyanocobalamin (Vitamin B12 -) 1,000 mcg PO DAILY [facility] Last Admin: 05/26/18 09:45 Dose: 1,000 mcg Docusate Sodium (Colace -) 100 mg PO Q8H PRN PRN Reason: CONSTIPATION Last Admin: 05/26/18 09:44 Dose: 100 mg Doxepin HCl (Sinequan -) 100 mg PO HS [facility] Last Admin: 05/25/18 23:15 Dose: 100 mg Dronabinol (Marinol -) 5 mg PO DAILY@1630 [facility] Last Admin: 05/25/18 15:58 Dose: 5 mg Enoxaparin Sodium (Lovenox -) 40 mg SQ DAILY [facility] Last Admin: 05/26/18 09:44 Dose: 40 mg Ferrous Sulfate (Feosol -) 325 mg PO TIDCM [facility] Last Admin: 05/26/18 11:32 Dose: 325 mg Folic Acid (Folic Acid -) 1 mg PO DAILY [facility] Last Admin: 05/26/18 09:45 Dose: 1 mg Guaifenesin (Diabetic Tussin Dm -) 5 ml PO Q4H PRN PRN Reason: COUGH Last Admin: 05/26/18 06:14 Dose: 5 ml Lactated Ringer's (Lactated Ringers Solution) 1,000 mls @ 75 mls/hr IV ASDIR [facility] Last Admin: 05/25/18 17:24 Dose: 75 mls/hr Piperacillin Sod/Tazobactam (Sod 3.375 gm/ Dextrose) 50 mls @ 100 mls/hr IVPB Q8H-IV [facility]; Protocol Last Admin: 05/26/18 09:43 Dose: 100 mls/hr Insulin Aspart (Novolog Vial Sliding Scale -) 1 vial SQ ACHS [facility]; Protocol Last Admin: 05/26/18 11:04 Dose: 2 units Levetiracetam 500 mg/ (Levetiracetam 250 mg) 750 mg PO BID [facility] Last Admin: 05/26/18 09:45 Dose: 750 mg Lidocaine (Lidoderm Patch -) 1 patch TP DAILY [facility] Last Admin: 05/26/18 09:44 Dose: Not Given Meclizine HCl (Antivert -) 25 mg PO Q8H PRN PRN Reason: VERTIGO Last Admin: 05/26/18 09:45 Dose: 25 mg Melatonin (Melatonin) 5 mg PO HS PRN PRN Reason: INSOMNIA Last Admin: 05/25/18 23:17 Dose: 5 mg Methylnaltrexone [place] (Relistor -) 8 mg SQ DAILY [facility] Last Admin: 05/26/18 09:44 Dose: 8 mg Metoprolol Succinate (Toprol Xl -) 12.5 mg PO DAILY [facility] Last Admin: 05/26/18 09:45 Dose: 12.5 mg Mirtazapine (Remeron -) 7.5 mg PO HS [facility] Last Admin: 05/25/18 23:15 Dose: 7.5 mg Miscellaneous (Lidoderm Patch Removal) 1 each MC DAILY@2200 [facility] Last Admin: 05/26/18 00:02 Dose: Not Given Morphine Sulfate (Morphine Sulfate) 4 mg IVPUSH Q4H PRN PRN Reason: PAIN LEVEL 6-10 Last Admin: 05/26/18 01:50 Dose: 4 mg Nicotine (Nicoderm Patch -) 7 mg TD DAILY [facility] Last Admin: 05/26/18 09:45 Dose: 7 mg Nitroglycerin (Nitrostat -) 0.4 mg SL Q5M PRN PRN Reason: FOR CHEST PAIN Nystatin (Nystatin) 500,000 unit PO TID [facility] Ondansetron HCl (Zofran Injection) 4 mg IVPUSH Q6H PRN PRN Reason: NAUSEA AND/OR VOMITING Oxycodone HCl (Oxycontin -) 10 mg PO BID [facility] Last Admin: 05/26/18 09:46 Dose: 10 mg Pantoprazole Sodium (Protonix -) 40 mg PO DAILY [facility] Last Admin: 05/26/18 09:45 Dose: 40 mg Polyethylene Glycol (Miralax (For Daily Use) -) 17 gm PO DAILY [facility] Last Admin: 05/26/18 09:46 Dose: 17 grams Ranolazine (Ranexa -) 500 mg PO BID [facility] Last Admin: 05/26/18 09:44 Dose: 500 mg Sitagliptin Phosphate (Januvia -) 100 mg PO DAILY@0700 [facility] Last Admin: 05/26/18 06:14 Dose: 100 mg Trazodone HCl (Desyrel -) 150 mg PO [facility] Last Admin: 05/25/18 23:16 Dose: 150 mg Gen: NAD at rest Heart: RRR Lung: decreased breath sounds at the bases, scattered rhonchi Abd: soft, nontender Ext: no edema Laboratory Results - last 24 hr 05/25/18 05/25/18 05/26/18 16:30 23:14 06:13 POC Glucometer 178 164 180 05/26/18 11:03 POC Glucometer 202 A/P Pneumonia likely Post Obstructive Lung Mass COPD CAD HTN DM Seizure Disorder Smoker - Nasal saline - Antibiotics per ID - inhaled bronchodilators - Pain medications - Anxiolytic as needed - staging work up in progress - will need outpt PFTs and PET scan - DVT prophylaxis Dr Kirkpatrick
[2018-05-26] MEDS: NYSTATIN 500,000 UNITS TABLET PO SCH ×2 (14:25→23:57)
[2018-05-26] MEDS: LACTATED RINGERS SOLUTION 1,000 ML IV SCH ×2 (15:13→21:34)
[2018-05-26] MEDS: methylPREDNISolone NA SUCC 40 MG/1 ML VIAL IVPUSH SCH ×2 (16:36→17:01)
[2018-05-26] MEDS: DRONABINOL 5 MG CAPSULE PO SCH (16:36)
[2018-05-26] MEDS ORDERED: INSULIN (NOVOLOG) ASPART 100 UNITS/ML 10ML VIAL ONE (20:45)
[2018-05-26] MEDS: traZODone HCL 50 MG TABLET (FP) PO SCH (21:25)
[2018-05-26] MEDS: MIRTAZAPINE 15 MG TABLET (FP) PO SCH (21:29)
[2018-05-26] MEDS: DOXEPIN HCL 25 MG CAPSULE PO SCH (21:30)
[2018-05-27] MEDS ORDERED: DEXTROSE 5%-WATER - 50 ML IVPB ONE ×4 (00:12→22:46)
[2018-05-27] MEDS ORDERED: PIPERACILLIN/TAZOBACTAM 3.375 GM VIAL IVPB ONE ×4 (00:12→22:46)
[2018-05-27] MEDS: PIPERACILLIN/TAZOB 3.375 GM 3.375 GM in DEXTROSE 5%-WATER - 50 ML IVPB SCH ×3 (01:10→17:12)
[2018-05-27] MEDS: methylPREDNISolone NA SUCC 40 MG/1 ML VIAL IVPUSH SCH ×3 (01:10→17:14)
[2018-05-27] MEDS: INSULIN SLIDING SCALE (NOVOLOG) 1 VIAL SQ SCH ×4 (06:05→21:48)
[2018-05-27] MEDS: sitaGLIPtin PHOSPHATE 100 MG TABLET (FP) PO SCH (06:06)
[2018-05-27] MEDS: NYSTATIN 500,000 UNITS TABLET PO SCH ×3 (06:06→21:52)
[2018-05-27] MEDS ORDERED: INSULIN (NOVOLOG) ASPART 100 UNITS/ML 10ML VIAL ONE ×2 (06:30→21:46)
[2018-05-27] MEDS: morphine SULFATE 4 MG/ML VIAL IVPUSH PRN ×3 (06:36→18:04)
[2018-05-27] MEDS: ALBUTEROL SO4 2.5/IPRATROPIUM 0.5 INH SOL 3 ML VIAL.NEB. NEB SCH ×3 (08:55→20:42)
[2018-05-27 09:02] LABS: BASO % 0.1 % (0-2.0); HEMATOCRIT 30.8 % (32.4-45.2); HEMOGLOBIN 9.8 GM/dL (10.7-15.3); LYMPH % 3.1 % (8-40); MCH 25.1 pg (25.7-33.7); MCHC 31.8 g/dl (32.0-36.0); MEAN CELL VOLUME 78.9 fl (80-96); MEAN PLT VOLUME 8.1 fl (7.5-11.1); MONO % 0.8 % (3.8-10.2); PLATELET COUNT 402 K/MM3 (134-434); RDW 22.1 % (11.6-15.6); WHITE BLOOD COUNT 19.7 K/mm3 (4.0-10.0)
[2018-05-27] MEDS: oxyCODONE HCL 10 MG SUSTAINED ACTING TABLET PO SCH ×2 (09:21→21:49)
[2018-05-27] MEDS: FERROUS SO4 325 MG TABLET (FP) PO SCH ×3 (09:21→17:12)
[2018-05-27] MEDS: NICOTINE 7 MG/24 HOURS TOPICAL PATCH TD SCH (09:21)
[2018-05-27] MEDS: PANTOPRAZOLE 40 MG TABLET (FP) PO SCH (09:21)
[2018-05-27] MEDS: CYANOCOBALAMIN 1,000 MCG TABLET (FP) PO SCH (09:21)
[2018-05-27] MEDS: RANOLAZINE E.R. 500 MG TABLET (FP) PO SCH ×2 (09:21→21:53)
[2018-05-27] MEDS: metoPROLOL SUCCINATE 25 MG TAB.SR.24H (FP) PO SCH (09:22)
[2018-05-27] MEDS: LIDOCAINE 5% TOPICAL PATCH TP SCH (09:24)
[2018-05-27] MEDS: FOLIC ACID 1 MG TABLET (FP) PO SCH (09:24)
[2018-05-27] MEDS: POLYETHYLENE GLYCOL 3350 119 GM BTL PO SCH (09:24)
[2018-05-27] MEDS: ENOXAPARIN NA (PORCINE) 40 MG/0.4 ML DISP.SYRIN SQ SCH (09:24)
[2018-05-27] MEDS: Methylnaltrexone Bromide 12 MG/0.6 ML KIT SQ SCH (09:25)
[2018-05-27 10:20] LABS: ALBUMIN 2.4 g/dl (3.4-5.0); ALK PHOS 63 U/L (45-117); ANION GAP 9 MMOL/L (8-16); BILIRUBIN,TOTAL 0.2 mg/dL (0.2-1); BLOOD UREA NITROGEN 11 mg/dL (7-18); CHLORIDE 100 mmol/L (98-107); CO2 31 mmol/L (21-32); CREATININE 0.7 mg/dL (0.55-1.3); GLUCOSE,RANDOM 196 mg/dL (74-106); SGOT/AST 4 U/L (15-37); SGPT/ALT 9 U/L (13-61); SODIUM 140 mmol/L (136-145); TOT PROT 5.6 g/dl (6.4-8.2)
--- NOTE | 2018-05-27 11:01 | PN ---
Progress Note (short form) - Note Progress Note: Slowly resolving chest discomfort and cough. Still with positional dizziness and feeling of "heaviness". Nasal congestion. Intake & Output 05/24/18 05/25/18 05/26/18 05/27/18 23:59 23:59 23:59 23:59 Intake Total 3140 3125 2649 1200 Balance 3140 3125 2649 1200 Last Vital Signs Temp Pulse Resp BP Pulse Ox 97.7 F 82 20 111/59 L 97 05/27/18 08:26 05/27/18 08:26 05/27/18 09:00 05/27/18 08:26 05/27/18 09:00 Active Medications Albuterol Sulfate (Ventolin 0.083% Nebulizer Soln -) 1 amp NEB Q4H PRN PRN Reason: SHORT OF BREATH/WHEEZING Last Admin: 05/24/18 23:53 Dose: 1 amp Albuterol/Ipratropium (Duoneb -) 1 amp NEB RTID [facility] Last Admin: 05/27/18 08:55 Dose: 1 amp Alprazolam (Xanax -) 0.25 mg PO Q6H PRN PRN Reason: ANXIETY Last Admin: 05/24/18 15:40 Dose: 0.25 mg Cyanocobalamin (Vitamin B12 -) 1,000 mcg PO DAILY [facility] Last Admin: 05/27/18 09:21 Dose: 1,000 mcg Docusate Sodium (Colace -) 100 mg PO Q8H PRN PRN Reason: CONSTIPATION Last Admin: 05/26/18 21:25 Dose: 100 mg Doxepin HCl (Sinequan -) 100 mg PO HS [facility] Last Admin: 05/26/18 21:30 Dose: 100 mg Dronabinol (Marinol -) 5 mg PO DAILY@1630 [facility] Last Admin: 05/26/18 16:36 Dose: 5 mg Enoxaparin Sodium (Lovenox -) 40 mg SQ DAILY [facility] Last Admin: 05/27/18 09:24 Dose: 40 mg Ferrous Sulfate (Feosol -) 325 mg PO TIDCM [facility] Last Admin: 05/27/18 09:21 Dose: 325 mg Folic Acid (Folic Acid -) 1 mg PO DAILY [facility] Last Admin: 05/27/18 09:24 Dose: 1 mg Guaifenesin (Diabetic Tussin Dm -) 5 ml PO Q4H PRN PRN Reason: COUGH Last Admin: 05/26/18 18:21 Dose: 5 ml Lactated Ringer's (Lactated Ringers Solution) 1,000 mls @ 75 mls/hr IV ASDIR [facility] Last Admin: 05/26/18 21:34 Dose: 75 mls/hr Piperacillin Sod/Tazobactam (Sod 3.375 gm/ Dextrose) 50 mls @ 100 mls/hr IVPB Q8H-IV [facility]; Protocol Last Admin: 05/27/18 09:23 Dose: 100 mls/hr Insulin Aspart (Novolog Vial Sliding Scale -) 1 vial SQ ACHS [facility]; Protocol Last Admin: 05/27/18 06:05 Dose: 4 units Levetiracetam 500 mg/ (Levetiracetam 250 mg) 750 mg PO BID [facility] Last Admin: 05/27/18 09:21 Dose: 750 mg Lidocaine (Lidoderm Patch -) 1 patch TP DAILY [facility] Last Admin: 05/27/18 09:24 Dose: Not Given Meclizine HCl (Antivert -) 25 mg PO Q8H PRN PRN Reason: VERTIGO Last Admin: 05/26/18 09:45 Dose: 25 mg Melatonin (Melatonin) 5 mg PO HS PRN PRN Reason: INSOMNIA Last Admin: 05/25/18 23:17 Dose: 5 mg Methylnaltrexone [place] (Relistor -) 8 mg SQ DAILY [facility] Last Admin: 05/27/18 09:25 Dose: 8 mg Methylprednisolone Sodium Succinate (Solu-Medrol -) 40 mg IVPUSH Q8H-IV [facility] Last Admin: 05/27/18 09:20 Dose: 40 mg Metoprolol Succinate (Toprol Xl -) 12.5 mg PO DAILY [facility] Last Admin: 05/27/18 09:22 Dose: 12.5 mg Mirtazapine (Remeron -) 7.5 mg PO HS [facility] Last Admin: 05/26/18 21:29 Dose: 7.5 mg Miscellaneous (Lidoderm Patch Removal) 1 each MC DAILY@2200 [facility] Last Admin: 05/26/18 21:27 Dose: Not Given Morphine Sulfate (Morphine Sulfate) 4 mg IVPUSH Q4H PRN PRN Reason: PAIN LEVEL 6-10 Last Admin: 05/27/18 06:36 Dose: 4 mg Nicotine (Nicoderm Patch -) 7 mg TD DAILY [facility] Last Admin: 05/27/18 09:21 Dose: 7 mg Nitroglycerin (Nitrostat -) 0.4 mg SL Q5M PRN PRN Reason: FOR CHEST PAIN Nystatin (Nystatin) 500,000 unit PO TID [facility] Last Admin: 05/27/18 06:06 Dose: 500,000 unit Ondansetron HCl (Zofran Injection) 4 mg IVPUSH Q6H PRN PRN Reason: NAUSEA AND/OR VOMITING Oxycodone HCl (Oxycontin -) 10 mg PO BID [facility] Last Admin: 05/27/18 09:21 Dose: 10 mg Pantoprazole Sodium (Protonix -) 40 mg PO DAILY [facility] Last Admin: 05/27/18 09:21 Dose: 40 mg Polyethylene Glycol (Miralax (For Daily Use) -) 17 gm PO DAILY [facility] Last Admin: 05/27/18 09:24 Dose: 17 grams Ranolazine (Ranexa -) 500 mg PO BID [facility] Last Admin: 05/27/18 09:21 Dose: 500 mg Sitagliptin Phosphate (Januvia -) 100 mg PO DAILY@0700 [facility] Last Admin: 05/27/18 06:06 Dose: 100 mg Sodium Chloride ([place] Nasal [place] -) 2 spray NS TID [facility] Trazodone HCl (Desyrel -) 150 mg PO HS [facility] Last Admin: 05/26/18 21:25 Dose: 150 mg Gen: NAD at rest Heart: RRR Lung: decreased breath sounds at the bases, scattered rhonchi Abd: soft, nontender Ext: no edema Laboratory Results - last 24 hr 05/26/18 05/26/18 05/26/18 11:03 16:37 21:23 WBC RBC Hgb Hct MCV MCH MCHC RDW Plt Count MPV Absolute Neuts (auto) Neutrophils % Lymphocytes % Monocytes % Eosinophils % Basophils % Nucleated RBC % Sodium Potassium Chloride Carbon Dioxide Anion Gap BUN Creatinine Creat Clearance w eGFR POC Glucometer 202 151 400 Random Glucose Calcium Total Bilirubin AST ALT Alkaline Phosphatase Total Protein Albumin 05/27/18 05/27/18 05/27/18 06:04 07:15 07:15 WBC 19.7 H RBC 3.90 Hgb 9.8 L Hct 30.8 L MCV 78.9 L MCH 25.1 L MCHC 31.8 L RDW 22.1 H Plt Count 402 MPV 8.1 Absolute Neuts (auto) 18.9 H Neutrophils % 96.0 H D Lymphocytes % 3.1 L D Monocytes % 0.8 L D Eosinophils % 0.0 D Basophils % 0.1 Nucleated RBC % 0 Sodium 140 Potassium 4.0 Chloride 100 Carbon Dioxide 31 Anion Gap 9 BUN 11 Creatinine 0.7 Creat Clearance w eGFR > 60 POC Glucometer 257 Random Glucose 196 H Calcium 11.0 H Total Bilirubin 0.2 AST 4 L ALT 9 L Alkaline Phosphatase 63 Total Protein 5.6 L Albumin 2.4 L A/P Pneumonia likely Post Obstructive Lung Mass COPD CAD HTN DM Seizure Disorder Smoker - Nasal saline - Antibiotics per ID - inhaled bronchodilators - Pain medications - Anxiolytic as needed - staging work up in progress - will need outpt PFTs and PET scan - DVT prophylaxis Dr Kirkpatrick
--- NOTE | 2018-05-27 12:04 | PN ---
Progress Note, Physician Chief Complaint: awake alert events and notes reviewed denies chest pain + dry cough - Current Medication List Current Medications: Active Medications Albuterol Sulfate (Ventolin 0.083% Nebulizer Soln -) 1 amp NEB Q4H PRN PRN Reason: SHORT OF BREATH/WHEEZING Last Admin: 05/24/18 23:53 Dose: 1 amp Albuterol/Ipratropium (Duoneb -) 1 amp NEB RTID [facility] Last Admin: 05/27/18 08:55 Dose: 1 amp Alprazolam (Xanax -) 0.25 mg PO Q6H PRN PRN Reason: ANXIETY Last Admin: 05/24/18 15:40 Dose: 0.25 mg Cyanocobalamin (Vitamin B12 -) 1,000 mcg PO DAILY [facility] Last Admin: 05/27/18 09:21 Dose: 1,000 mcg Docusate Sodium (Colace -) 100 mg PO Q8H PRN PRN Reason: CONSTIPATION Last Admin: 05/26/18 21:25 Dose: 100 mg Doxepin HCl (Sinequan -) 100 mg PO HS [facility] Last Admin: 05/26/18 21:30 Dose: 100 mg Dronabinol (Marinol -) 5 mg PO DAILY@1630 [facility] Last Admin: 05/26/18 16:36 Dose: 5 mg Enoxaparin Sodium (Lovenox -) 40 mg SQ DAILY [facility] Last Admin: 05/27/18 09:24 Dose: 40 mg Ferrous Sulfate (Feosol -) 325 mg PO TIDCM [facility] Last Admin: 05/27/18 11:18 Dose: 325 mg Folic Acid (Folic Acid -) 1 mg PO DAILY [facility] Last Admin: 05/27/18 09:24 Dose: 1 mg Guaifenesin (Diabetic Tussin Dm -) 5 ml PO Q4H PRN PRN Reason: COUGH Last Admin: 05/26/18 18:21 Dose: 5 ml Lactated Ringer's (Lactated Ringers Solution) 1,000 mls @ 75 mls/hr IV ASDIR [facility] Last Admin: 05/26/18 21:34 Dose: 75 mls/hr Piperacillin Sod/Tazobactam (Sod 3.375 gm/ Dextrose) 50 mls @ 100 mls/hr IVPB Q8H-IV [facility]; Protocol Last Admin: 05/27/18 09:23 Dose: 100 mls/hr Insulin Aspart (Novolog Vial Sliding Scale -) 1 vial SQ ACHS [facility]; Protocol Last Admin: 05/27/18 11:17 Dose: 8 units Levetiracetam 500 mg/ (Levetiracetam 250 mg) 750 mg PO BID [facility] Last Admin: 05/27/18 09:21 Dose: 750 mg Lidocaine (Lidoderm Patch -) 1 patch TP DAILY [facility] Last Admin: 05/27/18 09:24 Dose: Not Given Meclizine HCl (Antivert -) 25 mg PO Q8H PRN PRN Reason: VERTIGO Last Admin: 05/26/18 09:45 Dose: 25 mg Melatonin (Melatonin) 5 mg PO HS PRN PRN Reason: INSOMNIA Last Admin: 05/25/18 23:17 Dose: 5 mg Methylnaltrexone [place] (Relistor -) 8 mg SQ DAILY [facility] Last Admin: 05/27/18 09:25 Dose: 8 mg Methylprednisolone Sodium Succinate (Solu-Medrol -) 40 mg IVPUSH Q8H-IV [facility] Last Admin: 05/27/18 09:20 Dose: 40 mg Metoprolol Succinate (Toprol Xl -) 12.5 mg PO DAILY [facility] Last Admin: 05/27/18 09:22 Dose: 12.5 mg Mirtazapine (Remeron -) 7.5 mg PO HS [facility] Last Admin: 05/26/18 21:29 Dose: 7.5 mg Miscellaneous (Lidoderm Patch Removal) 1 each MC DAILY@2200 [facility] Last Admin: 05/26/18 21:27 Dose: Not Given Morphine Sulfate (Morphine Sulfate) 4 mg IVPUSH Q4H PRN PRN Reason: PAIN LEVEL 6-10 Last Admin: 05/27/18 06:36 Dose: 4 mg Nicotine (Nicoderm Patch -) 7 mg TD DAILY [facility] Last Admin: 05/27/18 09:21 Dose: 7 mg Nitroglycerin (Nitrostat -) 0.4 mg SL Q5M PRN PRN Reason: FOR CHEST PAIN Nystatin (Nystatin) 500,000 unit PO TID [facility] Last Admin: 05/27/18 06:06 Dose: 500,000 unit Ondansetron HCl (Zofran Injection) 4 mg IVPUSH Q6H PRN PRN Reason: NAUSEA AND/OR VOMITING Oxycodone HCl (Oxycontin -) 10 mg PO BID [facility] Last Admin: 05/27/18 09:21 Dose: 10 mg Pantoprazole Sodium (Protonix -) 40 mg PO DAILY [facility] Last Admin: 05/27/18 09:21 Dose: 40 mg Polyethylene Glycol (Miralax (For Daily Use) -) 17 gm PO DAILY [facility] Last Admin: 05/27/18 09:24 Dose: 17 grams Ranolazine (Ranexa -) 500 mg PO BID [facility] Last Admin: 05/27/18 09:21 Dose: 500 mg Sitagliptin Phosphate (Januvia -) 100 mg PO DAILY@0700 [facility] Last Admin: 05/27/18 06:06 Dose: 100 mg Sodium Chloride ([place] Nasal [place] -) 2 spray NS TID [facility] Trazodone HCl (Desyrel -) 150 mg PO HS [facility] Last Admin: 05/26/18 21:25 Dose: 150 mg - Objective Vital Signs: Vital Signs Temperature 97.7 F 05/27/18 08:26 Pulse Rate 82 05/27/18 08:26 Respiratory Rate 20 05/27/18 09:00 Blood Pressure 111/59 L 05/27/18 08:26 O2 Sat by Pulse Oximetry (%) 97 05/27/18 09:00 Constitutional: Yes: Mild Distress Eyes: Yes: WNL HENT: Yes: WNL Neck: Yes: WNL Cardiovascular: Yes: Regular Rate and Rhythm Respiratory: Yes: Cough, Diminished, On Nasal O2 Gastrointestinal: Yes: Soft Genitourinary: Yes: WNL Musculoskeletal: Yes: Muscle Weakness Extremities: Yes: WNL Edema: No Peripheral Pulses WNL: Yes Integumentary: Yes: WNL Wound/Incision: Yes: Clean/Dry Neurological: Yes: Pre-Existing Deficit ...Motor Strength: LLE, RLE Psychiatric: Yes: Other Labs: CBC, BMP 05/27/18 07:15 05/27/18 07:15 INR, PTT INR 0.98 (0.83-1.09) 05/18/18 15:43 Problem List - Problems (1) Lung mass Code(s): R91.8 - OTHER NONSPECIFIC ABNORMAL FINDING OF LUNG FIELD (2) Smoking greater than 30 pack years Code(s): F17.210 - NICOTINE DEPENDENCE, CIGARETTES, UNCOMPLICATED (3) Anemia Code(s): D64.9 - ANEMIA, UNSPECIFIED (4) Asthma exacerbation in COPD Code(s): J44.1 - CHRONIC OBSTRUCTIVE PULMONARY DISEASE W (ACUTE) EXACERBATION; J45.901 - UNSPECIFIED ASTHMA WITH (ACUTE) EXACERBATION (5) CAD (coronary artery disease) Code(s): I25.10 - ATHSCL HEART DISEASE OF [place] CORONARY ARTERY W/O ANG PCTRS (6) COPD (chronic obstructive pulmonary disease) Code(s): J44.9 - CHRONIC OBSTRUCTIVE PULMONARY DISEASE, UNSPECIFIED (7) COPD exacerbation Code(s): J44.1 - CHRONIC OBSTRUCTIVE PULMONARY DISEASE W (ACUTE) EXACERBATION (8) DM (diabetes mellitus) Code(s): E11.9 - TYPE 2 DIABETES MELLITUS WITHOUT COMPLICATIONS (9) Adult behavior problem Code(s): F69 - UNSPECIFIED DISORDER OF ADULT PERSONALITY AND BEHAVIOR Assessment/Plan AGREE WITH ONCOLOGY MEDICATIONS AT 31 SHOULD DECREASE AND LEAVE ESSENTIALS LUNG MASS WORKUP IN PROGRESS 02 SUPPORT AWAIT PATHOLOGY PT EVAL OOB TO CHAIR DVT PROPHYLAXIS PAIN/ANXIETY CONTROL
[2018-05-27 12:40] LABS: ANISOCYTOSIS 1+; MACROCYTOSIS 0; OVALOCYTE 1+; PLATELET ESTIMATE INCREASED
[2018-05-27] MEDS: LACTATED RINGERS SOLUTION 1,000 ML IV SCH ×2 (13:17→15:51)
[2018-05-27] MEDS: SODIUM CHLORIDE NASAL SPRAY 44 ML BOTTLE NS SCH ×2 (14:18→21:53)
[2018-05-27] MEDS: DRONABINOL 5 MG CAPSULE PO SCH (16:22)
--- NOTE | 2018-05-27 17:33 | PN ---
Progress Note (short form) - Note Progress Note: Patient seen in follow up. No new complaints. Informs me she was having 'hallucinations' last night. On further discussion admits they were probably just dreams..(?!) Inpatient Meds reviewed. Current Medications Albuterol Sulfate (Ventolin 0.083% Nebulizer Soln -) 1 amp NEB Q4H PRN PRN Reason: SHORT OF BREATH/WHEEZING Last Admin: 05/24/18 23:53 Dose: 1 amp Albuterol/Ipratropium (Duoneb -) 1 amp NEB RTID [facility] Last Admin: 05/27/18 08:55 Dose: 1 amp Alprazolam (Xanax -) 0.25 mg PO Q6H PRN PRN Reason: ANXIETY Last Admin: 05/24/18 15:40 Dose: 0.25 mg Cyanocobalamin (Vitamin B12 -) 1,000 mcg PO DAILY [facility] Last Admin: 05/27/18 09:21 Dose: 1,000 mcg Docusate Sodium (Colace -) 100 mg PO Q8H PRN PRN Reason: CONSTIPATION Last Admin: 05/26/18 21:25 Dose: 100 mg Doxepin HCl (Sinequan -) 100 mg PO HS [facility] Last Admin: 05/26/18 21:30 Dose: 100 mg Dronabinol (Marinol -) 5 mg PO DAILY@1630 [facility] Last Admin: 05/27/18 16:22 Dose: 5 mg Enoxaparin Sodium (Lovenox -) 40 mg SQ DAILY [facility] Last Admin: 05/27/18 09:24 Dose: 40 mg Ferrous Sulfate (Feosol -) 325 mg PO TIDCM [facility] Last Admin: 05/27/18 17:12 Dose: 325 mg Folic Acid (Folic Acid -) 1 mg PO DAILY [facility] Last Admin: 05/27/18 09:24 Dose: 1 mg Guaifenesin (Diabetic Tussin Dm -) 5 ml PO Q4H PRN PRN Reason: COUGH Last Admin: 05/26/18 18:21 Dose: 5 ml Lactated Ringer's (Lactated Ringers Solution) 1,000 mls @ 75 mls/hr IV ASDIR [facility] Last Admin: 05/27/18 15:51 Dose: Not Given Piperacillin Sod/Tazobactam (Sod 3.375 gm/ Dextrose) 50 mls @ 100 mls/hr IVPB Q8H-IV [facility]; Protocol Last Admin: 05/27/18 17:12 Dose: 100 mls/hr Insulin Aspart (Novolog Vial Sliding Scale -) 1 vial SQ ACHS [facility]; Protocol Last Admin: 05/27/18 16:23 Dose: 6 units Levetiracetam 500 mg/ (Levetiracetam 250 mg) 750 mg PO BID [facility] Last Admin: 05/27/18 09:21 Dose: 750 mg Lidocaine (Lidoderm Patch -) 1 patch TP DAILY [facility] Last Admin: 05/27/18 09:24 Dose: Not Given Melatonin (Melatonin) 5 mg PO HS PRN PRN Reason: INSOMNIA Last Admin: 05/25/18 23:17 Dose: 5 mg Methylnaltrexone [place] (Relistor -) 8 mg SQ DAILY [facility] Last Admin: 05/27/18 09:25 Dose: 8 mg Methylprednisolone Sodium Succinate (Solu-Medrol -) 40 mg IVPUSH Q8H-IV [facility] Last Admin: 05/27/18 17:14 Dose: 40 mg Metoprolol Succinate (Toprol Xl -) 12.5 mg PO DAILY [facility] Last Admin: 05/27/18 09:22 Dose: 12.5 mg Mirtazapine (Remeron -) 7.5 mg PO HS [facility] Last Admin: 05/26/18 21:29 Dose: 7.5 mg Miscellaneous (Lidoderm Patch Removal) 1 each MC DAILY@2200 [facility] Last Admin: 05/26/18 21:27 Dose: Not Given Morphine Sulfate (Morphine Sulfate) 4 mg IVPUSH Q4H PRN PRN Reason: PAIN LEVEL 6-10 Last Admin: 05/27/18 13:17 Dose: 4 mg Nicotine (Nicoderm Patch -) 7 mg TD DAILY [facility] Last Admin: 05/27/18 09:21 Dose: 7 mg Nitroglycerin (Nitrostat -) 0.4 mg SL Q5M PRN PRN Reason: FOR CHEST PAIN Nystatin (Nystatin) 500,000 unit PO TID [facility] Last Admin: 05/27/18 14:18 Dose: 500,000 unit Ondansetron HCl (Zofran Injection) 4 mg IVPUSH Q6H PRN PRN Reason: NAUSEA AND/OR VOMITING Oxycodone HCl (Oxycontin -) 10 mg PO BID [facility] Last Admin: 05/27/18 09:21 Dose: 10 mg Pantoprazole Sodium (Protonix -) 40 mg PO DAILY [facility] Last Admin: 05/27/18 09:21 Dose: 40 mg Polyethylene Glycol (Miralax (For Daily Use) -) 17 gm PO DAILY [facility] Last Admin: 05/27/18 09:24 Dose: 17 grams Ranolazine (Ranexa -) 500 mg PO BID [facility] Last Admin: 05/27/18 09:21 Dose: 500 mg Sitagliptin Phosphate (Januvia -) 100 mg PO DAILY@0700 [facility] Last Admin: 05/27/18 06:06 Dose: 100 mg Sodium Chloride ([place] Nasal [place] -) 2 spray NS TID [facility] Last Admin: 05/27/18 14:18 Dose: 2 sprays Trazodone HCl (Desyrel -) 150 mg PO HS [facility] Last Admin: 05/26/18 21:25 Dose: 150 mg On Examination: Last Vital Signs Temp Pulse Resp BP Pulse Ox 98.4 F 93 H 20 116/58 L 97 05/27/18 14:36 05/27/18 14:36 05/27/18 14:36 05/27/18 14:36 05/27/18 09:00 General: In no acute distress, lying comfortably in bed. Extremities: No pallor or icterus. No pedal edema. No palpable lymphadenopathy. CVS: S1, S2, regular, no gallop or murmur. Chest: good air entry bilaterally, clear Abdomen: Non-distended, non-tender, no palpable organomegaly. Neuro: Alert, oriented, non-focal. Labs: CBC, BMP 05/27/18 07:15 05/27/18 07:15 Assessment. Newly diagnosed hilar mass with secondary distal obstruction/pneumonia. Suspicious for malignancy - pathology pending. Also noted to have developed iron deficiency anemia over past several months. As per patient has had extensive GI workup in recent months - unclear if this is true. Agree with iron repletion. Consider GI workup if not recently done, and if appropriate, following results of lung biopsy.
[2018-05-27] MEDS: traZODone HCL 50 MG TABLET (FP) PO SCH (21:48)
[2018-05-27] MEDS: DOXEPIN HCL 25 MG CAPSULE PO SCH (21:50)
[2018-05-27] MEDS: MIRTAZAPINE 15 MG TABLET (FP) PO SCH (21:50)
[2018-05-27] MEDS: LIDOCAINE PATCH REMOVAL MC SCH (21:52)
[2018-05-28] MEDS: morphine SULFATE 4 MG/ML VIAL IVPUSH PRN ×4 (00:08→17:08)
[2018-05-28] MEDS: ALBUTEROL SO4 0.083% IH SOL 2.5 MG/3 ML VIAL.NEB. NEB PRN (00:17)
[2018-05-28] MEDS: PIPERACILLIN/TAZOB 3.375 GM 3.375 GM in DEXTROSE 5%-WATER - 50 ML IVPB SCH ×3 (01:17→17:20)
[2018-05-28] MEDS: methylPREDNISolone NA SUCC 40 MG/1 ML VIAL IVPUSH SCH ×3 (01:18→17:21)
[2018-05-28] MEDS: LACTATED RINGERS SOLUTION 1,000 ML IV SCH (01:21)
[2018-05-28] MEDS: NYSTATIN 500,000 UNITS TABLET PO SCH ×3 (05:29→22:18)
[2018-05-28] MEDS: SODIUM CHLORIDE NASAL SPRAY 44 ML BOTTLE NS SCH ×3 (05:29→22:17)
[2018-05-28] MEDS: INSULIN SLIDING SCALE (NOVOLOG) 1 VIAL SQ SCH ×4 (06:04→22:18)
[2018-05-28] MEDS: sitaGLIPtin PHOSPHATE 100 MG TABLET (FP) PO SCH (06:04)
[2018-05-28 06:44] LABS: HEMATOCRIT 32.2 % (32.4-45.2); HEMOGLOBIN 10.3 GM/dL (10.7-15.3); MCH 25.3 pg (25.7-33.7); MCHC 32.1 g/dl (32.0-36.0); MEAN CELL VOLUME 78.8 fl (80-96); MEAN PLT VOLUME 8.2 fl (7.5-11.1); PLATELET COUNT 430 K/MM3 (134-434); RBC 4.08 M/mm3 (3.60-5.2); RDW 22.4 % (11.6-15.6); WHITE BLOOD COUNT 23.4 K/mm3 (4.0-10.0)
[2018-05-28] MEDS ORDERED: PIPERACILLIN/TAZOBACTAM 3.375 GM VIAL IVPB ONE ×2 (07:37→14:08)
[2018-05-28] MEDS ORDERED: DEXTROSE 5%-WATER - 50 ML IVPB ONE ×2 (07:37→14:08)
[2018-05-28 07:47] LABS: ANION GAP 7 MMOL/L (8-16); BLOOD UREA NITROGEN 12 mg/dL (7-18); CALCIUM 10.5 mg/dL (8.5-10.1); CHLORIDE 99 mmol/L (98-107); CO2 34 mmol/L (21-32); CREATININE 0.8 mg/dL (0.55-1.3); POTASSIUM 4.3 mmol/L (3.5-5.1); SODIUM 140 mmol/L (136-145)
[2018-05-28 07:49] LABS: GLUCOSE,RANDOM 306 mg/dL (74-106)
[2018-05-28] MEDS ORDERED: INSULIN (NOVOLOG) ASPART 100 UNITS/ML 10ML VIAL ONE ×2 (08:26→21:43)
[2018-05-28] MEDS: FERROUS SO4 325 MG TABLET (FP) PO SCH ×3 (08:59→17:22)
[2018-05-28] MEDS: PANTOPRAZOLE 40 MG TABLET (FP) PO SCH (08:59)
[2018-05-28] MEDS: FOLIC ACID 1 MG TABLET (FP) PO SCH (08:59)
[2018-05-28] MEDS: oxyCODONE HCL 10 MG SUSTAINED ACTING TABLET PO SCH ×2 (09:00→22:16)
[2018-05-28] MEDS: RANOLAZINE E.R. 500 MG TABLET (FP) PO SCH ×2 (09:00→22:16)
[2018-05-28] MEDS: CYANOCOBALAMIN 1,000 MCG TABLET (FP) PO SCH (09:01)
[2018-05-28] MEDS: NICOTINE 7 MG/24 HOURS TOPICAL PATCH TD SCH (09:01)
[2018-05-28] MEDS: metoPROLOL SUCCINATE 25 MG TAB.SR.24H (FP) PO SCH (09:01)
[2018-05-28] MEDS: Methylnaltrexone Bromide 12 MG/0.6 ML KIT SQ SCH (09:02)
[2018-05-28] MEDS: LIDOCAINE 5% TOPICAL PATCH TP SCH (09:05)
[2018-05-28] MEDS: POLYETHYLENE GLYCOL 3350 119 GM BTL PO SCH (09:06)
[2018-05-28] MEDS: ENOXAPARIN NA (PORCINE) 40 MG/0.4 ML DISP.SYRIN SQ SCH (09:06)
[2018-05-28] MEDS: ALBUTEROL SO4 2.5/IPRATROPIUM 0.5 INH SOL 3 ML VIAL.NEB. NEB SCH ×3 (09:40→20:00)
--- NOTE | 2018-05-28 10:15 | PN ---
Progress Note, Physician Chief Complaint: AWAKE ALERT NO EVENTS OVERNIGHT - Current Medication List Current Medications: Active Medications Albuterol Sulfate (Ventolin 0.083% Nebulizer Soln -) 1 amp NEB Q4H PRN PRN Reason: SHORT OF BREATH/WHEEZING Last Admin: 05/28/18 00:17 Dose: 1 amp Albuterol/Ipratropium (Duoneb -) 1 amp NEB RTID [facility] Last Admin: 05/28/18 09:40 Dose: 1 amp Alprazolam (Xanax -) 0.25 mg PO Q6H PRN PRN Reason: ANXIETY Last Admin: 05/24/18 15:40 Dose: 0.25 mg Cyanocobalamin (Vitamin B12 -) 1,000 mcg PO DAILY [facility] Last Admin: 05/28/18 09:01 Dose: 1,000 mcg Docusate Sodium (Colace -) 100 mg PO Q8H PRN PRN Reason: CONSTIPATION Last Admin: 05/26/18 21:25 Dose: 100 mg Doxepin HCl (Sinequan -) 100 mg PO HS [facility] Last Admin: 05/27/18 21:50 Dose: 100 mg Dronabinol (Marinol -) 5 mg PO DAILY@1630 [facility] Last Admin: 05/27/18 16:22 Dose: 5 mg Enoxaparin Sodium (Lovenox -) 40 mg SQ DAILY [facility] Last Admin: 05/28/18 09:06 Dose: 40 mg Ferrous Sulfate (Feosol -) 325 mg PO TIDCM [facility] Last Admin: 05/28/18 08:59 Dose: 325 mg Folic Acid (Folic Acid -) 1 mg PO DAILY [facility] Last Admin: 05/28/18 08:59 Dose: 1 mg Guaifenesin (Diabetic Tussin Dm -) 5 ml PO Q4H PRN PRN Reason: COUGH Last Admin: 05/26/18 18:21 Dose: 5 ml Lactated Ringer's (Lactated Ringers Solution) 1,000 mls @ 75 mls/hr IV ASDIR [facility] Last Admin: 05/28/18 01:21 Dose: 75 mls/hr Piperacillin Sod/Tazobactam (Sod 3.375 gm/ Dextrose) 50 mls @ 100 mls/hr IVPB Q8H-IV [facility]; Protocol Last Admin: 05/28/18 09:06 Dose: 100 mls/hr Insulin Aspart (Novolog Vial Sliding Scale -) 1 vial SQ ACHS [facility]; Protocol Last Admin: 05/28/18 06:04 Dose: 6 units Levetiracetam 500 mg/ (Levetiracetam 250 mg) 750 mg PO BID [facility] Last Admin: 05/28/18 09:01 Dose: 750 mg Lidocaine (Lidoderm Patch -) 1 patch TP DAILY [facility] Last Admin: 05/28/18 09:05 Dose: Not Given Melatonin (Melatonin) 5 mg PO HS PRN PRN Reason: INSOMNIA Last Admin: 05/25/18 23:17 Dose: 5 mg Methylnaltrexone [place] (Relistor -) 8 mg SQ DAILY [facility] Last Admin: 05/28/18 09:02 Dose: 8 mg Methylprednisolone Sodium Succinate (Solu-Medrol -) 40 mg IVPUSH Q8H-IV [facility] Last Admin: 05/28/18 09:02 Dose: 40 mg Metoprolol Succinate (Toprol Xl -) 12.5 mg PO DAILY [facility] Last Admin: 05/28/18 09:01 Dose: 12.5 mg Mirtazapine (Remeron -) 7.5 mg PO HS [facility] Last Admin: 05/27/18 21:50 Dose: 7.5 mg Miscellaneous (Lidoderm Patch Removal) 1 each MC DAILY@2200 [facility] Last Admin: 05/27/18 21:52 Dose: Not Given Morphine Sulfate (Morphine Sulfate) 4 mg IVPUSH Q4H PRN PRN Reason: PAIN LEVEL 6-10 Last Admin: 05/28/18 06:09 Dose: 4 mg Nicotine (Nicoderm Patch -) 7 mg TD DAILY [facility] Last Admin: 05/28/18 09:01 Dose: 7 mg Nitroglycerin (Nitrostat -) 0.4 mg SL Q5M PRN PRN Reason: FOR CHEST PAIN Nystatin (Nystatin) 500,000 unit PO TID [facility] Last Admin: 05/28/18 05:29 Dose: 500,000 unit Ondansetron HCl (Zofran Injection) 4 mg IVPUSH Q6H PRN PRN Reason: NAUSEA AND/OR VOMITING Oxycodone HCl (Oxycontin -) 10 mg PO BID [facility] Last Admin: 05/28/18 09:00 Dose: 10 mg Pantoprazole Sodium (Protonix -) 40 mg PO DAILY [facility] Last Admin: 05/28/18 08:59 Dose: 40 mg Polyethylene Glycol (Miralax (For Daily Use) -) 17 gm PO DAILY [facility] Last Admin: 05/28/18 09:06 Dose: 17 grams Ranolazine (Ranexa -) 500 mg PO BID [facility] Last Admin: 05/28/18 09:00 Dose: 500 mg Sitagliptin Phosphate (Januvia -) 100 mg PO DAILY@0700 [facility] Last Admin: 05/28/18 06:04 Dose: 100 mg Sodium Chloride ([place] Nasal [place] -) 2 spray NS TID [facility] Last Admin: 05/28/18 05:29 Dose: Not Given Trazodone HCl (Desyrel -) 150 mg PO HS [facility] Last Admin: 05/27/18 21:48 Dose: 150 mg - Objective Vital Signs: Vital Signs Temperature 98.2 F 05/28/18 07:51 Pulse Rate 75 05/28/18 07:51 Respiratory Rate 20 05/28/18 07:51 Blood Pressure 117/54 L 05/28/18 07:51 O2 Sat by Pulse Oximetry (%) 97 05/27/18 21:00 Constitutional: Yes: No Distress HENT: Yes: WNL Neck: Yes: WNL Cardiovascular: Yes: Regular Rate and Rhythm Respiratory: Yes: On Nasal O2, Other Gastrointestinal: Yes: Soft Genitourinary: Yes: WNL Musculoskeletal: Yes: Muscle Weakness Edema: No Labs: CBC, BMP 05/28/18 05:20 05/28/18 05:15 INR, PTT INR 0.98 (0.83-1.09) 05/18/18 15:43 Problem List - Problems (1) Lung mass Code(s): R91.8 - OTHER NONSPECIFIC ABNORMAL FINDING OF LUNG FIELD (2) Smoking greater than 30 pack years Code(s): F17.210 - NICOTINE DEPENDENCE, CIGARETTES, UNCOMPLICATED (3) Anemia Code(s): D64.9 - ANEMIA, UNSPECIFIED (4) Asthma exacerbation in COPD Code(s): J44.1 - CHRONIC OBSTRUCTIVE PULMONARY DISEASE W (ACUTE) EXACERBATION; J45.901 - UNSPECIFIED ASTHMA WITH (ACUTE) EXACERBATION (5) CAD (coronary artery disease) Code(s): I25.10 - ATHSCL HEART DISEASE OF [place] CORONARY ARTERY W/O ANG PCTRS (6) COPD (chronic obstructive pulmonary disease) Code(s): J44.9 - CHRONIC OBSTRUCTIVE PULMONARY DISEASE, UNSPECIFIED (7) COPD exacerbation Code(s): J44.1 - CHRONIC OBSTRUCTIVE PULMONARY DISEASE W (ACUTE) EXACERBATION (8) DM (diabetes mellitus) Code(s): E11.9 - TYPE 2 DIABETES MELLITUS WITHOUT COMPLICATIONS (9) Adult behavior problem Code(s): F69 - UNSPECIFIED DISORDER OF ADULT PERSONALITY AND BEHAVIOR Assessment/Plan AGREE WITH ONCOLOGY MEDICATIONS AT 30 SHOULD DECREASE AND LEAVE ESSENTIALS LUNG MASS WORKUP IN PROGRESS 02 SUPPORT AWAIT PATHOLOGY PT EVAL OOB TO CHAIR DVT PROPHYLAXIS PAIN/ANXIETY CONTROL
--- NOTE | 2018-05-28 10:50 | PN ---
Progress Note (short form) - Note Progress Note: Feels a little better today. Resolving chest discomfort and cough. Nasal congestion. Intake & Output 05/25/18 05/26/18 05/27/18 05/28/18 23:59 23:59 23:59 23:59 Intake Total 3125 2649 2950 1487 Balance 3125 2649 2950 1487 Last Vital Signs Temp Pulse Resp BP Pulse Ox 98.2 F 75 20 117/54 L 97 05/28/18 07:51 05/28/18 07:51 05/28/18 09:00 05/28/18 07:51 05/28/18 09:00 Active Medications Albuterol Sulfate (Ventolin 0.083% Nebulizer Soln -) 1 amp NEB Q4H PRN PRN Reason: SHORT OF BREATH/WHEEZING Last Admin: 05/28/18 00:17 Dose: 1 amp Albuterol/Ipratropium (Duoneb -) 1 amp NEB RTID [facility] Last Admin: 05/28/18 09:40 Dose: 1 amp Alprazolam (Xanax -) 0.25 mg PO Q6H PRN PRN Reason: ANXIETY Last Admin: 05/24/18 15:40 Dose: 0.25 mg Cyanocobalamin (Vitamin B12 -) 1,000 mcg PO DAILY [facility] Last Admin: 05/28/18 09:01 Dose: 1,000 mcg Docusate Sodium (Colace -) 100 mg PO Q8H PRN PRN Reason: CONSTIPATION Last Admin: 05/26/18 21:25 Dose: 100 mg Doxepin HCl (Sinequan -) 100 mg PO HS [facility] Last Admin: 05/27/18 21:50 Dose: 100 mg Dronabinol (Marinol -) 5 mg PO DAILY@1630 [facility] Last Admin: 05/27/18 16:22 Dose: 5 mg Enoxaparin Sodium (Lovenox -) 40 mg SQ DAILY [facility] Last Admin: 05/28/18 09:06 Dose: 40 mg Ferrous Sulfate (Feosol -) 325 mg PO TIDCM [facility] Last Admin: 05/28/18 08:59 Dose: 325 mg Guaifenesin (Diabetic Tussin Dm -) 5 ml PO Q4H PRN PRN Reason: COUGH Last Admin: 05/26/18 18:21 Dose: 5 ml Piperacillin Sod/Tazobactam (Sod 3.375 gm/ Dextrose) 50 mls @ 100 mls/hr IVPB Q8H-IV [facility]; Protocol Last Admin: 05/28/18 09:06 Dose: 100 mls/hr Insulin Aspart (Novolog Vial Sliding Scale -) 1 vial SQ ACHS [facility]; Protocol Last Admin: 05/28/18 06:04 Dose: 6 units Levetiracetam 500 mg/ (Levetiracetam 250 mg) 750 mg PO BID [facility] Last Admin: 05/28/18 09:01 Dose: 750 mg Lidocaine (Lidoderm Patch -) 1 patch TP DAILY [facility] Last Admin: 05/28/18 09:05 Dose: Not Given Methylnaltrexone [place] (Relistor -) 8 mg SQ DAILY [facility] Last Admin: 05/28/18 09:02 Dose: 8 mg Methylprednisolone Sodium Succinate (Solu-Medrol -) 40 mg IVPUSH Q8H-IV [facility] Last Admin: 05/28/18 09:02 Dose: 40 mg Metoprolol Succinate (Toprol Xl -) 12.5 mg PO DAILY [facility] Last Admin: 05/28/18 09:01 Dose: 12.5 mg Mirtazapine (Remeron -) 7.5 mg PO HS [facility] Last Admin: 05/27/18 21:50 Dose: 7.5 mg Miscellaneous (Lidoderm Patch Removal) 1 each MC DAILY@2200 [facility] Last Admin: 05/27/18 21:52 Dose: Not Given Morphine Sulfate (Morphine Sulfate) 4 mg IVPUSH Q4H PRN PRN Reason: PAIN LEVEL 6-10 Last Admin: 05/28/18 06:09 Dose: 4 mg Nicotine (Nicoderm Patch -) 7 mg TD DAILY [facility] Last Admin: 05/28/18 09:01 Dose: 7 mg Nystatin (Nystatin) 500,000 unit PO TID [facility] Last Admin: 05/28/18 05:29 Dose: 500,000 unit Oxycodone HCl (Oxycontin -) 10 mg PO BID [facility] Last Admin: 05/28/18 09:00 Dose: 10 mg Pantoprazole Sodium (Protonix -) 40 mg PO DAILY [facility] Last Admin: 05/28/18 08:59 Dose: 40 mg Polyethylene Glycol (Miralax (For Daily Use) -) 17 gm PO DAILY [facility] Last Admin: 05/28/18 09:06 Dose: 17 grams Ranolazine (Ranexa -) 500 mg PO BID [facility] Last Admin: 05/28/18 09:00 Dose: 500 mg Sitagliptin Phosphate (Januvia -) 100 mg PO DAILY@0700 [facility] Last Admin: 05/28/18 06:04 Dose: 100 mg Sodium Chloride ([place] Nasal [place] -) 2 spray NS TID [facility] Last Admin: 05/28/18 05:29 Dose: Not Given Trazodone HCl (Desyrel -) 150 mg PO HS [facility] Last Admin: 05/27/18 21:48 Dose: 150 mg Gen: NAD at rest Heart: RRR Lung: decreased breath sounds at the bases, scattered rhonchi Abd: soft, nontender Ext: no edema Laboratory Results - last 24 hr 05/27/18 05/27/18 05/27/18 07:15 11:05 16:22 WBC RBC Hgb Hct MCV MCH MCHC RDW Plt Count MPV Neutrophils % (Manual) 92.0 H Band Neutrophils % 1.0 Lymphocytes % (Manual) 3.0 L D Monocytes % (Manual) 1 L Eosinophils % (Manual) 0.0 Basophils % (Manual) 0.0 Myelocytes % (Man) 0 Promyelocytes % (Man) 0 Blast Cells % (Manual) 0 Nucleated RBC % 0 Metamyelocytes 0 Hypochromia 0 Platelet Estimate Increased Polychromasia 0 Poikilocytosis 1+ Anisocytosis 1+ Microcytosis 0 Macrocytosis 0 Ovalocytes 1+ Sodium Potassium Chloride Carbon Dioxide Anion Gap BUN Creatinine Creat Clearance w eGFR POC Glucometer 351 302 Random Glucose Calcium 05/28/18 05/28/18 05/28/18 05:15 05:20 05:28 WBC 23.4 H RBC 4.08 Hgb 10.3 L Hct 32.2 L MCV 78.8 L MCH 25.3 L MCHC 32.1 RDW 22.4 H Plt Count 430 MPV 8.2 Neutrophils % (Manual) Band Neutrophils % Lymphocytes % (Manual) Monocytes % (Manual) Eosinophils % (Manual) Basophils % (Manual) Myelocytes % (Man) Promyelocytes % (Man) Blast Cells % (Manual) Nucleated RBC % Metamyelocytes Hypochromia Platelet Estimate Polychromasia Poikilocytosis Anisocytosis Microcytosis Macrocytosis Ovalocytes Sodium 140 Potassium 4.3 Chloride 99 Carbon Dioxide 34 H Anion Gap 7 L BUN 12 Creatinine 0.8 Creat Clearance w eGFR > 60 POC Glucometer 317 Random Glucose 306 H* Calcium 10.5 H A/P Pneumonia likely Post Obstructive Lung Mass COPD CAD HTN DM Seizure Disorder Smoker - Nasal saline - Antibiotics per ID - inhaled bronchodilators - Pain medications - Anxiolytic as needed - staging work up in progress - will need outpt PFTs and PET scan - DVT prophylaxis Dr Kirkpatrick
--- NOTE | 2018-05-28 15:03 | PN ---
Progress Note (short form) - Note Progress Note: Patient seen in follow up. No new complaints. Inpatient Meds reviewed. Current Medications Albuterol Sulfate (Ventolin 0.083% Nebulizer Soln -) 1 amp NEB Q4H PRN PRN Reason: SHORT OF BREATH/WHEEZING Last Admin: 05/28/18 00:17 Dose: 1 amp Albuterol/Ipratropium (Duoneb -) 1 amp NEB RTID [facility] Last Admin: 05/28/18 14:55 Dose: 1 amp Alprazolam (Xanax -) 0.25 mg PO Q6H PRN PRN Reason: ANXIETY Last Admin: 05/24/18 15:40 Dose: 0.25 mg Cyanocobalamin (Vitamin B12 -) 1,000 mcg PO DAILY [facility] Last Admin: 05/28/18 09:01 Dose: 1,000 mcg Docusate Sodium (Colace -) 100 mg PO Q8H PRN PRN Reason: CONSTIPATION Last Admin: 05/26/18 21:25 Dose: 100 mg Doxepin HCl (Sinequan -) 100 mg PO HS [facility] Last Admin: 05/27/18 21:50 Dose: 100 mg Dronabinol (Marinol -) 5 mg PO DAILY@1630 [facility] Last Admin: 05/27/18 16:22 Dose: 5 mg Enoxaparin Sodium (Lovenox -) 40 mg SQ DAILY [facility] Last Admin: 05/28/18 09:06 Dose: 40 mg Ferrous Sulfate (Feosol -) 325 mg PO TIDCM [facility] Last Admin: 05/28/18 11:09 Dose: 325 mg Guaifenesin (Diabetic Tussin Dm -) 5 ml PO Q4H PRN PRN Reason: COUGH Last Admin: 05/26/18 18:21 Dose: 5 ml Piperacillin Sod/Tazobactam (Sod 3.375 gm/ Dextrose) 50 mls @ 100 mls/hr IVPB Q8H-IV [facility]; Protocol Last Admin: 05/28/18 09:06 Dose: 100 mls/hr Insulin Aspart (Novolog Vial Sliding Scale -) 1 vial SQ ACHS [facility]; Protocol Last Admin: 05/28/18 11:05 Dose: 4 units Levetiracetam 500 mg/ (Levetiracetam 250 mg) 750 mg PO BID [facility] Last Admin: 05/28/18 09:01 Dose: 750 mg Lidocaine (Lidoderm Patch -) 1 patch TP DAILY [facility] Last Admin: 05/28/18 09:05 Dose: Not Given Methylnaltrexone [place] (Relistor -) 8 mg SQ DAILY [facility] Last Admin: 05/28/18 09:02 Dose: 8 mg Methylprednisolone Sodium Succinate (Solu-Medrol -) 40 mg IVPUSH Q8H-IV [facility] Last Admin: 05/28/18 09:02 Dose: 40 mg Metoprolol Succinate (Toprol Xl -) 12.5 mg PO DAILY [facility] Last Admin: 05/28/18 09:01 Dose: 12.5 mg Mirtazapine (Remeron -) 7.5 mg PO [facility] Last Admin: 05/27/18 21:50 Dose: 7.5 mg Miscellaneous (Lidoderm Patch Removal) 1 each MC DAILY@2200 [facility] Last Admin: 05/27/18 21:52 Dose: Not Given Morphine Sulfate (Morphine Sulfate) 4 mg IVPUSH Q4H PRN PRN Reason: PAIN LEVEL 6-10 Last Admin: 05/28/18 11:08 Dose: 4 mg Nicotine (Nicoderm Patch -) 7 mg TD DAILY [facility] Last Admin: 05/28/18 09:01 Dose: 7 mg Nystatin (Nystatin) 500,000 unit PO TID [facility] Last Admin: 05/28/18 14:00 Dose: 500,000 unit Oxycodone HCl (Oxycontin -) 10 mg PO BID [facility] Last Admin: 05/28/18 09:00 Dose: 10 mg Pantoprazole Sodium (Protonix -) 40 mg PO DAILY [facility] Last Admin: 05/28/18 08:59 Dose: 40 mg Polyethylene Glycol (Miralax (For Daily Use) -) 17 gm PO DAILY [facility] Last Admin: 05/28/18 09:06 Dose: 17 grams Ranolazine (Ranexa -) 500 mg PO BID [facility] Last Admin: 05/28/18 09:00 Dose: 500 mg Sitagliptin Phosphate (Januvia -) 100 mg PO DAILY@0700 [facility] Last Admin: 05/28/18 06:04 Dose: 100 mg Sodium Chloride ([place] Nasal [place] -) 2 spray NS TID [facility] Last Admin: 05/28/18 14:01 Dose: 2 sprays Trazodone HCl (Desyrel -) 150 mg PO [facility] Last Admin: 05/27/18 21:48 Dose: 150 mg On Examination: Last Vital Signs Temp Pulse Resp BP Pulse Ox 98.4 F 76 20 117/60 97 05/28/18 14:15 05/28/18 14:15 05/28/18 14:15 05/28/18 14:15 05/28/18 09:00 General: In no acute distress, sitting in bed Extremities: No pallor or icterus. No pedal edema. Chest: breathing comfortably Abdomen: Non-distended. Neuro: Alert, oriented, non-focal. Labs: CBC, BMP 05/28/18 05:20 05/28/18 05:15 Assessment. Newly diagnosed hilar mass with secondary distal obstruction/pneumonia. Suspicious for malignancy - pathology pending. Also noted to have developed iron deficiency anemia over past several months. As per patient has had extensive GI workup in recent months - unclear if this is true. Agree with iron repletion. Consider GI workup if not recently done, and if appropriate, following results of lung biopsy.
[2018-05-28] MEDS: DRONABINOL 5 MG CAPSULE PO SCH (16:22)
--- NOTE | 2018-05-28 17:18 | RAPID ---
Physical Examination Vital Signs: Vital Signs Temperature 98.4 F 05/28/18 14:15 Pulse Rate 76 05/28/18 14:15 Respiratory Rate 20 05/28/18 14:15 Blood Pressure 117/60 05/28/18 14:15 O2 Sat by Pulse Oximetry (%) 97 05/28/18 09:00 Labs: CBC, BMP 05/28/18 05:20 05/28/18 05:15 Rapid Response - Rapid Response Assessment: Rapid response called at 5:03pm. Team arrived. Patient was complaining of left-sided chest pain. Patient is newly diagnosed for a left hilar mass s/p biopsy done. On Oxycodone BID and Morphine 4mg q4h PRN. VS: 134/68 [place] 96 O2 sat 98% General: awake, alert, anxious Lungs: scattered wheezes bilaterally Heart: regular rate and rhythm, no murmurs appreciated. Abd: soft, nontender, NABS Chest pain, may be 2/2 lung mass, rule out ACS, GERD EKG Trops CBC, CMP CXR Morphine 4mg Iv given Pepcid 20mg IV given Will continue to monitor
[2018-05-28] MEDS: guaiFENesin/D-M SUGAR-FREE/ACLHOL-FREE 118 ML BOTTLE PO PRN ×2 (17:21→22:15)
[2018-05-28 17:33] LABS: BASO % 0.1 % (0-2.0); HEMATOCRIT 30.6 % (32.4-45.2); HEMOGLOBIN 9.9 GM/dL (10.7-15.3); MCH 25.5 pg (25.7-33.7); MCHC 32.3 g/dl (32.0-36.0); MEAN PLT VOLUME 7.9 fl (7.5-11.1); MONO % 2.3 % (3.8-10.2); NEUT % 94.6 % (42.8-82.8); PLATELET COUNT 429 K/MM3 (134-434); RBC 3.88 M/mm3 (3.60-5.2); RDW 22.4 % (11.6-15.6); WHITE BLOOD COUNT 25.6 K/mm3 (4.0-10.0)
[2018-05-28 18:05] LABS: ALBUMIN 2.6 g/dl (3.4-5.0); ANION GAP 8 MMOL/L (8-16); BILIRUBIN,TOTAL 0.1 mg/dL (0.2-1); BLOOD UREA NITROGEN 14 mg/dL (7-18); CALCIUM 10.1 mg/dL (8.5-10.1); CHLORIDE 97 mmol/L (98-107); CO2 33 mmol/L (21-32); GLUCOSE,RANDOM 262 mg/dL (74-106); POTASSIUM 3.6 mmol/L (3.5-5.1); SODIUM 137 mmol/L (136-145); TOT PROT 5.9 g/dl (6.4-8.2)
[2018-05-28 18:06] LABS: ALK PHOS 63 U/L (45-117); SGOT/AST 6 U/L (15-37); SGPT/ALT 11 U/L (13-61)
[2018-05-28 19:31] LABS: ANISOCYTOSIS 1+; MACROCYTOSIS 0; PLATELET ESTIMATE NORMAL
[2018-05-28] MEDS: LIDOCAINE PATCH REMOVAL MC SCH (22:11)
[2018-05-28] MEDS: DOXEPIN HCL 25 MG CAPSULE PO SCH (22:15)
[2018-05-28] MEDS: FAMOTIDINE 20 MG/50 ML IVPB 20 MG/50 ML MG IVPB SCH (22:15)
[2018-05-28] MEDS: MIRTAZAPINE 15 MG TABLET (FP) PO SCH (22:16)
[2018-05-28] MEDS: traZODone HCL 50 MG TABLET (FP) PO SCH (22:16)
[2018-05-29] MEDS ORDERED: DEXTROSE 5%-WATER - 50 ML IVPB ONE ×3 (01:04→16:15)
[2018-05-29] MEDS ORDERED: PIPERACILLIN/TAZOBACTAM 3.375 GM VIAL IVPB ONE ×3 (01:04→16:15)
[2018-05-29] MEDS: methylPREDNISolone NA SUCC 40 MG/1 ML VIAL IVPUSH SCH ×3 (02:55→22:13)
[2018-05-29] MEDS: PIPERACILLIN/TAZOB 3.375 GM 3.375 GM in DEXTROSE 5%-WATER - 50 ML IVPB SCH ×3 (02:55→17:03)
[2018-05-29] MEDS: sitaGLIPtin PHOSPHATE 100 MG TABLET (FP) PO SCH (06:45)
[2018-05-29] MEDS: SODIUM CHLORIDE NASAL SPRAY 44 ML BOTTLE NS SCH ×3 (06:45→22:10)
[2018-05-29] MEDS: INSULIN SLIDING SCALE (NOVOLOG) 1 VIAL SQ SCH ×4 (06:46→22:10)
[2018-05-29] MEDS: NYSTATIN 500,000 UNITS TABLET PO SCH ×3 (06:46→22:08)
[2018-05-29] MEDS: morphine SULFATE 4 MG/ML VIAL IVPUSH PRN ×3 (06:48→15:22)
[2018-05-29] MEDS: ALBUTEROL SO4 2.5/IPRATROPIUM 0.5 INH SOL 3 ML VIAL.NEB. NEB SCH ×3 (07:15→20:23)
[2018-05-29] MEDS: FERROUS SO4 325 MG TABLET (FP) PO SCH ×3 (07:41→16:56)
[2018-05-29] MEDS ORDERED: PT OWN MED DRAWER 7, Y5N ONE ×2 (08:35→21:21)
[2018-05-29] MEDS: FAMOTIDINE 20 MG/50 ML IVPB 20 MG/50 ML MG IVPB SCH (09:04)
[2018-05-29] MEDS: Methylnaltrexone Bromide 12 MG/0.6 ML KIT SQ SCH (09:04)
[2018-05-29] MEDS: oxyCODONE HCL 10 MG SUSTAINED ACTING TABLET PO SCH ×2 (09:04→22:11)
[2018-05-29] MEDS: ENOXAPARIN NA (PORCINE) 40 MG/0.4 ML DISP.SYRIN SQ SCH (09:04)
[2018-05-29] MEDS: NICOTINE 7 MG/24 HOURS TOPICAL PATCH TD SCH (09:04)
[2018-05-29] MEDS: CYANOCOBALAMIN 1,000 MCG TABLET (FP) PO SCH (09:05)
[2018-05-29] MEDS: PANTOPRAZOLE 40 MG TABLET (FP) PO SCH (09:05)
[2018-05-29] MEDS: RANOLAZINE E.R. 500 MG TABLET (FP) PO SCH ×2 (09:05→22:11)
[2018-05-29] MEDS: metoPROLOL SUCCINATE 25 MG TAB.SR.24H (FP) PO SCH (09:05)
[2018-05-29] MEDS: POLYETHYLENE GLYCOL 3350 119 GM BTL PO SCH (09:07)
[2018-05-29] MEDS: LIDOCAINE 5% TOPICAL PATCH TP SCH (09:08)
--- NOTE | 2018-05-29 09:53 | EKG ---
Test Reason : Blood Pressure : / mmHG Vent. Rate : 085 BPM Atrial Rate : 085 BPM P-R Int : 120 ms QRS Dur : 086 ms QT Int : 290 ms P-R-T Axes : 056 071 082 degrees QTc Int : 345 ms NORMAL SINUS RHYTHM NONSPECIFIC T WAVE ABNORMALITY ABNORMAL ECG WHEN COMPARED WITH ECG OF 18-MAY-2018 15:31, T WAVE VARIATION Confirmed by SANDI GRANT MD ([id number]) on 05/29/2018 9:53:17 AM Referred By: Confirmed By:SANDI GRANT MD
[2018-05-29] MEDS: guaiFENesin/D-M SUGAR-FREE/ACLHOL-FREE 118 ML BOTTLE PO PRN (09:54)
--- NOTE | 2018-05-29 10:09 | PN ---
Progress Note (short form) - Note Progress Note: Noted Rapid Response called due to Left sided CP. Feels better today with morphine. CXR: No gross change in DELVIN atelectasis Intake & Output 05/26/18 05/27/18 05/28/18 05/29/18 23:59 23:59 23:59 23:59 Intake Total 2649 2950 2724 550 Balance 2649 2950 2724 550 Last Vital Signs Temp Pulse Resp BP Pulse Ox 98.0 F 79 20 120/60 97 05/29/18 06:00 05/29/18 06:00 05/29/18 06:00 05/29/18 06:00 05/28/18 21:00 Active Medications Albuterol Sulfate (Ventolin 0.083% Nebulizer Soln -) 1 amp NEB Q4H PRN PRN Reason: SHORT OF BREATH/WHEEZING Last Admin: 05/28/18 00:17 Dose: 1 amp Albuterol/Ipratropium (Duoneb -) 1 amp NEB RTID [facility] Last Admin: 05/29/18 07:15 Dose: 1 amp Alprazolam (Xanax -) 0.25 mg PO Q6H PRN PRN Reason: ANXIETY Last Admin: 05/24/18 15:40 Dose: 0.25 mg Cyanocobalamin (Vitamin B12 -) 1,000 mcg PO DAILY [facility] Last Admin: 05/29/18 09:05 Dose: 1,000 mcg Docusate Sodium (Colace -) 100 mg PO Q8H PRN PRN Reason: CONSTIPATION Last Admin: 05/26/18 21:25 Dose: 100 mg Doxepin HCl (Sinequan -) 100 mg PO HS [facility] Last Admin: 05/28/18 22:15 Dose: 100 mg Dronabinol (Marinol -) 5 mg PO DAILY@1630 [facility] Last Admin: 05/28/18 16:22 Dose: 5 mg Enoxaparin Sodium (Lovenox -) 40 mg SQ DAILY [facility] Last Admin: 05/29/18 09:04 Dose: 40 mg Ferrous Sulfate (Feosol -) 325 mg PO TIDCM [facility] Last Admin: 05/29/18 07:41 Dose: 325 mg Guaifenesin (Diabetic Tussin Dm -) 5 ml PO Q4H PRN PRN Reason: COUGH Last Admin: 05/29/18 09:54 Dose: 5 ml Piperacillin Sod/Tazobactam (Sod 3.375 gm/ Dextrose) 50 mls @ 100 mls/hr IVPB Q8H-IV [facility]; Protocol Last Admin: 05/29/18 09:03 Dose: 100 mls/hr Famotidine/Sodium Chloride (Pepcid 20 Mg Premixed Ivpb -) 20 mg in 50 mls @ 100 mls/hr IVPB BID [facility] Last Admin: 05/29/18 09:04 Dose: 100 mls/hr Insulin Aspart (Novolog Vial Sliding Scale -) 1 vial SQ ACHS [facility]; Protocol Last Admin: 05/29/18 06:46 Dose: 2 units Levetiracetam 500 mg/ (Levetiracetam 250 mg) 750 mg PO BID [facility] Last Admin: 05/29/18 09:05 Dose: 750 mg Lidocaine (Lidoderm Patch -) 1 patch TP DAILY [facility] Last Admin: 05/29/18 09:08 Dose: Not Given Methylnaltrexone [place] (Relistor -) 8 mg SQ DAILY [facility] Last Admin: 05/29/18 09:04 Dose: 8 mg Methylprednisolone Sodium Succinate (Solu-Medrol -) 40 mg IVPUSH Q8H-IV [facility] Last Admin: 05/29/18 09:04 Dose: 40 mg Metoprolol Succinate (Toprol Xl -) 12.5 mg PO DAILY [facility] Last Admin: 05/29/18 09:05 Dose: 12.5 mg Mirtazapine (Remeron -) 7.5 mg PO HS [facility] Last Admin: 05/28/18 22:16 Dose: 7.5 mg Miscellaneous (Lidoderm Patch Removal) 1 each MC DAILY@2200 [facility] Last Admin: 05/28/18 22:11 Dose: Not Given Morphine Sulfate (Morphine Sulfate) 4 mg IVPUSH Q3H PRN PRN Reason: PAIN LEVEL 6-10 Last Admin: 05/29/18 06:48 Dose: 4 mg Nicotine (Nicoderm Patch -) 7 mg TD DAILY [facility] Last Admin: 05/29/18 09:04 Dose: 7 mg Nystatin (Nystatin) 500,000 unit PO TID [facility] Last Admin: 05/29/18 06:46 Dose: 500,000 unit Oxycodone HCl (Oxycontin -) 10 mg PO BID [facility] Last Admin: 05/29/18 09:04 Dose: 10 mg Pantoprazole Sodium (Protonix -) 40 mg PO DAILY [facility] Last Admin: 05/29/18 09:05 Dose: 40 mg Polyethylene Glycol (Miralax (For Daily Use) -) 17 gm PO DAILY [facility] Last Admin: 05/29/18 09:07 Dose: 17 grams Ranolazine (Ranexa -) 500 mg PO BID [facility] Last Admin: 05/29/18 09:05 Dose: 500 mg Sitagliptin Phosphate (Januvia -) 100 mg PO DAILY@0700 [facility] Last Admin: 05/29/18 06:45 Dose: 100 mg Sodium Chloride ([place] Nasal [place] -) 2 spray NS TID [facility] Last Admin: 05/29/18 06:45 Dose: Not Given Trazodone HCl (Desyrel -) 150 mg PO HS [facility] Last Admin: 05/28/18 22:16 Dose: 150 mg Gen: NAD at rest Heart: RRR Lung: decreased breath sounds at the bases, few scattered rhonchi Abd: soft, nontender Ext: no edema Laboratory Results - last 24 hr 05/27/18 05/28/18 05/28/18 21:43 11:04 16:20 WBC RBC Hgb Hct MCV MCH MCHC RDW Plt Count MPV Absolute Neuts (auto) Neutrophils % Neutrophils % (Manual) Band Neutrophils % Lymphocytes % Lymphocytes % (Manual) Monocytes % Monocytes % (Manual) Eosinophils % Eosinophils % (Manual) Basophils % Basophils % (Manual) Myelocytes % (Man) Promyelocytes % (Man) Blast Cells % (Manual) Nucleated RBC % Metamyelocytes Hypochromia Platelet Estimate Polychromasia Poikilocytosis Anisocytosis Microcytosis Macrocytosis Sodium Potassium Chloride Carbon Dioxide Anion Gap BUN Creatinine Creat Clearance w eGFR POC Glucometer 467 287 366 Random Glucose Calcium Total Bilirubin AST ALT Alkaline Phosphatase Creatine Kinase Troponin I Total Protein Albumin 05/28/18 05/28/18 05/28/18 17:28 17:28 21:37 WBC 25.6 H RBC 3.88 Hgb 9.9 L Hct 30.6 L MCV 79.0 L MCH 25.5 L MCHC 32.3 RDW 22.4 H Plt Count 429 MPV 7.9 Absolute Neuts (auto) 24.3 H Neutrophils % 94.6 H Neutrophils % (Manual) 91.9 H Band Neutrophils % 0.0 Lymphocytes % 3.0 L Lymphocytes % (Manual) 5.1 L D Monocytes % 2.3 L D Monocytes % (Manual) 3 L D Eosinophils % 0.0 Eosinophils % (Manual) 0.0 Basophils % 0.1 Basophils % (Manual) 0.0 Myelocytes % (Man) 0 Promyelocytes % (Man) 0 Blast Cells % (Manual) 0 Nucleated RBC % 0 Metamyelocytes 0 Hypochromia 0 Platelet Estimate Normal Polychromasia 1+ Poikilocytosis 1+ Anisocytosis 1+ Microcytosis 1+ Macrocytosis 0 Sodium 137 Potassium 3.6 Chloride 97 L Carbon Dioxide 33 H Anion Gap 8 BUN 14 Creatinine 1.0 Creat Clearance w eGFR 55.82 POC Glucometer Random Glucose 262 H Calcium 10.1 Total Bilirubin 0.1 L AST 6 L ALT 11 L Alkaline Phosphatase 63 Creatine Kinase 19 L Troponin I < 0.02 < 0.02 Total Protein 5.9 L Albumin 2.6 L 05/28/18 05/29/18 22:13 06:43 WBC RBC Hgb Hct MCV MCH MCHC RDW Plt Count MPV Absolute Neuts (auto) Neutrophils % Neutrophils % (Manual) Band Neutrophils % Lymphocytes % Lymphocytes % (Manual) Monocytes % Monocytes % (Manual) Eosinophils % Eosinophils % (Manual) Basophils % Basophils % (Manual) Myelocytes % (Man) Promyelocytes % (Man) Blast Cells % (Manual) Nucleated RBC % Metamyelocytes Hypochromia Platelet Estimate Polychromasia Poikilocytosis Anisocytosis Microcytosis Macrocytosis Sodium Potassium Chloride Carbon Dioxide Anion Gap BUN Creatinine Creat Clearance w eGFR POC Glucometer 355 213 Random Glucose Calcium Total Bilirubin AST ALT Alkaline Phosphatase Creatine Kinase Troponin I Total Protein Albumin A/P Post Obstructive PNA DELVIN Lung Mass: COPD CAD HTN DM Seizure Disorder Smoker - Pain control - Nasal saline - Antibiotics per ID - inhaled bronchodilators - Pain medications - Anxiolytic as needed - Staging work up in progress - will need outpt PFTs and PET scan - DVT prophylaxis - Follow Pathology Dr Kirkpatrick
--- NOTE | 2018-05-29 11:58 | PN ---
Progress Note, Physician Chief Complaint: in bed lying on her side event noted for rapid response for left sided chest pain currently she is ok - Current Medication List Current Medications: Active Medications Albuterol Sulfate (Ventolin 0.083% Nebulizer Soln -) 1 amp NEB Q4H PRN PRN Reason: SHORT OF BREATH/WHEEZING Last Admin: 05/28/18 00:17 Dose: 1 amp Albuterol/Ipratropium (Duoneb -) 1 amp NEB RTID [facility] Last Admin: 05/29/18 07:15 Dose: 1 amp Alprazolam (Xanax -) 0.25 mg PO Q6H PRN PRN Reason: ANXIETY Last Admin: 05/24/18 15:40 Dose: 0.25 mg Cyanocobalamin (Vitamin B12 -) 1,000 mcg PO DAILY [facility] Last Admin: 05/29/18 09:05 Dose: 1,000 mcg Docusate Sodium (Colace -) 100 mg PO Q8H PRN PRN Reason: CONSTIPATION Last Admin: 05/26/18 21:25 Dose: 100 mg Doxepin HCl (Sinequan -) 100 mg PO HS [facility] Last Admin: 05/28/18 22:15 Dose: 100 mg Dronabinol (Marinol -) 5 mg PO DAILY@1630 [facility] Last Admin: 05/28/18 16:22 Dose: 5 mg Enoxaparin Sodium (Lovenox -) 40 mg SQ DAILY [facility] Last Admin: 05/29/18 09:04 Dose: 40 mg Ferrous Sulfate (Feosol -) 325 mg PO TIDCM [facility] Last Admin: 05/29/18 11:17 Dose: 325 mg Guaifenesin (Diabetic Tussin Dm -) 5 ml PO Q4H PRN PRN Reason: COUGH Last Admin: 05/29/18 09:54 Dose: 5 ml Piperacillin Sod/Tazobactam (Sod 3.375 gm/ Dextrose) 50 mls @ 100 mls/hr IVPB Q8H-IV [facility]; Protocol Last Admin: 05/29/18 09:03 Dose: 100 mls/hr Famotidine/Sodium Chloride (Pepcid 20 Mg Premixed Ivpb -) 20 mg in 50 mls @ 100 mls/hr IVPB BID [facility] Last Admin: 05/29/18 09:04 Dose: 100 mls/hr Insulin Aspart (Novolog Vial Sliding Scale -) 1 vial SQ ACHS [facility]; Protocol Last Admin: 05/29/18 11:24 Dose: 4 units Levetiracetam 500 mg/ (Levetiracetam 250 mg) 750 mg PO BID [facility] Last Admin: 05/29/18 09:05 Dose: 750 mg Lidocaine (Lidoderm Patch -) 1 patch TP DAILY [facility] Last Admin: 05/29/18 09:08 Dose: Not Given Methylnaltrexone [place] (Relistor -) 8 mg SQ DAILY [facility] Last Admin: 05/29/18 09:04 Dose: 8 mg Methylprednisolone Sodium Succinate (Solu-Medrol -) 40 mg IVPUSH BID [facility] Metoprolol Succinate (Toprol Xl -) 12.5 mg PO DAILY [facility] Last Admin: 05/29/18 09:05 Dose: 12.5 mg Mirtazapine (Remeron -) 7.5 mg PO HS [facility] Last Admin: 05/28/18 22:16 Dose: 7.5 mg Miscellaneous (Lidoderm Patch Removal) 1 each MC DAILY@2200 [facility] Last Admin: 05/28/18 22:11 Dose: Not Given Morphine Sulfate (Morphine Sulfate) 4 mg IVPUSH Q3H PRN PRN Reason: PAIN LEVEL 6-10 Last Admin: 05/29/18 11:19 Dose: 4 mg Nicotine (Nicoderm Patch -) 7 mg TD DAILY [facility] Last Admin: 05/29/18 09:04 Dose: 7 mg Nystatin (Nystatin) 500,000 unit PO TID [facility] Last Admin: 05/29/18 06:46 Dose: 500,000 unit Oxycodone HCl (Oxycontin -) 10 mg PO BID [facility] Last Admin: 05/29/18 09:04 Dose: 10 mg Pantoprazole Sodium (Protonix -) 40 mg PO DAILY [facility] Last Admin: 05/29/18 09:05 Dose: 40 mg Polyethylene Glycol (Miralax (For Daily Use) -) 17 gm PO DAILY [facility] Last Admin: 05/29/18 09:07 Dose: 17 grams Ranolazine (Ranexa -) 500 mg PO BID [facility] Last Admin: 05/29/18 09:05 Dose: 500 mg Sitagliptin Phosphate (Januvia -) 100 mg PO DAILY@0700 [facility] Last Admin: 05/29/18 06:45 Dose: 100 mg Sodium Chloride ([place] Nasal [place] -) 2 spray NS TID [facility] Last Admin: 05/29/18 06:45 Dose: Not Given Trazodone HCl (Desyrel -) 150 mg PO HS [facility] Last Admin: 05/28/18 22:16 Dose: 150 mg - Objective Vital Signs: Vital Signs Temperature 98.0 F 05/29/18 10:00 Pulse Rate 81 05/29/18 10:00 Respiratory Rate 20 05/29/18 10:00 Blood Pressure 131/59 L 05/29/18 10:00 O2 Sat by Pulse Oximetry (%) 95 05/29/18 09:00 Constitutional: Yes: Calm, Thin Cardiovascular: Yes: Regular Rate and Rhythm, S1, S2 Respiratory: Yes: Wheezes Gastrointestinal: Yes: Normal Bowel Sounds, Soft Edema: No Neurological: Yes: Alert Labs: CBC, BMP 05/28/18 17:28 05/28/18 17:28 INR, PTT INR 0.98 (0.83-1.09) 05/18/18 15:43 Problem List - Problems (1) Lung mass Assessment/Plan: 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 no mets in abdomen /pelvis or brain bone scan negative dvt ppx morphine relistor appetite stimulant,remeron mvt oxygen and nasal saline Code(s): R91.8 - OTHER NONSPECIFIC ABNORMAL FINDING OF LUNG FIELD (2) Anemia Assessment/Plan: iron deficiency on po iron Code(s): D64.9 - ANEMIA, UNSPECIFIED (3) DM (diabetes mellitus) Assessment/Plan: hgba1c 6.9 on januvia Code(s): E11.9 - TYPE 2 DIABETES MELLITUS WITHOUT COMPLICATIONS Qualifiers: Diabetes mellitus type: type 2 (4) Smoking greater than 30 pack years Assessment/Plan: nitocine patch Code(s): F17.210 - NICOTINE DEPENDENCE, CIGARETTES, UNCOMPLICATED (5) Leukocytosis Assessment/Plan: r/o post obstructive pna on zosyn maybe secondary to steroids will taper Code(s): D72.829 - ELEVATED WHITE BLOOD CELL COUNT, UNSPECIFIED (6) Thrush, oral Assessment/Plan: nystatin Code(s): B37.0 - CANDIDAL STOMATITIS
--- NOTE | 2018-05-29 12:17 | PN ---
Progress Note, Physician History of Present Illness: SUPINE IN BED STILL WITH C/O PLEURITIC CP WITH COUGH + DRY COUGH AFEBRILE WBC REMAINS ELEVATED- MULTIFACTORIAL BREATHING NON-LABORED CXR NO CHANGE - Current Medication List Current Medications: Active Medications Albuterol Sulfate (Ventolin 0.083% Nebulizer Soln -) 1 amp NEB Q4H PRN PRN Reason: SHORT OF BREATH/WHEEZING Last Admin: 05/28/18 00:17 Dose: 1 amp Albuterol/Ipratropium (Duoneb -) 1 amp NEB RTID [facility] Last Admin: 05/29/18 07:15 Dose: 1 amp Alprazolam (Xanax -) 0.25 mg PO Q6H PRN PRN Reason: ANXIETY Last Admin: 05/24/18 15:40 Dose: 0.25 mg Cyanocobalamin (Vitamin B12 -) 1,000 mcg PO DAILY [facility] Last Admin: 05/29/18 09:05 Dose: 1,000 mcg Doxepin HCl (Sinequan -) 100 mg PO HS [facility] Last Admin: 05/28/18 22:15 Dose: 100 mg Dronabinol (Marinol -) 5 mg PO DAILY@1630 [facility] Last Admin: 05/28/18 16:22 Dose: 5 mg Enoxaparin Sodium (Lovenox -) 40 mg SQ DAILY [facility] Last Admin: 05/29/18 09:04 Dose: 40 mg Ferrous Sulfate (Feosol -) 325 mg PO TIDCM [facility] Last Admin: 05/29/18 11:17 Dose: 325 mg Guaifenesin (Diabetic Tussin Dm -) 5 ml PO Q4H PRN PRN Reason: COUGH Last Admin: 05/29/18 09:54 Dose: 5 ml Piperacillin Sod/Tazobactam (Sod 3.375 gm/ Dextrose) 50 mls @ 100 mls/hr IVPB Q8H-IV [facility]; Protocol Last Admin: 05/29/18 09:03 Dose: 100 mls/hr Insulin Aspart (Novolog Vial Sliding Scale -) 1 vial SQ ACHS [facility]; Protocol Last Admin: 05/29/18 11:24 Dose: 4 units Levetiracetam 500 mg/ (Levetiracetam 250 mg) 750 mg PO BID [facility] Last Admin: 05/29/18 09:05 Dose: 750 mg Lidocaine (Lidoderm Patch -) 1 patch TP DAILY [facility] Last Admin: 05/29/18 09:08 Dose: Not Given Methylnaltrexone [place] (Relistor -) 8 mg SQ DAILY [facility] Last Admin: 05/29/18 09:04 Dose: 8 mg Methylprednisolone Sodium Succinate (Solu-Medrol -) 40 mg IVPUSH BID [facility] Metoprolol Succinate (Toprol Xl -) 12.5 mg PO DAILY [facility] Last Admin: 05/29/18 09:05 Dose: 12.5 mg Mirtazapine (Remeron -) 7.5 mg PO [facility] Last Admin: 05/28/18 22:16 Dose: 7.5 mg Miscellaneous (Lidoderm Patch Removal) 1 each MC DAILY@2200 [facility] Last Admin: 05/28/18 22:11 Dose: Not Given Morphine Sulfate (Morphine Sulfate) 4 mg IVPUSH Q3H PRN PRN Reason: PAIN LEVEL 6-10 Last Admin: 05/29/18 11:19 Dose: 4 mg Nicotine (Nicoderm Patch -) 7 mg TD DAILY [facility] Last Admin: 05/29/18 09:04 Dose: 7 mg Nystatin (Nystatin) 500,000 unit PO TID [facility] Last Admin: 05/29/18 06:46 Dose: 500,000 unit Oxycodone HCl (Oxycontin -) 10 mg PO BID [facility] Last Admin: 05/29/18 09:04 Dose: 10 mg Pantoprazole Sodium (Protonix -) 40 mg PO DAILY [facility] Last Admin: 05/29/18 09:05 Dose: 40 mg Polyethylene Glycol (Miralax (For Daily Use) -) 17 gm PO DAILY [facility] Last Admin: 05/29/18 09:07 Dose: 17 grams Ranolazine (Ranexa -) 500 mg PO BID [facility] Last Admin: 05/29/18 09:05 Dose: 500 mg Sitagliptin Phosphate (Januvia -) 100 mg PO DAILY@0700 [facility] Last Admin: 05/29/18 06:45 Dose: 100 mg Sodium Chloride ([place] Nasal [place] -) 2 spray NS TID [facility] Last Admin: 05/29/18 06:45 Dose: Not Given Trazodone HCl (Desyrel -) 150 mg PO [facility] Last Admin: 05/28/18 22:16 Dose: 150 mg - Objective Vital Signs: Vital Signs Temperature 98.0 F 05/29/18 10:00 Pulse Rate 81 05/29/18 10:00 Respiratory Rate 20 05/29/18 10:00 Blood Pressure 131/59 L 05/29/18 10:00 O2 Sat by Pulse Oximetry (%) 95 05/29/18 09:00 Constitutional: Yes: No Distress Eyes: Yes: Conjunctiva Clear Cardiovascular: Yes: Regular Rate and Rhythm, S1, S2 Respiratory: Yes: Other (+ BILATERAL RHONCHI, WHEEZE) Gastrointestinal: Yes: Normal Bowel Sounds, Soft. No: Tenderness Edema: No Labs: CBC, BMP 05/28/18 17:28 05/28/18 17:28 INR, PTT INR 0.98 (0.83-1.09) 05/18/18 15:43 Assessment/Plan S/P BRONCHOSCOPY. BX OF ENDOBRONCHIAL LESION + INVASIVE SQUAMOUS CELL CA R/O POST OBSTRUCTIVE PNEUMONIA LEUKOCYTOSIS- MULTIFACTORIAL ( MALIGNANCY, STEROIDS, +/- PNEUMONIA ) ZOSYN, DAY #11 SUBSTITUTE PO AUGMENTIN 875MG BID X 7D WHEN CLEARED FOR DISCHARGE
[2018-05-29] MEDS: DRONABINOL 5 MG CAPSULE PO SCH (16:56)
[2018-05-29] MEDS ORDERED: INSULIN (NOVOLOG) ASPART 100 UNITS/ML 10ML VIAL ONE (21:38)
[2018-05-29] MEDS: traZODone HCL 50 MG TABLET (FP) PO SCH (22:09)
[2018-05-29] MEDS: LIDOCAINE PATCH REMOVAL MC SCH (22:10)
[2018-05-29] MEDS: MIRTAZAPINE 15 MG TABLET (FP) PO SCH (22:12)
[2018-05-29] MEDS: DOXEPIN HCL 25 MG CAPSULE PO SCH (22:13)
[2018-05-30] MEDS ORDERED: PIPERACILLIN/TAZOBACTAM 3.375 GM VIAL IVPB ONE ×3 (01:27→16:06)
[2018-05-30] MEDS ORDERED: DEXTROSE 5%-WATER - 50 ML IVPB ONE ×3 (01:27→16:06)
[2018-05-30] MEDS: PIPERACILLIN/TAZOB 3.375 GM 3.375 GM in DEXTROSE 5%-WATER - 50 ML IVPB SCH ×3 (01:37→17:19)
[2018-05-30] MEDS: NYSTATIN 500,000 UNITS TABLET PO SCH ×3 (05:33→22:19)
[2018-05-30] MEDS: SODIUM CHLORIDE NASAL SPRAY 44 ML BOTTLE NS SCH ×3 (05:34→22:19)
[2018-05-30] MEDS: sitaGLIPtin PHOSPHATE 100 MG TABLET (FP) PO SCH (06:03)
[2018-05-30] MEDS: INSULIN SLIDING SCALE (NOVOLOG) 1 VIAL SQ SCH ×4 (06:03→22:20)
[2018-05-30] MEDS: FERROUS SO4 325 MG TABLET (FP) PO SCH ×3 (07:48→16:37)
[2018-05-30 08:05] LABS: BASO % 0.1 % (0-2.0); HEMOGLOBIN 10.5 GM/dL (10.7-15.3); LYMPH % 4.3 % (8-40); MCH 25.4 pg (25.7-33.7); MCHC 32.7 g/dl (32.0-36.0); MEAN CELL VOLUME 77.6 fl (80-96); MONO % 2.3 % (3.8-10.2); NEUT % 93.3 % (42.8-82.8); PLATELET COUNT 441 K/MM3 (134-434); RBC 4.13 M/mm3 (3.60-5.2); RDW 22.6 % (11.6-15.6); WHITE BLOOD COUNT 19.1 K/mm3 (4.0-10.0)
--- NOTE | 2018-05-30 08:13 | PN ---
Progress Note, Physician Chief Complaint: EVENTS AND NOTES REVIEWED RAPID RESPONSE FOR CHEST PAIN OVERNIGHT LIKELY ATYPICAL PATHOLOGY CONSISTENT WITH SQUAMOUS CELL CA OF LUNGS - Current Medication List Current Medications: Active Medications Albuterol Sulfate (Ventolin 0.083% Nebulizer Soln -) 1 amp NEB Q4H PRN PRN Reason: SHORT OF BREATH/WHEEZING Last Admin: 05/28/18 00:17 Dose: 1 amp Albuterol/Ipratropium (Duoneb -) 1 amp NEB RTID [facility] Last Admin: 05/29/18 20:23 Dose: 1 amp Alprazolam (Xanax -) 0.25 mg PO Q6H PRN PRN Reason: ANXIETY Last Admin: 05/24/18 15:40 Dose: 0.25 mg Cyanocobalamin (Vitamin B12 -) 1,000 mcg PO DAILY [facility] Last Admin: 05/29/18 09:05 Dose: 1,000 mcg Doxepin HCl (Sinequan -) 100 mg PO HS [facility] Last Admin: 05/29/18 22:13 Dose: 100 mg Dronabinol (Marinol -) 5 mg PO DAILY@1630 [facility] Last Admin: 05/29/18 16:56 Dose: 5 mg Enoxaparin Sodium (Lovenox -) 40 mg SQ DAILY [facility] Last Admin: 05/29/18 09:04 Dose: 40 mg Ferrous Sulfate (Feosol -) 325 mg PO TIDCM [facility] Last Admin: 05/30/18 07:48 Dose: 325 mg Guaifenesin (Diabetic Tussin Dm -) 5 ml PO Q4H PRN PRN Reason: COUGH Last Admin: 05/29/18 09:54 Dose: 5 ml Piperacillin Sod/Tazobactam (Sod 3.375 gm/ Dextrose) 50 mls @ 100 mls/hr IVPB Q8H-IV [facility]; Protocol Last Admin: 05/30/18 01:37 Dose: 100 mls/hr Insulin Aspart (Novolog Vial Sliding Scale -) 1 vial SQ ACHS [facility]; Protocol Last Admin: 05/30/18 06:03 Dose: 4 units Levetiracetam 500 mg/ (Levetiracetam 250 mg) 750 mg PO BID [facility] Last Admin: 05/29/18 22:09 Dose: 750 mg Lidocaine (Lidoderm Patch -) 1 patch TP DAILY [facility] Last Admin: 05/29/18 09:08 Dose: Not Given Methylnaltrexone [place] (Relistor -) 8 mg SQ DAILY [facility] Last Admin: 05/29/18 09:04 Dose: 8 mg Methylprednisolone Sodium Succinate (Solu-Medrol -) 40 mg IVPUSH BID [facility] Last Admin: 05/29/18 22:13 Dose: 40 mg Metoprolol Succinate (Toprol Xl -) 12.5 mg PO DAILY [facility] Last Admin: 05/29/18 09:05 Dose: 12.5 mg Mirtazapine (Remeron -) 7.5 mg PO [facility] Last Admin: 05/29/18 22:12 Dose: 7.5 mg Miscellaneous (Lidoderm Patch Removal) 1 each MC DAILY@2200 [facility] Last Admin: 05/29/18 22:10 Dose: Not Given Morphine Sulfate (Morphine Sulfate) 4 mg IVPUSH Q3H PRN PRN Reason: PAIN LEVEL 6-10 Last Admin: 05/29/18 15:22 Dose: 4 mg Nicotine (Nicoderm Patch -) 7 mg TD DAILY [facility] Last Admin: 05/29/18 09:04 Dose: 7 mg Nystatin (Nystatin) 500,000 unit PO TID [facility] Last Admin: 05/30/18 05:33 Dose: 500,000 unit Oxycodone HCl (Oxycontin -) 10 mg PO BID [facility] Last Admin: 05/29/18 22:11 Dose: 10 mg Pantoprazole Sodium (Protonix -) 40 mg PO DAILY [facility] Last Admin: 05/29/18 09:05 Dose: 40 mg Polyethylene Glycol (Miralax (For Daily Use) -) 17 gm PO DAILY [facility] Last Admin: 05/29/18 09:07 Dose: 17 grams Ranolazine (Ranexa -) 500 mg PO BID [facility] Last Admin: 05/29/18 22:11 Dose: 500 mg Sitagliptin Phosphate (Januvia -) 100 mg PO DAILY@0700 [facility] Last Admin: 05/30/18 06:03 Dose: 100 mg Sodium Chloride ([place] Nasal [place] -) 2 spray NS TID [facility] Last Admin: 05/30/18 05:34 Dose: 2 sprays Trazodone HCl (Desyrel -) 150 mg PO [facility] Last Admin: 05/29/18 22:09 Dose: 150 mg - Objective Vital Signs: Vital Signs Temperature 98.5 F 05/30/18 06:00 Pulse Rate 81 05/30/18 06:00 Respiratory Rate 20 05/30/18 06:00 Blood Pressure 111/58 L 05/30/18 06:00 O2 Sat by Pulse Oximetry (%) 97 05/29/18 21:00 Constitutional: Yes: Mild Distress Eyes: Yes: WNL HENT: Yes: WNL Neck: Yes: WNL Cardiovascular: Yes: Regular Rate and Rhythm Respiratory: Yes: Diminished, On Nasal O2 Gastrointestinal: Yes: Soft Genitourinary: Yes: WNL Musculoskeletal: Yes: Back Pain, Muscle Pain Extremities: Yes: WNL Edema: No Peripheral Pulses WNL: Yes Integumentary: Yes: WNL Wound/Incision: Yes: Clean/Dry Neurological: Yes: WNL ...Motor Strength: LLE, RLE Psychiatric: Yes: WNL Labs: INR, PTT INR 0.98 (0.83-1.09) 05/18/18 15:43 Problem List - Problems (1) Lung mass Code(s): R91.8 - OTHER NONSPECIFIC ABNORMAL FINDING OF LUNG FIELD (2) Smoking greater than 30 pack years Code(s): F17.210 - NICOTINE DEPENDENCE, CIGARETTES, UNCOMPLICATED (3) Anemia Code(s): D64.9 - ANEMIA, UNSPECIFIED (4) Asthma exacerbation in COPD Code(s): J44.1 - CHRONIC OBSTRUCTIVE PULMONARY DISEASE W (ACUTE) EXACERBATION; J45.901 - UNSPECIFIED ASTHMA WITH (ACUTE) EXACERBATION (5) CAD (coronary artery disease) Code(s): I25.10 - ATHSCL HEART DISEASE OF [place] CORONARY ARTERY W/O ANG PCTRS (6) COPD (chronic obstructive pulmonary disease) Code(s): J44.9 - CHRONIC OBSTRUCTIVE PULMONARY DISEASE, UNSPECIFIED (7) COPD exacerbation Code(s): J44.1 - CHRONIC OBSTRUCTIVE PULMONARY DISEASE W (ACUTE) EXACERBATION (8) DM (diabetes mellitus) Code(s): E11.9 - TYPE 2 DIABETES MELLITUS WITHOUT COMPLICATIONS Qualifiers: Diabetes mellitus type: type 2 (9) Adult behavior problem Code(s): F69 - UNSPECIFIED DISORDER OF ADULT PERSONALITY AND BEHAVIOR (10) Squamous cell lung cancer Code(s): C34.90 - MALIGNANT NEOPLASM OF UNSP PART OF UNSP BRONCHUS OR LUNG Assessment/Plan SQUAMOUS CELL CANCER AWAIT ONCOLOGY PLAN FOR THERAPY PAIN CONTROL DVT PROPHYLAXIS OOB TO CHAIR ADVANCED DIRECTIVE BEING DISCUSSED
[2018-05-30] MEDS: ALBUTEROL SO4 2.5/IPRATROPIUM 0.5 INH SOL 3 ML VIAL.NEB. NEB SCH ×3 (08:24→20:07)
[2018-05-30 08:30] LABS: ALBUMIN 2.4 g/dl (3.4-5.0); ALK PHOS 57 U/L (45-117); ANION GAP 5 MMOL/L (8-16); BILIRUBIN,TOTAL 0.2 mg/dL (0.2-1); BLOOD UREA NITROGEN 18 mg/dL (7-18); CALCIUM 9.9 mg/dL (8.5-10.1); CHLORIDE 97 mmol/L (98-107); CO2 36 mmol/L (21-32); CREATININE 0.9 mg/dL (0.55-1.3); GLUCOSE,RANDOM 227 mg/dL (74-106); POTASSIUM 4.3 mmol/L (3.5-5.1); SGOT/AST 8 U/L (15-37); SGPT/ALT 12 U/L (13-61); SODIUM 138 mmol/L (136-145); TOT PROT 5.5 g/dl (6.4-8.2)
[2018-05-30] MEDS ORDERED: PT OWN MED DRAWER 7, Y5N ONE (08:51)
[2018-05-30] MEDS: RANOLAZINE E.R. 500 MG TABLET (FP) PO SCH ×2 (09:06→22:18)
[2018-05-30] MEDS: metoPROLOL SUCCINATE 25 MG TAB.SR.24H (FP) PO SCH (09:06)
[2018-05-30] MEDS: PANTOPRAZOLE 40 MG TABLET (FP) PO SCH (09:06)
[2018-05-30] MEDS: oxyCODONE HCL 10 MG SUSTAINED ACTING TABLET PO SCH ×2 (09:06→22:19)
[2018-05-30] MEDS: methylPREDNISolone NA SUCC 40 MG/1 ML VIAL IVPUSH SCH ×2 (09:06→22:18)
[2018-05-30] MEDS: ENOXAPARIN NA (PORCINE) 40 MG/0.4 ML DISP.SYRIN SQ SCH (09:06)
[2018-05-30] MEDS: POLYETHYLENE GLYCOL 3350 119 GM BTL PO SCH (09:07)
[2018-05-30] MEDS: NICOTINE 7 MG/24 HOURS TOPICAL PATCH TD SCH (09:07)
[2018-05-30] MEDS: LIDOCAINE 5% TOPICAL PATCH TP SCH (09:07)
[2018-05-30] MEDS: morphine SULFATE 4 MG/ML VIAL IVPUSH PRN ×2 (09:54→13:08)
[2018-05-30] MEDS: ALPRAZolam 0.25 MG TABLET PO PRN (10:44)
--- NOTE | 2018-05-30 10:53 | PN ---
Progress Note (short form) - Note Progress Note: Weeping due to diagnosis of Squamous Cell Lung CA. Reports left chest pressure. Intake & Output 05/27/18 05/28/18 05/29/18 05/30/18 23:59 23:59 23:59 23:59 Intake Total 2950 2724 1200 Balance 2950 2724 1200 Last Vital Signs Temp Pulse Resp BP Pulse Ox 98.5 F 81 20 111/58 L 97 05/30/18 06:00 05/30/18 06:00 05/30/18 06:00 05/30/18 06:00 05/29/18 21:00 Active Medications Albuterol Sulfate (Ventolin 0.083% Nebulizer Soln -) 1 amp NEB Q4H PRN PRN Reason: SHORT OF BREATH/WHEEZING Last Admin: 05/28/18 00:17 Dose: 1 amp Albuterol/Ipratropium (Duoneb -) 1 amp NEB RTID [facility] Last Admin: 05/30/18 08:24 Dose: 1 amp Alprazolam (Xanax -) 0.25 mg PO Q6H PRN PRN Reason: ANXIETY Last Admin: 05/30/18 10:44 Dose: 0.25 mg Doxepin HCl (Sinequan -) 100 mg PO HS [facility] Last Admin: 05/29/18 22:13 Dose: 100 mg Dronabinol (Marinol -) 5 mg PO DAILY@1630 [facility] Last Admin: 05/29/18 16:56 Dose: 5 mg Enoxaparin Sodium (Lovenox -) 40 mg SQ DAILY [facility] Last Admin: 05/30/18 09:06 Dose: 40 mg Ferrous Sulfate (Feosol -) 325 mg PO TIDCM [facility] Last Admin: 05/30/18 07:48 Dose: 325 mg Guaifenesin (Diabetic Tussin Dm -) 5 ml PO Q4H PRN PRN Reason: COUGH Last Admin: 05/29/18 09:54 Dose: 5 ml Piperacillin Sod/Tazobactam (Sod 3.375 gm/ Dextrose) 50 mls @ 100 mls/hr IVPB Q8H-IV [facility]; Protocol Last Admin: 05/30/18 09:05 Dose: 100 mls/hr Insulin Aspart (Novolog Vial Sliding Scale -) 1 vial SQ ACHS [facility]; Protocol Last Admin: 05/30/18 06:03 Dose: 4 units Levetiracetam 500 mg/ (Levetiracetam 250 mg) 750 mg PO BID [facility] Last Admin: 05/30/18 09:07 Dose: 750 mg Lidocaine (Lidoderm Patch -) 1 patch TP DAILY [facility] Last Admin: 05/30/18 09:07 Dose: Not Given Methylnaltrexone [place] (Relistor -) 8 mg SQ DAILY [facility] Last Admin: 05/29/18 09:04 Dose: 8 mg Methylprednisolone Sodium Succinate (Solu-Medrol -) 40 mg IVPUSH BID [facility] Last Admin: 05/30/18 09:06 Dose: 40 mg Metoprolol Succinate (Toprol Xl -) 12.5 mg PO DAILY [facility] Last Admin: 05/30/18 09:06 Dose: 12.5 mg Mirtazapine (Remeron -) 7.5 mg PO HS [facility] Last Admin: 05/29/18 22:12 Dose: 7.5 mg Miscellaneous (Lidoderm Patch Removal) 1 each MC DAILY@2200 [facility] Last Admin: 05/29/18 22:10 Dose: Not Given Morphine Sulfate (Morphine Sulfate) 4 mg IVPUSH Q3H PRN PRN Reason: PAIN LEVEL 6-10 Last Admin: 05/30/18 09:54 Dose: 4 mg Nicotine (Nicoderm Patch -) 7 mg TD DAILY [facility] Last Admin: 05/30/18 09:07 Dose: 7 mg Nystatin (Nystatin) 500,000 unit PO TID [facility] Last Admin: 05/30/18 05:33 Dose: 500,000 unit Oxycodone HCl (Oxycontin -) 10 mg PO BID [facility] Last Admin: 05/30/18 09:06 Dose: 10 mg Pantoprazole Sodium (Protonix -) 40 mg PO DAILY [facility] Last Admin: 05/30/18 09:06 Dose: 40 mg Polyethylene Glycol (Miralax (For Daily Use) -) 17 gm PO DAILY [facility] Last Admin: 05/30/18 09:07 Dose: 17 grams Ranolazine (Ranexa -) 500 mg PO BID [facility] Last Admin: 05/30/18 09:06 Dose: 500 mg Sitagliptin Phosphate (Januvia -) 100 mg PO DAILY@0700 [facility] Last Admin: 05/30/18 06:03 Dose: 100 mg Sodium Chloride ([place] Nasal [place] -) 2 spray NS TID [facility] Last Admin: 05/30/18 05:34 Dose: 2 sprays Trazodone HCl (Desyrel -) 150 mg PO HS [facility] Last Admin: 05/29/18 22:09 Dose: 150 mg Gen: Weeping/anxious, NAD Heart: RRR Lung: few scattered rhonchi Abd: soft, nontender Ext: no edema Laboratory Results - last 24 hr 05/29/18 05/29/18 05/29/18 11:22 16:57 21:35 WBC RBC Hgb Hct MCV MCH MCHC RDW Plt Count MPV Absolute Neuts (auto) Neutrophils % Lymphocytes % Monocytes % Eosinophils % Basophils % Nucleated RBC % Sodium Potassium Chloride Carbon Dioxide Anion Gap BUN Creatinine Creat Clearance w eGFR POC Glucometer 286 339 287 Random Glucose Calcium Total Bilirubin AST ALT Alkaline Phosphatase Total Protein Albumin Vitamin B12 05/30/18 05/30/18 05/30/18 05:49 06:30 06:30 WBC 19.1 H RBC 4.13 Hgb 10.5 L Hct 32.0 L MCV 77.6 L MCH 25.4 L MCHC 32.7 RDW 22.6 H Plt Count 441 H MPV 8.0 Absolute Neuts (auto) 17.9 H Neutrophils % 93.3 H Lymphocytes % 4.3 L D Monocytes % 2.3 L Eosinophils % 0.0 Basophils % 0.1 Nucleated RBC % 0 Sodium 138 Potassium 4.3 Chloride 97 L Carbon Dioxide 36 H Anion Gap 5 L BUN 18 Creatinine 0.9 Creat Clearance w eGFR > 60 POC Glucometer 250 Random Glucose 227 H Calcium 9.9 Total Bilirubin 0.2 AST 8 L ALT 12 L Alkaline Phosphatase 57 Total Protein 5.5 L Albumin 2.4 L Vitamin B12 1210 H A/P DELVIN Squamous Cell CA Post Obstructive PNA COPD CAD HTN DM Seizure Disorder Smoker - Oncology evaluation - Pain control - Antibiotics per ID - inhaled bronchodilators - Pain medications - Anxiolytics as needed - Will need outpt PFTs and PET scan - DVT prophylaxis Dr Kirkpatrick
[2018-05-30] MEDS: Methylnaltrexone Bromide 12 MG/0.6 ML KIT SQ SCH (11:20)
[2018-05-30] MEDS: guaiFENesin/D-M SUGAR-FREE/ACLHOL-FREE 118 ML BOTTLE PO PRN ×2 (13:13→22:21)
[2018-05-30 13:51] LABS: ANISOCYTOSIS 1+; PLATELET ESTIMATE NORMAL
[2018-05-30] MEDS: DRONABINOL 5 MG CAPSULE PO SCH (16:37)
[2018-05-30] MEDS: MIRTAZAPINE 15 MG TABLET (FP) PO SCH (22:18)
[2018-05-30] MEDS: DOXEPIN HCL 25 MG CAPSULE PO SCH (22:18)
[2018-05-30] MEDS: traZODone HCL 50 MG TABLET (FP) PO SCH (22:18)
[2018-05-30] MEDS: LIDOCAINE PATCH REMOVAL MC SCH (22:20)
[2018-05-31] MEDS ORDERED: PIPERACILLIN/TAZOBACTAM 3.375 GM VIAL IVPB ONE ×3 (00:54→16:38)
[2018-05-31] MEDS ORDERED: DEXTROSE 5%-WATER - 50 ML IVPB ONE ×3 (00:54→16:38)
[2018-05-31] MEDS: morphine SULFATE 4 MG/ML VIAL IVPUSH PRN (01:51)
[2018-05-31] MEDS: PIPERACILLIN/TAZOB 3.375 GM 3.375 GM in DEXTROSE 5%-WATER - 50 ML IVPB SCH ×3 (01:51→18:00)
[2018-05-31] MEDS: sitaGLIPtin PHOSPHATE 100 MG TABLET (FP) PO SCH (06:42)
[2018-05-31] MEDS: NYSTATIN 500,000 UNITS TABLET PO SCH ×3 (06:42→22:46)
[2018-05-31] MEDS: SODIUM CHLORIDE NASAL SPRAY 44 ML BOTTLE NS SCH ×3 (06:42→22:52)
[2018-05-31] MEDS: INSULIN SLIDING SCALE (NOVOLOG) 1 VIAL SQ SCH ×4 (06:42→22:45)
[2018-05-31] MEDS: ALBUTEROL SO4 2.5/IPRATROPIUM 0.5 INH SOL 3 ML VIAL.NEB. NEB SCH ×3 (07:35→20:11)
[2018-05-31] MEDS: FERROUS SO4 325 MG TABLET (FP) PO SCH ×3 (08:58→17:59)
--- NOTE | 2018-05-31 09:09 | PN ---
Progress Note, Physician Chief Complaint: AWAKE ALERT LETHARGIC FROM PAIN MEDS - Current Medication List Current Medications: Active Medications Albuterol/Ipratropium (Duoneb -) 1 amp NEB RTID [facility] Last Admin: 05/31/18 07:35 Dose: 1 amp Alprazolam (Xanax -) 0.25 mg PO Q6H PRN PRN Reason: ANXIETY Last Admin: 05/30/18 10:44 Dose: 0.25 mg Doxepin HCl (Sinequan -) 100 mg PO HS [facility] Last Admin: 05/30/18 22:18 Dose: 100 mg Dronabinol (Marinol -) 5 mg PO DAILY@1630 [facility] Last Admin: 05/30/18 16:37 Dose: 5 mg Enoxaparin Sodium (Lovenox -) 40 mg SQ DAILY [facility] Last Admin: 05/30/18 09:06 Dose: 40 mg Ferrous Sulfate (Feosol -) 325 mg PO TIDCM [facility] Last Admin: 05/31/18 08:58 Dose: 325 mg Guaifenesin (Diabetic Tussin Dm -) 5 ml PO Q4H PRN PRN Reason: COUGH Last Admin: 05/30/18 22:21 Dose: 5 ml Piperacillin Sod/Tazobactam (Sod 3.375 gm/ Dextrose) 50 mls @ 100 mls/hr IVPB Q8H-IV [facility]; Protocol Last Admin: 05/31/18 01:51 Dose: 100 mls/hr Insulin Aspart (Novolog Vial Sliding Scale -) 1 vial SQ ACHS [facility]; Protocol Last Admin: 05/31/18 06:42 Dose: 6 units Levetiracetam 500 mg/ (Levetiracetam 250 mg) 750 mg PO BID [facility] Last Admin: 05/30/18 22:18 Dose: 750 mg Lidocaine (Lidoderm Patch -) 1 patch TP DAILY [facility] Last Admin: 05/30/18 09:07 Dose: Not Given Methylnaltrexone [place] (Relistor -) 8 mg SQ DAILY [facility] Last Admin: 05/30/18 11:20 Dose: 8 mg Methylprednisolone Sodium Succinate (Solu-Medrol -) 40 mg IVPUSH BID [facility] Last Admin: 05/30/18 22:18 Dose: 40 mg Metoprolol Succinate (Toprol Xl -) 12.5 mg PO DAILY [facility] Last Admin: 05/30/18 09:06 Dose: 12.5 mg Mirtazapine (Remeron -) 7.5 mg PO [facility] Last Admin: 05/30/18 22:18 Dose: 7.5 mg Miscellaneous (Lidoderm Patch Removal) 1 each MC DAILY@2200 [facility] Last Admin: 05/30/18 22:20 Dose: Not Given Nicotine (Nicoderm Patch -) 7 mg TD DAILY [facility] Last Admin: 05/30/18 09:07 Dose: 7 mg Nystatin (Nystatin) 500,000 unit PO TID [facility] Last Admin: 05/31/18 06:42 Dose: 500,000 unit Oxycodone HCl (Oxycontin -) 10 mg PO BID [facility] Last Admin: 05/30/18 22:19 Dose: 10 mg Pantoprazole Sodium (Protonix -) 40 mg PO DAILY [facility] Last Admin: 05/30/18 09:06 Dose: 40 mg Polyethylene Glycol (Miralax (For Daily Use) -) 17 gm PO DAILY [facility] Last Admin: 05/30/18 09:07 Dose: 17 grams Ranolazine (Ranexa -) 500 mg PO BID [facility] Last Admin: 05/30/18 22:18 Dose: 500 mg Sitagliptin Phosphate (Januvia -) 100 mg PO DAILY@0700 [facility] Last Admin: 05/31/18 06:42 Dose: 100 mg Sodium Chloride ([place] Nasal [place] -) 2 spray NS TID [facility] Last Admin: 05/31/18 06:42 Dose: Not Given Trazodone HCl (Desyrel -) 150 mg PO [facility] Last Admin: 05/30/18 22:18 Dose: 150 mg - Objective Vital Signs: Vital Signs Temperature 98.4 F 05/31/18 06:00 Pulse Rate 82 05/31/18 06:00 Respiratory Rate 20 05/31/18 06:00 Blood Pressure 104/59 L 05/31/18 06:00 O2 Sat by Pulse Oximetry (%) 96 05/30/18 21:00 Constitutional: Yes: Mild Distress Cardiovascular: Yes: Regular Rate and Rhythm Respiratory: Yes: Cough, Diminished Gastrointestinal: Yes: Soft Genitourinary: Yes: WNL Musculoskeletal: Yes: Muscle Weakness Extremities: Yes: WNL Edema: No Peripheral Pulses WNL: Yes Integumentary: Yes: WNL Wound/Incision: Yes: Clean/Dry Neurological: Yes: Pre-Existing Deficit ...Motor Strength: LLE, RLE Psychiatric: Yes: Other Labs: CBC, BMP 05/30/18 06:30 05/30/18 06:30 INR, PTT INR 0.98 (0.83-1.09) 05/18/18 15:43 Problem List - Problems (1) Lung mass Code(s): R91.8 - OTHER NONSPECIFIC ABNORMAL FINDING OF LUNG FIELD (2) Smoking greater than 30 pack years Code(s): F17.210 - NICOTINE DEPENDENCE, CIGARETTES, UNCOMPLICATED (3) Anemia Code(s): D64.9 - ANEMIA, UNSPECIFIED (4) Asthma exacerbation in COPD Code(s): J44.1 - CHRONIC OBSTRUCTIVE PULMONARY DISEASE W (ACUTE) EXACERBATION; J45.901 - UNSPECIFIED ASTHMA WITH (ACUTE) EXACERBATION (5) CAD (coronary artery disease) Code(s): I25.10 - ATHSCL HEART DISEASE OF [place] CORONARY ARTERY W/O ANG PCTRS (6) COPD (chronic obstructive pulmonary disease) Code(s): J44.9 - CHRONIC OBSTRUCTIVE PULMONARY DISEASE, UNSPECIFIED (7) COPD exacerbation Code(s): J44.1 - CHRONIC OBSTRUCTIVE PULMONARY DISEASE W (ACUTE) EXACERBATION (8) DM (diabetes mellitus) Code(s): E11.9 - TYPE 2 DIABETES MELLITUS WITHOUT COMPLICATIONS Qualifiers: Diabetes mellitus type: type 2 (9) Adult behavior problem Code(s): F69 - UNSPECIFIED DISORDER OF ADULT PERSONALITY AND BEHAVIOR (10) Squamous cell lung cancer Code(s): C34.90 - MALIGNANT NEOPLASM OF UNSP PART OF UNSP BRONCHUS OR LUNG Assessment/Plan SQUAMOUS CELL CANCER AWAIT ONCOLOGY PLAN FOR THERAPY PAIN CONTROL STOPPIN GMORPHINE IV, OXYCONTIN BID INSTEAD WILL NEED SNF PLACEMENT DVT PROPHYLAXIS OOB TO CHAIR ADVANCED DIRECTIVE BEING DISCUSSED DECREASING MEDICATIONS
[2018-05-31] MEDS ORDERED: PT OWN MED DRAWER 7, Y5N ONE ×3 (09:37→18:30)
[2018-05-31] MEDS: oxyCODONE HCL 10 MG SUSTAINED ACTING TABLET PO SCH ×2 (10:18→22:46)
[2018-05-31] MEDS: NICOTINE 7 MG/24 HOURS TOPICAL PATCH TD SCH (10:18)
[2018-05-31] MEDS: PANTOPRAZOLE 40 MG TABLET (FP) PO SCH (10:18)
[2018-05-31] MEDS: ENOXAPARIN NA (PORCINE) 40 MG/0.4 ML DISP.SYRIN SQ SCH (10:19)
[2018-05-31] MEDS: methylPREDNISolone NA SUCC 40 MG/1 ML VIAL IVPUSH SCH ×2 (10:19→22:45)
[2018-05-31] MEDS: LIDOCAINE 5% TOPICAL PATCH TP SCH (10:19)
[2018-05-31] MEDS: RANOLAZINE E.R. 500 MG TABLET (FP) PO SCH ×2 (10:20→22:45)
[2018-05-31] MEDS: POLYETHYLENE GLYCOL 3350 119 GM BTL PO SCH (10:20)
[2018-05-31] MEDS: metoPROLOL SUCCINATE 25 MG TAB.SR.24H (FP) PO SCH (10:21)
[2018-05-31] MEDS: Methylnaltrexone Bromide 12 MG/0.6 ML KIT SQ SCH (10:21)
--- NOTE | 2018-05-31 13:58 | PN ---
Progress Note, Physician History of Present Illness: PULMONARY ALERT,NO DISTRESS,-SOB - Current Medication List Current Medications: Active Medications Albuterol/Ipratropium (Duoneb -) 1 amp NEB RTID [facility] Last Admin: 05/31/18 07:35 Dose: 1 amp Alprazolam (Xanax -) 0.25 mg PO Q6H PRN PRN Reason: ANXIETY Last Admin: 05/30/18 10:44 Dose: 0.25 mg Doxepin HCl (Sinequan -) 100 mg PO HS [facility] Last Admin: 05/30/18 22:18 Dose: 100 mg Dronabinol (Marinol -) 5 mg PO DAILY@1630 [facility] Last Admin: 05/30/18 16:37 Dose: 5 mg Enoxaparin Sodium (Lovenox -) 40 mg SQ DAILY [facility] Last Admin: 05/31/18 10:19 Dose: 40 mg Ferrous Sulfate (Feosol -) 325 mg PO TIDCM [facility] Last Admin: 05/31/18 11:53 Dose: 325 mg Guaifenesin (Diabetic Tussin Dm -) 5 ml PO Q4H PRN PRN Reason: COUGH Last Admin: 05/30/18 22:21 Dose: 5 ml Piperacillin Sod/Tazobactam (Sod 3.375 gm/ Dextrose) 50 mls @ 100 mls/hr IVPB Q8H-IV [facility]; Protocol Last Admin: 05/31/18 10:17 Dose: 100 mls/hr Insulin Aspart (Novolog Vial Sliding Scale -) 1 vial SQ ACHS [facility]; Protocol Last Admin: 05/31/18 11:53 Dose: 4 units Levetiracetam 500 mg/ (Levetiracetam 250 mg) 750 mg PO BID [facility] Last Admin: 05/31/18 10:20 Dose: 750 mg Lidocaine (Lidoderm Patch -) 1 patch TP DAILY [facility] Last Admin: 05/31/18 10:19 Dose: Not Given Methylnaltrexone [place] (Relistor -) 8 mg SQ DAILY [facility] Last Admin: 05/31/18 10:21 Dose: 8 mg Methylprednisolone Sodium Succinate (Solu-Medrol -) 40 mg IVPUSH BID [facility] Last Admin: 05/31/18 10:19 Dose: 40 mg Metoprolol Succinate (Toprol Xl -) 12.5 mg PO DAILY [facility] Last Admin: 05/31/18 10:21 Dose: 12.5 mg Mirtazapine (Remeron -) 7.5 mg PO [facility] Last Admin: 05/30/18 22:18 Dose: 7.5 mg Miscellaneous (Lidoderm Patch Removal) 1 each MC DAILY@2200 [facility] Last Admin: 05/30/18 22:20 Dose: Not Given Nicotine (Nicoderm Patch -) 7 mg TD DAILY [facility] Last Admin: 05/31/18 10:18 Dose: 7 mg Nystatin (Nystatin) 500,000 unit PO TID [facility] Last Admin: 05/31/18 06:42 Dose: 500,000 unit Oxycodone HCl (Oxycontin -) 10 mg PO BID [facility] Last Admin: 05/31/18 10:18 Dose: 10 mg Pantoprazole Sodium (Protonix -) 40 mg PO DAILY [facility] Last Admin: 05/31/18 10:18 Dose: 40 mg Polyethylene Glycol (Miralax (For Daily Use) -) 17 gm PO DAILY [facility] Last Admin: 05/31/18 10:20 Dose: 17 grams Ranolazine (Ranexa -) 500 mg PO BID [facility] Last Admin: 05/31/18 10:20 Dose: 500 mg Sitagliptin Phosphate (Januvia -) 100 mg PO DAILY@0700 [facility] Last Admin: 05/31/18 06:42 Dose: 100 mg Sodium Chloride ([place] Nasal [place] -) 2 spray NS TID [facility] Last Admin: 05/31/18 06:42 Dose: Not Given Trazodone HCl (Desyrel -) 150 mg PO [facility] Last Admin: 05/30/18 22:18 Dose: 150 mg - Objective Vital Signs: Vital Signs Temperature 97.8 F 05/31/18 13:31 Pulse Rate 79 05/31/18 13:31 Respiratory Rate 20 05/31/18 13:31 Blood Pressure 111/61 05/31/18 13:31 O2 Sat by Pulse Oximetry (%) 96 05/31/18 09:00 Constitutional: Yes: Calm, Thin Eyes: Yes: WNL HENT: Yes: WNL Neck: Yes: WNL Cardiovascular: Yes: Regular Rate and Rhythm, S1, S2 Respiratory: Yes: CTA Bilaterally Gastrointestinal: Yes: Normal Bowel Sounds, Soft Extremities: Yes: WNL Edema: No Labs: Problem List - Problems (1) CAD (coronary artery disease) Code(s): I25.10 - ATHSCL HEART DISEASE OF [place] CORONARY ARTERY W/O ANG PCTRS (2) COPD (chronic obstructive pulmonary disease) Code(s): J44.9 - CHRONIC OBSTRUCTIVE PULMONARY DISEASE, UNSPECIFIED (3) Chest pain Code(s): R07.9 - CHEST PAIN, UNSPECIFIED (4) DM (diabetes mellitus) Code(s): E11.9 - TYPE 2 DIABETES MELLITUS WITHOUT COMPLICATIONS Qualifiers: Diabetes mellitus type: type 2 (5) Hypertension Code(s): I10 - ESSENTIAL (PRIMARY) HYPERTENSION (6) Lung mass Code(s): R91.8 - OTHER NONSPECIFIC ABNORMAL FINDING OF LUNG FIELD (7) Malnourished Code(s): E46 - UNSPECIFIED PROTEIN-CALORIE MALNUTRITION Qualifiers: Malnutrition type: protein-calorie malnutrition (8) Smoking greater than 30 pack years Code(s): F17.210 - NICOTINE DEPENDENCE, CIGARETTES, UNCOMPLICATED (9) Squamous cell lung cancer Code(s): C34.90 - MALIGNANT NEOPLASM OF UNSP PART OF UNSP BRONCHUS OR LUNG Assessment/Plan A/P DELVIN Squamous Cell CA Post Obstructive PNA COPD CAD HTN DM Seizure Disorder Smoker - Oncology f/u - Pain control - inhaled bronchodilators - Pain medications - Anxiolytics as needed - Will need outpt PFTs and PET scan - DVT prophylaxis - abx DR ROBERTO
[2018-05-31] MEDS: DRONABINOL 5 MG CAPSULE PO SCH (17:59)
--- NOTE | 2018-05-31 18:24 | PN ---
Progress Note (short form) - Note Progress Note: Patient seen and examined Continues with dyspnea, tachypnea Last Vital Signs Temp Pulse Resp BP Pulse Ox 98.0 F 77 18 114/62 96 05/31/18 17:48 05/31/18 17:48 05/31/18 17:48 05/31/18 17:48 05/31/18 09:00 HEENT: [place], EOM Intact Cor: RSR, No murmurs, No gallops Lungs: rhonchi, wheezes Abd: Soft, Normal bowel sounds, No organomegaly Ext:No significant edema Skin: No rashes, Integument intact CBC, BMP 05/30/18 06:30 05/30/18 06:30 Current Medications Generic Name Dose Route Start Last Admin Trade Name Freq PRN Reason Stop Dose Admin Albuterol/Ipratropium 1 amp 05/23/18 20:00 05/31/18 14:20 Duoneb - NEB 1 amp RTID [facility] Administration Alprazolam 0.25 mg 05/24/18 15:19 05/30/18 10:44 Xanax - PO 0.25 mg Q6H PRN Administration ANXIETY Doxepin HCl 100 mg 05/23/18 22:00 05/30/18 22:18 Sinequan - PO 100 mg HS [facility] Administration Dronabinol 5 mg 05/24/18 16:30 05/31/18 17:59 Marinol - PO 5 mg DAILY@1630 [facility] Administration Enoxaparin Sodium 40 mg 05/24/18 10:00 05/31/18 10:19 Lovenox - SQ 40 mg DAILY [facility] Administration Ferrous Sulfate 325 mg 05/23/18 17:30 05/31/18 17:59 Feosol - PO 325 mg TIDCM [facility] Administration Guaifenesin 5 ml 05/24/18 17:39 05/30/18 22:21 Diabetic Tussin Dm - PO 5 ml Q4H PRN Administration COUGH Piperacillin Sod/Tazobactam 50 mls @ 100 mls/hr 05/23/18 18:00 05/31/18 18:00 Sod 3.375 gm/ Dextrose IVPB 100 mls/hr Q8H-IV [facility] Administration Protocol Insulin Aspart 1 vial 05/23/18 16:30 05/31/18 17:59 Novolog Vial Sliding Scale - SQ 6 units ACHS [facility] Administration Protocol Levetiracetam 500 mg/ 750 mg 05/23/18 22:00 05/31/18 10:20 Levetiracetam 250 mg PO 750 mg BID [facility] Administration Lidocaine 1 patch 05/24/18 10:00 05/31/18 10:19 Lidoderm Patch - TP Not Given DAILY [facility] Methylnaltrexone [place] 8 mg 05/24/18 16:45 05/31/18 10:21 Relistor - SQ 8 mg DAILY [facility] Administration Methylprednisolone Sodium Succinate 40 mg 05/29/18 22:00 05/31/18 10:19 Solu-Medrol - IVPUSH 40 mg BID [facility] Administration Metoprolol Succinate 12.5 mg 05/24/18 10:00 05/31/18 10:21 Toprol Xl - PO 12.5 mg DAILY [facility] Administration Mirtazapine 7.5 mg 05/23/18 22:00 05/30/18 22:18 Remeron - PO 7.5 mg HS [facility] Administration Miscellaneous 1 each 05/23/18 22:00 05/30/18 22:20 Lidoderm Patch Removal MC Not Given DAILY@2200 [facility] Nicotine 7 mg 05/24/18 10:00 05/31/18 10:18 Nicoderm Patch - TD 7 mg DAILY [facility] Administration Nystatin 500,000 unit 05/26/18 14:00 05/31/18 14:58 Nystatin PO 500,000 unit TID [facility] Administration Oxycodone HCl 10 mg 05/25/18 10:45 05/31/18 10:18 Oxycontin - PO 10 mg BID [facility] Administration Pantoprazole Sodium 40 mg 05/24/18 10:00 05/31/18 10:18 Protonix - PO 40 mg DAILY [facility] Administration Polyethylene Glycol 17 gm 05/25/18 10:00 05/31/18 10:20 Miralax (For Daily Use) - PO 17 grams DAILY [facility] Administration Ranolazine 500 mg 05/23/18 22:00 05/31/18 10:20 Ranexa - PO 500 mg BID [facility] Administration Sitagliptin Phosphate 100 mg 05/24/18 07:00 05/31/18 06:42 Januvia - PO 100 mg DAILY@0700 [facility] Administration Sodium Chloride 2 spray 05/27/18 14:00 05/31/18 14:58 [place] Nasal [place] - NS 2 sprays TID [facility] Administration Trazodone HCl 150 mg 05/23/18 22:00 05/30/18 22:18 Desyrel - PO 150 mg HS [facility] Administration Impression: DELVIN [facility] Post obstructive pneumonia Continues on high dose steroids Plan : taper steroids?? - Outpatient PET Therapy recommendations thereafter.
[2018-05-31] MEDS ORDERED: INSULIN (NOVOLOG) ASPART 100 UNITS/ML 10ML VIAL ONE (18:29)
[2018-05-31] MEDS: LIDOCAINE PATCH REMOVAL MC SCH (22:43)
[2018-05-31] MEDS: traZODone HCL 50 MG TABLET (FP) PO SCH (22:45)
[2018-05-31] MEDS: DOXEPIN HCL 25 MG CAPSULE PO SCH (22:45)
[2018-05-31] MEDS: MIRTAZAPINE 15 MG TABLET (FP) PO SCH (22:46)
[2018-05-31] MEDS: guaiFENesin/D-M SUGAR-FREE/ACLHOL-FREE 118 ML BOTTLE PO PRN (22:53)
[2018-06-01] MEDS ORDERED: DEXTROSE 5%-WATER - 50 ML IVPB ONE ×2 (02:14→09:47)
[2018-06-01] MEDS ORDERED: PIPERACILLIN/TAZOBACTAM 3.375 GM VIAL IVPB ONE ×2 (02:14→09:47)
[2018-06-01] MEDS: PIPERACILLIN/TAZOB 3.375 GM 3.375 GM in DEXTROSE 5%-WATER - 50 ML IVPB SCH ×2 (02:29→10:22)
[2018-06-01] MEDS: SODIUM CHLORIDE NASAL SPRAY 44 ML BOTTLE NS SCH (06:14)
[2018-06-01] MEDS: sitaGLIPtin PHOSPHATE 100 MG TABLET (FP) PO SCH (06:33)
[2018-06-01] MEDS: NYSTATIN 500,000 UNITS TABLET PO SCH (06:33)
[2018-06-01] MEDS: INSULIN SLIDING SCALE (NOVOLOG) 1 VIAL SQ SCH ×2 (06:33→11:53)
[2018-06-01 07:19] LABS: HEMATOCRIT 33.5 % (32.4-45.2); HEMOGLOBIN 10.8 GM/dL (10.7-15.3); MCH 25.2 pg (25.7-33.7); MCHC 32.3 g/dl (32.0-36.0); MEAN CELL VOLUME 78.2 fl (80-96); MEAN PLT VOLUME 8.2 fl (7.5-11.1); PLATELET COUNT 446 K/MM3 (134-434); RBC 4.29 M/mm3 (3.60-5.2); RDW 22.3 % (11.6-15.6); WHITE BLOOD COUNT 23.2 K/mm3 (4.0-10.0)
[2018-06-01] MEDS: ALBUTEROL SO4 2.5/IPRATROPIUM 0.5 INH SOL 3 ML VIAL.NEB. NEB SCH ×2 (08:01→13:39)
[2018-06-01 08:32] LABS: ANION GAP 7 MMOL/L (8-16); BLOOD UREA NITROGEN 20 mg/dL (7-18); CALCIUM 10.8 mg/dL (8.5-10.1); CHLORIDE 95 mmol/L (98-107); CO2 33 mmol/L (21-32); CREATININE 0.9 mg/dL (0.55-1.3); POTASSIUM 4.5 mmol/L (3.5-5.1); SODIUM 135 mmol/L (136-145)
[2018-06-01] MEDS: LIDOCAINE 5% TOPICAL PATCH TP SCH (10:23)
[2018-06-01] MEDS: oxyCODONE HCL 10 MG SUSTAINED ACTING TABLET PO SCH (10:23)
[2018-06-01] MEDS: FERROUS SO4 325 MG TABLET (FP) PO SCH ×2 (10:23→12:04)
[2018-06-01] MEDS: PANTOPRAZOLE 40 MG TABLET (FP) PO SCH (10:23)
[2018-06-01] MEDS: NICOTINE 7 MG/24 HOURS TOPICAL PATCH TD SCH (10:23)
[2018-06-01] MEDS: methylPREDNISolone NA SUCC 40 MG/1 ML VIAL IVPUSH SCH (10:23)
[2018-06-01] MEDS: RANOLAZINE E.R. 500 MG TABLET (FP) PO SCH (10:23)
[2018-06-01] MEDS: ENOXAPARIN NA (PORCINE) 40 MG/0.4 ML DISP.SYRIN SQ SCH (10:24)
[2018-06-01] MEDS: metoPROLOL SUCCINATE 25 MG TAB.SR.24H (FP) PO SCH (10:25)
[2018-06-01] MEDS: Methylnaltrexone Bromide 12 MG/0.6 ML KIT SQ SCH (10:25)
[2018-06-01] MEDS: POLYETHYLENE GLYCOL 3350 119 GM BTL PO SCH (10:26)
--- NOTE | 2018-06-01 11:11 | PN ---
Progress Note (short form) - Note Progress Note: Overall appears better. No CP. No Hemoptysis. Intake & Output 05/29/18 05/30/18 05/31/18 06/01/18 23:59 23:59 23:59 23:59 Intake Total 1200 600 850 400 Balance 1200 600 850 400 Last Vital Signs Temp Pulse Resp BP Pulse Ox 97.2 F L 79 20 123/59 L 96 06/01/18 06:00 06/01/18 06:00 06/01/18 06:00 06/01/18 06:00 05/31/18 21:00 Active Medications Albuterol/Ipratropium (Duoneb -) 1 amp NEB RTID [facility] Last Admin: 06/01/18 08:01 Dose: 1 amp Alprazolam (Xanax -) 0.25 mg PO Q6H PRN PRN Reason: ANXIETY Last Admin: 05/30/18 10:44 Dose: 0.25 mg Doxepin HCl (Sinequan -) 100 mg PO HS [facility] Last Admin: 05/31/18 22:45 Dose: 100 mg Dronabinol (Marinol -) 5 mg PO DAILY@1630 [facility] Last Admin: 05/31/18 17:59 Dose: 5 mg Enoxaparin Sodium (Lovenox -) 40 mg SQ DAILY [facility] Last Admin: 06/01/18 10:24 Dose: 40 mg Ferrous Sulfate (Feosol -) 325 mg PO TIDCM [facility] Last Admin: 06/01/18 10:23 Dose: 325 mg Guaifenesin (Diabetic Tussin Dm -) 5 ml PO Q4H PRN PRN Reason: COUGH Last Admin: 05/31/18 22:53 Dose: 5 ml Piperacillin Sod/Tazobactam (Sod 3.375 gm/ Dextrose) 50 mls @ 100 mls/hr IVPB Q8H-IV [facility]; Protocol Last Admin: 06/01/18 10:22 Dose: 100 mls/hr Insulin Aspart (Novolog Vial Sliding Scale -) 1 vial SQ ACHS [facility]; Protocol Last Admin: 06/01/18 06:33 Dose: 6 units Levetiracetam 500 mg/ (Levetiracetam 250 mg) 750 mg PO BID [facility] Last Admin: 06/01/18 10:24 Dose: 750 mg Lidocaine (Lidoderm Patch -) 1 patch TP DAILY [facility] Last Admin: 06/01/18 10:23 Dose: Not Given Methylnaltrexone [place] (Relistor -) 8 mg SQ DAILY [facility] Last Admin: 06/01/18 10:25 Dose: 8 mg Methylprednisolone Sodium Succinate (Solu-Medrol -) 40 mg IVPUSH BID [facility] Last Admin: 06/01/18 10:23 Dose: 40 mg Metoprolol Succinate (Toprol Xl -) 12.5 mg PO DAILY [facility] Last Admin: 06/01/18 10:25 Dose: 12.5 mg Mirtazapine (Remeron -) 7.5 mg PO [facility] Last Admin: 05/31/18 22:46 Dose: 7.5 mg Miscellaneous (Lidoderm Patch Removal) 1 each MC DAILY@2200 [facility] Last Admin: 05/31/18 22:43 Dose: Not Given Nicotine (Nicoderm Patch -) 7 mg TD DAILY [facility] Last Admin: 06/01/18 10:23 Dose: 7 mg Nystatin (Nystatin) 500,000 unit PO TID [facility] Last Admin: 06/01/18 06:33 Dose: 500,000 unit Oxycodone HCl (Oxycontin -) 10 mg PO BID [facility] Last Admin: 06/01/18 10:23 Dose: 10 mg Pantoprazole Sodium (Protonix -) 40 mg PO DAILY [facility] Last Admin: 06/01/18 10:23 Dose: 40 mg Polyethylene Glycol (Miralax (For Daily Use) -) 17 gm PO DAILY [facility] Last Admin: 06/01/18 10:26 Dose: 17 grams Ranolazine (Ranexa -) 500 mg PO BID [facility] Last Admin: 06/01/18 10:23 Dose: 500 mg Sitagliptin Phosphate (Januvia -) 100 mg PO DAILY@0700 [facility] Last Admin: 06/01/18 06:33 Dose: 100 mg Sodium Chloride ([place] Nasal [place] -) 2 spray NS TID [facility] Last Admin: 06/01/18 06:14 Dose: Not Given Trazodone HCl (Desyrel -) 150 mg PO HS [facility] Last Admin: 05/31/18 22:45 Dose: 150 mg Gen: NAD Heart: RRR Lung: few scattered rhonchi Abd: soft, nontender Ext: no edema Laboratory Results - last 24 hr 05/31/18 05/31/18 05/31/18 11:37 16:23 22:44 WBC RBC Hgb Hct MCV MCH MCHC RDW Plt Count MPV Sodium Potassium Chloride Carbon Dioxide Anion Gap BUN Creatinine Creat Clearance w eGFR POC Glucometer 261 333 325 Random Glucose Calcium 06/01/18 06/01/18 06/01/18 05:33 06:45 06:45 WBC 23.2 H RBC 4.29 Hgb 10.8 Hct 33.5 MCV 78.2 L MCH 25.2 L MCHC 32.3 RDW 22.3 H Plt Count 446 H MPV 8.2 Sodium 135 L Potassium 4.5 Chloride 95 L Carbon Dioxide 33 H Anion Gap 7 L BUN 20 H Creatinine 0.9 Creat Clearance w eGFR > 60 POC Glucometer 331 Random Glucose 307 H* Calcium 10.8 H A/P DELVIN Squamous Cell CA Post Obstructive PNA COPD CAD HTN DM Seizure Disorder Smoker - Pain control - Antibiotics per ID - inhaled bronchodilators - Pain medications - Anxiolytics as needed - Will need outpatient PFTs and PET scan - DVT prophylaxis - D/C planning Dr Kirkpatrick
[2018-06-01] MEDS ORDERED: PT OWN MED DRAWER 7, Y5N ONE (11:56)
--- NOTE | 2018-06-01 12:23 | DS ---
Physical Examination Vital Signs: Vital Signs Temperature 97.2 F L 06/01/18 06:00 Pulse Rate 79 06/01/18 06:00 Respiratory Rate 20 06/01/18 06:00 Blood Pressure 123/59 L 06/01/18 06:00 O2 Sat by Pulse Oximetry (%) 96 05/31/18 21:00 Findings/Remarks: Patient is a 63 y/o female with past medical history of HTN, HLD, CAD, [place] s/p stents, DM, COPD, asthma, anxiety. Patient presented to ER with complaints of L sided chest pain radiating. On admission chest CT scan showed 5 x 3.4cm left superior hilar mass. DELVIN biopsy showed invasive squamous cell carcinoma. Pulmonary and Oncology on board with case. Patient seen by ID and completed course of IV ABT. Will be discharged home with PO ABT. Since admission pain has improved. Constitutional: Yes: No Distress, Calm Eyes: Yes: Conjunctiva Clear HENT: Yes: Normocephalic Neck: Yes: Supple Cardiovascular: Yes: Regular Rate and Rhythm Respiratory: Yes: Diminished Gastrointestinal: Yes: Normal Bowel Sounds, Soft Musculoskeletal: Yes: Muscle Weakness Extremities: Yes: WNL Edema: No Neurological: Yes: Alert, Oriented Psychiatric: Yes: Alert, Oriented Labs: CBC, BMP 06/01/18 06:45 06/01/18 06:45 Discharge Summary Reason For Visit: CHRONIC OBS ASTHMA W/EXACERBATION,CHEST PAIN Current Active Problems Anemia (Acute) Asthma exacerbation in COPD (Acute) CAD (coronary artery disease) (Acute) COPD (chronic obstructive pulmonary disease) (Acute) COPD exacerbation (Acute) Chest pain (Acute) Constipation (Acute) DM (diabetes mellitus) (Acute) Hypertension (Acute) Leukocytosis (Acute) Lung mass (Acute) Lung mass (Acute) Malnourished (Acute) Smoking greater than 30 pack years (Acute) Squamous cell lung cancer (Acute) Thrush, oral (Acute) Tobacco dependence (Acute) Hospital Course: see progress notes Active Medications Generic Name Dose Route Start Last Admin Trade Name Freq PRN Reason Stop Dose Admin Albuterol/Ipratropium 1 amp 05/23/18 20:00 06/01/18 08:01 Duoneb - NEB 1 amp RTID ARIANA Administration Alprazolam 0.25 mg 05/24/18 15:19 05/30/18 10:44 Xanax - PO 0.25 mg Q6H PRN Administration ANXIETY Amoxicillin/Clavulanate Potassium 1 tab 06/01/18 17:30 Augmentin - 875mg Tablet PO 06/07/18 17:30 BID@0800,1730 ARIANA Doxepin HCl 100 mg 05/23/18 22:00 05/31/18 22:45 Sinequan - PO 100 mg HS ARIANA Administration Dronabinol 5 mg 05/24/18 16:30 05/31/18 17:59 Marinol - PO 5 mg DAILY@1630 ARIANA Administration Enoxaparin Sodium 40 mg 05/24/18 10:00 06/01/18 10:24 Lovenox - SQ 40 mg DAILY ARIANA Administration Ferrous Sulfate 325 mg 05/23/18 17:30 06/01/18 12:04 Feosol - PO 325 mg TIDCM ARIANA Administration Guaifenesin 5 ml 05/24/18 17:39 05/31/18 22:53 Diabetic Tussin Dm - PO 5 ml Q4H PRN Administration COUGH Piperacillin Sod/Tazobactam 50 mls @ 100 mls/hr 05/23/18 18:00 06/01/18 10:22 Sod 3.375 gm/ Dextrose IVPB 100 mls/hr Q8H-IV ARIANA Administration Protocol Insulin Aspart 1 vial 05/23/18 16:30 06/01/18 11:53 Novolog Vial Sliding Scale - SQ 4 units ACHS ARIANA Administration Protocol Levetiracetam 500 mg/ 750 mg 05/23/18 22:00 06/01/18 10:24 Levetiracetam 250 mg PO 750 mg BID ARIANA Administration Lidocaine 1 patch 05/24/18 10:00 06/01/18 10:23 Lidoderm Patch - TP Not Given DAILY ARIANA Methylnaltrexone [place] 8 mg 05/24/18 16:45 06/01/18 10:25 Relistor - SQ 8 mg DAILY ARIANA Administration Methylprednisolone Sodium Succinate 40 mg 05/29/18 22:00 06/01/18 10:23 Solu-Medrol - IVPUSH 40 mg BID ARIANA Administration Metoprolol Succinate 12.5 mg 05/24/18 10:00 06/01/18 10:25 Toprol Xl - PO 12.5 mg DAILY ARIANA Administration Mirtazapine 7.5 mg 05/23/18 22:00 05/31/18 22:46 Remeron - PO 7.5 mg HS ARIANA Administration Miscellaneous 1 each 05/23/18 22:00 05/31/18 22:43 Lidoderm Patch Removal MC Not Given DAILY@2200 ARIANA Nicotine 7 mg 05/24/18 10:00 06/01/18 10:23 Nicoderm Patch - TD 7 mg DAILY ARIANA Administration Nystatin 500,000 unit 05/26/18 14:00 06/01/18 06:33 Nystatin PO 500,000 unit TID ARIANA Administration Oxycodone HCl 10 mg 05/25/18 10:45 06/01/18 10:23 Oxycontin - PO 10 mg BID ARIANA Administration Pantoprazole Sodium 40 mg 05/24/18 10:00 06/01/18 10:23 Protonix - PO 40 mg DAILY ARIANA Administration Polyethylene Glycol 17 gm 05/25/18 10:00 06/01/18 10:26 Miralax (For Daily Use) - PO 17 grams DAILY ARIANA Administration Ranolazine 500 mg 05/23/18 22:00 06/01/18 10:23 Ranexa - PO 500 mg BID ARIANA Administration Sitagliptin Phosphate 100 mg 05/24/18 07:00 06/01/18 06:33 Januvia - PO 100 mg DAILY@0700 ARIANA Administration Sodium Chloride 2 spray 05/27/18 14:00 06/01/18 06:14 [place] Nasal [place] - NS Not Given TID ARIANA Trazodone HCl 150 mg 05/23/18 22:00 05/31/18 22:45 Desyrel - PO 150 mg HS ARIANA Administration Laboratory Results - last 24 hr 05/31/18 05/31/18 06/01/18 16:23 22:44 05:33 WBC RBC Hgb Hct MCV MCH MCHC RDW Plt Count MPV Sodium Potassium Chloride Carbon Dioxide Anion Gap BUN Creatinine Creat Clearance w eGFR POC Glucometer 333 325 331 Random Glucose Calcium 06/01/18 06/01/18 06/01/18 06:45 06:45 11:49 WBC 23.2 H RBC 4.29 Hgb 10.8 Hct 33.5 MCV 78.2 L MCH 25.2 L MCHC 32.3 RDW 22.3 H Plt Count 446 H MPV 8.2 Sodium 135 L Potassium 4.5 Chloride 95 L Carbon Dioxide 33 H Anion Gap 7 L BUN 20 H Creatinine 0.9 Creat Clearance w eGFR > 60 POC Glucometer 287 Random Glucose 307 H* Calcium 10.8 H Condition: Stable - Instructions Diet, Activity, Other Instructions: Follow up with PMD in 1 week Follow up with customer relations assistant Dr Puentes for outpatient PFTs Follow up with Oncologist Dr. Alcantar for outpatient PET Scan continue with prescribed medication return to ER id experience severe chest pain, dyspnea, SOB will resume home services Referrals: Kulwant Bianchi MD [Staff Physician] - Jatin Puentes MD [Staff Physician] - Darshan Alcantar MD [Staff Physician] - Disposition: HOME - Home Medications Comprehensive Discharge Medication List: Ambulatory Orders Albuterol Sulfate Inhaler - [Ventolin HFA Inhaler -] 1 - 2 inh PO QID PRN #1 inhaler 07/02/14 Cyanocobalamin [Vitamin B12 -] 1,000 mcg PO DAILY 07/16/14 levETIRAcetam [Keppra -] 750 mg PO BID #180 tablet 06/01/15 Linagliptin [Tradjenta] 5 mg PO DAILY 12/16/16 Nitroglycerin Sublingual 0.4 mg SL PRN PRN 01/24/17 Ranolazine [Ranexa] 500 mg PO BID 01/24/17 Doxepin HCl 100 mg PO HS 05/24/17 Aspirin Coated [Ecotrin -] 81 mg PO DAILY 12/20/17 Cholecalciferol (Vitamin D3) [Vitamin D3 -] 5,000 unit PO Q7D 12/20/17 Metoprolol Succinate [Toprol XL -] 25 mg PO BID 12/20/17 Pantoprazole Sodium [Protonix -] 40 mg PO DAILY #30 tablet.ec 12/23/17 Trazodone HCl 150 mg PO HS 05/18/18 Ferrous Sulfate [Feosol] 325 mg PO TID 05/19/18 Folic Acid - 1 mg PO DAILY 05/19/18 Meclizine HCl [Antivert -] 25 mg PO TID 05/19/18 Mirtazapine [Remeron -] 7.5 mg PO DAILY 05/19/18
[2018-06-01 13:40] VITALS: BP 113/56; PULSE 84; TEMP 98.3
--- NOTE | 2018-06-01 14:40 | CON.PSL ---
Psychology Consult Consult Specialty:: Psychology Allergies: Allergies Allergy/AdvReac Type Severity Reaction Status Date / Time No Known Allergies Allergy Verified 12/20/17 15:32 Assessment/Plan The patient was discharged prior to my arrival.
[2018-06-01 15:31] LABS: GLUCOSE,RANDOM 307 mg/dL (74-106)
[2018-06-01] MEDS ORDERED: AMOX TR/POT CLAV 875MG/125MG TABLETS (FP) PO SCH (17:30)
== END 2018-06-01 13:59 | disposition home or self-care (01) | DRG 180 ==
LOC: JER 15:15 → JERBED 18:22 → J7W 19:55
PROVIDERS: ADMIT Family Medicine; ATTEND Family Medicine
PROC: 0BJ08ZZ Inspection of Tracheobronchial Tree, Via Natural or Artificial Opening Endoscopic (ICD-10-PCS; 2018-05-23)
PROC: 0BD88ZX Extraction of Left Upper Lobe Bronchus, Via Natural or Artificial Opening Endoscopic, Diagnostic (ICD-10-PCS; principal; 2018-05-23 12:00)
DX: C34.12 Malignant neoplasm of upper lobe, left bronchus or lung (principal); J17 Pneumonia in diseases classified elsewhere; J98.11 Atelectasis; R64 Cachexia; Z68.1 Body mass index [BMI] 19.9 or less, adult; J44.1 Chronic obstructive pulmonary disease with (acute) exacerbation; E46 Unspecified protein-calorie malnutrition; B37.0 Candidal stomatitis; I10 Essential (primary) hypertension; E78.5 Hyperlipidemia, unspecified; I25.10 Atherosclerotic heart disease of native coronary artery without angina pectoris; Z98.61 Coronary angioplasty status; E11.9 Type 2 diabetes mellitus without complications; K59.00 Constipation, unspecified; D72.829 Elevated white blood cell count, unspecified; R07.9 Chest pain, unspecified; D50.9 Iron deficiency anemia, unspecified; F17.210 Nicotine dependence, cigarettes, uncomplicated
CPT/HCPCS: 36415; 70470-TC; 71045-TC-FY; 71250-TC; 74177-TC; 78306-TC; 80048; 80053; 80177; 81003; 82378; 82550; 82607; 82728; 82962; 83036; 83540; 83550; 83735; 84484; 85025; 85027; 85610; 85730; 87040; 87086; 87899; 88305-TC; 88341-TC; 93005; 93010; 94640; 94760; 97116-GP; 97161-GP; 99285-25; A9503; J7030; Q9967

== ENCOUNTER 2018-06-10 13:13 | Inpatient (IN) | payer OTHER ==
--- NOTE | 2018-06-10 14:50 | PDOC ---
History of Present Illness - General Chief Complaint: Weakness Stated Complaint: WEAKNESS Time Seen by Provider: 06/10/18 14:45 - History of Present Illness Initial Comments: 63yo F with history of HTN, HLD, CAD s/p stent, DM, COPD, Asthma, anxiety, and squamous cell lung carcinoma presenting with shortness of breath and weakness. Patient was recently discharged from this hospital on 06/01/18. Since patient left the hospital she has had poor po intake. Her daughter called [facility]ITER[facility]RESS [facility]FETER[facility] Gonzalez [facility] who instructed the patient to come to the ED. Patient was supposed to have a PET scan yesterday but this was deferred due to hyperglycemia. Patient's med list includes prednisone and yesterday was her last day of an antibiotic course. Patient feels short of breath which she attributes to her COPD. She had one duoneb earlier today with some improvement. She does not use home oxygen. No fevers, chills, or chest pain. Past History - Past Medical History Allergies/Adverse Reactions: Allergies Allergy/AdvReac Type Severity Reaction Status Date / Time No Known Allergies Allergy Verified 12/20/17 15:32 Home Medications: Ambulatory Orders Albuterol Sulfate Inhaler - [Ventolin HFA Inhaler -] 1 - 2 inh PO QID PRN #1 inhaler 07/02/14 Cyanocobalamin [Vitamin B12 -] 1,000 mcg PO DAILY 07/16/14 levETIRAcetam [Keppra -] 750 mg PO BID #180 tablet 06/01/15 Ranolazine [Ranexa] 500 mg PO BID 01/24/17 Doxepin HCl 100 mg PO HS 05/24/17 Aspirin Coated [Ecotrin -] 81 mg PO DAILY 12/20/17 Cholecalciferol (Vitamin D3) [Vitamin D3 -] 5,000 unit PO Q7D 12/20/17 Pantoprazole Sodium [Protonix -] 40 mg PO DAILY #30 tablet.ec 12/23/17 Trazodone HCl 150 mg PO HS 05/18/18 Ferrous Sulfate [Feosol] 325 mg PO TID 05/19/18 Folic Acid - 1 mg PO DAILY 05/19/18 Meclizine HCl [Antivert -] 25 mg PO TID 05/19/18 Mirtazapine [Remeron -] 7.5 mg PO DAILY 05/19/18 Albuterol 0.083% Nebulizer Noni [Ventolin 0.083% Nebulizer Soln -] 1 amp NEB Q4H PRN #30 amp 06/01/18 Albuterol 2.5/Ipratropium 0.5 [Duoneb -] 1 amp NEB RTID #90 amp 06/01/18 Alprazolam [Xanax] 0.25 mg PO Q6H PRN #30 tablet MDD 4 06/01/18 Amox-Tr/K Cl [Augmentin 875-125mg Tablet -] 1 tab PO BID@0800,1730 #14 tablet Doxepin HCl [Sinequan -] 100 mg PO HS #120 capsule 06/01/18 Ferrous Sulfate [Feosol] 325 mg PO TIDCM #90 ud 06/01/18 Metoprolol Succinate [Toprol XL -] 12.5 mg PO DAILY #30 tab.sr.24h 06/01/18 Nicotine Patch [Nicoderm Patch -] 7 mg TD DAILY #30 patch 06/01/18 Nystatin 500,000 unit PO TID #90 tablet 06/01/18 Pantoprazole Sodium [Protonix -] 40 mg PO DAILY #30 tablet.ec 06/01/18 Polyethylene Glycol 3350 [Miralax 119 gm Btl -] 17 gm PO DAILY #1 bottle Ranolazine [Ranexa -] 500 mg PO BID #60 tab 06/01/18 Sitagliptin Phosphate [Januvia -] 100 mg PO DAILY@0700 #30 ud 06/01/18 oxyCODONE SR [Oxycontin] 10 mg PO BID 7 Days #14 tab.er.12h MDD 2 06/01/18 predniSONE [Deltasone -] 20 mg PO UTDICT #30 tablet 06/01/18 traZODone HCL [Desyrel -] 150 mg PO HS #90 tablet 06/01/18 Anemia: No Asthma: No Cancer: No Cardiac Disorders: Yes (cardiac stent, CAD, PA) CVA: No COPD: Yes CHF: No Diabetes: Yes GI Disorders: Yes (gallstones) Disorders: No HTN: Yes Hypercholesterolemia: Yes Liver Disease: No Psychiatric Problems: Yes (ANXIETY) Seizures: Yes (hx grand mal seizures, last one 11/2016) Thyroid Disease: No - Surgical History Abdominal Surgery: No Appendectomy: No Cardiac Surgery: Yes (stents 2011) Cholecystectomy: No Lung Surgery: No Neurologic Surgery: No Orthopedic Surgery: No - Immunization History Immunization Up to Date: No - Suicide/Smoking/Psychosocial Hx Smoking Status: Yes Smoking History: Former smoker Have you smoked in the past 12 months: Yes Number of Cigarettes Smoked Daily: 12 Information on smoking cessation initiated: No 'Breaking Loose' booklet given: 05/19/18 Hx Alcohol Use: No Drug/Substance Use Hx: No Substance Use Type: None Hx Substance Use Treatment: No Review of Systems - Review of Systems Comments:: Constitutional: no fever, no chills HEENT: no throat pain, no dysphagia Cardiovascular: no chest pain, no palpitations Respiratory: +cough, +shortness of breath Gastrointestinal: +epigastric pain, no nausea Genitourinary: no dysuria, no frequency Musculoskeletal: no myalgia, no arthralgia Skin: no rash, no itching Neurologic: no headache, +weakness *Physical Exam - Vital Signs Last Vital Signs Temp Pulse Resp BP Pulse Ox 99.7 F H 96 H 20 129/71 90 L 06/10/18 13:33 06/10/18 13:33 06/10/18 13:33 06/10/18 13:33 06/10/18 13:33 - Physical Exam Comments: General: Awake, alert, and fully oriented, in no acute distress Head: No signs of trauma Eyes: EOMI, sclera anicteric ENT: Dry mucus membranes Neck: Normal ROM, supple Lungs: Wheezes present in bilateral bases Cardio: Regular rhythm, S1 and S2 present Abdomen: Mild tenderness to palpation in epigastrium. Soft, nondistended. No guarding, no rebound, no masses Extremities: Normal range of motion, Distal pulses present SKIN: Warm, Dry, normal turgor Neurologic: Cranial nerves II through XII grossly intact. Normal speech Moderate Sedation - Procedure Monitoring Vital Signs: Procedure Monitoring Vital Signs Temperature 99.7 F H 06/10/18 13:33 Pulse Rate 96 H 06/10/18 13:33 Respiratory Rate 20 06/10/18 13:33 Blood Pressure 129/71 06/10/18 13:33 O2 Sat by Pulse Oximetry (%) 90 L 06/10/18 13:33 ED Treatment Course - LABORATORY CBC & Chemistry Diagram: 06/11/18 06:20 06/11/18 13:35 - ADDITIONAL ORDERS Additional order review: Laboratory Results 06/10/18 13:41 POC Glucometer 388 06/10/18 13:41 POC Glucometer 388 Medical Decision Making - Medical Decision Making 63yo F with history of HTN, HLD, CAD s/p stent, DM, COPD, Asthma, anxiety, and squamous cell lung carcinoma presenting with shortness of breath and weakness. Patient was recently discharged from this hospital on 06/01/18. Discussed case with Dr. Bianchi who agrees with admission. Patient will be admitted to hospitalist since it is after 5pm. 06/10/18 15:42 Per daughter, patient ate while in the ED which is surprising given her poor po intake this week CXR without changes from previous Elevated WBC, low grade fever, and tachycardic EKG: rate 110, QTc 438, "sinus tachycardia, st & t wave abnormality, consider anterior ischemia" Will cover broadly with Vanc and Zosyn after getting blood cultures and lactate. 06/10/18 18:35 Patient endorsing 7/10 pain which she attributes to her cancer. She takes opioids at home. 4mg morphine ordered. Daughter Taylor can be contacted at [phone] 06/10/18 19:11 Discussed case with TRAE Mcfarland who accepted patient for admission under Dr. Bianchi. 06/10/18 19:35 *DC/Admit/Observation/Transfer Diagnosis at time of Disposition: Weakness, Leukocytosis - Discharge Dispostion Condition at time of disposition: Guarded Decision to Admit order: Yes - Referrals - Patient Instructions - Post Discharge Activity
[2018-06-10] MEDS ORDERED: SODIUM CHLORIDE 500 ML IV STA (15:17)
[2018-06-10] MEDS ORDERED: ALBUTEROL SO4 2.5/IPRATROPIUM 0.5 INH SOL 3 ML VIAL.NEB. NEB ONE ×2 (15:17→15:27)
[2018-06-10 15:54] LABS: BASO % 0.4 % (0-2.0); EOS % 0.1 % (0-4.5); HEMATOCRIT 39.7 % (32.4-45.2); HEMOGLOBIN 13.2 GM/dL (10.7-15.3); LYMPH % 4.7 % (8-40); MCH 26.7 pg (25.7-33.7); MCHC 33.3 g/dl (32.0-36.0); MEAN CELL VOLUME 80.1 fl (80-96); MONO % 3.6 % (3.8-10.2); NEUT % 91.2 % (42.8-82.8); PLATELET COUNT 294 K/MM3 (134-434); RBC 4.95 M/mm3 (3.60-5.2); RDW 19.7 % (11.6-15.6); WHITE BLOOD COUNT 29.6 K/mm3 (4.0-10.0)
--- NOTE | 2018-06-10 16:08 | PDOC ---
Attending Attestation - Resident Resident Name: Mendy Anguiano - ED Attending Attestation I have performed the following: I have examined & evaluated the patient, The case was reviewed & discussed with the resident, I agree w/resident's findings & plan, Exceptions are as noted - HPI HPI: 06/10/18 16:08 63 F with h/o HTN, HLD, CAD s/p stent, DM, COPD, Asthma, anxiety, and squamous cell lung carcinoma presenting to ED with weakness and failure to thrive. Pt was admitted recently for post-obstructive PNA 2/2 lung CA. Pt was discharged on abx and steroids and since then has been feeling progressively weaker. She endorses persistent SOB. Denies any recent fevers. Today, pt was at PMD and was noted to have elevated sugars and was sent to ED for IV hydration. - Physicial Exam PE: 06/10/18 16:15 Agree with resident exam - Medical Decision Making 06/10/18 16:15 63 F with SOB, weakness, FTT. Will evaluate for sepsis. Recently tx'ed for post- obstructive PNA. Pt found to be hyperglycemic, likely 2/2 steroid use. In ED, appears dehydrated. Also mildly hypoxic, suspect due to persistent PNA. - Labs - CXR - Admit for IV abx and hydration
[2018-06-10 17:01] LABS: ALBUMIN 3.1 g/dl (3.4-5.0); ALK PHOS 129 U/L (45-117); ANION GAP 7 MMOL/L (8-16); BILIRUBIN,TOTAL 0.3 mg/dL (0.2-1); BLOOD UREA NITROGEN 17 mg/dL (7-18); CALCIUM 11.4 mg/dL (8.5-10.1); CHLORIDE 91 mmol/L (98-107); CO2 36 mmol/L (21-32); CREATININE 0.9 mg/dL (0.55-1.3); POTASSIUM 3.9 mmol/L (3.5-5.1); SGOT/AST 11 U/L (15-37); SGPT/ALT 17 U/L (13-61); SODIUM 134 mmol/L (136-145); TOT PROT 6.8 g/dl (6.4-8.2)
[2018-06-10 17:08] LABS: GLUCOSE,RANDOM 315 mg/dL (74-106)
[2018-06-10] MEDS ORDERED: PIPERACILLIN/TAZOBACTAM 4.5 GM VIAL IVPB ONE (18:08)
[2018-06-10] MEDS ORDERED: VANCOMYCIN 1,000 MG in DEXTROSE 5%-WATER - 250 ML IVPB ONE (18:15)
[2018-06-10 18:22] LABS: ANISOCYTOSIS 1+; MACROCYTOSIS 1+; PLATELET ESTIMATE ADEQUATE
[2018-06-10] MEDS ORDERED: morphine CARPU-JECT 4 MG/1 ML DISP.SYRIN IVPUSH ONE (19:05)
--- NOTE | 2018-06-10 19:50 | HP ---
Admitting History and Physical - Primary Care Physician PCP: Kulwant Bianchi - Admission Chief Complaint: Generalized Weakness, SOB, Decreased Appetite History of Present Illness: This is a 63 y/o woman PMHx of: HTN, HLD, CAD s/p Stents, DM, COPD, Asthma, Anxiety, Squamous Cell Lung Ca, recent admission COPD Exacerbation 05/18-06/01. Who presents to the ED with her daughter for generalized weakness, SOB, non- productive cough, decreased appetite x 2 days. Patient reports since her d/c she has had been feeling weak. Patient reports having an upcoming procedure with Dr. Alcantar regarding her Lung Ca. Patient denies fever, chills, dizziness, CP, AP, N/V/D, constipation, dysuria. History Source: Patient, Family Member, Medical Record Limitations to Obtaining History: No Limitations - Past Medical History UNDERGRADUATE INTERN: Yes: Seizure. No: CVA Cardiovascular: Yes: CAD, HTN, Hyperlipdemia, Other (PCI STENT). No: AFIB Pulmonary: Yes: Asthma, Cancer (Squamous Cell), COPD Endocrine: Yes: Diabetes Mellitus - Past Surgical History Past Surgical History: Yes: Hysterectomy, Stent - Smoking History Smoking history: Former smoker Have you smoked in the past 12 months: Yes Aproximately how many cigarettes per day: 12 - Alcohol/Substance Use Hx Alcohol Use: No History of Substance Use: reports: None - Social History ADL: Independent (ambulates with cane, walker) History of Recent Travel: No Home Medications - Allergies Allergies/Adverse Reactions: Allergies Allergy/AdvReac Type Severity Reaction Status Date / Time No Known Allergies Allergy Verified 12/20/17 15:32 - Home Medications Home Medications: Ambulatory Orders Albuterol Sulfate Inhaler - [Ventolin HFA Inhaler -] 1 - 2 inh PO QID PRN #1 inhaler 07/02/14 Cyanocobalamin [Vitamin B12 -] 1,000 mcg PO DAILY 07/16/14 levETIRAcetam [Keppra -] 750 mg PO BID #180 tablet 06/01/15 Ranolazine [Ranexa] 500 mg PO BID 01/24/17 Doxepin HCl 100 mg PO HS 05/24/17 Aspirin Coated [Ecotrin -] 81 mg PO DAILY 12/20/17 Cholecalciferol (Vitamin D3) [Vitamin D3 -] 5,000 unit PO Q7D 12/20/17 Pantoprazole Sodium [Protonix -] 40 mg PO DAILY #30 tablet.ec 12/23/17 Trazodone HCl 150 mg PO HS 05/18/18 Ferrous Sulfate [Feosol] 325 mg PO TID 05/19/18 Folic Acid - 1 mg PO DAILY 05/19/18 Meclizine HCl [Antivert -] 25 mg PO TID 05/19/18 Mirtazapine [Remeron -] 7.5 mg PO DAILY 05/19/18 Albuterol 0.083% Nebulizer Noni [Ventolin 0.083% Nebulizer Soln -] 1 amp NEB Q4H PRN #30 amp 06/01/18 Albuterol 2.5/Ipratropium 0.5 [Duoneb -] 1 amp NEB RTID #90 amp 06/01/18 Alprazolam [Xanax] 0.25 mg PO Q6H PRN #30 tablet MDD 4 06/01/18 Amox-Tr/K Cl [Augmentin 875-125mg Tablet -] 1 tab PO BID@0800,1730 #14 tablet Doxepin HCl [Sinequan -] 100 mg PO HS #120 capsule 06/01/18 Ferrous Sulfate [Feosol] 325 mg PO TIDCM #90 ud 06/01/18 Metoprolol Succinate [Toprol XL -] 12.5 mg PO DAILY #30 tab.sr.24h 06/01/18 Nicotine Patch [Nicoderm Patch -] 7 mg TD DAILY #30 patch 06/01/18 Nystatin 500,000 unit PO TID #90 tablet 06/01/18 Pantoprazole Sodium [Protonix -] 40 mg PO DAILY #30 tablet.ec 06/01/18 Polyethylene Glycol 3350 [Miralax 119 gm Btl -] 17 gm PO DAILY #1 bottle Ranolazine [Ranexa -] 500 mg PO BID #60 tab 06/01/18 Sitagliptin Phosphate [Januvia -] 100 mg PO DAILY@0700 #30 ud 06/01/18 oxyCODONE SR [Oxycontin] 10 mg PO BID 7 Days #14 tab.er.12h MDD 2 06/01/18 predniSONE [Deltasone -] 20 mg PO UTDICT #30 tablet 06/01/18 traZODone HCL [Desyrel -] 150 mg PO HS #90 tablet 06/01/18 Family Disease History - Family Disease History Family Disease History: Diabetes: Father, Mother (alzheimers), Heart Disease: Mother, CA: Brother (Pancreatic, ), Other: Mother, Sister (3 strokes) Review of Systems - Review of Systems Constitutional: reports: Loss of Appetite, Malaise, Weakness Eyes: reports: No Symptoms HENT: reports: No Symptoms Neck: reports: No Symptoms Cardiovascular: reports: Shortness of Breath Respiratory: reports: SOB, SOB on Exertion Gastrointestinal: reports: No Symptoms Genitourinary: reports: No Symptoms Breasts: reports: No Symptoms Reported Musculoskeletal: reports: No Symptoms Integumentary: reports: No Symptoms Neurological: reports: Weakness Endocrine: reports: No Symptoms Hematology/Lymphatic: reports: No Symptoms Psychiatric: reports: No Symptoms Physical Examination Vital Signs: Vital Signs Temperature 98.4 F 06/10/18 17:30 Pulse Rate 88 06/10/18 17:30 Respiratory Rate 24 H 06/10/18 17:30 Blood Pressure 124/72 06/10/18 17:30 O2 Sat by Pulse Oximetry (%) 96 06/10/18 17:30 Constitutional: Yes: No Distress, Calm, Cachectic Eyes: Yes: Conjunctiva Clear, PERRL HENT: Yes: WNL, Atraumatic, Normocephalic Neck: Yes: WNL, Supple, Trachea Midline Cardiovascular: Yes: WNL, Regular Rate and Rhythm, S1, S2 Respiratory: Yes: On Nasal O2, Rales, Rhonchi, SOB, SOB on Exertion, Wheezes Gastrointestinal: Yes: WNL, Normal Bowel Sounds, Soft Renal/: Yes: WNL Breast(s): Yes: WNL Musculoskeletal: Yes: WNL Edema: No Peripheral Pulses WNL: Yes Neurological: Yes: WNL, Alert, Oriented, Cran Nerves II-XII Intact ...Motor Strength: WNL Psychiatric: Yes: WNL, Alert, Oriented Labs: CBC, BMP 06/10/18 15:45 06/10/18 15:45 Laboratory Results - last 24 hr 06/10/18 06/10/18 06/10/18 13:41 15:30 15:45 WBC 29.6 H RBC 4.95 Hgb 13.2 Hct 39.7 D MCV 80.1 MCH 26.7 MCHC 33.3 RDW 19.7 H Plt Count 294 D MPV 9.0 Absolute Neuts (auto) 27.0 H Neutrophils % 91.2 H Neutrophils % (Manual) 91.0 H Band Neutrophils % 3.0 Lymphocytes % 4.7 L Lymphocytes % (Manual) 4.0 L D Monocytes % 3.6 L Monocytes % (Manual) 2 L Eosinophils % 0.1 D Basophils % 0.4 D Nucleated RBC % 0 Hypochromia 1+ Platelet Estimate Adequate Platelet Comment No clumping noted Anisocytosis 1+ Macrocytosis 1+ Sodium Potassium Chloride Carbon Dioxide Anion Gap BUN Creatinine Creat Clearance w eGFR POC Glucometer 388 Random Glucose Lactic Acid Calcium Total Bilirubin AST ALT Alkaline Phosphatase Creatine Kinase Troponin I Total Protein Albumin TSH Urine Color Urine Appearance Urine pH Ur Specific Anthony Urine Protein Urine Glucose (UA) Urine Ketones Urine Blood Urine Nitrite Urine Bilirubin Urine Urobilinogen Ur Leukocyte Esterase Acetone, Qual Positive, small 1+ 06/10/18 06/10/18 06/10/18 15:45 19:49 21:00 WBC RBC Hgb Hct MCV MCH MCHC RDW Plt Count MPV Absolute Neuts (auto) Neutrophils % Neutrophils % (Manual) Band Neutrophils % Lymphocytes % Lymphocytes % (Manual) Monocytes % Monocytes % (Manual) Eosinophils % Basophils % Nucleated RBC % Hypochromia Platelet Estimate Platelet Comment Anisocytosis Macrocytosis Sodium 134 L Potassium 3.9 Chloride 91 L Carbon Dioxide 36 H Anion Gap 7 L BUN 17 Creatinine 0.9 Creat Clearance w eGFR > 60 POC Glucometer Random Glucose 315 H* Lactic Acid 3.8 H* Calcium 11.4 H Total Bilirubin 0.3 AST 11 L ALT 17 Alkaline Phosphatase 129 H Creatine Kinase 26 Troponin I < 0.02 Total Protein 6.8 Albumin 3.1 L TSH 0.51 Urine Color Straw Urine Appearance Clear Urine pH 7.0 Ur Specific Anthony 1.017 Urine Protein Negative Urine Glucose (UA) 3+ H Urine Ketones Negative Urine Blood Negative Urine Nitrite Negative Urine Bilirubin Negative Urine Urobilinogen Negative Ur Leukocyte Esterase Negative Acetone, Qual 06/10/18 06/11/18 23:49 00:03 WBC RBC Hgb Hct MCV MCH MCHC RDW Plt Count MPV Absolute Neuts (auto) Neutrophils % Neutrophils % (Manual) Band Neutrophils % Lymphocytes % Lymphocytes % (Manual) Monocytes % Monocytes % (Manual) Eosinophils % Basophils % Nucleated RBC % Hypochromia Platelet Estimate Platelet Comment Anisocytosis Macrocytosis Sodium Potassium Chloride Carbon Dioxide Anion Gap BUN Creatinine Creat Clearance w eGFR POC Glucometer 375 Random Glucose Lactic Acid 3.6 H* Calcium Total Bilirubin AST ALT Alkaline Phosphatase Creatine Kinase Troponin I Total Protein Albumin TSH Urine Color Urine Appearance Urine pH Ur Specific Anthony Urine Protein Urine Glucose (UA) Urine Ketones Urine Blood Urine Nitrite Urine Bilirubin Urine Urobilinogen Ur Leukocyte Esterase Acetone, Qual Current Medications Generic Name Dose Route Start Last Admin Trade Name Freq PRN Reason Stop Dose Admin Albuterol/Ipratropium 1 amp 06/11/18 00:37 Duoneb - NEB Q6H PRN SHORTNESS OF BREATH Vancomycin HCl 750 mg/ 250 mls @ 250 mls/hr 06/12/18 21:00 Dextrose IVPB Q24H [facility] Protocol Piperacillin Sod/Tazobactam 100 mls @ 200 mls/hr 06/12/18 03:00 Sod 4.5 gm/ Dextrose IVPB Q6H-IV [facility] Protocol Piperacillin Sod/Tazobactam 100 mls @ 200 mls/hr 06/11/18 03:00 06/11/18 02: 02 Sod 4.5 gm/ Dextrose IVPB 06/11/18 21:29 200 mls/hr Q6H-IV [facility] Administration Protocol Vancomycin HCl 750 mg/ 250 mls @ 250 mls/hr 06/11/18 21:00 Dextrose IVPB 06/11/18 21:59 ONCE ONE Protocol Insulin Aspart 1 vial 06/11/18 07:00 06/11/18 06:52 Novolog Vial Sliding Scale - SQ 2 units ACHS [facility] Administration Protocol Intake & Output 06/08/18 06/09/18 06/10/18 06/11/18 23:59 23:59 23:59 23:59 Intake Total 600 Balance 600 Weight 39.19 kg Imaging - Results Chest X-ray: Report Reviewed (DELVIN Infiltrate with a possible pleural-based mass) , Image Reviewed EKG: Image Reviewed Problem List - Problems (1) Pneumonia Code(s): J18.9 - PNEUMONIA, UNSPECIFIED ORGANISM (2) Asthma exacerbation in COPD Code(s): J44.1 - CHRONIC OBSTRUCTIVE PULMONARY DISEASE W (ACUTE) EXACERBATION; J45.901 - UNSPECIFIED ASTHMA WITH (ACUTE) EXACERBATION (3) Uncontrolled diabetes mellitus Code(s): E11.65 - TYPE 2 DIABETES MELLITUS WITH HYPERGLYCEMIA (4) Weakness Code(s): R53.1 - WEAKNESS (5) Leukocytosis Code(s): D72.829 - ELEVATED WHITE BLOOD CELL COUNT, UNSPECIFIED (6) Dehydration Code(s): E86.0 - DEHYDRATION (7) Malnourished Code(s): E46 - UNSPECIFIED PROTEIN-CALORIE MALNUTRITION Qualifiers: Malnutrition type: protein-calorie malnutrition (8) Squamous cell lung cancer Code(s): C34.90 - MALIGNANT NEOPLASM OF UNSP PART OF UNSP BRONCHUS OR LUNG (9) Anxiety Code(s): F41.9 - ANXIETY DISORDER, UNSPECIFIED Assessment/Plan This is a 63 y/o woman admitted for Sepsis secondary to Pneumonia, Generalized Weakness, Uncontrolled DM, Dehydration for further evaluation of their emergent condition. Plan: 1. Sepsis Likely secondary to HAP Sepsis Criteria Met IV: WBC 26.9, Lactic Acid 3.8~3.6, T Max 99.7, Spo2 90% Fluid boluses given in ED Fluid bolus x 1 now for continued Lactic Acidosis Trend Lactic Acid Continue Vancomycin and Zosyn Monitor CBC Maintain MAP > 65 Monitor vitals Tylenol prn 2. Pneumonia Will treat for HAP Recent admission 05/18-06/01 for COPD Exacerbation CURB65 Score 0 Blood Cultures-pending Chest Xray- DELVIN Infiltrate with a possible pleural- based mass +leukocytosis with neutrophilia Vancomycin, Zosyn given in ED, will continue Appreciate ID consult Urine Legionellla Monitor CBC Monitor vitals Tylenol prn 3. Uncontrolled DM Likely secondary to Sepsis BGMs ISS Appreciate Endocrinology consult HgbA1c in am Monitor renal function 4. Generalized Weakness Likely secondary to Pneumonia Fluid boluses given Monitor lytes Monitor vitals Fall Precautions 5. Dehydration See above IV fluids given in ED Will continue to monitor and treat with interventions accordingly 6. CAD s/p Stent Continue home meds EKG- reviewed 7. Hypertension Stable Monitor BP Continue home meds Monitor renal function 8. Lung Ca Appreciate Oncology consult O2 9. Anxiety Continue Xanax 10. Cachexia Albumin 3.[address] consult Supplements FEN PO fluids as tolerated Replete lytes prn Low Na, Diabetic Diet DVT ppx OOB SCDs Heparin SQ Dispo: Requires Inpatient Care Visit type - Emergency Visit Emergency Visit: Yes ED Registration Date: 06/10/18 Care time: The patient presented to the Emergency Department on the above date and was hospitalized for further evaluation of their emergent condition. - New Patient This patient is new to me today: Yes Date on this admission: 06/10/18 - Critical Care Critical Care patient: No
[2018-06-10] MEDS ORDERED: morphine SULFATE 4 MG/ML VIAL ONE (20:38)
[2018-06-10] MEDS ORDERED: VANCOMYCIN 1 GRAM (PRE-DOCKED) 1,000 MG/250 ML BAG IVPB ONE (20:39)
[2018-06-10] MEDS ORDERED: PIPERACILLIN/TAZOB 4.5 GM 4.5 GM/100 ML BAG IVPB ONE (20:39)
[2018-06-10] MEDS ORDERED: SODIUM CHLORIDE 1,000 ML IV STA (21:03)
[2018-06-10 21:15] LABS: URINE APPEARANCE CLEAR; URINE BILIRUBIN NEGATIVE (<2.0 mg/dL); URINE COLOR STRAW; URINE GLUCOSE (UA) 3+ (NEGATIVE); URINE KETONE NEGATIVE (NEGATIVE); URINE LEUK ESTERASE NEGATIVE (NEGATIVE); URINE NITRITE NEGATIVE (NEGATIVE); URINE PROTEIN NEGATIVE (NEGATIVE); URINE UROBILINOGEN NEGATIVE mg/dL (0.2-1.0)
[2018-06-11] MEDS: INSULIN SLIDING SCALE (NOVOLOG) 1 VIAL SQ SCH ×5 (00:11→21:42)
[2018-06-11] MEDS ORDERED: SODIUM CHLORIDE 500 ML IV STA (00:35)
[2018-06-11] MEDS ORDERED: DEXTROSE 5%-WATER 100 ML IVPB ONE ×3 (02:00→23:15)
[2018-06-11] MEDS ORDERED: PIPERACILLIN/TAZOBACTAM 4.5 GM VIAL IVPB ONE ×4 (02:00→23:15)
[2018-06-11] MEDS: PIPERACILLIN/TAZOB 4.5 GM 4.5 GM in DEXTROSE 5%-WATER 100 ML IVPB SCH ×3 (02:02→17:56)
[2018-06-11 07:38] LABS: BASO % 0.3 % (0-2.0); EOS % 0.4 % (0-4.5); HEMATOCRIT 34.9 % (32.4-45.2); HEMOGLOBIN 11.6 GM/dL (10.7-15.3); LYMPH % 5.1 % (8-40); MCH 26.9 pg (25.7-33.7); MCHC 33.3 g/dl (32.0-36.0); MEAN CELL VOLUME 80.6 fl (80-96); MEAN PLT VOLUME 9.1 fl (7.5-11.1); MONO % 3.5 % (3.8-10.2); NEUT % 90.7 % (42.8-82.8); PLATELET COUNT 232 K/MM3 (134-434); RBC 4.33 M/mm3 (3.60-5.2); RDW 19.1 % (11.6-15.6); WHITE BLOOD COUNT 24.2 K/mm3 (4.0-10.0)
[2018-06-11 08:25] LABS: ANION GAP 7 MMOL/L (8-16); BLOOD UREA NITROGEN 9 mg/dL (7-18); CALCIUM 9.6 mg/dL (8.5-10.1); CHLORIDE 100 mmol/L (98-107); CO2 30 mmol/L (21-32); CREATININE 0.6 mg/dL (0.55-1.3); GLUCOSE,RANDOM 140 mg/dL (74-106); MAGNESIUM 2.1 mg/dL (1.8-2.4); SODIUM 138 mmol/L (136-145)
[2018-06-11 09:26] LABS: POTASSIUM 2.9 mmol/L (3.5-5.1)
[2018-06-11 10:09] LABS: ANISOCYTOSIS 2+; MACROCYTOSIS 0; OVALOCYTE 1+; PLATELET ESTIMATE NORMAL; TEAR DROP CELLS 1+
--- NOTE | 2018-06-11 11:18 | PN ---
Progress Note (short form) - Note Progress Note: ID consult dictated imp/reccd low grade temp not eating at home no cough no hemoptysis hyperglycemia steroids untreated squamous cell lung cancer s/p treatment for post obstructuve pneumonia has not completed staging yet no diarrhea unable to eat at home not sure why cxray looks improved resume zosyn pending cultures control blood sugars Problem List - Problems (1) Leukocytosis Code(s): D72.829 - ELEVATED WHITE BLOOD CELL COUNT, UNSPECIFIED (2) Uncontrolled diabetes mellitus Code(s): E11.65 - TYPE 2 DIABETES MELLITUS WITH HYPERGLYCEMIA (3) Squamous cell lung cancer Code(s): C34.90 - MALIGNANT NEOPLASM OF UNSP PART OF UNSP BRONCHUS OR LUNG (4) Pneumonia Code(s): J18.9 - PNEUMONIA, UNSPECIFIED ORGANISM
[2018-06-11] MEDS ORDERED: MECLIZINE HCL 25 MG TABLET (FP) PO PRN (11:56)
--- NOTE | 2018-06-11 12:09 | PN ---
Progress Note, Physician Chief Complaint: Generalized weakness Lung CA Poor Appetite History of Present Illness: Previous notes and events reviewed awake and alert NAD complain of generalized body pain - Current Medication List Current Medications: Active Medications Albuterol/Ipratropium (Duoneb -) 1 amp NEB Q6H PRN PRN Reason: SHORTNESS OF BREATH Alprazolam (Xanax -) 0.25 mg PO Q6H PRN PRN Reason: ANXIETY Aspirin (Ecotrin -) 81 mg PO DAILY [facility] Cyanocobalamin (Vitamin B12 -) 1,000 mcg PO DAILY [facility] Doxepin HCl (Sinequan -) 100 mg PO HS [facility] Ferrous Sulfate (Feosol -) 325 mg PO TIDCM [facility] Folic Acid (Folic Acid -) 1 mg PO DAILY [facility] Vancomycin HCl 750 mg/ (Dextrose) 250 mls @ 250 mls/hr IVPB ONCE ONE; Protocol Stop: 06/11/18 21:59 Piperacillin Sod/Tazobactam (Sod 4.5 gm/ Dextrose) 100 mls @ 200 mls/hr IVPB Q8H-IV [facility]; Protocol Insulin Aspart (Novolog Vial Sliding Scale -) 1 vial SQ ACHS [facility]; Protocol Last Admin: 06/11/18 06:52 Dose: 2 units Levetiracetam (Keppra -) 750 mg PO BID [facility] Meclizine HCl (Antivert -) 25 mg PO TID PRN PRN Reason: VERTIGO Metoprolol Succinate (Toprol Xl -) 12.5 mg PO DAILY [facility] Mirtazapine (Remeron -) 7.5 mg PO HS [facility] Morphine Sulfate (Morphine Sulfate) 2 mg SQ Q6H PRN PRN Reason: PAIN LEVEL 6-10 Pantoprazole Sodium (Protonix -) 40 mg PO DAILY [facility] Polyethylene Glycol (Miralax (For Daily Use) -) 17 gm PO DAILY [facility] Ranolazine (Ranexa -) 500 mg PO BID [facility] Sitagliptin Phosphate (Januvia -) 100 mg PO DAILY@0700 [facility] Trazodone HCl (Desyrel -) 100 mg PO HS [facility] - Objective Vital Signs: Vital Signs Temperature 99.1 F 06/11/18 09:32 Pulse Rate 91 H 06/11/18 09:32 Respiratory Rate 18 06/11/18 10:00 Blood Pressure 100/48 L 06/11/18 09:32 O2 Sat by Pulse Oximetry (%) 94 L 06/11/18 10:00 Constitutional: Yes: No Distress, Calm Eyes: Yes: Conjunctiva Clear HENT: Yes: Normocephalic Cardiovascular: Yes: Regular Rate and Rhythm Respiratory: Yes: Regular, On Nasal O2, Wheezes Gastrointestinal: Yes: Normal Bowel Sounds, Soft Musculoskeletal: Yes: Muscle Weakness Extremities: Yes: WNL Edema: No Neurological: Yes: Alert, Oriented Psychiatric: Yes: Alert, Oriented Labs: CBC, BMP 06/11/18 06:20 06/11/18 07:00 <Ana Cordova - Last Filed: 06/11/18 12:22> - Current Medication List Current Medications: Active Medications Acetaminophen (Tylenol -) 500 mg PO Q6H PRN PRN Reason: FEVER Last Admin: 06/11/18 21:41 Dose: 500 mg Albuterol/Ipratropium (Duoneb -) 1 amp NEB Q6H PRN PRN Reason: SHORTNESS OF BREATH Last Admin: 06/11/18 17:56 Dose: 1 amp Alprazolam (Xanax -) 0.25 mg PO Q6H PRN PRN Reason: ANXIETY Last Admin: 06/11/18 18:18 Dose: 0.25 mg Aspirin (Ecotrin -) 81 mg PO DAILY [facility] Cyanocobalamin (Vitamin B12 -) 1,000 mcg PO DAILY [facility] Doxepin HCl (Sinequan -) 100 mg PO HS [facility] Last Admin: 06/11/18 22:58 Dose: 100 mg Ferrous Sulfate (Feosol -) 325 mg PO TIDCM [facility] Last Admin: 06/11/18 17:55 Dose: 325 mg Folic Acid (Folic Acid -) 1 mg PO DAILY [facility] Piperacillin Sod/Tazobactam (Sod 4.5 gm/ Dextrose) 100 mls @ 200 mls/hr IVPB Q8H-IV [facility]; Protocol Last Admin: 06/12/18 02:50 Dose: 200 mls/hr Insulin Aspart (Novolog Vial Sliding Scale -) 1 vial SQ ACHS [facility]; Protocol Last Admin: 06/12/18 06:24 Dose: 5 unit Insulin Detemir (Levemir Vial) 15 units SQ AM [facility] Last Admin: 06/12/18 06:23 Dose: 15 unit Levetiracetam 500 mg/ (Levetiracetam 250 mg) 750 mg PO BID [facility] Last Admin: 06/11/18 21:50 Dose: 750 mg Meclizine HCl (Antivert -) 25 mg PO TID PRN PRN Reason: VERTIGO Metoprolol Succinate (Toprol Xl -) 12.5 mg PO DAILY [facility] Mirtazapine (Remeron -) 7.5 mg PO HS [facility] Last Admin: 06/11/18 21:43 Dose: 7.5 mg Morphine Sulfate (Morphine Sulfate) 2 mg SQ Q6H PRN PRN Reason: PAIN LEVEL 6-10 Last Admin: 06/11/18 17:55 Dose: 2 mg Oxycodone HCl (Oxycontin -) 10 mg PO BID [facility] Last Admin: 06/11/18 21:41 Dose: 10 mg Pantoprazole Sodium (Protonix -) 40 mg PO DAILY [facility] Polyethylene Glycol (Miralax (For Daily Use) -) 17 gm PO DAILY [facility] Ranolazine (Ranexa -) 500 mg PO BID [facility] Last Admin: 06/11/18 21:51 Dose: 500 mg Sitagliptin Phosphate (Januvia -) 100 mg PO DAILY@0700 [facility] Last Admin: 06/12/18 06:22 Dose: 100 mg Trazodone HCl (Desyrel -) 100 mg PO HS [facility] Last Admin: 06/11/18 21:41 Dose: 100 mg - Objective Vital Signs: Vital Signs Temperature 99.1 F 06/12/18 06:00 Pulse Rate 95 H 06/12/18 06:00 Respiratory Rate 20 06/12/18 06:00 Blood Pressure 100/58 L 06/12/18 06:00 O2 Sat by Pulse Oximetry (%) 94 L 06/11/18 20:24 Labs: CBC, BMP 06/12/18 06:15 <TashAmmir - Last Filed: 06/12/18 08:27> Problem List - Problems (1) Pneumonia Assessment/Plan: -WBC 24.2, will trend -CXR increase in aeration in the DELVIN infiltrate with a zbzemzjn-vrijneo-hunre mass -ID on board -continue with vanco and zosyn -O2 via OR prn for SOB -keep SpO2 >90% -LA 3.6, will repeat Code(s): J18.9 - PNEUMONIA, UNSPECIFIED ORGANISM (2) Uncontrolled diabetes mellitus Assessment/Plan: -BGM ACHS -diabetic diet -continue sitagliptan and ISS -endo consult Code(s): E11.65 - TYPE 2 DIABETES MELLITUS WITH HYPERGLYCEMIA (3) Leukocytosis Assessment/Plan: -WBC 24.2, ? 2/2 steroid use -will trend WBC -continue vanco and zosyn -ID on board Code(s): D72.829 - ELEVATED WHITE BLOOD CELL COUNT, UNSPECIFIED (4) Squamous cell lung cancer Assessment/Plan: -oncology on board -pain management Code(s): C34.90 - MALIGNANT NEOPLASM OF UNSP PART OF UNSP BRONCHUS OR LUNG (5) Hypokalemia Assessment/Plan: -K level 2.9 -order KCl 10mEq IVPB x 2 -will monitor K level and replete as needed Code(s): E87.6 - HYPOKALEMIA <Ana Cordova - Last Filed: 06/11/18 12:22> Assessment/Plan see problem list dvt ppx <Ana Cordova - Last Filed: 06/11/18 12:22> PATIENT SEEN AND EXAMINED AND I AGREE WITH ABOVE NOTE <Kulwant Bianchi - Last Filed: 06/12/18 08:27>
[2018-06-11] MEDS: MORPHINE SULFATE 2 MG/ML VIAL SQ PRN ×2 (12:10→17:55)
[2018-06-11] MEDS: KCL 10 MEQ IVPB 10 MEQ/100 ML INFUS.BAG IVPB SCH (12:44)
[2018-06-11] MEDS: FERROUS SO4 325 MG TABLET (FP) PO SCH ×2 (12:44→17:55)
--- NOTE | 2018-06-11 12:52 | EKG ---
Test Reason : Blood Pressure : / mmHG Vent. Rate : 110 BPM Atrial Rate : 110 BPM P-R Int : 114 ms QRS Dur : 080 ms QT Int : 324 ms P-R-T Axes : 078 076 088 degrees QTc Int : 438 ms SINUS TACHYCARDIA ABNORMAL ECG WHEN COMPARED WITH ECG OF 28-MAY-2018 17:13, T WAVE INVERSION MORE EVIDENT IN ANTERIOR LEADS QT HAS LENGTHENED Confirmed by CRISTOFER GARCIA MD ([id number]) on 06/11/2018 12:52:46 PM Referred By: Confirmed By:CRISTOFER GARCIA MD
[2018-06-11 14:38] LABS: ALBUMIN 2.6 g/dl (3.4-5.0); ALK PHOS 93 U/L (45-117); ANION GAP 9 MMOL/L (8-16); BILIRUBIN,TOTAL 0.3 mg/dL (0.2-1); BLOOD UREA NITROGEN 10 mg/dL (7-18); CALCIUM 9.8 mg/dL (8.5-10.1); CHLORIDE 98 mmol/L (98-107); CO2 28 mmol/L (21-32); CREATININE 0.8 mg/dL (0.55-1.3); GLUCOSE,RANDOM 293 mg/dL (74-106); POTASSIUM 3.4 mmol/L (3.5-5.1); SGOT/AST 12 U/L (15-37); SGPT/ALT 13 U/L (13-61); SODIUM 135 mmol/L (136-145); TOT PROT 5.6 g/dl (6.4-8.2)
[2018-06-11] MEDS: ALBUTEROL SO4 2.5/IPRATROPIUM 0.5 INH SOL 3 ML VIAL.NEB. NEB PRN (17:56)
--- NOTE | 2018-06-11 18:02 | PN ---
Progress Note (short form) - Note Progress Note: Patient known to oncology service - recetn admission for post-obstructive pneumonia, attributable to newly diagnosed NSCLC. Discharged recently, for outpatient management - was supposed to undergo PET scan - cancelled due to hyperglycemia. Patient brought to ER, with report from daughter of ongoing poor appetite. Patient admitted due to to finding of elevated WCC, with suspicion of pneumonia. Patient without complaints at this time - believes she was admitted for her hyperglycemia. Reports appetite, cough, at baseline. Inpatient Meds reviewed. Current Medications Albuterol/Ipratropium (Duoneb -) 1 amp NEB Q6H PRN PRN Reason: SHORTNESS OF BREATH Last Admin: 06/11/18 17:56 Dose: 1 amp Alprazolam (Xanax -) 0.25 mg PO Q6H PRN PRN Reason: ANXIETY Aspirin (Ecotrin -) 81 mg PO DAILY [facility] Cyanocobalamin (Vitamin B12 -) 1,000 mcg PO DAILY [facility] Doxepin HCl (Sinequan -) 100 mg PO HS [facility] Ferrous Sulfate (Feosol -) 325 mg PO TIDCM [facility] Last Admin: 06/11/18 17:55 Dose: 325 mg Folic Acid (Folic Acid -) 1 mg PO DAILY [facility] Vancomycin HCl 750 mg/ (Dextrose) 250 mls @ 250 mls/hr IVPB ONCE ONE; Protocol Stop: 06/11/18 21:59 Piperacillin Sod/Tazobactam (Sod 4.5 gm/ Dextrose) 100 mls @ 200 mls/hr IVPB Q8H-IV [facility]; Protocol Last Admin: 06/11/18 17:56 Dose: 200 mls/hr Insulin Aspart (Novolog Vial Sliding Scale -) 1 vial SQ ACHS [facility]; Protocol Last Admin: 06/11/18 17:14 Dose: 10 units Levetiracetam 500 mg/ (Levetiracetam 250 mg) 750 mg PO BID [facility] Meclizine HCl (Antivert -) 25 mg PO TID PRN PRN Reason: VERTIGO Metoprolol Succinate (Toprol Xl -) 12.5 mg PO DAILY [facility] Mirtazapine (Remeron -) 7.5 mg PO HS [facility] Morphine Sulfate (Morphine Sulfate) 2 mg SQ Q6H PRN PRN Reason: PAIN LEVEL 6-10 Last Admin: 06/11/18 17:55 Dose: 2 mg Oxycodone HCl (Oxycontin -) 10 mg PO BID [facility] Pantoprazole Sodium (Protonix -) 40 mg PO DAILY [facility] Polyethylene Glycol (Miralax (For Daily Use) -) 17 gm PO DAILY [facility] Ranolazine (Ranexa -) 500 mg PO BID [facility] Sitagliptin Phosphate (Januvia -) 100 mg PO DAILY@0700 [facility] Trazodone HCl (Desyrel -) 100 mg PO HS [facility] On Examination: Last Vital Signs Temp Pulse Resp BP Pulse Ox 98.5 F 100 H 18 138/61 94 L 06/11/18 14:13 06/11/18 14:13 06/11/18 14:13 06/11/18 14:13 06/11/18 14:00 General: In no acute distress, ambulating, looks well. Extremities: No pallor or icterus. No pedal edema. Chest: breathing comfortably, clear Abdomen: Non-distended. CVS: S1, S2 no gallop or murmur. Neuro: Alert, oriented, non-focal. Labs: CBC, BMP 06/11/18 06:20 06/11/18 13:35 Assessment. Recently diagnosed NSCLC (squmaous cell), presented originally with hilar mass with secondary distal obstruction/pneumonia. Returns with history of anorexia, and leukocytosis. Latter finding is attributable to steroids. See no acuity here. Defer to ID, whether any consideration for sepsis. Awaiting PET scan, as staging for NSCLC - unclear whether a candidate for local therapy with curative intent, vs systemic palliative therapy - ? malignant pleural effusion.
[2018-06-11] MEDS: ALPRAZolam 0.25 MG TABLET PO PRN (18:18)
--- NOTE | 2018-06-11 18:18 | CONS ---
DATE OF CONSULTATION: DATE OF DICTATION: 06/11/2018 REQUESTED BY: Kulwant Bianchi MD This is a 63-year-old woman, who was just in the hospital from May 18 to June 01. She was admitted then with asthma. She was found to have a left upper lobe mass with postobstructive pneumonia. She had a bronchoscopy. She was found to have squamous cell cancer. The BAL washings showed normal winter. She was treated with IV antibiotics and discharged on Augmentin. At the time of discharge, her white count was 23,000, and she was also on steroids and the white count was felt to be multifactorial. She was discharged home and she reports since being home, that she has not been eating well, her sugars have been very poorly controlled. She was scheduled for an outpatient PET scan, which was delayed due to hyperglycemia. She reported feeling unwell to the [facility] physician and she was advised to come to the emergency room. In the ER, she was noted to be hyperglycemic and have a low-grade temperature of 99.7. Her white count was 24,000, and she had an elevated lactic acid. She had a chest x-ray that showed improvement in the left upper lobe infiltrate with a stable mass. I am asked to comment on further course of action. She is currently resting comfortably, she has no complaints whatsoever. Her appetite has improved tremendously and her sugars are under better control. She has no known drug allergies. Her past medical history includes seizure disorder, coronary artery disease, hypertension, hyperlipidemia, she has a stent, asthma, squamous cell cancer recently diagnosed, COPD, diabetes mellitus. Surgical history is notable for hysterectomy. She is a former smoker. No history of substance use. She lives independently and she walks with a cane and walker. Medications at home included a Ventolin inhaler, vitamin B12, Keppra, Ranexa, doxepin, aspirin, vitamin D, Protonix, trazodone, ferrous sulfate, folic acid, meclizine, Remeron, DuoNeb, alprazolam. She completed her Augmentin, Sinequan, metoprolol, Protonix, MiraLax, Januvia, OxyContin, prednisone 20 mg daily. Family history is notable for diabetes and heart disease as well as strokes. Review of systems is notable for the fact that she reports that since she was home, she has only been lying around, has been weak, not able to eat. She denies any fevers or chills. PHYSICAL EXAMINATION: General: She is actually quite animated now. Vital Signs: Temperature is 98.5. Pulse 100. Blood pressure 138/61. Respiratory rate 18. She is saturating 94% on 2 L. HEENT: Normocephalic. Her eyes are anicteric. Neck: Supple. Lungs: Clear to auscultation. Heart: Regular rate and rhythm. Abdomen: Soft, nontender. Extremities: Without edema. White count is 24.2, hemoglobin 11.6, platelets 232. BUN 10, creatinine 0.8. Urinalysis is negative. She had positive acetones on admission. In summary, this is a 63-year-old woman with newly-diagnosed squamous cell cancer with postobstructive pneumonia that by x-ray looks improved, she has no hemoptysis and she has a nonproductive cough, who was admitted with hyperglycemia and low-grade fever and weakness. For now, I would suggest resume the Zosyn, pending cultures, and control her blood sugars. She has perked up considerably and is eating well. Hopefully, we can stop her antibiotics when the cultures are back, as clinically she appears improved. TEA WILL M.D. [id number]
[2018-06-11] MEDS ORDERED: VANCOMYCIN 750 MG in DEXTROSE 5%-WATER - 250 ML IVPB ONE (21:00)
--- NOTE | 2018-06-11 21:09 | CONSULT ---
Consult Consult Specialty:: endocrine Referred by:: lucie kraus NP Reason for Consultation:: diabetes mellitus hyperlgycemia - History of Present Illness Chief Complaint: high sugars poor appetite History of Present Illness: 63 y/o woman PMHx of: DM2,HTN, HLD, CAD s/p Stents, COPD, Asthma, Anxiety, Squamous Cell Lung Ca, recent admission COPD Exacerbation 05/18-06/01. Who presents for generalized weakness, SOB, non-productive cough, decreased appetite . 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 No: CVA Cardio/Vascular: Yes: CAD, HTN, Hyperlipdemia, Other (PCI STENT). No: AFIB Pulmonary: Yes: Asthma, Cancer (Squamous Cell), COPD Endocrine: Yes: Diabetes Mellitus - Past Surgical History Past Surgical History: Yes: Hysterectomy, Stent - Alcohol/Substance Use Hx Alcohol Use: No History of Substance Use: reports: None - Smoking History Smoking history: Former smoker Have you smoked in the past 12 months: Yes Aproximately how many cigarettes per day: 12 - Social History Usual Living Arrangement: Alone ADL: Independent (ambulates with cane, walker) History of Recent Travel: No Home Medications - Allergies Allergies/Adverse Reactions: Allergies Allergy/AdvReac Type Severity Reaction Status Date / Time No Known Allergies Allergy Verified 12/20/17 15:32 - Home Medications Home Medications: Ambulatory Orders Albuterol Sulfate Inhaler - [Ventolin HFA Inhaler -] 1 - 2 inh PO QID PRN #1 inhaler 07/02/14 Cyanocobalamin [Vitamin B12 -] 1,000 mcg PO DAILY 07/16/14 levETIRAcetam [Keppra -] 750 mg PO BID #180 tablet 06/01/15 Ranolazine [Ranexa] 500 mg PO BID 01/24/17 Doxepin HCl 100 mg PO HS 05/24/17 Aspirin Coated [Ecotrin -] 81 mg PO DAILY 12/20/17 Cholecalciferol (Vitamin D3) [Vitamin D3 -] 5,000 unit PO Q7D 12/20/17 Pantoprazole Sodium [Protonix -] 40 mg PO DAILY #30 tablet.ec 12/23/17 Trazodone HCl 150 mg PO HS 05/18/18 Ferrous Sulfate [Feosol] 325 mg PO TID 05/19/18 Folic Acid - 1 mg PO DAILY 05/19/18 Meclizine HCl [Antivert -] 25 mg PO TID 05/19/18 Mirtazapine [Remeron -] 7.5 mg PO DAILY 05/19/18 Albuterol 0.083% Nebulizer Noni [Ventolin 0.083% Nebulizer Soln -] 1 amp NEB Q4H PRN #30 amp 06/01/18 Albuterol 2.5/Ipratropium 0.5 [Duoneb -] 1 amp NEB RTID #90 amp 06/01/18 Alprazolam [Xanax] 0.25 mg PO Q6H PRN #30 tablet MDD 4 06/01/18 Amox-Tr/K Cl [Augmentin 875-125mg Tablet -] 1 tab PO BID@0800,1730 #14 tablet Doxepin HCl [Sinequan -] 100 mg PO HS #120 capsule 06/01/18 Ferrous Sulfate [Feosol] 325 mg PO TIDCM #90 ud 06/01/18 Metoprolol Succinate [Toprol XL -] 12.5 mg PO DAILY #30 tab.sr.24h 06/01/18 Nicotine Patch [Nicoderm Patch -] 7 mg TD DAILY #30 patch 06/01/18 Nystatin 500,000 unit PO TID #90 tablet 06/01/18 Pantoprazole Sodium [Protonix -] 40 mg PO DAILY #30 tablet.ec 06/01/18 Polyethylene Glycol 3350 [Miralax 119 gm Btl -] 17 gm PO DAILY #1 bottle Ranolazine [Ranexa -] 500 mg PO BID #60 tab 06/01/18 Sitagliptin Phosphate [Januvia -] 100 mg PO DAILY@0700 #30 ud 06/01/18 oxyCODONE SR [Oxycontin] 10 mg PO BID 7 Days #14 tab.er.12h MDD 2 06/01/18 predniSONE [Deltasone -] 20 mg PO UTDICT #30 tablet 06/01/18 traZODone HCL [Desyrel -] 150 mg PO HS #90 tablet 06/01/18 Family Disease History - Family Disease History Family Disease History: Diabetes: Father, Mother (alzheimers), Heart Disease: Mother, CA: Brother (Pancreatic, ), Other: Mother, Sister (3 strokes) Review of Systems - Review of Systems Constitutional: reports: Lethargy, Weakness Eyes: reports: Blurred Vision HENT: reports: Difficult Swallowing, Throat Pain Neck: reports: Tenderness Cardiovascular: reports: Shortness of Breath Respiratory: reports: Exercise Intolerance, SOB on Exertion Gastrointestinal: reports: Constipation Genitourinary: reports: No Symptoms Breasts: reports: No Symptoms Reported Neurological: reports: Numbness Endocrine: reports: Unexplained Weight Loss Physical Exam Vital Signs: Vital Signs Temperature 101.1 F H 06/11/18 18:54 Pulse Rate 101 H 06/11/18 18:54 Respiratory Rate 20 06/11/18 20:24 Blood Pressure 124/63 06/11/18 18:54 O2 Sat by Pulse Oximetry (%) 94 L 06/11/18 20:24 Constitutional: Yes: Anxious Eyes: Yes: EOM Intact HENT: Yes: Normocephalic Neck: Yes: Trachea Midline Cardiovascular: Yes: Regular Rate and Rhythm Respiratory: Yes: On Nasal O2, Tachypnea Gastrointestinal: Yes: Normal Bowel Sounds Renal/: Yes: WNL Musculoskeletal: Yes: Muscle Weakness Neurological: Yes: Alert, Oriented Labs: CBC, BMP 06/11/18 06:20 06/11/18 13:35 Problem List - Problems (1) Diabetes mellitus with nonketotic hyperosmolarity Code(s): E11.00 - TYPE 2 DIAB W HYPROSM W/O NONKET HYPRGLY-HYPROS COMA (NKHHC) (2) Anxiety Code(s): F41.9 - ANXIETY DISORDER, UNSPECIFIED (3) Hypokalemia Code(s): E87.6 - HYPOKALEMIA (4) Leukocytosis Code(s): D72.829 - ELEVATED WHITE BLOOD CELL COUNT, UNSPECIFIED (5) Pneumonia Code(s): J18.9 - PNEUMONIA, UNSPECIFIED ORGANISM (6) Uncontrolled diabetes mellitus Code(s): E11.65 - TYPE 2 DIABETES MELLITUS WITH HYPERGLYCEMIA (7) Weakness Code(s): R53.1 - WEAKNESS (8) Adult behavior problem Code(s): F69 - UNSPECIFIED DISORDER OF ADULT PERSONALITY AND BEHAVIOR Assessment/Plan Current Active Problems Anxiety (Acute) Hypokalemia (Acute) Leukocytosis (Acute) Pneumonia (Acute) Uncontrolled diabetes mellitus (Acute) Weakness (Acute) hypercalcemia likely malignancy Abnormal Lab Results 06/10/18 06/10/18 06/11/18 21:00 23:49 06:20 WBC 24.2 H RDW 19.1 H Absolute Neuts (auto) 22.0 H Neutrophils % 90.7 H Neutrophils % (Manual) 87.1 H Lymphocytes % 5.1 L Lymphocytes % (Manual) 5.9 L D Monocytes % 3.5 L Monocytes % (Manual) 3 L Sodium Potassium Anion Gap Random Glucose Lactic Acid 3.6 H* AST Total Protein Albumin Urine Glucose (UA) 3+ H 06/11/18 06/11/18 07:00 13:35 WBC RDW Absolute Neuts (auto) Neutrophils % Neutrophils % (Manual) Lymphocytes % Lymphocytes % (Manual) Monocytes % Monocytes % (Manual) Sodium 135 L Potassium 2.9 L* 3.4 L Anion Gap 7 L Random Glucose 140 H 293 H Lactic Acid AST 12 L Total Protein 5.6 L Albumin 2.6 L Urine Glucose (UA) Laboratory Results - last 24 hr 06/10/18 06/10/18 06/11/18 21:00 23:49 00:03 WBC RBC Hgb Hct MCV MCH MCHC RDW Plt Count MPV Absolute Neuts (auto) Neutrophils % Neutrophils % (Manual) Band Neutrophils % Lymphocytes % Lymphocytes % (Manual) Monocytes % Monocytes % (Manual) Eosinophils % Eosinophils % (Manual) Basophils % Basophils % (Manual) Myelocytes % (Man) Promyelocytes % (Man) Blast Cells % (Manual) Nucleated RBC % Metamyelocytes Hypochromia Platelet Estimate Platelet Comment Polychromasia Poikilocytosis Anisocytosis Microcytosis Macrocytosis Tear Drop Cells Ovalocytes Fragmented RBCs Sodium Potassium Chloride Carbon Dioxide Anion Gap BUN Creatinine Creat Clearance w eGFR POC Glucometer 375 Random Glucose Lactic Acid 3.6 H* Calcium Magnesium Total Bilirubin AST ALT Alkaline Phosphatase Total Protein Albumin Urine Color Straw Urine Appearance Clear Urine pH 7.0 Ur Specific [place] 1.017 Urine Protein Negative Urine Glucose (UA) 3+ H Urine Ketones Negative Urine Blood Negative Urine Nitrite Negative Urine Bilirubin Negative Urine Urobilinogen Negative Ur Leukocyte Esterase Negative 02/17/19 02/17/19 02/17/19 06:20 06:45 06:50 WBC 24.2 H RBC 4.33 Hgb 11.6 Hct 34.9 MCV 80.6 MCH 26.9 MCHC 33.3 RDW 19.1 H Plt Count 232 D MPV 9.1 Absolute Neuts (auto) 22.0 H Neutrophils % 90.7 H Neutrophils % (Manual) 87.1 H Band Neutrophils % 2.0 Lymphocytes % 5.1 L Lymphocytes % (Manual) 5.9 L D Monocytes % 3.5 L Monocytes % (Manual) 3 L Eosinophils % 0.4 D Eosinophils % (Manual) 0.0 Basophils % 0.3 Basophils % (Manual) 0.0 Myelocytes % (Man) 0 Promyelocytes % (Man) 0 Blast Cells % (Manual) 0 Nucleated RBC % 0 Metamyelocytes 0 Hypochromia 0 Platelet Estimate Normal Platelet Comment Present Polychromasia 1+ Poikilocytosis 2+ Anisocytosis 2+ Microcytosis 0 Macrocytosis 0 Tear Drop Cells 1+ Ovalocytes 1+ Fragmented RBCs 1+ Sodium Potassium Chloride Carbon Dioxide Anion Gap BUN Creatinine Creat Clearance w eGFR POC Glucometer 165 Random Glucose Lactic Acid 0.9 Calcium Magnesium Total Bilirubin AST ALT Alkaline Phosphatase Total Protein Albumin Urine Color Urine Appearance Urine pH Ur Specific [place] Urine Protein Urine Glucose (UA) Urine Ketones Urine Blood Urine Nitrite Urine Bilirubin Urine Urobilinogen Ur Leukocyte Esterase 06/11/18 06/11/18 06/11/18 07:00 13:04 13:35 WBC RBC Hgb Hct MCV MCH MCHC RDW Plt Count MPV Absolute Neuts (auto) Neutrophils % Neutrophils % (Manual) Band Neutrophils % Lymphocytes % Lymphocytes % (Manual) Monocytes % Monocytes % (Manual) Eosinophils % Eosinophils % (Manual) Basophils % Basophils % (Manual) Myelocytes % (Man) Promyelocytes % (Man) Blast Cells % (Manual) Nucleated RBC % Metamyelocytes Hypochromia Platelet Estimate Platelet Comment Polychromasia Poikilocytosis Anisocytosis Microcytosis Macrocytosis Tear Drop Cells Ovalocytes Fragmented RBCs Sodium 138 135 L Potassium 2.9 L* 3.4 L Chloride 100 98 Carbon Dioxide 30 28 Anion Gap 7 L 9 BUN 9 10 Creatinine 0.6 0.8 Creat Clearance w eGFR > 60 > 60 POC Glucometer 282 Random Glucose 140 H 293 H Lactic Acid Calcium 9.6 9.8 Magnesium 2.1 Total Bilirubin 0.3 AST 12 L ALT 13 Alkaline Phosphatase 93 Total Protein 5.6 L Albumin 2.6 L Urine Color Urine Appearance Urine pH Ur Specific [place] Urine Protein Urine Glucose (UA) Urine Ketones Urine Blood Urine Nitrite Urine Bilirubin Urine Urobilinogen Ur Leukocyte Esterase 06/11/18 16:49 WBC RBC Hgb Hct MCV MCH MCHC RDW Plt Count MPV Absolute Neuts (auto) Neutrophils % Neutrophils % (Manual) Band Neutrophils % Lymphocytes % Lymphocytes % (Manual) Monocytes % Monocytes % (Manual) Eosinophils % Eosinophils % (Manual) Basophils % Basophils % (Manual) Myelocytes % (Man) Promyelocytes % (Man) Blast Cells % (Manual) Nucleated RBC % Metamyelocytes Hypochromia Platelet Estimate Platelet Comment Polychromasia Poikilocytosis Anisocytosis Microcytosis Macrocytosis Tear Drop Cells Ovalocytes Fragmented RBCs Sodium Potassium Chloride Carbon Dioxide Anion Gap BUN Creatinine Creat Clearance w eGFR POC Glucometer 352 Random Glucose Lactic Acid Calcium Magnesium Total Bilirubin AST ALT Alkaline Phosphatase Total Protein Albumin Urine Color Urine Appearance Urine pH Ur Specific [place] Urine Protein Urine Glucose (UA) Urine Ketones Urine Blood Urine Nitrite Urine Bilirubin Urine Urobilinogen Ur Leukocyte Esterase plan: bgm qid novolog insulin dose levemir 15 units am ck [id number] nutritition calorie count glucerna supplement low bmi
[2018-06-11] MEDS ORDERED: PT OWN MED DRAWER 7, Y5N ONE ×2 (21:30→23:24)
[2018-06-11] MEDS: oxyCODONE HCL 10 MG SUSTAINED ACTING TABLET PO SCH (21:41)
[2018-06-11] MEDS: traZODone HCL 50 MG TABLET (FP) PO SCH (21:41)
[2018-06-11] MEDS: ACETAMINOPHEN 500 MG TABLET (FP) PO PRN (21:41)
[2018-06-11] MEDS: MIRTAZAPINE 15 MG TABLET (FP) PO SCH (21:43)
[2018-06-11] MEDS: RANOLAZINE E.R. 500 MG TABLET (FP) PO SCH (21:51)
[2018-06-11] MEDS ORDERED: DOXEPIN HCL 50 MG CAPSULE PO SCH (22:00)
[2018-06-11] MEDS ORDERED: levETIRAcetam 500 MG TABLET (FP) PO SCH (22:00)
[2018-06-11] MEDS: DOXEPIN HCL 25 MG CAPSULE PO SCH (22:58)
[2018-06-12] MEDS: PIPERACILLIN/TAZOB 4.5 GM 4.5 GM in DEXTROSE 5%-WATER 100 ML IVPB SCH ×3 (02:50→17:31)
[2018-06-12] MEDS ORDERED: PIPERACILLIN/TAZOB 4.5 GM 4.5 GM in DEXTROSE 5%-WATER 100 ML IVPB SCH (03:00)
[2018-06-12] MEDS: sitaGLIPtin PHOSPHATE 100 MG TABLET (FP) PO SCH (06:22)
[2018-06-12] MEDS: INSULIN (LEVEMIR) 100 UNITS/ML UNITS SQ SCH (06:23)
[2018-06-12] MEDS: INSULIN SLIDING SCALE (NOVOLOG) 1 VIAL SQ SCH ×4 (06:24→21:59)
[2018-06-12] MEDS ORDERED: INSULIN (LEVEMIR) 100 UNITS/ML UNITS SQ ONE (06:48)
[2018-06-12 07:58] LABS: HEMATOCRIT 34.3 % (32.4-45.2); HEMOGLOBIN 11.1 GM/dL (10.7-15.3); MCH 26.2 pg (25.7-33.7); MCHC 32.5 g/dl (32.0-36.0); MEAN CELL VOLUME 80.8 fl (80-96); MEAN PLT VOLUME 9.5 fl (7.5-11.1); PLATELET COUNT 211 K/MM3 (134-434); RBC 4.25 M/mm3 (3.60-5.2); RDW 18.9 % (11.6-15.6); WHITE BLOOD COUNT 16.9 K/mm3 (4.0-10.0)
--- NOTE | 2018-06-12 08:19 | PN ---
Progress Note, Physician Chief Complaint: AWAKE ALERT EVENTS AND NOTES REVIEWED - Current Medication List Current Medications: Active Medications Acetaminophen (Tylenol -) 500 mg PO Q6H PRN PRN Reason: FEVER Last Admin: 06/11/18 21:41 Dose: 500 mg Albuterol/Ipratropium (Duoneb -) 1 amp NEB Q6H PRN PRN Reason: SHORTNESS OF BREATH Last Admin: 06/11/18 17:56 Dose: 1 amp Alprazolam (Xanax -) 0.25 mg PO Q6H PRN PRN Reason: ANXIETY Last Admin: 06/11/18 18:18 Dose: 0.25 mg Aspirin (Ecotrin -) 81 mg PO DAILY [facility] Cyanocobalamin (Vitamin B12 -) 1,000 mcg PO DAILY [facility] Doxepin HCl (Sinequan -) 100 mg PO HS [facility] Last Admin: 06/11/18 22:58 Dose: 100 mg Ferrous Sulfate (Feosol -) 325 mg PO TIDCM [facility] Last Admin: 06/11/18 17:55 Dose: 325 mg Folic Acid (Folic Acid -) 1 mg PO DAILY [facility] Piperacillin Sod/Tazobactam (Sod 4.5 gm/ Dextrose) 100 mls @ 200 mls/hr IVPB Q8H-IV [facility]; Protocol Last Admin: 06/12/18 02:50 Dose: 200 mls/hr Insulin Aspart (Novolog Vial Sliding Scale -) 1 vial SQ ACHS [facility]; Protocol Last Admin: 06/12/18 06:24 Dose: 5 unit Insulin Detemir (Levemir Vial) 15 units SQ AM [facility] Last Admin: 06/12/18 06:23 Dose: 15 unit Levetiracetam 500 mg/ (Levetiracetam 250 mg) 750 mg PO BID [facility] Last Admin: 06/11/18 21:50 Dose: 750 mg Meclizine HCl (Antivert -) 25 mg PO TID PRN PRN Reason: VERTIGO Metoprolol Succinate (Toprol Xl -) 12.5 mg PO DAILY [facility] Mirtazapine (Remeron -) 7.5 mg PO HS [facility] Last Admin: 06/11/18 21:43 Dose: 7.5 mg Morphine Sulfate (Morphine Sulfate) 2 mg SQ Q6H PRN PRN Reason: PAIN LEVEL 6-10 Last Admin: 06/11/18 17:55 Dose: 2 mg Oxycodone HCl (Oxycontin -) 10 mg PO BID [facility] Last Admin: 06/11/18 21:41 Dose: 10 mg Pantoprazole Sodium (Protonix -) 40 mg PO DAILY [facility] Polyethylene Glycol (Miralax (For Daily Use) -) 17 gm PO DAILY [facility] Ranolazine (Ranexa -) 500 mg PO BID [facility] Last Admin: 06/11/18 21:51 Dose: 500 mg Sitagliptin Phosphate (Januvia -) 100 mg PO DAILY@0700 [facility] Last Admin: 06/12/18 06:22 Dose: 100 mg Trazodone HCl (Desyrel -) 100 mg PO HS [facility] Last Admin: 06/11/18 21:41 Dose: 100 mg - Objective Vital Signs: Vital Signs Temperature 99.1 F 06/12/18 06:00 Pulse Rate 95 H 06/12/18 06:00 Respiratory Rate 20 06/12/18 06:00 Blood Pressure 100/58 L 06/12/18 06:00 O2 Sat by Pulse Oximetry (%) 94 L 06/11/18 20:24 Constitutional: Yes: Cachectic, Mild Distress Eyes: Yes: WNL HENT: Yes: WNL Neck: Yes: WNL Cardiovascular: Yes: Regular Rate and Rhythm Respiratory: Yes: WNL Gastrointestinal: Yes: WNL Genitourinary: Yes: WNL Musculoskeletal: Yes: Muscle Weakness Extremities: Yes: WNL Edema: No Peripheral Pulses WNL: Yes Integumentary: Yes: WNL Wound/Incision: Yes: Clean/Dry Neurological: Yes: Pre-Existing Deficit ...Motor Strength: LLE, RLE Psychiatric: Yes: Other Problem List - Problems (1) Severe malnutrition Code(s): E43 - UNSPECIFIED SEVERE PROTEIN-CALORIE MALNUTRITION (2) Anxiety Code(s): F41.9 - ANXIETY DISORDER, UNSPECIFIED (3) Hypokalemia Code(s): E87.6 - HYPOKALEMIA (4) Leukocytosis Code(s): D72.829 - ELEVATED WHITE BLOOD CELL COUNT, UNSPECIFIED (5) Pneumonia Code(s): J18.9 - PNEUMONIA, UNSPECIFIED ORGANISM (6) Uncontrolled diabetes mellitus Code(s): E11.65 - TYPE 2 DIABETES MELLITUS WITH HYPERGLYCEMIA (7) Weakness Code(s): R53.1 - WEAKNESS (8) Adult behavior problem Code(s): F69 - UNSPECIFIED DISORDER OF ADULT PERSONALITY AND BEHAVIOR (9) Alcohol dependence with uncomplicated withdrawal Code(s): F10.230 - ALCOHOL DEPENDENCE WITH WITHDRAWAL, UNCOMPLICATED (10) Anemia Code(s): D64.9 - ANEMIA, UNSPECIFIED (11) Lung mass Code(s): R91.8 - OTHER NONSPECIFIC ABNORMAL FINDING OF LUNG FIELD (12) Malnourished Code(s): E46 - UNSPECIFIED PROTEIN-CALORIE MALNUTRITION Qualifiers: Malnutrition type: protein-calorie malnutrition (13) Opiate dependence Code(s): F11.20 - OPIOID DEPENDENCE, UNCOMPLICATED Qualifiers: Substance use status: uncomplicated Qualified Code(s): F11.20 - Opioid dependence, uncomplicated (14) Squamous cell lung cancer Code(s): C34.90 - MALIGNANT NEOPLASM OF UNSP PART OF UNSP BRONCHUS OR LUNG (15) Tobacco dependence Code(s): F17.200 - NICOTINE DEPENDENCE, UNSPECIFIED, UNCOMPLICATED Assessment/Plan STAGING FOR LUNG CANCER IS NOT COMPLETE YET WILL NEED PETSCAN OUTPATIENT. PATIENT HAS HAD A LONG HISTORY OF NON-COMPLIANCE AND IN-ADHERENCE TO MEDICATIONS AND MEDICAL F/U. LONG HX OF OPIOD AND TOBACCO DEPENDENCE AND HAS REFUSED HELP IN THE PAST. NOURISHMENT/REMERON FOR APPETITE STIMULANT GLUCERNA, SSI,ADA, ENDOCRINE CONSULT. 02 SUPPORT/FEVER WORKUP, CHECK CX IV ABX PT AND SNF PLACEMENT TO ENSURE FOLLOW UP AND COMPLIANCE.
[2018-06-12 08:53] LABS: ALBUMIN 2.3 g/dl (3.4-5.0); ALK PHOS 83 U/L (45-117); ANION GAP 8 MMOL/L (8-16); BILIRUBIN,TOTAL 0.4 mg/dL (0.2-1); BLOOD UREA NITROGEN 8 mg/dL (7-18); CALCIUM 9.7 mg/dL (8.5-10.1); CHLORIDE 99 mmol/L (98-107); CO2 30 mmol/L (21-32); CREATININE 0.6 mg/dL (0.55-1.3); GLUCOSE,RANDOM 217 mg/dL (74-106); POTASSIUM 3.1 mmol/L (3.5-5.1); SGOT/AST 8 U/L (15-37); SGPT/ALT 13 U/L (13-61); SODIUM 137 mmol/L (136-145); TOT PROT 5.3 g/dl (6.4-8.2)
[2018-06-12] MEDS ORDERED: PIPERACILLIN/TAZOBACTAM 4.5 GM VIAL IVPB ONE ×2 (09:23→17:11)
[2018-06-12] MEDS ORDERED: PT OWN MED DRAWER 7, Y5N ONE (09:23)
[2018-06-12] MEDS ORDERED: DEXTROSE 5%-WATER 100 ML IVPB ONE ×2 (09:23→17:11)
[2018-06-12] MEDS: FERROUS SO4 325 MG TABLET (FP) PO SCH ×3 (09:59→16:51)
[2018-06-12] MEDS: ASPIRIN COATED 81 MG TABLET.EC PO SCH (09:59)
[2018-06-12] MEDS: CYANOCOBALAMIN 1,000 MCG TABLET (FP) PO SCH (09:59)
[2018-06-12] MEDS: FOLIC ACID 1 MG TABLET (FP) PO SCH (09:59)
[2018-06-12] MEDS: RANOLAZINE E.R. 500 MG TABLET (FP) PO SCH ×2 (09:59→21:47)
[2018-06-12] MEDS: PANTOPRAZOLE 40 MG TABLET (FP) PO SCH (09:59)
[2018-06-12] MEDS: metoPROLOL SUCCINATE 25 MG TAB.SR.24H (FP) PO SCH (10:00)
[2018-06-12] MEDS: POLYETHYLENE GLYCOL 3350 119 GM BTL PO SCH (10:01)
--- NOTE | 2018-06-12 10:48 | PN ---
Progress Note (short form) - Note Progress Note: smiling fever last night, patient asymptomatic she wants to go home Vital Signs Period Temp Pulse Resp BP Sys/Voss Pulse Ox Last 24 Hr 97.8 F-101.1 F 91-103 18-20 100-138/53-63 94-94 cor-rrr lungs decreased bs on the right abd soft,nt ext no edema CBC, BMP 06/12/18 06:15 06/12/18 06:15 Microbiology 06/10/18 21:00 Urine - Urine Clean Catch Urine Culture - Final NO GROWTH OBTAINED 06/11/18 15:52 Urine For Antigen Detection Legionella Antigen - Final 06/11/18 15:52 Urine For Antigen Detection Streptococcus pneumoniae Antigen (M - Final 06/10/18 19:50 Blood - Peripheral Venous Blood Culture - Preliminary NO GROWTH OBTAINED AFTER 24 HOURS, INCUBATION TO CONTINUE FOR 4 DAYS. 06/10/18 19:50 Blood - Peripheral Venous Blood Culture - Preliminary NO GROWTH OBTAINED AFTER 24 HOURS, INCUBATION TO CONTINUE FOR 4 DAYS. imp/reccd fever- she is asymptomatic, now off prednisone with leukocytosis trnding down on zosyn woud observe today, f/u cultures consider change to po augmentin in am if she remains afebrile ?tumor fevers cxray looks same/improved? l untreated squamous cell lung cancer s/p treatment for post obstructuve pneumonia has not completed staging yet Problem List - Problems (1) Leukocytosis Code(s): D72.829 - ELEVATED WHITE BLOOD CELL COUNT, UNSPECIFIED (2) Uncontrolled diabetes mellitus Code(s): E11.65 - TYPE 2 DIABETES MELLITUS WITH HYPERGLYCEMIA (3) Squamous cell lung cancer Code(s): C34.90 - MALIGNANT NEOPLASM OF UNSP PART OF UNSP BRONCHUS OR LUNG (4) Pneumonia Code(s): J18.9 - PNEUMONIA, UNSPECIFIED ORGANISM
[2018-06-12] MEDS: oxyCODONE HCL 10 MG SUSTAINED ACTING TABLET PO SCH ×2 (12:31→21:47)
[2018-06-12] MEDS: MORPHINE SULFATE 2 MG/ML VIAL SQ PRN (12:40)
--- NOTE | 2018-06-12 12:52 | PN ---
Progress Note (short form) - Note Progress Note: Patient seen and examined Complains of generalized pains Had fever - on zosyn On steroids Last Vital Signs Temp Pulse Resp BP Pulse Ox 99.5 F 103 H 20 104/55 L 95 06/12/18 10:00 06/12/18 10:00 06/12/18 10:00 06/12/18 10:00 06/12/18 09:00 HEENT: BARRY, EOM Intact Oropharynx: No thrush, No mucositis Cor: RSR, No murmurs, No gallops Lungs: diminished breath sounds Abd: Soft, Normal bowel sounds, No organomegaly Ext:No significant edema Skin: No rashes, Integument intact CBC, BMP 06/12/18 06:15 06/12/18 06:15 Current Medications Generic Name Dose Route Start Last Admin Trade Name Freq PRN Reason Stop Dose Admin Acetaminophen 500 mg 06/11/18 19:33 06/11/18 21:41 Tylenol - PO 500 mg Q6H PRN Administration FEVER Albuterol/Ipratropium 1 amp 06/11/18 00:37 06/11/18 17:56 Duoneb - NEB 1 amp Q6H PRN Administration SHORTNESS OF BREATH Alprazolam 0.25 mg 06/11/18 12:00 06/11/18 18:18 Xanax - PO 0.25 mg Q6H PRN Administration ANXIETY Aspirin 81 mg 06/12/18 10:00 06/12/18 09:59 Ecotrin - PO 81 mg DAILY ARIANA Administration Cyanocobalamin 1,000 mcg 06/12/18 10:00 06/12/18 09:59 Vitamin B12 - PO 1,000 mcg DAILY ARIANA Administration Doxepin HCl 100 mg 06/11/18 22:30 06/11/18 22:58 Sinequan - PO 100 mg HS ARIANA Administration Ferrous Sulfate 325 mg 06/11/18 12:00 06/12/18 12:34 Feosol - PO 325 mg TIDCM ARIANA Administration Folic Acid 1 mg 06/12/18 10:00 06/12/18 09:59 Folic Acid - PO 1 mg DAILY ARIANA Administration Piperacillin Sod/Tazobactam 100 mls @ 200 mls/hr 06/11/18 18:00 06/12/18 09: 59 Sod 4.5 gm/ Dextrose IVPB 200 mls/hr Q8H-IV ARIANA Administration Protocol Insulin Aspart 1 vial 06/11/18 22:00 06/12/18 12:34 Novolog Vial Sliding Scale - SQ 7 unit ACHS ARIANA Administration Protocol Insulin Detemir 15 units 06/12/18 07:00 06/12/18 06:23 Levemir Vial SQ 15 unit AM ARIANA Administration Levetiracetam 500 mg/ 750 mg 06/11/18 22:00 06/12/18 10:00 Levetiracetam 250 mg PO 750 mg BID ARIANA Administration Meclizine HCl 25 mg 06/11/18 11:56 Antivert - PO TID PRN VERTIGO Metoprolol Succinate 12.5 mg 06/12/18 10:00 06/12/18 10:00 Toprol Xl - PO 12.5 mg DAILY ARIANA Administration Mirtazapine 7.5 mg 06/11/18 22:00 06/11/18 21:43 Remeron - PO 7.5 mg HS ARIANA Administration Morphine Sulfate 2 mg 06/11/18 11:52 06/12/18 12:40 Morphine Sulfate SQ 2 mg Q6H PRN Administration PAIN LEVEL 6-10 Oxycodone HCl 10 mg 06/11/18 22:00 06/12/18 12:31 Oxycontin - PO Not Given BID ARIANA Pantoprazole Sodium 40 mg 06/12/18 10:00 06/12/18 09:59 Protonix - PO 40 mg DAILY ARIANA Administration Polyethylene Glycol 17 gm 06/12/18 10:00 06/12/18 10:01 Miralax (For Daily Use) - PO 17 gm DAILY ARIANA Administration Ranolazine 500 mg 06/11/18 22:00 06/12/18 09:59 Ranexa - PO 500 mg BID ARIANA Administration Sitagliptin Phosphate 100 mg 06/12/18 07:00 06/12/18 06:22 Januvia - PO 100 mg DAILY@0700 ARIANA Administration Trazodone HCl 100 mg 06/11/18 22:00 06/11/18 21:41 Desyrel - PO 100 mg HS ARIANA Administration Impression: SCC Fevers - on antibiotics Generalized Pains patient is on 21 medications - attempt to condense. To follow up - Needs outpatient PET.
[2018-06-12] MEDS: ALBUTEROL SO4 2.5/IPRATROPIUM 0.5 INH SOL 3 ML VIAL.NEB. NEB PRN (16:40)
[2018-06-12] MEDS: ALPRAZolam 0.25 MG TABLET PO PRN (16:51)
[2018-06-12] MEDS: ACETAMINOPHEN 500 MG TABLET (FP) PO PRN (16:51)
[2018-06-12] MEDS ORDERED: POTASSIUM CHLORIDE ORAL LIQUID 20 MEQ/15 ML PO ONE (21:00)
[2018-06-12] MEDS ORDERED: VANCOMYCIN 750 MG in DEXTROSE 5%-WATER - 250 ML IVPB SCH (21:00)
[2018-06-12] MEDS: traZODone HCL 50 MG TABLET (FP) PO SCH (21:47)
[2018-06-12] MEDS: MIRTAZAPINE 15 MG TABLET (FP) PO SCH (22:09)
[2018-06-12] MEDS: DOXEPIN HCL 25 MG CAPSULE PO SCH (22:10)
[2018-06-13] MEDS ORDERED: PIPERACILLIN/TAZOBACTAM 4.5 GM VIAL IVPB ONE ×2 (01:39→08:59)
[2018-06-13] MEDS ORDERED: DEXTROSE 5%-WATER 100 ML IVPB ONE ×2 (01:39→08:59)
[2018-06-13] MEDS: PIPERACILLIN/TAZOB 4.5 GM 4.5 GM in DEXTROSE 5%-WATER 100 ML IVPB SCH ×2 (01:56→09:30)
[2018-06-13] MEDS: MORPHINE SULFATE 2 MG/ML VIAL SQ PRN ×3 (05:48→17:50)
[2018-06-13] MEDS: sitaGLIPtin PHOSPHATE 100 MG TABLET (FP) PO SCH (06:10)
[2018-06-13] MEDS: INSULIN (LEVEMIR) 100 UNITS/ML UNITS SQ SCH (06:10)
[2018-06-13] MEDS: INSULIN SLIDING SCALE (NOVOLOG) 1 VIAL SQ SCH ×4 (06:10→21:42)
[2018-06-13] MEDS: ALBUTEROL SO4 2.5/IPRATROPIUM 0.5 INH SOL 3 ML VIAL.NEB. NEB PRN ×3 (06:15→20:47)
[2018-06-13] MEDS: metoPROLOL SUCCINATE 25 MG TAB.SR.24H (FP) PO SCH (09:19)
[2018-06-13] MEDS: FERROUS SO4 325 MG TABLET (FP) PO SCH ×3 (09:28→16:49)
[2018-06-13] MEDS: FOLIC ACID 1 MG TABLET (FP) PO SCH (09:29)
[2018-06-13] MEDS: ASPIRIN COATED 81 MG TABLET.EC PO SCH (09:29)
[2018-06-13] MEDS: PANTOPRAZOLE 40 MG TABLET (FP) PO SCH (09:29)
[2018-06-13] MEDS: RANOLAZINE E.R. 500 MG TABLET (FP) PO SCH ×2 (09:29→21:42)
[2018-06-13] MEDS: CYANOCOBALAMIN 1,000 MCG TABLET (FP) PO SCH (09:29)
[2018-06-13] MEDS ORDERED: PT OWN MED DRAWER 7, Y5N ONE (09:36)
[2018-06-13] MEDS: POLYETHYLENE GLYCOL 3350 119 GM BTL PO SCH (09:40)
[2018-06-13] MEDS: oxyCODONE HCL 10 MG SUSTAINED ACTING TABLET PO SCH ×2 (09:41→21:42)
[2018-06-13] MEDS ORDERED: INSULIN (NOVOLOG) ASPART 100 UNITS/ML 10ML VIAL ONE ×2 (12:16→21:17)
--- NOTE | 2018-06-13 15:14 | PN ---
Progress Note (short form) - Note Progress Note: smiling feels well Vital Signs Period Temp Pulse Resp BP Sys/Voss Pulse Ox Last 24 Hr 98 F-98.7 F 75-90 20-20 88-107/40-55 100 cor-rrr lungs clear abd soft,nt ext no edema CBC, BMP 06/12/18 06:15 06/12/18 06:15 Microbiology 06/10/18 19:50 Blood - Peripheral Venous Blood Culture - Preliminary NO GROWTH OBTAINED AFTER 48 HOURS, INCUBATION TO CONTINUE FOR 3 DAYS. 06/10/18 19:50 Blood - Peripheral Venous Blood Culture - Preliminary NO GROWTH OBTAINED AFTER 48 HOURS, INCUBATION TO CONTINUE FOR 3 DAYS. 06/10/18 21:00 Urine - Urine Clean Catch Urine Culture - Final NO GROWTH OBTAINED 06/11/18 15:52 Urine For Antigen Detection Legionella Antigen - Final 06/11/18 15:52 Urine For Antigen Detection Streptococcus pneumoniae Antigen (M - Final imp/reccd fever- resolved will switch to po augmentin untreated squamous cell lung cancer s/p treatment for post obstructuve pneumonia has not completed staging yet d/w hospitalist please call back if needed Problem List - Problems (1) Leukocytosis Code(s): D72.829 - ELEVATED WHITE BLOOD CELL COUNT, UNSPECIFIED (2) Uncontrolled diabetes mellitus Code(s): E11.65 - TYPE 2 DIABETES MELLITUS WITH HYPERGLYCEMIA (3) Squamous cell lung cancer Code(s): C34.90 - MALIGNANT NEOPLASM OF UNSP PART OF UNSP BRONCHUS OR LUNG (4) Pneumonia Code(s): J18.9 - PNEUMONIA, UNSPECIFIED ORGANISM
--- NOTE | 2018-06-13 15:23 | PN ---
Progress Note, Physician Chief Complaint: Generalized weakness Lung CA Poor Appetite History of Present Illness: Previous notes and events reviewed awake and alert NAD complain of feeling depressed and crying more denies SOB or chest pain - Current Medication List Current Medications: Active Medications Acetaminophen (Tylenol -) 500 mg PO Q6H PRN PRN Reason: FEVER Last Admin: 06/12/18 16:51 Dose: 500 mg Albuterol/Ipratropium (Duoneb -) 1 amp NEB Q6H PRN PRN Reason: SHORTNESS OF BREATH Last Admin: 06/13/18 11:15 Dose: 1 amp Alprazolam (Xanax -) 0.25 mg PO Q6H PRN PRN Reason: ANXIETY Last Admin: 06/12/18 16:51 Dose: 0.25 mg Amoxicillin/Clavulanate Potassium (Augmentin - 875mg Tablet) 1 tab PO BID@0800, 1730 [facility] Aspirin (Ecotrin -) 81 mg PO DAILY [facility] Last Admin: 06/13/18 09:29 Dose: 81 mg Cyanocobalamin (Vitamin B12 -) 1,000 mcg PO DAILY [facility] Last Admin: 06/13/18 09:29 Dose: 1,000 mcg Doxepin HCl (Sinequan -) 100 mg PO HS [facility] Last Admin: 06/12/18 22:10 Dose: 100 mg Ferrous Sulfate (Feosol -) 325 mg PO TIDCM [facility] Last Admin: 06/13/18 13:56 Dose: Not Given Folic Acid (Folic Acid -) 1 mg PO DAILY [facility] Last Admin: 06/13/18 09:29 Dose: 1 mg Insulin Aspart (Novolog Vial Sliding Scale -) 1 vial SQ ACHS [facility]; Protocol Last Admin: 06/13/18 12:20 Dose: 7 unit Insulin Detemir (Levemir Vial) 15 units SQ AM [facility] Last Admin: 06/13/18 06:10 Dose: 15 unit Levetiracetam 500 mg/ (Levetiracetam 250 mg) 750 mg PO BID [facility] Last Admin: 06/13/18 09:38 Dose: 750 mg Meclizine HCl (Antivert -) 25 mg PO TID PRN PRN Reason: VERTIGO Metoprolol Succinate (Toprol Xl -) 12.5 mg PO DAILY [facility] Last Admin: 06/13/18 09:19 Dose: Not Given Mirtazapine (Remeron -) 7.5 mg PO [facility] Last Admin: 06/12/18 22:09 Dose: 7.5 mg Morphine Sulfate (Morphine Sulfate) 2 mg SQ Q6H PRN PRN Reason: PAIN LEVEL 6-10 Last Admin: 06/13/18 11:36 Dose: 2 mg Morphine Sulfate (Morphine Sulfate) 2 mg IVPUSH Q6H PRN PRN Reason: PAIN LEVEL 6-10 Oxycodone HCl (Oxycontin -) 10 mg PO BID [facility] Last Admin: 06/13/18 09:41 Dose: 10 mg Pantoprazole Sodium (Protonix -) 40 mg PO DAILY [facility] Last Admin: 06/13/18 09:29 Dose: 40 mg Polyethylene Glycol (Miralax (For Daily Use) -) 17 gm PO DAILY [facility] Last Admin: 06/13/18 09:40 Dose: 17 gm Ranolazine (Ranexa -) 500 mg PO BID [facility] Last Admin: 06/13/18 09:29 Dose: 500 mg Sitagliptin Phosphate (Januvia -) 100 mg PO DAILY@0700 [facility] Last Admin: 06/13/18 06:10 Dose: 100 mg Trazodone HCl (Desyrel -) 100 mg PO [facility] Last Admin: 06/12/18 21:47 Dose: 100 mg - Objective Vital Signs: Vital Signs Temperature 98 F 06/13/18 13:55 Pulse Rate 90 06/13/18 13:55 Respiratory Rate 20 06/13/18 13:55 Blood Pressure 106/51 L 06/13/18 13:55 O2 Sat by Pulse Oximetry (%) 100 06/12/18 21:00 Constitutional: Yes: No Distress, Calm Eyes: Yes: Conjunctiva Clear HENT: Yes: Normocephalic Cardiovascular: Yes: Regular Rate and Rhythm Respiratory: Yes: CTA Bilaterally, On Nasal O2 Gastrointestinal: Yes: Normal Bowel Sounds, Soft Musculoskeletal: Yes: Muscle Weakness Extremities: Yes: WNL Edema: No Neurological: Yes: Alert, Oriented Psychiatric: Yes: Alert, Oriented Labs: CBC, BMP 06/12/18 06:15 06/12/18 06:15 Microbiology 06/10/18 19:50 Blood - Peripheral Venous Blood Culture - Preliminary NO GROWTH OBTAINED AFTER 48 HOURS, INCUBATION TO CONTINUE FOR 3 DAYS. 06/10/18 19:50 Blood - Peripheral Venous Blood Culture - Preliminary NO GROWTH OBTAINED AFTER 48 HOURS, INCUBATION TO CONTINUE FOR 3 DAYS. <Ana Cordova Alley - Last Filed: 06/13/18 15:30> - Current Medication List Current Medications: Active Medications Acetaminophen (Tylenol -) 500 mg PO Q6H PRN PRN Reason: FEVER Last Admin: 06/15/18 17:09 Dose: 500 mg Alprazolam (Xanax -) 0.25 mg PO Q6H PRN PRN Reason: ANXIETY Last Admin: 06/15/18 16:13 Dose: 0.25 mg Amoxicillin/Clavulanate Potassium (Augmentin - 875mg Tablet) 1 tab PO BID@0800, 1730 [facility] Last Admin: 06/16/18 17:41 Dose: 1 tab Aspirin (Ecotrin -) 81 mg PO DAILY [facility] Last Admin: 06/16/18 09:09 Dose: 81 mg Cyanocobalamin (Vitamin B12 -) 1,000 mcg PO DAILY [facility] Last Admin: 06/16/18 09:28 Dose: 1,000 mcg Doxepin HCl (Sinequan -) 100 mg PO HS [facility] Last Admin: 06/15/18 22:32 Dose: Not Given Dronabinol (Marinol -) 2.5 mg PO BID@1100,1630 [facility] Last Admin: 06/16/18 17:41 Dose: 2.5 mg Ferrous Sulfate (Feosol -) 325 mg PO TIDCM [facility] Last Admin: 06/16/18 17:41 Dose: 325 mg Folic Acid (Folic Acid -) 1 mg PO DAILY [facility] Last Admin: 06/16/18 09:28 Dose: 1 mg Insulin Aspart (Novolog Vial Sliding Scale -) 1 vial SQ [facility]; Protocol Last Admin: 06/16/18 18:10 Dose: Not Given Insulin Detemir (Levemir Vial) 15 units SQ AM [facility] Last Admin: 06/16/18 06:06 Dose: 15 unit Levetiracetam 500 mg/ (Levetiracetam 250 mg) 750 mg PO BID [facility] Last Admin: 06/16/18 09:32 Dose: 750 mg Meclizine HCl (Antivert -) 25 mg PO TID PRN PRN Reason: VERTIGO Metoprolol Succinate (Toprol Xl -) 12.5 mg PO DAILY [facility] Last Admin: 06/16/18 09:27 Dose: 12.5 mg Mirtazapine (Remeron -) 15 mg PO [facility] Last Admin: 06/15/18 22:31 Dose: Not Given Morphine Sulfate (Morphine Sulfate) 2 mg SQ Q6H PRN PRN Reason: PAIN LEVEL 6-10 Last Admin: 06/16/18 13:19 Dose: 2 mg Oxycodone HCl (Oxycontin -) 10 mg PO BID [facility] Last Admin: 06/16/18 09:09 Dose: 10 mg Pantoprazole Sodium (Protonix -) 40 mg PO DAILY [facility] Last Admin: 06/16/18 09:27 Dose: 40 mg Polyethylene Glycol (Miralax (For Daily Use) -) 17 gm PO DAILY [facility] Last Admin: 06/16/18 09:26 Dose: Not Given Ranolazine (Ranexa -) 500 mg PO BID [facility] Last Admin: 06/16/18 09:26 Dose: 500 mg Trazodone HCl (Desyrel -) 100 mg PO [facility] Last Admin: 06/15/18 22:31 Dose: Not Given - Objective Vital Signs: Vital Signs Temperature 99 F 06/16/18 18:00 Pulse Rate 85 06/16/18 18:00 Respiratory Rate 20 06/16/18 19:56 Blood Pressure 104/57 L 06/16/18 18:00 O2 Sat by Pulse Oximetry (%) 98 06/16/18 19:56 Labs: CBC, BMP 06/14/18 06:10 06/14/18 06:10 <Kulwant Bianchi - Last Filed: 06/16/18 22:16> Problem List - Problems (1) Pneumonia Assessment/Plan: -WBC 16.9, will trend -CXR increase in aeration in the DELVIN infiltrate with a [id number] mass -ID on board -ABT changed to PO augmentin -O2 via VT prn for SOB -keep SpO2 >90% - Code(s): J18.9 - PNEUMONIA, UNSPECIFIED ORGANISM (2) Uncontrolled diabetes mellitus Assessment/Plan: -BGM ACHS -HgA1c 8.9 -diabetic diet -continue sitagliptan, levemir, and ISS -endo on board Code(s): E11.65 - TYPE 2 DIABETES MELLITUS WITH HYPERGLYCEMIA (3) Leukocytosis Assessment/Plan: -WBC 16.9 -will trend WBC -ABT changed to PO augmentin -ID on board Code(s): D72.829 - ELEVATED WHITE BLOOD CELL COUNT, UNSPECIFIED (4) Squamous cell lung cancer Assessment/Plan: -oncology on board -pain management -penidng PET scan as outpatient Code(s): C34.90 - MALIGNANT NEOPLASM OF UNSP PART OF UNSP BRONCHUS OR LUNG (5) Hypokalemia Assessment/Plan: -K level 3.1 from 06/12 -order KCl 10mEq IVPB x 2 -will monitor K level and replete as needed Code(s): E87.6 - HYPOKALEMIA (6) Depression Assessment/Plan: -psychiatry consult Code(s): F32.9 - MAJOR DEPRESSIVE DISORDER, SINGLE EPISODE, UNSPECIFIED (7) Severe malnutrition Assessment/Plan: -continue with glucerna BID -daily weight Code(s): E43 - UNSPECIFIED SEVERE PROTEIN-CALORIE MALNUTRITION <Ana Cordova - Last Filed: 06/13/18 15:30> - Problems (1) Severe malnutrition Code(s): E43 - UNSPECIFIED SEVERE PROTEIN-CALORIE MALNUTRITION (2) Anxiety Code(s): F41.9 - ANXIETY DISORDER, UNSPECIFIED (3) Hypokalemia Code(s): E87.6 - HYPOKALEMIA (4) Leukocytosis Code(s): D72.829 - ELEVATED WHITE BLOOD CELL COUNT, UNSPECIFIED (5) Pneumonia Code(s): J18.9 - PNEUMONIA, UNSPECIFIED ORGANISM (6) Uncontrolled diabetes mellitus Code(s): E11.65 - TYPE 2 DIABETES MELLITUS WITH HYPERGLYCEMIA (7) Weakness Code(s): R53.1 - WEAKNESS (8) Adult behavior problem Code(s): F69 - UNSPECIFIED DISORDER OF ADULT PERSONALITY AND BEHAVIOR (9) Alcohol dependence with uncomplicated withdrawal Code(s): F10.230 - ALCOHOL DEPENDENCE WITH WITHDRAWAL, UNCOMPLICATED (10) Anemia Code(s): D64.9 - ANEMIA, UNSPECIFIED (11) Lung mass Code(s): R91.8 - OTHER NONSPECIFIC ABNORMAL FINDING OF LUNG FIELD (12) Malnourished Code(s): E46 - UNSPECIFIED PROTEIN-CALORIE MALNUTRITION Qualifiers: Malnutrition type: protein-calorie malnutrition (13) Opiate dependence Code(s): F11.20 - OPIOID DEPENDENCE, UNCOMPLICATED Qualifiers: Substance use status: uncomplicated Qualified Code(s): F11.20 - Opioid dependence, uncomplicated (14) Squamous cell lung cancer Code(s): C34.90 - MALIGNANT NEOPLASM OF UNSP PART OF UNSP BRONCHUS OR LUNG (15) Tobacco dependence Code(s): F17.200 - NICOTINE DEPENDENCE, UNSPECIFIED, UNCOMPLICATED <Kulwant Bianchi - Last Filed: 06/16/18 22:16>
[2018-06-13] MEDS: AMOX TR/POT CLAV 875MG/125MG TABLETS (FP) PO SCH (16:49)
--- NOTE | 2018-06-13 18:42 | PN ---
Progress Note (short form) - Note Progress Note: Patient seen and examined Poor intake Not motivated Not getting OOB Last Vital Signs Temp Pulse Resp BP Pulse Ox 98.7 F 85 20 106/57 L 100 06/13/18 17:30 06/13/18 17:30 06/13/18 17:30 06/13/18 17:30 06/12/18 21:00 HEENT: BARRY, EOM Intact Oropharynx: No thrush, No mucositis, smooth tongue ;dentures Cor: RSR, No murmurs, No gallops Lungs:wheezes and rhonchi Abd: Soft, Normal bowel sounds, No organomegaly Ext:No significant edema Skin: No rashes, Integument intact CBC, BMP 06/12/18 06:15 06/12/18 06:15 Current Medications Generic Name Dose Route Start Last Admin Trade Name Freq PRN Reason Stop Dose Admin Acetaminophen 500 mg 06/11/18 19:33 06/12/18 16:51 Tylenol - PO 500 mg Q6H PRN Administration FEVER Albuterol/Ipratropium 1 amp 06/11/18 00:37 06/13/18 11:15 Duoneb - NEB 1 amp Q6H PRN Administration SHORTNESS OF BREATH Alprazolam 0.25 mg 06/11/18 12:00 06/12/18 16:51 Xanax - PO 0.25 mg Q6H PRN Administration ANXIETY Amoxicillin/Clavulanate Potassium 1 tab 06/13/18 17:30 06/13/18 16:49 Augmentin - 875mg Tablet PO 1 tab BID@0800,1730 [facility] Administration Aspirin 81 mg 06/12/18 10:00 06/13/18 09:29 Ecotrin - PO 81 mg DAILY [facility] Administration Cyanocobalamin 1,000 mcg 06/12/18 10:00 06/13/18 09:29 Vitamin B12 - PO 1,000 mcg DAILY [facility] Administration Doxepin HCl 100 mg 06/11/18 22:30 06/12/18 22:10 Sinequan - PO 100 mg HS [facility] Administration Ferrous Sulfate 325 mg 06/11/18 12:00 06/13/18 16:49 Feosol - PO 325 mg TIDCM [facility] Administration Folic Acid 1 mg 06/12/18 10:00 06/13/18 09:29 Folic Acid - PO 1 mg DAILY [facility] Administration Insulin Aspart 1 vial 06/11/18 22:00 06/13/18 17:05 Novolog Vial Sliding Scale - SQ 3 unit ACHS [facility] Administration Protocol Insulin Detemir 15 units 06/12/18 07:00 06/13/18 06:10 Levemir Vial SQ 15 unit AM [facility] Administration Levetiracetam 500 mg/ 750 mg 06/11/18 22:00 06/13/18 09:38 Levetiracetam 250 mg PO 750 mg BID [facility] Administration Meclizine HCl 25 mg 06/11/18 11:56 Antivert - PO TID PRN VERTIGO Metoprolol Succinate 12.5 mg 06/12/18 10:00 06/13/18 09:19 Toprol Xl - PO Not Given DAILY [facility] Mirtazapine 7.5 mg 06/11/18 22:00 06/12/18 22:09 Remeron - PO 7.5 mg HS [facility] Administration Morphine Sulfate 2 mg 06/11/18 11:52 06/13/18 17:50 Morphine Sulfate SQ 2 mg Q6H PRN Administration PAIN LEVEL 6-10 Morphine Sulfate 2 mg 06/12/18 18:20 Morphine Sulfate IVPUSH Q6H PRN PAIN LEVEL 6-10 Oxycodone HCl 10 mg 06/11/18 22:00 06/13/18 09:41 Oxycontin - PO 10 mg BID [facility] Administration Pantoprazole Sodium 40 mg 06/12/18 10:00 06/13/18 09:29 Protonix - PO 40 mg DAILY [facility] Administration Polyethylene Glycol 17 gm 06/12/18 10:00 06/13/18 09:40 Miralax (For Daily Use) - PO 17 gm DAILY [facility] Administration Ranolazine 500 mg 06/11/18 22:00 06/13/18 09:29 Ranexa - PO 500 mg BID [facility] Administration Sitagliptin Phosphate 100 mg 06/12/18 07:00 06/13/18 06:10 Januvia - PO 100 mg DAILY@0700 [facility] Administration Trazodone HCl 100 mg 06/11/18 22:00 06/12/18 21:47 Desyrel - PO 100 mg HS [facility] Administration Impession: Lung ca Diffuse body pains - improved Fevers- resolved Plan P.O. augmentin Needs hemanth f/u with PET, but will be a poor candidate for treatment
--- NOTE | 2018-06-13 18:49 | CON.PSY ---
Psychiatry Consult Chief Complaint: 63 year oldfemale with COPD< ASSTHMA< CAD w3ith stents, CA Lung and major depressive Disorder with anxiety. patient seen for Psych eval. Montanez on three antidepressants. Symptoms: reports: Depressed Mood, Anxiety - Previous Psychiatric Treatment Outpatient: Less than 6 mos ago Inpatient: None - Previous Substance Abuse Treatment Outpatient: None Inpatient: None - Reason for Previous Treatment Reason for Previous Treatment: Major Depression, Anxiety or Panic Disorder - Current Medications Current Medications: Active Medications Acetaminophen (Tylenol -) 500 mg PO Q6H PRN PRN Reason: FEVER Last Admin: 06/12/18 16:51 Dose: 500 mg Albuterol/Ipratropium (Duoneb -) 1 amp NEB Q6H PRN PRN Reason: SHORTNESS OF BREATH Last Admin: 06/13/18 11:15 Dose: 1 amp Alprazolam (Xanax -) 0.25 mg PO Q6H PRN PRN Reason: ANXIETY Last Admin: 06/12/18 16:51 Dose: 0.25 mg Amoxicillin/Clavulanate Potassium (Augmentin - 875mg Tablet) 1 tab PO BID@0800, 1730 [facility] Last Admin: 06/13/18 16:49 Dose: 1 tab Aspirin (Ecotrin -) 81 mg PO DAILY [facility] Last Admin: 06/13/18 09:29 Dose: 81 mg Cyanocobalamin (Vitamin B12 -) 1,000 mcg PO DAILY [facility] Last Admin: 06/13/18 09:29 Dose: 1,000 mcg Doxepin HCl (Sinequan -) 100 mg PO HS [facility] Last Admin: 06/12/18 22:10 Dose: 100 mg Ferrous Sulfate (Feosol -) 325 mg PO TIDCM [facility] Last Admin: 06/13/18 16:49 Dose: 325 mg Folic Acid (Folic Acid -) 1 mg PO DAILY [facility] Last Admin: 06/13/18 09:29 Dose: 1 mg Insulin Aspart (Novolog Vial Sliding Scale -) 1 vial SQ ACHS [facility]; Protocol Last Admin: 06/13/18 17:05 Dose: 3 unit Insulin Detemir (Levemir Vial) 15 units SQ AM [facility] Last Admin: 06/13/18 06:10 Dose: 15 unit Levetiracetam 500 mg/ (Levetiracetam 250 mg) 750 mg PO BID [facility] Last Admin: 06/13/18 09:38 Dose: 750 mg Meclizine HCl (Antivert -) 25 mg PO TID PRN PRN Reason: VERTIGO Metoprolol Succinate (Toprol Xl -) 12.5 mg PO DAILY [facility] Last Admin: 06/13/18 09:19 Dose: Not Given Mirtazapine (Remeron -) 7.5 mg PO [facility] Last Admin: 06/12/18 22:09 Dose: 7.5 mg Morphine Sulfate (Morphine Sulfate) 2 mg SQ Q6H PRN PRN Reason: PAIN LEVEL 6-10 Last Admin: 06/13/18 17:50 Dose: 2 mg Morphine Sulfate (Morphine Sulfate) 2 mg IVPUSH Q6H PRN PRN Reason: PAIN LEVEL 6-10 Oxycodone HCl (Oxycontin -) 10 mg PO BID [facility] Last Admin: 06/13/18 09:41 Dose: 10 mg Pantoprazole Sodium (Protonix -) 40 mg PO DAILY [facility] Last Admin: 06/13/18 09:29 Dose: 40 mg Polyethylene Glycol (Miralax (For Daily Use) -) 17 gm PO DAILY [facility] Last Admin: 06/13/18 09:40 Dose: 17 gm Ranolazine (Ranexa -) 500 mg PO BID [facility] Last Admin: 06/13/18 09:29 Dose: 500 mg Sitagliptin Phosphate (Januvia -) 100 mg PO DAILY@0700 [facility] Last Admin: 06/13/18 06:10 Dose: 100 mg Trazodone HCl (Desyrel -) 100 mg PO [facility] Last Admin: 06/12/18 21:47 Dose: 100 mg - Allergies Allergies: Allergies Allergy/AdvReac Type Severity Reaction Status Date / Time No Known Allergies Allergy Verified 12/20/17 15:32 - Current Living Status Usual Living Arrangement: With Significant Other - Current Mental Status Evaluation Appearance: Well Groomed Attitude: Cooperative - Affect Affect: Constrictive Appropriateness: Appropriate to Content - Mood Mood: Anxious - Speech/Language Expressive: Coherent - Psychomotor Activity Psychomotor Activity: Slowed - Thought Process Thought Process: Intact - Thought Content Hallucinations: Absent Delusions: Absent - Self Perception Self Perception: No Impairment - Cognition Attention: Alert Orientation: Time Memory, Immediate Recall: Intact Memory, Short Term: 2/3 Memory, Remote with Promptin/3 - Concentration Serial Sevens Intact: Yes Simple Calculations Intact: No - Abstraction Proverb Interpretation: Intact Judgement: Intact - Insight Insight: Intact - Impulse Control Impulse Control: Good Control - Suicidal Ideation Suicidal Ideation: No - Homicidal Ideation Homicidal Ideation: No Assessment/Plan 1) increase Remeron 15mg po hs. @) Folllow up at [facility].
[2018-06-13] MEDS: DOXEPIN HCL 25 MG CAPSULE PO SCH (21:41)
[2018-06-13] MEDS: traZODone HCL 50 MG TABLET (FP) PO SCH (21:42)
[2018-06-13] MEDS: MIRTAZAPINE 15 MG TABLET (FP) PO SCH (21:42)
[2018-06-13] MEDS: MORPHINE SULFATE 2 MG/ML VIAL IVPUSH PRN (23:33)
[2018-06-13] MEDS: ALPRAZolam 0.25 MG TABLET PO PRN (23:33)
--- NOTE | 2018-06-13 23:42 | PN ---
Progress Note, Physician Chief Complaint: poor appetite sugar still labile - Current Medication List Current Medications: Active Medications Acetaminophen (Tylenol -) 500 mg PO Q6H PRN PRN Reason: FEVER Last Admin: 06/12/18 16:51 Dose: 500 mg Albuterol/Ipratropium (Duoneb -) 1 amp NEB Q6H PRN PRN Reason: SHORTNESS OF BREATH Last Admin: 06/13/18 20:47 Dose: 1 amp Alprazolam (Xanax -) 0.25 mg PO Q6H PRN PRN Reason: ANXIETY Last Admin: 06/13/18 23:33 Dose: 0.25 mg Amoxicillin/Clavulanate Potassium (Augmentin - 875mg Tablet) 1 tab PO BID@0800, 1730 [facility] Last Admin: 06/13/18 16:49 Dose: 1 tab Aspirin (Ecotrin -) 81 mg PO DAILY [facility] Last Admin: 06/13/18 09:29 Dose: 81 mg Cyanocobalamin (Vitamin B12 -) 1,000 mcg PO DAILY [facility] Last Admin: 06/13/18 09:29 Dose: 1,000 mcg Doxepin HCl (Sinequan -) 100 mg PO [facility] Last Admin: 06/13/18 21:41 Dose: 100 mg Ferrous Sulfate (Feosol -) 325 mg PO TIDCM [facility] Last Admin: 06/13/18 16:49 Dose: 325 mg Folic Acid (Folic Acid -) 1 mg PO DAILY [facility] Last Admin: 06/13/18 09:29 Dose: 1 mg Insulin Aspart (Novolog Vial Sliding Scale -) 1 vial SQ ACHS [facility]; Protocol Last Admin: 06/13/18 21:42 Dose: 7 unit Insulin Detemir (Levemir Vial) 15 units SQ AM [facility] Last Admin: 06/13/18 06:10 Dose: 15 unit Levetiracetam 500 mg/ (Levetiracetam 250 mg) 750 mg PO BID [facility] Last Admin: 06/13/18 21:41 Dose: 750 mg Meclizine HCl (Antivert -) 25 mg PO TID PRN PRN Reason: VERTIGO Metoprolol Succinate (Toprol Xl -) 12.5 mg PO DAILY [facility] Last Admin: 06/13/18 09:19 Dose: Not Given Mirtazapine (Remeron -) 15 mg PO HS [facility] Last Admin: 06/13/18 21:42 Dose: 15 mg Morphine Sulfate (Morphine Sulfate) 2 mg SQ Q6H PRN PRN Reason: PAIN LEVEL 6-10 Last Admin: 06/13/18 17:50 Dose: 2 mg Morphine Sulfate (Morphine Sulfate) 2 mg IVPUSH Q6H PRN PRN Reason: PAIN LEVEL 6-10 Last Admin: 06/13/18 23:33 Dose: 2 mg Oxycodone HCl (Oxycontin -) 10 mg PO BID [facility] Last Admin: 06/13/18 21:42 Dose: 10 mg Pantoprazole Sodium (Protonix -) 40 mg PO DAILY [facility] Last Admin: 06/13/18 09:29 Dose: 40 mg Polyethylene Glycol (Miralax (For Daily Use) -) 17 gm PO DAILY [facility] Last Admin: 06/13/18 09:40 Dose: 17 gm Ranolazine (Ranexa -) 500 mg PO BID [facility] Last Admin: 06/13/18 21:42 Dose: 500 mg Sitagliptin Phosphate (Januvia -) 100 mg PO DAILY@0700 [facility] Last Admin: 06/13/18 06:10 Dose: 100 mg Trazodone HCl (Desyrel -) 100 mg PO [facility] Last Admin: 06/13/18 21:42 Dose: 100 mg - Objective Vital Signs: Vital Signs Temperature 98.7 F 06/13/18 17:30 Pulse Rate 85 06/13/18 17:30 Respiratory Rate 20 06/13/18 17:30 Blood Pressure 106/57 L 06/13/18 17:30 O2 Sat by Pulse Oximetry (%) 100 06/12/18 21:00 Constitutional: Yes: Calm Eyes: Yes: EOM Intact HENT: Yes: Normocephalic Neck: Yes: Trachea Midline Cardiovascular: Yes: Regular Rate and Rhythm Respiratory: Yes: On Nasal O2, SOB on Exertion, Tachypnea Gastrointestinal: Yes: Normal Bowel Sounds ...Rectal Exam: Yes: Deferred Genitourinary: Yes: WNL Extremities: Yes: WNL Neurological: Yes: Alert Labs: CBC, BMP 06/12/18 06:15 06/12/18 06:15 Problem List - Problems (1) Diabetes mellitus with nonketotic hyperosmolarity Code(s): E11.00 - TYPE 2 DIAB W HYPROSM W/O NONKET HYPRGLY-HYPROS COMA ([facility]) (2) Anxiety Code(s): F41.9 - ANXIETY DISORDER, UNSPECIFIED (3) Hypokalemia Code(s): E87.6 - HYPOKALEMIA (4) Leukocytosis Code(s): D72.829 - ELEVATED WHITE BLOOD CELL COUNT, UNSPECIFIED (5) Pneumonia Code(s): J18.9 - PNEUMONIA, UNSPECIFIED ORGANISM (6) Uncontrolled diabetes mellitus Code(s): E11.65 - TYPE 2 DIABETES MELLITUS WITH HYPERGLYCEMIA (7) Weakness Code(s): R53.1 - WEAKNESS (8) Adult behavior problem Code(s): F69 - UNSPECIFIED DISORDER OF ADULT PERSONALITY AND BEHAVIOR Assessment/Plan Current Active Problems Anxiety (Acute) Depression (Acute) Diabetes mellitus with nonketotic hyperosmolarity (Acute) Hypokalemia (Acute) Leukocytosis (Acute) Pneumonia (Acute) Severe malnutrition (Acute) Uncontrolled diabetes mellitus (Acute) Weakness (Acute) Abnormal Lab Results 06/12/18 06:15 PTH Intact 13 L Laboratory Results - last 24 hr 06/12/18 06/13/18 06/13/18 06:15 05:26 12:11 POC Glucometer 163 253 PTH Intact 13 L 06/13/18 06/13/18 17:03 21:39 POC Glucometer 151 284 PTH Intact plan: bgm qid coverage Current Medications Generic Name Dose Route Start Last Admin Trade Name Freq PRN Reason Stop Dose Admin Acetaminophen 500 mg 06/11/18 19:33 06/12/18 16:51 Tylenol - PO 500 mg Q6H PRN Administration FEVER Albuterol/Ipratropium 1 amp 06/11/18 00:37 06/13/18 20:47 Duoneb - NEB 1 amp Q6H PRN Administration SHORTNESS OF BREATH Alprazolam 0.25 mg 06/11/18 12:00 06/13/18 23:33 Xanax - PO 0.25 mg Q6H PRN Administration ANXIETY Amoxicillin/Clavulanate Potassium 1 tab 06/13/18 17:30 06/13/18 16:49 Augmentin - 875mg Tablet PO 1 tab BID@0800,1730 [facility] Administration Aspirin 81 mg 06/12/18 10:00 06/13/18 09:29 Ecotrin - PO 81 mg DAILY [facility] Administration Cyanocobalamin 1,000 mcg 06/12/18 10:00 06/13/18 09:29 Vitamin B12 - PO 1,000 mcg DAILY [facility] Administration Doxepin HCl 100 mg 06/11/18 22:30 06/13/18 21:41 Sinequan - PO 100 mg HS [facility] Administration Ferrous Sulfate 325 mg 06/11/18 12:00 06/13/18 16:49 Feosol - PO 325 mg TIDCM [facility] Administration Folic Acid 1 mg 06/12/18 10:00 06/13/18 09:29 Folic Acid - PO 1 mg DAILY [facility] Administration Insulin Aspart 1 vial 06/11/18 22:00 06/13/18 21:42 Novolog Vial Sliding Scale - SQ 7 unit ACHS [facility] Administration Protocol Insulin Detemir 15 units 06/12/18 07:00 06/13/18 06:10 Levemir Vial SQ 15 unit AM [facility] Administration Levetiracetam 500 mg/ 750 mg 06/11/18 22:00 06/13/18 21:41 Levetiracetam 250 mg PO 750 mg BID [facility] Administration Meclizine HCl 25 mg 06/11/18 11:56 Antivert - PO TID PRN VERTIGO Metoprolol Succinate 12.5 mg 06/12/18 10:00 06/13/18 09:19 Toprol Xl - PO Not Given DAILY [facility] Mirtazapine 15 mg 06/13/18 22:00 06/13/18 21:42 Remeron - PO 15 mg HS [facility] Administration Morphine Sulfate 2 mg 06/11/18 11:52 06/13/18 17:50 Morphine Sulfate SQ 2 mg Q6H PRN Administration PAIN LEVEL 6-10 Morphine Sulfate 2 mg 06/12/18 18:20 06/13/18 23:33 Morphine Sulfate IVPUSH 2 mg Q6H PRN Administration PAIN LEVEL 6-10 Oxycodone HCl 10 mg 06/11/18 22:00 06/13/18 21:42 Oxycontin - PO 10 mg BID [facility] Administration Pantoprazole Sodium 40 mg 06/12/18 10:00 06/13/18 09:29 Protonix - PO 40 mg DAILY [facility] Administration Polyethylene Glycol 17 gm 06/12/18 10:00 06/13/18 09:40 Miralax (For Daily Use) - PO 17 gm DAILY [facility] Administration Ranolazine 500 mg 06/11/18 22:00 06/13/18 21:42 Ranexa - PO 500 mg BID [facility] Administration Sitagliptin Phosphate 100 mg 06/12/18 07:00 06/13/18 06:10 Januvia - PO 100 mg DAILY@0700 [facility] Administration Trazodone HCl 100 mg 06/11/18 22:00 06/13/18 21:42 Desyrel - PO 100 mg HS [facility] Administration dc januvia
[2018-06-14] MEDS: INSULIN SLIDING SCALE (NOVOLOG) 1 VIAL SQ SCH ×4 (06:14→21:04)
[2018-06-14] MEDS: INSULIN (LEVEMIR) 100 UNITS/ML UNITS SQ SCH (06:15)
[2018-06-14] MEDS: MORPHINE SULFATE 2 MG/ML VIAL SQ PRN (06:15)
[2018-06-14] MEDS: ALBUTEROL SO4 2.5/IPRATROPIUM 0.5 INH SOL 3 ML VIAL.NEB. NEB PRN ×2 (06:45→20:20)
[2018-06-14 07:42] LABS: HEMATOCRIT 30.3 % (32.4-45.2); MCH 26.4 pg (25.7-33.7); MCHC 32.9 g/dl (32.0-36.0); MEAN CELL VOLUME 80.1 fl (80-96); MEAN PLT VOLUME 9.1 fl (7.5-11.1); PLATELET COUNT 216 K/MM3 (134-434); RBC 3.78 M/mm3 (3.60-5.2); WHITE BLOOD COUNT 13.3 K/mm3 (4.0-10.0)
[2018-06-14] MEDS: AMOX TR/POT CLAV 875MG/125MG TABLETS (FP) PO SCH ×2 (07:57→16:55)
[2018-06-14] MEDS: FERROUS SO4 325 MG TABLET (FP) PO SCH ×3 (07:57→16:55)
[2018-06-14 08:15] LABS: ALBUMIN 2.1 g/dl (3.4-5.0); ALK PHOS 76 U/L (45-117); ANION GAP 4 MMOL/L (8-16); BILIRUBIN,TOTAL 0.2 mg/dL (0.2-1); BLOOD UREA NITROGEN 7 mg/dL (7-18); CALCIUM 9.5 mg/dL (8.5-10.1); CHLORIDE 99 mmol/L (98-107); CO2 33 mmol/L (21-32); CREATININE 0.5 mg/dL (0.55-1.3); GLUCOSE,RANDOM 134 mg/dL (74-106); POTASSIUM 3.7 mmol/L (3.5-5.1); SGOT/AST 13 U/L (15-37); SGPT/ALT 17 U/L (13-61); SODIUM 136 mmol/L (136-145)
[2018-06-14] MEDS: ASPIRIN COATED 81 MG TABLET.EC PO SCH (09:06)
[2018-06-14] MEDS: oxyCODONE HCL 10 MG SUSTAINED ACTING TABLET PO SCH ×2 (09:06→21:04)
[2018-06-14] MEDS: CYANOCOBALAMIN 1,000 MCG TABLET (FP) PO SCH (09:06)
[2018-06-14] MEDS: FOLIC ACID 1 MG TABLET (FP) PO SCH (09:06)
[2018-06-14] MEDS: PANTOPRAZOLE 40 MG TABLET (FP) PO SCH (09:06)
[2018-06-14] MEDS: RANOLAZINE E.R. 500 MG TABLET (FP) PO SCH ×2 (09:06→21:02)
[2018-06-14] MEDS: POLYETHYLENE GLYCOL 3350 119 GM BTL PO SCH (09:07)
[2018-06-14] MEDS: metoPROLOL SUCCINATE 25 MG TAB.SR.24H (FP) PO SCH (09:07)
[2018-06-14] MEDS: ALPRAZolam 0.25 MG TABLET PO PRN ×2 (10:25→21:03)
--- NOTE | 2018-06-14 11:35 | PN ---
Progress Note, Physician - Current Medication List Current Medications: Active Medications Acetaminophen (Tylenol -) 500 mg PO Q6H PRN PRN Reason: FEVER Last Admin: 06/12/18 16:51 Dose: 500 mg Albuterol/Ipratropium (Duoneb -) 1 amp NEB Q6H PRN PRN Reason: SHORTNESS OF BREATH Last Admin: 06/14/18 06:45 Dose: 1 amp Alprazolam (Xanax -) 0.25 mg PO Q6H PRN PRN Reason: ANXIETY Last Admin: 06/14/18 10:25 Dose: 0.25 mg Amoxicillin/Clavulanate Potassium (Augmentin - 875mg Tablet) 1 tab PO BID@0800, 1730 [facility] Last Admin: 06/14/18 07:57 Dose: 1 tab Aspirin (Ecotrin -) 81 mg PO DAILY [facility] Last Admin: 06/14/18 09:06 Dose: 81 mg Cyanocobalamin (Vitamin B12 -) 1,000 mcg PO DAILY [facility] Last Admin: 06/14/18 09:06 Dose: 1,000 mcg Doxepin HCl (Sinequan -) 100 mg PO [facility] Last Admin: 06/13/18 21:41 Dose: 100 mg Ferrous Sulfate (Feosol -) 325 mg PO TIDCM [facility] Last Admin: 06/14/18 11:31 Dose: 325 mg Folic Acid (Folic Acid -) 1 mg PO DAILY [facility] Last Admin: 06/14/18 09:06 Dose: 1 mg Insulin Aspart (Novolog Vial Sliding Scale -) 1 vial SQ ACHS [facility]; Protocol Last Admin: 06/14/18 11:21 Dose: 5 unit Insulin Detemir (Levemir Vial) 15 units SQ AM [facility] Last Admin: 06/14/18 06:15 Dose: 15 unit Levetiracetam 500 mg/ (Levetiracetam 250 mg) 750 mg PO BID [facility] Last Admin: 06/14/18 09:06 Dose: 750 mg Meclizine HCl (Antivert -) 25 mg PO TID PRN PRN Reason: VERTIGO Metoprolol Succinate (Toprol Xl -) 12.5 mg PO DAILY [facility] Last Admin: 06/14/18 09:07 Dose: Not Given Mirtazapine (Remeron -) 15 mg PO HS [facility] Last Admin: 06/13/18 21:42 Dose: 15 mg Morphine Sulfate (Morphine Sulfate) 2 mg SQ Q6H PRN PRN Reason: PAIN LEVEL 6-10 Last Admin: 06/14/18 06:15 Dose: 2 mg Morphine Sulfate (Morphine Sulfate) 2 mg IVPUSH Q6H PRN PRN Reason: PAIN LEVEL 6-10 Last Admin: 06/13/18 23:33 Dose: 2 mg Oxycodone HCl (Oxycontin -) 10 mg PO BID [facility] Last Admin: 06/14/18 09:06 Dose: 10 mg Pantoprazole Sodium (Protonix -) 40 mg PO DAILY [facility] Last Admin: 06/14/18 09:06 Dose: 40 mg Polyethylene Glycol (Miralax (For Daily Use) -) 17 gm PO DAILY [facility] Last Admin: 06/14/18 09:07 Dose: Not Given Ranolazine (Ranexa -) 500 mg PO BID [facility] Last Admin: 06/14/18 09:06 Dose: 500 mg Trazodone HCl (Desyrel -) 100 mg PO [facility] Last Admin: 06/13/18 21:42 Dose: 100 mg - Objective Vital Signs: Vital Signs Temperature 98.4 F 06/14/18 10:00 Pulse Rate 89 06/14/18 10:00 Respiratory Rate 20 06/14/18 10:00 Blood Pressure 94/54 L 06/14/18 10:00 O2 Sat by Pulse Oximetry (%) 98 06/14/18 09:00 Cardiovascular: Yes: S1, S2 Respiratory: Yes: Rhonchi Gastrointestinal: Yes: Normal Bowel Sounds, Soft Labs: CBC, BMP 06/14/18 06:10 06/14/18 06:10 Assessment/Plan Problems (1) Pneumonia Assessment/Plan: -WBC , will trend Laboratory Tests 06/11/18 06/12/18 06/14/18 06:20 06:15 06:10 WBC 24.2 H 16.9 H 13.3 H -CXR increase in aeration in the DELVIN infiltrate with a [id number] mass -ID on board -ABT changed to PO augmentin -O2 via NC prn for SOB -keep SpO2 >90% - Code(s): J18.9 - PNEUMONIA, UNSPECIFIED ORGANISM (2) Uncontrolled diabetes mellitus Assessment/Plan: -BGM ACHS -HgA1c 8.9 -diabetic diet -continue sitagliptan, levemir, and ISS -endo on board Code(s): E11.65 - TYPE 2 DIABETES MELLITUS WITH HYPERGLYCEMIA (3) Leukocytosis Assessment/Plan: -will trend WBC -ABT changed to PO augmentin -ID on board Code(s): D72.829 - ELEVATED WHITE BLOOD CELL COUNT, UNSPECIFIED (4) Squamous cell lung cancer Assessment/Plan: -oncology on board -pain management -penidng PET scan as outpatient Code(s): C34.90 - MALIGNANT NEOPLASM OF UNSP PART OF UNSP BRONCHUS OR LUNG (5) Hypokalemia Assessment/Plan: -K level 3.1 from 06/12 -order KCl 10mEq IVPB x 2 -will monitor K level and replete as needed Code(s): E87.6 - HYPOKALEMIA (6) Depression Assessment/Plan: -psychiatry consult Code(s): F32.9 - MAJOR DEPRESSIVE DISORDER, SINGLE EPISODE, UNSPECIFIED (7) Severe malnutrition Assessment/Plan: -continue with glucerna BID -daily weight Code(s): E43 - UNSPECIFIED SEVERE PROTEIN-CALORIE MALNUTRITION
[2018-06-14] MEDS ORDERED: INSULIN (NOVOLOG) ASPART 100 UNITS/ML 10ML VIAL ONE (20:43)
[2018-06-14] MEDS: traZODone HCL 50 MG TABLET (FP) PO SCH (21:02)
[2018-06-14] MEDS: DOXEPIN HCL 25 MG CAPSULE PO SCH (21:02)
[2018-06-14] MEDS: MIRTAZAPINE 15 MG TABLET (FP) PO SCH (21:03)
[2018-06-14] MEDS: MORPHINE SULFATE 2 MG/ML VIAL IVPUSH PRN (22:09)
[2018-06-15] MEDS: INSULIN (LEVEMIR) 100 UNITS/ML UNITS SQ SCH (06:22)
[2018-06-15] MEDS: MORPHINE SULFATE 2 MG/ML VIAL SQ PRN (06:22)
[2018-06-15] MEDS: INSULIN SLIDING SCALE (NOVOLOG) 1 VIAL SQ SCH ×4 (06:22→23:01)
[2018-06-15] MEDS: FERROUS SO4 325 MG TABLET (FP) PO SCH ×3 (07:31→17:08)
[2018-06-15] MEDS: AMOX TR/POT CLAV 875MG/125MG TABLETS (FP) PO SCH ×2 (07:31→17:08)
[2018-06-15] MEDS ORDERED: PT OWN MED DRAWER 7, Y5N ONE (09:43)
[2018-06-15] MEDS: ASPIRIN COATED 81 MG TABLET.EC PO SCH (09:45)
[2018-06-15] MEDS: FOLIC ACID 1 MG TABLET (FP) PO SCH (09:45)
[2018-06-15] MEDS: RANOLAZINE E.R. 500 MG TABLET (FP) PO SCH ×2 (09:45→22:31)
[2018-06-15] MEDS: CYANOCOBALAMIN 1,000 MCG TABLET (FP) PO SCH (09:45)
[2018-06-15] MEDS: PANTOPRAZOLE 40 MG TABLET (FP) PO SCH (09:45)
[2018-06-15] MEDS: oxyCODONE HCL 10 MG SUSTAINED ACTING TABLET PO SCH ×2 (09:46→22:29)
[2018-06-15] MEDS: metoPROLOL SUCCINATE 25 MG TAB.SR.24H (FP) PO SCH (09:46)
[2018-06-15] MEDS: POLYETHYLENE GLYCOL 3350 119 GM BTL PO SCH (09:46)
[2018-06-15] MEDS: ALPRAZolam 0.25 MG TABLET PO PRN ×2 (09:46→16:13)
--- NOTE | 2018-06-15 10:48 | PN ---
Progress Note, Physician Chief Complaint: Generalized weakness Lung CA Poor Appetite History of Present Illness: Previous notes and events reviewed awake and alert NAD complain of mid chest pain radiating to L side of chest - Current Medication List Current Medications: Active Medications Acetaminophen (Tylenol -) 500 mg PO Q6H PRN PRN Reason: FEVER Last Admin: 06/12/18 16:51 Dose: 500 mg Alprazolam (Xanax -) 0.25 mg PO Q6H PRN PRN Reason: ANXIETY Last Admin: 06/15/18 09:46 Dose: 0.25 mg Amoxicillin/Clavulanate Potassium (Augmentin - 875mg Tablet) 1 tab PO BID@0800, 1730 [facility] Last Admin: 06/15/18 07:31 Dose: 1 tab Aspirin (Ecotrin -) 81 mg PO DAILY [facility] Last Admin: 06/15/18 09:45 Dose: 81 mg Cyanocobalamin (Vitamin B12 -) 1,000 mcg PO DAILY [facility] Last Admin: 06/15/18 09:45 Dose: 1,000 mcg Doxepin HCl (Sinequan -) 100 mg PO [facility] Last Admin: 06/14/18 21:02 Dose: 100 mg Ferrous Sulfate (Feosol -) 325 mg PO TIDCM [facility] Last Admin: 06/15/18 07:31 Dose: 325 mg Folic Acid (Folic Acid -) 1 mg PO DAILY [facility] Last Admin: 06/15/18 09:45 Dose: 1 mg Insulin Aspart (Novolog Vial Sliding Scale -) 1 vial SQ [facility]; Protocol Last Admin: 06/15/18 06:22 Dose: Not Given Insulin Detemir (Levemir Vial) 15 units SQ AM [facility] Last Admin: 06/15/18 06:22 Dose: Not Given Levetiracetam 500 mg/ (Levetiracetam 250 mg) 750 mg PO BID [facility] Last Admin: 06/15/18 09:47 Dose: 750 mg Meclizine HCl (Antivert -) 25 mg PO TID PRN PRN Reason: VERTIGO Metoprolol Succinate (Toprol Xl -) 12.5 mg PO DAILY [facility] Last Admin: 06/15/18 09:46 Dose: Not Given Mirtazapine (Remeron -) 15 mg PO HS [facility] Last Admin: 06/14/18 21:03 Dose: 15 mg Morphine Sulfate (Morphine Sulfate) 2 mg SQ Q6H PRN PRN Reason: PAIN LEVEL 6-10 Last Admin: 06/15/18 06:22 Dose: 2 mg Oxycodone HCl (Oxycontin -) 10 mg PO BID [facility] Last Admin: 06/15/18 09:46 Dose: 10 mg Pantoprazole Sodium (Protonix -) 40 mg PO DAILY [facility] Last Admin: 06/15/18 09:45 Dose: 40 mg Polyethylene Glycol (Miralax (For Daily Use) -) 17 gm PO DAILY [facility] Last Admin: 06/15/18 09:46 Dose: Not Given Ranolazine (Ranexa -) 500 mg PO BID [facility] Last Admin: 06/15/18 09:45 Dose: 500 mg Trazodone HCl (Desyrel -) 100 mg PO HS [facility] Last Admin: 06/14/18 21:02 Dose: 100 mg - Objective Vital Signs: Vital Signs Temperature 98.8 F 06/15/18 07:41 Pulse Rate 90 06/15/18 07:41 Respiratory Rate 18 06/15/18 07:41 Blood Pressure 106/59 L 06/15/18 07:41 O2 Sat by Pulse Oximetry (%) 98 06/15/18 09:00 Constitutional: Yes: Calm, Cachectic, Mild Distress Eyes: Yes: Conjunctiva Clear Cardiovascular: Yes: Regular Rate and Rhythm Respiratory: Yes: Diminished, On Nasal O2 Gastrointestinal: Yes: Normal Bowel Sounds, Soft, Tenderness (diffuse) Genitourinary: Yes: Incontinence Musculoskeletal: Yes: Muscle Weakness Extremities: Yes: WNL Edema: No Neurological: Yes: Alert, Pre-Existing Deficit Psychiatric: Yes: Alert Labs: CBC, BMP 06/14/18 06:10 06/14/18 06:10 <Ana Cordova - Last Filed: 06/15/18 10:53> - Current Medication List Current Medications: Active Medications Acetaminophen (Tylenol -) 500 mg PO Q6H PRN PRN Reason: FEVER Last Admin: 06/15/18 17:09 Dose: 500 mg Alprazolam (Xanax -) 0.25 mg PO Q6H PRN PRN Reason: ANXIETY Last Admin: 06/15/18 16:13 Dose: 0.25 mg Amoxicillin/Clavulanate Potassium (Augmentin - 875mg Tablet) 1 tab PO BID@0800, 1730 [facility] Last Admin: 06/15/18 17:08 Dose: 1 tab Aspirin (Ecotrin -) 81 mg PO DAILY [facility] Last Admin: 06/15/18 09:45 Dose: 81 mg Cyanocobalamin (Vitamin B12 -) 1,000 mcg PO DAILY [facility] Last Admin: 06/15/18 09:45 Dose: 1,000 mcg Doxepin HCl (Sinequan -) 100 mg PO [facility] Last Admin: 06/14/18 21:02 Dose: 100 mg Dronabinol (Marinol -) 2.5 mg PO BID@1100,1630 [facility] Last Admin: 06/15/18 17:08 Dose: 2.5 mg Ferrous Sulfate (Feosol -) 325 mg PO TIDCM [facility] Last Admin: 06/15/18 17:08 Dose: 325 mg Folic Acid (Folic Acid -) 1 mg PO DAILY [facility] Last Admin: 06/15/18 09:45 Dose: 1 mg Insulin Aspart (Novolog Vial Sliding Scale -) 1 vial SQ [facility]; Protocol Last Admin: 06/15/18 16:35 Dose: Not Given Insulin Detemir (Levemir Vial) 15 units SQ AM [facility] Last Admin: 06/15/18 06:22 Dose: Not Given Levetiracetam 500 mg/ (Levetiracetam 250 mg) 750 mg PO BID [facility] Last Admin: 06/15/18 09:47 Dose: 750 mg Meclizine HCl (Antivert -) 25 mg PO TID PRN PRN Reason: VERTIGO Metoprolol Succinate (Toprol Xl -) 12.5 mg PO DAILY [facility] Last Admin: 06/15/18 09:46 Dose: Not Given Mirtazapine (Remeron -) 15 mg PO [facility] Last Admin: 06/14/18 21:03 Dose: 15 mg Morphine Sulfate (Morphine Sulfate) 2 mg SQ Q6H PRN PRN Reason: PAIN LEVEL 6-10 Last Admin: 06/15/18 06:22 Dose: 2 mg Oxycodone HCl (Oxycontin -) 10 mg PO BID [facility] Last Admin: 06/15/18 09:46 Dose: 10 mg Pantoprazole Sodium (Protonix -) 40 mg PO DAILY [facility] Last Admin: 06/15/18 09:45 Dose: 40 mg Polyethylene Glycol (Miralax (For Daily Use) -) 17 gm PO DAILY [facility] Last Admin: 06/15/18 09:46 Dose: Not Given Ranolazine (Ranexa -) 500 mg PO BID [facility] Last Admin: 06/15/18 09:45 Dose: 500 mg Trazodone HCl (Desyrel -) 100 mg PO HS [facility] Last Admin: 06/14/18 21:02 Dose: 100 mg - Objective Vital Signs: Vital Signs Temperature 98.8 F 06/15/18 18:37 Pulse Rate 88 06/15/18 18:00 Respiratory Rate 20 06/15/18 20:11 Blood Pressure 110/64 06/15/18 18:00 O2 Sat by Pulse Oximetry (%) 98 06/15/18 20:11 Labs: CBC, BMP 06/14/18 06:10 06/14/18 06:10 <Kulwant Bianchi - Last Filed: 06/15/18 20:56> Problem List - Problems (1) Pneumonia Assessment/Plan: -WBC 13.3, will trend -CXR increase in aeration in the DELVIN infiltrate with a [id number] mass -ID on board -continue PO augmentin -O2 via NC prn for SOB -keep SpO2 >90% - Code(s): J18.9 - PNEUMONIA, UNSPECIFIED ORGANISM (2) Uncontrolled diabetes mellitus Assessment/Plan: -BGM ACHS -HgA1c 8.9 -diabetic diet -continue sitagliptan, levemir, and ISS -endo on board Code(s): E11.65 - TYPE 2 DIABETES MELLITUS WITH HYPERGLYCEMIA (3) Leukocytosis Assessment/Plan: -WBC 13.3 -will trend WBC -ABT changed to PO augmentin -ID on board Code(s): D72.829 - ELEVATED WHITE BLOOD CELL COUNT, UNSPECIFIED (4) Squamous cell lung cancer Assessment/Plan: -oncology on board -pain management -penidng PET scan as outpatient Code(s): C34.90 - MALIGNANT NEOPLASM OF UNSP PART OF UNSP BRONCHUS OR LUNG (5) Hypokalemia Assessment/Plan: -K level 3.7 on 06/14 -will monitor K level and replete as needed Code(s): E87.6 - HYPOKALEMIA (6) Depression Assessment/Plan: -psychiatry consult -increased remeron to 15mg hs Code(s): F32.9 - MAJOR DEPRESSIVE DISORDER, SINGLE EPISODE, UNSPECIFIED (7) Severe malnutrition Assessment/Plan: -continue with glucerna BID -daily weight -dietary consult placed Code(s): E43 - UNSPECIFIED SEVERE PROTEIN-CALORIE MALNUTRITION (8) Chest pain Assessment/Plan: -EKG ordered -cardiology consult Code(s): R07.9 - CHEST PAIN, UNSPECIFIED <Ana Cordova - Last Filed: 06/15/18 10:53> - Problems (1) Severe malnutrition Code(s): E43 - UNSPECIFIED SEVERE PROTEIN-CALORIE MALNUTRITION (2) Anxiety Code(s): F41.9 - ANXIETY DISORDER, UNSPECIFIED (3) Hypokalemia Code(s): E87.6 - HYPOKALEMIA (4) Leukocytosis Code(s): D72.829 - ELEVATED WHITE BLOOD CELL COUNT, UNSPECIFIED (5) Pneumonia Code(s): J18.9 - PNEUMONIA, UNSPECIFIED ORGANISM (6) Uncontrolled diabetes mellitus Code(s): E11.65 - TYPE 2 DIABETES MELLITUS WITH HYPERGLYCEMIA (7) Weakness Code(s): R53.1 - WEAKNESS (8) Adult behavior problem Code(s): F69 - UNSPECIFIED DISORDER OF ADULT PERSONALITY AND BEHAVIOR (9) Alcohol dependence with uncomplicated withdrawal Code(s): F10.230 - ALCOHOL DEPENDENCE WITH WITHDRAWAL, UNCOMPLICATED (10) Anemia Code(s): D64.9 - ANEMIA, UNSPECIFIED (11) Lung mass Code(s): R91.8 - OTHER NONSPECIFIC ABNORMAL FINDING OF LUNG FIELD (12) Malnourished Code(s): E46 - UNSPECIFIED PROTEIN-CALORIE MALNUTRITION Qualifiers: Malnutrition type: protein-calorie malnutrition (13) Opiate dependence Code(s): F11.20 - OPIOID DEPENDENCE, UNCOMPLICATED Qualifiers: Substance use status: uncomplicated Qualified Code(s): F11.20 - Opioid dependence, uncomplicated (14) Squamous cell lung cancer Code(s): C34.90 - MALIGNANT NEOPLASM OF UNSP PART OF UNSP BRONCHUS OR LUNG (15) Tobacco dependence Code(s): F17.200 - NICOTINE DEPENDENCE, UNSPECIFIED, UNCOMPLICATED <Tash,Ammir - Last Filed: 06/15/18 20:56> Assessment/Plan see problem list dvt ppx discussed with family at bedside about possible SNF for discharge for PT <Ana Cordova - Last Filed: 06/15/18 10:53>
--- NOTE | 2018-06-15 14:28 | CON.CARD ---
Consult Consult Specialty:: Cardiology Referred by:: Flo Barriga Reason for Consultation:: Chest pain - History of Present Illness Chief Complaint: chest pain History of Present Illness: 63 year old female with a pmhx of htn, hld, CAD s/p mLAD stent in 2008, dm, copd , asthma, anxiety, and diagnosed with squamous cell lung CA admitted with weakness and failure to thrive. Groggy and cannot get out of bed. Spoke to patient with daughter. She has some mild left sided chest pain which appears to be related to palpation and with inspiration. Not associated with sob, diaphoresis, or palpitations. - Past Medical History COUNSELOR DORMITORY: Yes: Seizure. No: CVA Cardio/Vascular: Yes: CAD, HTN, Hyperlipdemia, Other (PCI STENT). No: AFIB Pulmonary: Yes: Asthma, Cancer (Squamous Cell), COPD Endocrine: Yes: Diabetes Mellitus - Past Surgical History Past Surgical History: Yes: Hysterectomy, Stent - Alcohol/Substance Use Hx Alcohol Use: No History of Substance Use: reports: None - Smoking History Smoking history: Former smoker Have you smoked in the past 12 months: Yes Aproximately how many cigarettes per day: 12 - Social History Usual Living Arrangement: With Significant Other ADL: Independent (ambulates with cane, walker) History of Recent Travel: No Home Medications - Allergies Allergies/Adverse Reactions: Allergies Allergy/AdvReac Type Severity Reaction Status Date / Time No Known Allergies Allergy Verified 12/20/17 15:32 - Home Medications Home Medications: Ambulatory Orders Albuterol Sulfate Inhaler - [Ventolin HFA Inhaler -] 1 - 2 inh PO QID PRN #1 inhaler 07/02/14 Cyanocobalamin [Vitamin B12 -] 1,000 mcg PO DAILY 07/16/14 levETIRAcetam [Keppra -] 750 mg PO BID #180 tablet 06/01/15 Ranolazine [Ranexa] 500 mg PO BID 01/24/17 Doxepin HCl 100 mg PO HS 05/24/17 Aspirin Coated [Ecotrin -] 81 mg PO DAILY 12/20/17 Cholecalciferol (Vitamin D3) [Vitamin D3 -] 5,000 unit PO Q7D 12/20/17 Pantoprazole Sodium [Protonix -] 40 mg PO DAILY #30 tablet.ec 12/23/17 Trazodone HCl 150 mg PO HS 05/18/18 Ferrous Sulfate [Feosol] 325 mg PO TID 05/19/18 Folic Acid - 1 mg PO DAILY 05/19/18 Meclizine HCl [Antivert -] 25 mg PO TID 05/19/18 Mirtazapine [Remeron -] 7.5 mg PO DAILY 05/19/18 Albuterol 0.083% Nebulizer Noni [Ventolin 0.083% Nebulizer Soln -] 1 amp NEB Q4H PRN #30 amp 06/01/18 Albuterol 2.5/Ipratropium 0.5 [Duoneb -] 1 amp NEB RTID #90 amp 06/01/18 Alprazolam [Xanax] 0.25 mg PO Q6H PRN #30 tablet MDD 4 06/01/18 Amox-Tr/K Cl [Augmentin 875-125mg Tablet -] 1 tab PO BID@0800,1730 #14 tablet Doxepin HCl [Sinequan -] 100 mg PO HS #120 capsule 06/01/18 Ferrous Sulfate [Feosol] 325 mg PO TIDCM #90 ud 06/01/18 Metoprolol Succinate [Toprol XL -] 12.5 mg PO DAILY #30 tab.sr.24h 06/01/18 Nicotine Patch [Nicoderm Patch -] 7 mg TD DAILY #30 patch 06/01/18 Nystatin 500,000 unit PO TID #90 tablet 06/01/18 Pantoprazole Sodium [Protonix -] 40 mg PO DAILY #30 tablet.ec 06/01/18 Polyethylene Glycol 3350 [Miralax 119 gm Btl -] 17 gm PO DAILY #1 bottle Ranolazine [Ranexa -] 500 mg PO BID #60 tab 06/01/18 Sitagliptin Phosphate [Januvia -] 100 mg PO DAILY@0700 #30 ud 06/01/18 oxyCODONE SR [Oxycontin] 10 mg PO BID 7 Days #14 tab.er.12h MDD 2 06/01/18 predniSONE [Deltasone -] 20 mg PO UTDICT #30 tablet 06/01/18 traZODone HCL [Desyrel -] 150 mg PO HS #90 tablet 06/01/18 Family Disease History - Family Disease History Family Disease History: Diabetes: Father, Mother (alzheimers), Heart Disease: Mother, CA: Brother (Pancreatic, ), Other: Mother, Sister (3 strokes) Vital Signs: Vital Signs Temperature 98.2 F 06/15/18 14:07 Pulse Rate 86 06/15/18 14:07 Respiratory Rate 20 06/15/18 14:07 Blood Pressure 103/57 L 06/15/18 14:07 O2 Sat by Pulse Oximetry (%) 98 06/15/18 09:00 Constitutional: Yes: No Distress Neck: Yes: Supple Respiratory: Yes: CTA Bilaterally Gastrointestinal: Yes: Soft Cardiovascular: Yes: Regular Rate and Rhythm JVD: No Carotid Bruit: No PMI: Non-Displaced Heart Sounds: Yes: S1, S2 Murmur: No: Systolic Murmur Edema: No - Other Data Labs, Other Data: CBC, BMP 06/14/18 06:10 06/14/18 06:10 Assessment/Plan 63 year old female with a pmhx of htn, hld, CAD s/p mLAD stent in 2008, dm, copd , asthma, anxiety, and diagnosed with squamous cell lung CA admitted with weakness and failure to thrive. Groggy and cannot get out of bed. Spoke to patient with daughter. She has some mild left sided chest pain which appears to be related to palpation and with inspiration. Not associated with sob, diaphoresis, or palpitations. -Please get a 12 lead EKG. None in chart except for from 06/10/18. Some anterior changes at that time. -Her chest pain is atypical and may be due to her DELVIN lung CA and pleural based mass. -Chronically ill patient. Would check CE's. Continue aspirin 81mg daily and ranexa. If bp allows restart metoprolol low dose -Check CE's -Clarify with oncology her prognosis and treatment plan
--- NOTE | 2018-06-15 15:36 | EKG ---
Test Reason : Blood Pressure : / mmHG Vent. Rate : 091 BPM Atrial Rate : 091 BPM P-R Int : 120 ms QRS Dur : 080 ms QT Int : 324 ms P-R-T Axes : 077 068 088 degrees QTc Int : 398 ms NORMAL SINUS RHYTHM NONSPECIFIC ST AND T WAVE ABNORMALITY ABNORMAL ECG WHEN COMPARED WITH ECG OF 10-JUN-2018 18:19, ST NO LONGER DEPRESSED IN ANTERIOR LEADS T WAVE INVERSION LESS EVIDENT IN ANTERIOR LEADS Confirmed by SAMIA BORRERO, SHAHZAD ([id number]) on 06/15/2018 3:36:38 PM Referred By: JESSIE SY Confirmed By:SHAHZAD GRACIA MD
[2018-06-15] MEDS: DRONABINOL 2.5 MG CAPSULE PO SCH (17:08)
[2018-06-15] MEDS: ACETAMINOPHEN 500 MG TABLET (FP) PO PRN (17:09)
[2018-06-15] MEDS: MIRTAZAPINE 15 MG TABLET (FP) PO SCH (22:31)
[2018-06-15] MEDS: traZODone HCL 50 MG TABLET (FP) PO SCH (22:31)
[2018-06-15] MEDS: DOXEPIN HCL 25 MG CAPSULE PO SCH (22:32)
[2018-06-16] MEDS: INSULIN (LEVEMIR) 100 UNITS/ML UNITS SQ SCH (06:06)
[2018-06-16] MEDS: INSULIN SLIDING SCALE (NOVOLOG) 1 VIAL SQ SCH ×3 (06:06→18:10)
[2018-06-16] MEDS ORDERED: INSULIN (NOVOLOG) ASPART 100 UNITS/ML 10ML VIAL ONE ×2 (06:37→13:00)
[2018-06-16] MEDS ORDERED: INSULIN (LEVEMIR) 100 UNITS/ML UNITS SQ ONE (06:37)
[2018-06-16] MEDS ORDERED: PT OWN MED DRAWER 7, Y5N ONE ×2 (06:38→09:31)
[2018-06-16] MEDS: ASPIRIN COATED 81 MG TABLET.EC PO SCH (09:09)
[2018-06-16] MEDS: oxyCODONE HCL 10 MG SUSTAINED ACTING TABLET PO SCH (09:09)
[2018-06-16] MEDS: POLYETHYLENE GLYCOL 3350 119 GM BTL PO SCH (09:26)
[2018-06-16] MEDS: RANOLAZINE E.R. 500 MG TABLET (FP) PO SCH (09:26)
[2018-06-16] MEDS: metoPROLOL SUCCINATE 25 MG TAB.SR.24H (FP) PO SCH (09:27)
[2018-06-16] MEDS: PANTOPRAZOLE 40 MG TABLET (FP) PO SCH (09:27)
[2018-06-16] MEDS: FERROUS SO4 325 MG TABLET (FP) PO SCH ×3 (09:27→17:41)
[2018-06-16] MEDS: CYANOCOBALAMIN 1,000 MCG TABLET (FP) PO SCH (09:28)
[2018-06-16] MEDS: FOLIC ACID 1 MG TABLET (FP) PO SCH (09:28)
[2018-06-16] MEDS: AMOX TR/POT CLAV 875MG/125MG TABLETS (FP) PO SCH ×2 (09:28→17:41)
[2018-06-16] MEDS: DRONABINOL 2.5 MG CAPSULE PO SCH ×2 (12:50→17:41)
[2018-06-16] MEDS: MORPHINE SULFATE 2 MG/ML VIAL SQ PRN (13:19)
[2018-06-16] MEDS ORDERED: ALBUTEROL SO4 0.083% IH SOL 2.5 MG/3 ML VIAL.NEB. NEB ONE (16:28)
--- NOTE | 2018-06-16 16:28 | DS ---
Physical Examination Vital Signs: Vital Signs Temperature 98.4 F 06/16/18 14:11 Pulse Rate 95 H 06/16/18 14:11 Respiratory Rate 20 06/16/18 14:11 Blood Pressure 116/57 L 06/16/18 14:11 O2 Sat by Pulse Oximetry (%) 98 06/16/18 08:49 Findings/Remarks: Patient is a 63 y/o female patient with past medical history of HTN, HLD, CAD s/ p stent DM, COPD, asthma, squamous cell lung CA. Patient presented to ER with complaints of hyperglycemia, weakness, SOB, non productive cough, and decreased appetite x 2 days. Patient started on IV ABT, blood cultures negative, urine culture negative. Constitutional: Yes: Calm, Cachectic Eyes: Yes: Conjunctiva Clear HENT: Yes: Atraumatic Cardiovascular: Yes: Regular Rate and Rhythm Respiratory: Yes: On Nasal O2, Rhonchi Gastrointestinal: Yes: Normal Bowel Sounds, Soft Renal/: Yes: Incontinence Musculoskeletal: Yes: Muscle Weakness Extremities: Yes: WNL Edema: No Neurological: Yes: Alert, Pre-Existing Deficit Psychiatric: Yes: Alert, Oriented Labs: CBC, BMP 06/14/18 06:10 06/14/18 06:10 <Ana Cordova - Last Filed: 06/16/18 16:23> Vital Signs: Vital Signs Temperature 99 F 06/16/18 18:00 Pulse Rate 85 06/16/18 18:00 Respiratory Rate 20 06/16/18 19:56 Blood Pressure 104/57 L 06/16/18 18:00 O2 Sat by Pulse Oximetry (%) 98 06/16/18 19:56 Labs: CBC, BMP 06/14/18 06:10 06/14/18 06:10 <Kulwant Bianchi - Last Filed: 06/16/18 22:16> Discharge Summary Reason For Visit: WEAKNESS,CHRONIC OBSTRUCTIVE PULMONARY DISEASE Current Active Problems Anxiety (Acute) Depression (Acute) Diabetes mellitus with nonketotic hyperosmolarity (Acute) Hypokalemia (Acute) Leukocytosis (Acute) Pneumonia (Acute) Severe malnutrition (Acute) Uncontrolled diabetes mellitus (Acute) Weakness (Acute) Hospital Course: see progress notes Laboratory Results - last 24 hr 06/16/18 06/16/18 05:59 12:56 Laboratory Tests 06/10/18 06/10/1806/10/19 13:41 15:30 15:45 WBC 29.6 H RBC 4.95 Hgb 13.2 Hct 39.7 D MCV 80.1 MCH 26.7 MCHC 33.3 RDW 19.7 H Plt Count 294 D MPV 9.0 Absolute Neuts (auto) 27.0 H Neutrophils % 91.2 H Neutrophils % (Manual) 91.0 H Band Neutrophils % 3.0 Lymphocytes % 4.7 L Lymphocytes % (Manual) 4.0 L D Monocytes % 3.6 L Monocytes % (Manual) 2 L Eosinophils % 0.1 D Eosinophils % (Manual) Basophils % 0.4 D Basophils % (Manual) Myelocytes % (Man) Promyelocytes % (Man) Blast Cells % (Manual) Nucleated RBC % 0 Metamyelocytes Hypochromia 1+ Platelet Estimate Adequate Platelet Comment No clumping noted Polychromasia Poikilocytosis Anisocytosis 1+ Microcytosis Macrocytosis 1+ Tear Drop Cells Ovalocytes Fragmented RBCs Sodium Potassium Chloride Carbon Dioxide Anion Gap BUN Creatinine Creat Clearance w eGFR POC Glucometer 388 Random Glucose Hemoglobin A1c % Lactic Acid Calcium Magnesium Total Bilirubin AST ALT Alkaline Phosphatase Creatine Kinase Troponin I Total Protein Albumin TSH PTH Intact Urine Color Urine Appearance Urine pH Ur Specific [place] Urine Protein Urine Glucose (UA) Urine Ketones Urine Blood Urine Nitrite Urine Bilirubin Urine Urobilinogen Ur Leukocyte Esterase Acetone, Qual Positive, small 1+ 06/10/18 06/10/18 06/10/18 15:45 19:49 21:00 WBC RBC Hgb Hct MCV MCH MCHC RDW Plt Count MPV Absolute Neuts (auto) Neutrophils % Neutrophils % (Manual) Band Neutrophils % Lymphocytes % Lymphocytes % (Manual) Monocytes % Monocytes % (Manual) Eosinophils % Eosinophils % (Manual) Basophils % Basophils % (Manual) Myelocytes % (Man) Promyelocytes % (Man) Blast Cells % (Manual) Nucleated RBC % Metamyelocytes Hypochromia Platelet Estimate Platelet Comment Polychromasia Poikilocytosis Anisocytosis Microcytosis Macrocytosis Tear Drop Cells Ovalocytes Fragmented RBCs Sodium 134 L Potassium 3.9 Chloride 91 L Carbon Dioxide 36 H Anion Gap 7 L BUN 17 Creatinine 0.9 Creat Clearance w eGFR > 60 POC Glucometer Random Glucose 315 H* Hemoglobin A1c % Lactic Acid 3.8 H* Calcium 11.4 H Magnesium Total Bilirubin 0.3 AST 11 L ALT 17 Alkaline Phosphatase 129 H Creatine Kinase 26 Troponin I < 0.02 Total Protein 6.8 Albumin 3.1 L TSH 0.51 PTH Intact Urine Color Straw Urine Appearance Clear Urine pH 7.0 Ur Specific [place] 1.017 Urine Protein Negative Urine Glucose (UA) 3+ H Urine Ketones Negative Urine Blood Negative Urine Nitrite Negative Urine Bilirubin Negative Urine Urobilinogen Negative Ur Leukocyte Esterase Negative Acetone, Qual 06/10/18 06/11/18 06/11/18 23:49 00:03 06:20 WBC 24.2 H RBC 4.33 Hgb 11.6 Hct 34.9 MCV 80.6 MCH 26.9 MCHC 33.3 RDW 19.1 H Plt Count 232 D MPV 9.1 Absolute Neuts (auto) 22.0 H Neutrophils % 90.7 H Neutrophils % (Manual) 87.1 H Band Neutrophils % 2.0 Lymphocytes % 5.1 L Lymphocytes % (Manual) 5.9 L D Monocytes % 3.5 L Monocytes % (Manual) 3 L Eosinophils % 0.4 D Eosinophils % (Manual) 0.0 Basophils % 0.3 Basophils % (Manual) 0.0 Myelocytes % (Man) 0 Promyelocytes % (Man) 0 Blast Cells % (Manual) 0 Nucleated RBC % 0 Metamyelocytes 0 Hypochromia 0 Platelet Estimate Normal Platelet Comment Present Polychromasia 1+ Poikilocytosis 2+ Anisocytosis 2+ Microcytosis 0 Macrocytosis 0 Tear Drop Cells 1+ Ovalocytes 1+ Fragmented RBCs 1+ Sodium Potassium Chloride Carbon Dioxide Anion Gap BUN Creatinine Creat Clearance w eGFR POC Glucometer 375 Random Glucose Hemoglobin A1c % Lactic Acid 3.6 H* Calcium Magnesium Total Bilirubin AST ALT Alkaline Phosphatase Creatine Kinase Troponin I Total Protein Albumin TSH PTH Intact Urine Color Urine Appearance Urine pH Ur Specific [place] Urine Protein Urine Glucose (UA) Urine Ketones Urine Blood Urine Nitrite Urine Bilirubin Urine Urobilinogen Ur Leukocyte Esterase Acetone, Qual 06/11/18 06/11/18 06/11/18 06:45 06:50 07:00 WBC RBC Hgb Hct MCV MCH MCHC RDW Plt Count MPV Absolute Neuts (auto) Neutrophils % Neutrophils % (Manual) Band Neutrophils % Lymphocytes % Lymphocytes % (Manual) Monocytes % Monocytes % (Manual) Eosinophils % Eosinophils % (Manual) Basophils % Basophils % (Manual) Myelocytes % (Man) Promyelocytes % (Man) Blast Cells % (Manual) Nucleated RBC % Metamyelocytes Hypochromia Platelet Estimate Platelet Comment Polychromasia Poikilocytosis Anisocytosis Microcytosis Macrocytosis Tear Drop Cells Ovalocytes Fragmented RBCs Sodium 138 Potassium 2.9 L* Chloride 100 Carbon Dioxide 30 Anion Gap 7 L BUN 9 Creatinine 0.6 Creat Clearance w eGFR > 60 POC Glucometer 165 Random Glucose 140 H Hemoglobin A1c % Lactic Acid 0.9 Calcium 9.6 Magnesium 2.1 Total Bilirubin AST ALT Alkaline Phosphatase Creatine Kinase Troponin I Total Protein Albumin TSH PTH Intact Urine Color Urine Appearance Urine pH Ur Specific [place] Urine Protein Urine Glucose (UA) Urine Ketones Urine Blood Urine Nitrite Urine Bilirubin Urine Urobilinogen Ur Leukocyte Esterase Acetone, Qual 06/11/18 06/11/18 06/11/18 13:04 13:35 16:49 WBC RBC Hgb Hct MCV MCH MCHC RDW Plt Count MPV Absolute Neuts (auto) Neutrophils % Neutrophils % (Manual) Band Neutrophils % Lymphocytes % Lymphocytes % (Manual) Monocytes % Monocytes % (Manual) Eosinophils % Eosinophils % (Manual) Basophils % Basophils % (Manual) Myelocytes % (Man) Promyelocytes % (Man) Blast Cells % (Manual) Nucleated RBC % Metamyelocytes Hypochromia Platelet Estimate Platelet Comment Polychromasia Poikilocytosis Anisocytosis Microcytosis Macrocytosis Tear Drop Cells Ovalocytes Fragmented RBCs Sodium 135 L Potassium 3.4 L Chloride 98 Carbon Dioxide 28 Anion Gap 9 BUN 10 Creatinine 0.8 Creat Clearance w eGFR > 60 POC Glucometer 282 352 Random Glucose 293 H Hemoglobin A1c % Lactic Acid Calcium 9.8 Magnesium Total Bilirubin 0.3 AST 12 L ALT 13 Alkaline Phosphatase 93 Creatine Kinase Troponin I Total Protein 5.6 L Albumin 2.6 L TSH PTH Intact Urine Color Urine Appearance Urine pH Ur Specific [place] Urine Protein Urine Glucose (UA) Urine Ketones Urine Blood Urine Nitrite Urine Bilirubin Urine Urobilinogen Ur Leukocyte Esterase Acetone, Qual 06/11/18 06/12/18 06/12/18 21:39 06:15 06:15 WBC 16.9 H RBC 4.25 Hgb 11.1 Hct 34.3 MCV 80.8 MCH 26.2 MCHC 32.5 RDW 18.9 H Plt Count 211 MPV 9.5 Absolute Neuts (auto) Neutrophils % Neutrophils % (Manual) Band Neutrophils % Lymphocytes % Lymphocytes % (Manual) Monocytes % Monocytes % (Manual) Eosinophils % Eosinophils % (Manual) Basophils % Basophils % (Manual) Myelocytes % (Man) Promyelocytes % (Man) Blast Cells % (Manual) Nucleated RBC % Metamyelocytes Hypochromia Platelet Estimate Platelet Comment Polychromasia Poikilocytosis Anisocytosis Microcytosis Macrocytosis Tear Drop Cells Ovalocytes Fragmented RBCs Sodium Potassium Chloride Carbon Dioxide Anion Gap BUN Creatinine Creat Clearance w eGFR POC Glucometer 164 Random Glucose Hemoglobin A1c % Lactic Acid 1.0 Calcium Magnesium Total Bilirubin AST ALT Alkaline Phosphatase Creatine Kinase Troponin I Total Protein Albumin TSH PTH Intact Urine Color Urine Appearance Urine pH Ur Specific [place] Urine Protein Urine Glucose (UA) Urine Ketones Urine Blood Urine Nitrite Urine Bilirubin Urine Urobilinogen Ur Leukocyte Esterase Acetone, Qual 06/12/18 06/12/18 06/12/18 06:15 06:15 06:15 WBC RBC Hgb Hct MCV MCH MCHC RDW Plt Count MPV Absolute Neuts (auto) Neutrophils % Neutrophils % (Manual) Band Neutrophils % Lymphocytes % Lymphocytes % (Manual) Monocytes % Monocytes % (Manual) Eosinophils % Eosinophils % (Manual) Basophils % Basophils % (Manual) Myelocytes % (Man) Promyelocytes % (Man) Blast Cells % (Manual) Nucleated RBC % Metamyelocytes Hypochromia Platelet Estimate Platelet Comment Polychromasia Poikilocytosis Anisocytosis Microcytosis Macrocytosis Tear Drop Cells Ovalocytes Fragmented RBCs Sodium 137 Potassium 3.1 L Chloride 99 Carbon Dioxide 30 Anion Gap 8 BUN 8 Creatinine 0.6 Creat Clearance w eGFR > 60 POC Glucometer Random Glucose 217 H Hemoglobin A1c % 8.9 H Lactic Acid Calcium 9.7 Magnesium Total Bilirubin 0.4 AST 8 L ALT 13 Alkaline Phosphatase 83 Creatine Kinase Troponin I Total Protein 5.3 L Albumin 2.3 L TSH PTH Intact 13 L Urine Color Urine Appearance Urine pH Ur Specific [place] Urine Protein Urine Glucose (UA) Urine Ketones Urine Blood Urine Nitrite Urine Bilirubin Urine Urobilinogen Ur Leukocyte Esterase Acetone, Qual 06/12/18 06/12/18 06/12/18 06:22 11:42 17:04 WBC RBC Hgb Hct MCV MCH MCHC RDW Plt Count MPV Absolute Neuts (auto) Neutrophils % Neutrophils % (Manual) Band Neutrophils % Lymphocytes % Lymphocytes % (Manual) Monocytes % Monocytes % (Manual) Eosinophils % Eosinophils % (Manual) Basophils % Basophils % (Manual) Myelocytes % (Man) Promyelocytes % (Man) Blast Cells % (Manual) Nucleated RBC % Metamyelocytes Hypochromia Platelet Estimate Platelet Comment Polychromasia Poikilocytosis Anisocytosis Microcytosis Macrocytosis Tear Drop Cells Ovalocytes Fragmented RBCs Sodium Potassium Chloride Carbon Dioxide Anion Gap BUN Creatinine Creat Clearance w eGFR POC Glucometer 231 279 231 Random Glucose Hemoglobin A1c % Lactic Acid Calcium Magnesium Total Bilirubin AST ALT Alkaline Phosphatase Creatine Kinase Troponin I Total Protein Albumin TSH PTH Intact Urine Color Urine Appearance Urine pH Ur Specific [place] Urine Protein Urine Glucose (UA) Urine Ketones Urine Blood Urine Nitrite Urine Bilirubin Urine Urobilinogen Ur Leukocyte Esterase Acetone, Qual 06/12/18 06/13/18 06/13/18 21:58 05:26 12:11 WBC RBC Hgb Hct MCV MCH MCHC RDW Plt Count MPV Absolute Neuts (auto) Neutrophils % Neutrophils % (Manual) Band Neutrophils % Lymphocytes % Lymphocytes % (Manual) Monocytes % Monocytes % (Manual) Eosinophils % Eosinophils % (Manual) Basophils % Basophils % (Manual) Myelocytes % (Man) Promyelocytes % (Man) Blast Cells % (Manual) Nucleated RBC % Metamyelocytes Hypochromia Platelet Estimate Platelet Comment Polychromasia Poikilocytosis Anisocytosis Microcytosis Macrocytosis Tear Drop Cells Ovalocytes Fragmented RBCs Sodium Potassium Chloride Carbon Dioxide Anion Gap BUN Creatinine Creat Clearance w eGFR POC Glucometer 144 163 253 Random Glucose Hemoglobin A1c % Lactic Acid Calcium Magnesium Total Bilirubin AST ALT Alkaline Phosphatase Creatine Kinase Troponin I Total Protein Albumin TSH PTH Intact Urine Color Urine Appearance Urine pH Ur Specific [place] Urine Protein Urine Glucose (UA) Urine Ketones Urine Blood Urine Nitrite Urine Bilirubin Urine Urobilinogen Ur Leukocyte Esterase Acetone, Qual 06/13/18 06/13/18 06/14/18 17:03 21:39 06:10 WBC 13.3 H RBC 3.78 Hgb 10.0 L Hct 30.3 L MCV 80.1 MCH 26.4 MCHC 32.9 RDW 19.0 H Plt Count 216 MPV 9.1 Absolute Neuts (auto) Neutrophils % Neutrophils % (Manual) Band Neutrophils % Lymphocytes % Lymphocytes % (Manual) Monocytes % Monocytes % (Manual) Eosinophils % Eosinophils % (Manual) Basophils % Basophils % (Manual) Myelocytes % (Man) Promyelocytes % (Man) Blast Cells % (Manual) Nucleated RBC % Metamyelocytes Hypochromia Platelet Estimate Platelet Comment Polychromasia Poikilocytosis Anisocytosis Microcytosis Macrocytosis Tear Drop Cells Ovalocytes Fragmented RBCs Sodium Potassium Chloride Carbon Dioxide Anion Gap BUN Creatinine Creat Clearance w eGFR POC Glucometer 151 284 Random Glucose Hemoglobin A1c % Lactic Acid Calcium Magnesium Total Bilirubin AST ALT Alkaline Phosphatase Creatine Kinase Troponin I Total Protein Albumin TSH PTH Intact Urine Color Urine Appearance Urine pH Ur Specific [place] Urine Protein Urine Glucose (UA) Urine Ketones Urine Blood Urine Nitrite Urine Bilirubin Urine Urobilinogen Ur Leukocyte Esterase Acetone, Qual 06/14/18 06/14/18 06/14/18 06:10 06:13 11:14 WBC RBC Hgb Hct MCV MCH MCHC RDW Plt Count MPV Absolute Neuts (auto) Neutrophils % Neutrophils % (Manual) Band Neutrophils % Lymphocytes % Lymphocytes % (Manual) Monocytes % Monocytes % (Manual) Eosinophils % Eosinophils % (Manual) Basophils % Basophils % (Manual) Myelocytes % (Man) Promyelocytes % (Man) Blast Cells % (Manual) Nucleated RBC % Metamyelocytes Hypochromia Platelet Estimate Platelet Comment Polychromasia Poikilocytosis Anisocytosis Microcytosis Macrocytosis Tear Drop Cells Ovalocytes Fragmented RBCs Sodium 136 Potassium 3.7 Chloride 99 Carbon Dioxide 33 H Anion Gap 4 L BUN 7 Creatinine 0.5 L Creat Clearance w eGFR > 60 POC Glucometer 142 217 Random Glucose 134 H Hemoglobin A1c % Lactic Acid Calcium 9.5 Magnesium Total Bilirubin 0.2 AST 13 L ALT 17 Alkaline Phosphatase 76 Creatine Kinase Troponin I Total Protein 5.0 L Albumin 2.1 L TSH PTH Intact Urine Color Urine Appearance Urine pH Ur Specific [place] Urine Protein Urine Glucose (UA) Urine Ketones Urine Blood Urine Nitrite Urine Bilirubin Urine Urobilinogen Ur Leukocyte Esterase Acetone, Qual 06/14/18 06/14/18 06/14/18 16:53 17:43 21:01 WBC RBC Hgb Hct MCV MCH MCHC RDW Plt Count MPV Absolute Neuts (auto) Neutrophils % Neutrophils % (Manual) Band Neutrophils % Lymphocytes % Lymphocytes % (Manual) Monocytes % Monocytes % (Manual) Eosinophils % Eosinophils % (Manual) Basophils % Basophils % (Manual) Myelocytes % (Man) Promyelocytes % (Man) Blast Cells % (Manual) Nucleated RBC % Metamyelocytes Hypochromia Platelet Estimate Platelet Comment Polychromasia Poikilocytosis Anisocytosis Microcytosis Macrocytosis Tear Drop Cells Ovalocytes Fragmented RBCs Sodium Potassium Chloride Carbon Dioxide Anion Gap BUN Creatinine Creat Clearance w eGFR POC Glucometer 61 140 141 Random Glucose Hemoglobin A1c % Lactic Acid Calcium Magnesium Total Bilirubin AST ALT Alkaline Phosphatase Creatine Kinase Troponin I Total Protein Albumin TSH PTH Intact Urine Color Urine Appearance Urine pH Ur Specific [place] Urine Protein Urine Glucose (UA) Urine Ketones Urine Blood Urine Nitrite Urine Bilirubin Urine Urobilinogen Ur Leukocyte Esterase Acetone, Qual 06/15/18 06/15/18 06/15/18 06:20 11:33 16:10 WBC RBC Hgb Hct MCV MCH MCHC RDW Plt Count MPV Absolute Neuts (auto) Neutrophils % Neutrophils % (Manual) Band Neutrophils % Lymphocytes % Lymphocytes % (Manual) Monocytes % Monocytes % (Manual) Eosinophils % Eosinophils % (Manual) Basophils % Basophils % (Manual) Myelocytes % (Man) Promyelocytes % (Man) Blast Cells % (Manual) Nucleated RBC % Metamyelocytes Hypochromia Platelet Estimate Platelet Comment Polychromasia Poikilocytosis Anisocytosis Microcytosis Macrocytosis Tear Drop Cells Ovalocytes Fragmented RBCs Sodium Potassium Chloride Carbon Dioxide Anion Gap BUN Creatinine Creat Clearance w eGFR POC Glucometer 116 248 204 Random Glucose Hemoglobin A1c % Lactic Acid Calcium Magnesium Total Bilirubin AST ALT Alkaline Phosphatase Creatine Kinase Troponin I Total Protein Albumin TSH PTH Intact Urine Color Urine Appearance Urine pH Ur Specific [place] Urine Protein Urine Glucose (UA) Urine Ketones Urine Blood Urine Nitrite Urine Bilirubin Urine Urobilinogen Ur Leukocyte Esterase Acetone, Qual 06/16/18 06/16/18 05:59 12:56 WBC RBC Hgb Hct MCV MCH MCHC RDW Plt Count MPV Absolute Neuts (auto) Neutrophils % Neutrophils % (Manual) Band Neutrophils % Lymphocytes % Lymphocytes % (Manual) Monocytes % Monocytes % (Manual) Eosinophils % Eosinophils % (Manual) Basophils % Basophils % (Manual) Myelocytes % (Man) Promyelocytes % (Man) Blast Cells % (Manual) Nucleated RBC % Metamyelocytes Hypochromia Platelet Estimate Platelet Comment Polychromasia Poikilocytosis Anisocytosis Microcytosis Macrocytosis Tear Drop Cells Ovalocytes Fragmented RBCs Sodium Potassium Chloride Carbon Dioxide Anion Gap BUN Creatinine Creat Clearance w eGFR POC Glucometer 215 329 Random Glucose Hemoglobin A1c % Lactic Acid Calcium Magnesium Total Bilirubin AST ALT Alkaline Phosphatase Creatine Kinase Troponin I Total Protein Albumin TSH PTH Intact Urine Color Urine Appearance Urine pH Ur Specific [place] Urine Protein Urine Glucose (UA) Urine Ketones Urine Blood Urine Nitrite Urine Bilirubin Urine Urobilinogen Ur Leukocyte Esterase Acetone, Qual Active Medications Generic Name Dose Route Start Last Admin Trade Name Freq PRN Reason Stop Dose Admin Acetaminophen 500 mg 06/11/18 19:33 06/15/18 17:09 Tylenol - PO 500 mg Q6H PRN Administration FEVER Albuterol Sulfate 1 amp 06/16/18 16:28 Ventolin 0.083% Nebulizer Soln - NEB 06/16/18 16:29 ONCE ONE Alprazolam 0.25 mg 06/11/18 12:00 06/15/18 16:13 Xanax - PO 0.25 mg Q6H PRN Administration ANXIETY Amoxicillin/Clavulanate Potassium 1 tab 06/13/18 17:30 06/16/18 09:28 Augmentin - 875mg Tablet PO 1 tab BID@0800,1730 ARIANA Administration Aspirin 81 mg 06/12/18 10:00 06/16/18 09:09 Ecotrin - PO 81 mg DAILY ARIANA Administration Cyanocobalamin 1,000 mcg 06/12/18 10:00 06/16/18 09:28 Vitamin B12 - PO 1,000 mcg DAILY ARIANA Administration Doxepin HCl 100 mg 06/11/18 22:30 06/15/18 22:32 Sinequan - PO Not Given HS ARIANA Dronabinol 2.5 mg 06/15/18 16:30 06/16/18 12:50 Marinol - PO 2.5 mg BID@1100,1630 ARIANA Administration Ferrous Sulfate 325 mg 06/11/18 12:00 06/16/18 12:51 Feosol - PO 325 mg TIDCM ARIANA Administration Folic Acid 1 mg 06/12/18 10:00 06/16/18 09:28 Folic Acid - PO 1 mg DAILY ARIANA Administration Insulin Aspart 1 vial 06/11/18 22:00 06/16/18 13:00 Novolog Vial Sliding Scale - SQ 8 unit ACHS [facility] Administration Protocol Insulin Detemir 15 units 06/12/18 07:00 06/16/18 06:06 Levemir Vial SQ 15 unit AM ARIANA Administration Levetiracetam 500 mg/ 750 mg 06/11/18 22:00 06/16/18 09:32 Levetiracetam 250 mg PO 750 mg BID ARIANA Administration Meclizine HCl 25 mg 06/11/18 11:56 Antivert - PO TID PRN VERTIGO Metoprolol Succinate 12.5 mg 06/12/18 10:00 06/16/18 09:27 Toprol Xl - PO 12.5 mg DAILY [facility] Administration Mirtazapine 15 mg 06/13/18 22:00 06/15/18 22:31 Remeron - PO Not Given HS [facility] Morphine Sulfate 2 mg 06/11/18 11:52 06/16/18 13:19 Morphine Sulfate SQ 2 mg Q6H PRN Administration PAIN LEVEL 6-10 Oxycodone HCl 10 mg 06/11/18 22:00 06/16/18 09:09 Oxycontin - PO 10 mg BID [facility] Administration Pantoprazole Sodium 40 mg 06/12/18 10:00 06/16/18 09:27 Protonix - PO 40 mg DAILY [facility] Administration Polyethylene Glycol 17 gm 06/12/18 10:00 06/16/18 09:26 Miralax (For Daily Use) - PO Not Given DAILY [facility] Ranolazine 500 mg 06/11/18 22:00 06/16/18 09:26 Ranexa - PO 500 mg BID [facility] Administration Trazodone HCl 100 mg 06/11/18 22:00 06/15/18 22:31 Desyrel - PO Not Given HS [facility] Microbiology 06/10/18 19:50 Blood - Peripheral Venous Blood Culture - Final NO GROWTH AFTER 5 DAYS INCUBATION 06/10/18 19:50 Blood - Peripheral Venous Blood Culture - Final NO GROWTH AFTER 5 DAYS INCUBATION 06/10/18 21:00 Urine - Urine Clean Catch Urine Culture - Final NO GROWTH OBTAINED 06/11/18 15:52 Urine For Antigen Detection Legionella Antigen - Final 06/11/18 15:52 Urine For Antigen Detection Streptococcus pneumoniae Antigen (M - Final - Home Medications Comprehensive Discharge Medication List: Ambulatory Orders Albuterol Sulfate Inhaler - [Ventolin HFA Inhaler -] 1 - 2 inh PO QID PRN #1 inhaler 07/02/14 Cyanocobalamin [Vitamin B12 -] 1,000 mcg PO DAILY 07/16/14 levETIRAcetam [Keppra -] 750 mg PO BID #180 tablet 06/01/15 Ranolazine [Ranexa] 500 mg PO BID 01/24/17 Doxepin HCl 100 mg PO HS 05/24/17 Aspirin Coated [Ecotrin -] 81 mg PO DAILY 12/20/17 Cholecalciferol (Vitamin D3) [Vitamin D3 -] 5,000 unit PO Q7D 12/20/17 Pantoprazole Sodium [Protonix -] 40 mg PO DAILY #30 tablet.ec 12/23/17 Trazodone HCl 150 mg PO HS 05/18/18 Ferrous Sulfate [Feosol] 325 mg PO TID 05/19/18 Folic Acid - 1 mg PO DAILY 05/19/18 Meclizine HCl [Antivert -] 25 mg PO TID 05/19/18 Mirtazapine [Remeron -] 7.5 mg PO DAILY 05/19/18 Albuterol 0.083% Nebulizer Noni [Ventolin 0.083% Nebulizer Soln -] 1 amp NEB Q4H PRN #30 amp 06/01/18 Albuterol 2.5/Ipratropium 0.5 [Duoneb -] 1 amp NEB RTID #90 amp 06/01/18 Alprazolam [Xanax] 0.25 mg PO Q6H PRN #30 tablet MDD 4 06/01/18 Amox-Tr/K Cl [Augmentin 875-125mg Tablet -] 1 tab PO BID@0800,1730 #14 tablet Doxepin HCl [Sinequan -] 100 mg PO HS #120 capsule 06/01/18 Ferrous Sulfate [Feosol] 325 mg PO TIDCM #90 ud 06/01/18 Metoprolol Succinate [Toprol XL -] 12.5 mg PO DAILY #30 tab.sr.24h 06/01/18 Nicotine Patch [Nicoderm Patch -] 7 mg TD DAILY #30 patch 06/01/18 Nystatin 500,000 unit PO TID #90 tablet 06/01/18 Pantoprazole Sodium [Protonix -] 40 mg PO DAILY #30 tablet.ec 06/01/18 Polyethylene Glycol 3350 [Miralax 119 gm Btl -] 17 gm PO DAILY #1 bottle Ranolazine [Ranexa -] 500 mg PO BID #60 tab 06/01/18 Sitagliptin Phosphate [Januvia -] 100 mg PO DAILY@0700 #30 ud 06/01/18 oxyCODONE SR [Oxycontin] 10 mg PO BID 7 Days #14 tab.er.12h MDD 2 06/01/18 predniSONE [Deltasone -] 20 mg PO UTDICT #30 tablet 06/01/18 traZODone HCL [Desyrel -] 150 mg PO HS #90 tablet 06/01/18 <Ana Cordova - Last Filed: 06/16/18 16:23> Current Active Problems Anxiety (Acute) Depression (Acute) Diabetes mellitus with nonketotic hyperosmolarity (Acute) Hypokalemia (Acute) Leukocytosis (Acute) Pneumonia (Acute) Severe malnutrition (Acute) Uncontrolled diabetes mellitus (Acute) Weakness (Acute) - Home Medications Comprehensive Discharge Medication List: Ambulatory Orders Albuterol Sulfate Inhaler - [Ventolin HFA Inhaler -] 1 - 2 inh PO QID PRN #1 inhaler 07/02/14 Cyanocobalamin [Vitamin B12 -] 1,000 mcg PO DAILY 07/16/14 levETIRAcetam [Keppra -] 750 mg PO BID #180 tablet 06/01/15 Ranolazine [Ranexa] 500 mg PO BID 01/24/17 Doxepin HCl 100 mg PO HS 05/24/17 Aspirin Coated [Ecotrin -] 81 mg PO DAILY 12/20/17 Cholecalciferol (Vitamin D3) [Vitamin D3 -] 5,000 unit PO Q7D 12/20/17 Pantoprazole Sodium [Protonix -] 40 mg PO DAILY #30 tablet.ec 12/23/17 Trazodone HCl 150 mg PO HS 05/18/18 Ferrous Sulfate [Feosol] 325 mg PO TID 05/19/18 Folic Acid - 1 mg PO DAILY 05/19/18 Meclizine HCl [Antivert -] 25 mg PO TID 05/19/18 Mirtazapine [Remeron -] 7.5 mg PO DAILY 05/19/18 Albuterol 0.083% Nebulizer Noni [Ventolin 0.083% Nebulizer Soln -] 1 amp NEB Q4H PRN #30 amp 06/01/18 Albuterol 2.5/Ipratropium 0.5 [Duoneb -] 1 amp NEB RTID #90 amp 06/01/18 Alprazolam [Xanax] 0.25 mg PO Q6H PRN #30 tablet MDD 4 06/01/18 Amox-Tr/K Cl [Augmentin 875-125mg Tablet -] 1 tab PO BID@0800,1730 #14 tablet Doxepin HCl [Sinequan -] 100 mg PO HS #120 capsule 06/01/18 Ferrous Sulfate [Feosol] 325 mg PO TIDCM #90 ud 06/01/18 Metoprolol Succinate [Toprol XL -] 12.5 mg PO DAILY #30 tab.sr.24h 06/01/18 Nicotine Patch [Nicoderm Patch -] 7 mg TD DAILY #30 patch 06/01/18 Nystatin 500,000 unit PO TID #90 tablet 06/01/18 Pantoprazole Sodium [Protonix -] 40 mg PO DAILY #30 tablet.ec 06/01/18 Polyethylene Glycol 3350 [Miralax 119 gm Btl -] 17 gm PO DAILY #1 bottle Ranolazine [Ranexa -] 500 mg PO BID #60 tab 06/01/18 Sitagliptin Phosphate [Januvia -] 100 mg PO DAILY@0700 #30 ud 06/01/18 oxyCODONE SR [Oxycontin] 10 mg PO BID 7 Days #14 tab.er.12h MDD 2 06/01/18 predniSONE [Deltasone -] 20 mg PO UTDICT #30 tablet 06/01/18 traZODone HCL [Desyrel -] 150 mg PO HS #90 tablet 06/01/18 <Kulwant Bianchi - Last Filed: 06/16/18 22:16> Condition: Stable - Instructions Diet, Activity, Other Instructions: Patient to follow up with Oncologist Dr. Alcantar Patient to have outpatient PET scan continue with current medication regimen as scheduled return to ER if SOB, chest pain, difficulty breathing Referrals: Kulwant Bianchi MD [Primary Care Provider] - Darshan Alcantar MD [Staff Physician] - Disposition: [facility]ACILITY
[2018-06-16 16:50] VITALS: BMI 15.9
[2018-06-16 18:28] VITALS: BP 104/57; PULSE 85; TEMP 99
--- NOTE | 2018-06-16 23:07 | PN ---
Progress Note, Physician Chief Complaint: comfortable no complaint - Current Medication List Current Medications: Active Medications Acetaminophen (Tylenol -) 500 mg PO Q6H PRN PRN Reason: FEVER Last Admin: 06/15/18 17:09 Dose: 500 mg Alprazolam (Xanax -) 0.25 mg PO Q6H PRN PRN Reason: ANXIETY Last Admin: 06/15/18 16:13 Dose: 0.25 mg Amoxicillin/Clavulanate Potassium (Augmentin - 875mg Tablet) 1 tab PO BID@0800, 1730 [facility] Last Admin: 06/16/18 17:41 Dose: 1 tab Aspirin (Ecotrin -) 81 mg PO DAILY [facility] Last Admin: 06/16/18 09:09 Dose: 81 mg Cyanocobalamin (Vitamin B12 -) 1,000 mcg PO DAILY [facility] Last Admin: 06/16/18 09:28 Dose: 1,000 mcg Doxepin HCl (Sinequan -) 100 mg PO HS [facility] Last Admin: 06/15/18 22:32 Dose: Not Given Dronabinol (Marinol -) 2.5 mg PO BID@1100,1630 [facility] Last Admin: 06/16/18 17:41 Dose: 2.5 mg Ferrous Sulfate (Feosol -) 325 mg PO TIDCM [facility] Last Admin: 06/16/18 17:41 Dose: 325 mg Folic Acid (Folic Acid -) 1 mg PO DAILY [facility] Last Admin: 06/16/18 09:28 Dose: 1 mg Insulin Aspart (Novolog Vial Sliding Scale -) 1 vial SQ [facility]; Protocol Last Admin: 06/16/18 18:10 Dose: Not Given Insulin Detemir (Levemir Vial) 15 units SQ AM [facility] Last Admin: 06/16/18 06:06 Dose: 15 unit Levetiracetam 500 mg/ (Levetiracetam 250 mg) 750 mg PO BID [facility] Last Admin: 06/16/18 09:32 Dose: 750 mg Meclizine HCl (Antivert -) 25 mg PO TID PRN PRN Reason: VERTIGO Metoprolol Succinate (Toprol Xl -) 12.5 mg PO DAILY [facility] Last Admin: 06/16/18 09:27 Dose: 12.5 mg Mirtazapine (Remeron -) 15 mg PO HS [facility] Last Admin: 06/15/18 22:31 Dose: Not Given Morphine Sulfate (Morphine Sulfate) 2 mg SQ Q6H PRN PRN Reason: PAIN LEVEL 6-10 Last Admin: 06/16/18 13:19 Dose: 2 mg Oxycodone HCl (Oxycontin -) 10 mg PO BID [facility] Last Admin: 06/16/18 09:09 Dose: 10 mg Pantoprazole Sodium (Protonix -) 40 mg PO DAILY [facility] Last Admin: 06/16/18 09:27 Dose: 40 mg Polyethylene Glycol (Miralax (For Daily Use) -) 17 gm PO DAILY [facility] Last Admin: 06/16/18 09:26 Dose: Not Given Ranolazine (Ranexa -) 500 mg PO BID [facility] Last Admin: 06/16/18 09:26 Dose: 500 mg Trazodone HCl (Desyrel -) 100 mg PO [facility] Last Admin: 06/15/18 22:31 Dose: Not Given - Objective Vital Signs: Vital Signs Temperature 99 F 06/16/18 18:00 Pulse Rate 85 06/16/18 18:00 Respiratory Rate 20 06/16/18 19:56 Blood Pressure 104/57 L 06/16/18 18:00 O2 Sat by Pulse Oximetry (%) 98 06/16/18 19:56 Constitutional: Yes: Calm Eyes: Yes: EOM Intact HENT: Yes: Normocephalic Neck: Yes: Trachea Midline Cardiovascular: Yes: Regular Rate and Rhythm Respiratory: Yes: On Nasal O2 Gastrointestinal: Yes: Normal Bowel Sounds Genitourinary: Yes: WNL Musculoskeletal: Yes: Muscle Weakness Edema: No Neurological: Yes: Alert, Oriented Labs: CBC, BMP 06/14/18 06:10 06/14/18 06:10 Problem List - Problems (1) Diabetes mellitus with nonketotic hyperosmolarity Code(s): E11.00 - TYPE 2 DIAB W HYPROSM W/O NONKET HYPRGLY-HYPROS COMA ([facility]) (2) Anxiety Code(s): F41.9 - ANXIETY DISORDER, UNSPECIFIED (3) Hypokalemia Code(s): E87.6 - HYPOKALEMIA (4) Leukocytosis Code(s): D72.829 - ELEVATED WHITE BLOOD CELL COUNT, UNSPECIFIED (5) Pneumonia Code(s): J18.9 - PNEUMONIA, UNSPECIFIED ORGANISM (6) Uncontrolled diabetes mellitus Code(s): E11.65 - TYPE 2 DIABETES MELLITUS WITH HYPERGLYCEMIA (7) Weakness Code(s): R53.1 - WEAKNESS (8) Adult behavior problem Code(s): F69 - UNSPECIFIED DISORDER OF ADULT PERSONALITY AND BEHAVIOR Assessment/Plan Current Active Problems Anxiety (Acute) Depression (Acute) Diabetes mellitus with nonketotic hyperosmolarity (Acute) Hypokalemia (Acute) Leukocytosis (Acute) Pneumonia (Acute) Severe malnutrition (Acute) Uncontrolled diabetes mellitus (Acute) Weakness (Acute) Laboratory Results - last 24 hr 06/16/18 06/16/18 05:59 12:56 POC Glucometer 215 329 plan: Current Medications Generic Name Dose Route Start Last Admin Trade Name Freq PRN Reason Stop Dose Admin Acetaminophen 500 mg 06/11/18 19:33 06/15/18 17:09 Tylenol - PO 500 mg Q6H PRN Administration FEVER Alprazolam 0.25 mg 06/11/18 12:00 06/15/18 16:13 Xanax - PO 0.25 mg Q6H PRN Administration ANXIETY Amoxicillin/Clavulanate Potassium 1 tab 06/13/18 17:30 06/16/18 17:41 Augmentin - 875mg Tablet PO 1 tab BID@0800,1730 [facility] Administration Aspirin 81 mg 06/12/18 10:00 06/16/18 09:09 Ecotrin - PO 81 mg DAILY [facility] Administration Cyanocobalamin 1,000 mcg 06/12/18 10:00 06/16/18 09:28 Vitamin B12 - PO 1,000 mcg DAILY [facility] Administration Doxepin HCl 100 mg 06/11/18 22:30 06/15/18 22:32 Sinequan - PO Not Given HS [facility] Dronabinol 2.5 mg 06/15/18 16:30 06/16/18 17:41 Marinol - PO 2.5 mg BID@1100,1630 [facility] Administration Ferrous Sulfate 325 mg 06/11/18 12:00 06/16/18 17:41 Feosol - PO 325 mg TIDCM [facility] Administration Folic Acid 1 mg 06/12/18 10:00 06/16/18 09:28 Folic Acid - PO 1 mg DAILY [facility] Administration Insulin Aspart 1 vial 06/11/18 22:00 06/16/18 18:10 Novolog Vial Sliding Scale - SQ Not Given ACHS [facility] Protocol Insulin Detemir 15 units 06/12/18 07:00 06/16/18 06:06 Levemir Vial SQ 15 unit AM [facility] Administration Levetiracetam 500 mg/ 750 mg 06/11/18 22:00 06/16/18 09:32 Levetiracetam 250 mg PO 750 mg BID [facility] Administration Meclizine HCl 25 mg 06/11/18 11:56 Antivert - PO TID PRN VERTIGO Metoprolol Succinate 12.5 mg 06/12/18 10:00 06/16/18 09:27 Toprol Xl - PO 12.5 mg DAILY [facility] Administration Mirtazapine 15 mg 06/13/18 22:00 06/15/18 22:31 Remeron - PO Not Given HS [facility] Morphine Sulfate 2 mg 06/11/18 11:52 06/16/18 13:19 Morphine Sulfate SQ 2 mg Q6H PRN Administration PAIN LEVEL 6-10 Oxycodone HCl 10 mg 06/11/18 22:00 06/16/18 09:09 Oxycontin - PO 10 mg BID [facility] Administration Pantoprazole Sodium 40 mg 06/12/18 10:00 06/16/18 09:27 Protonix - PO 40 mg DAILY [facility] Administration Polyethylene Glycol 17 gm 06/12/18 10:00 06/16/18 09:26 Miralax (For Daily Use) - PO Not Given DAILY [facility] Ranolazine 500 mg 06/11/18 22:00 06/16/18 09:26 Ranexa - PO 500 mg BID [facility] Administration Trazodone HCl 100 mg 06/11/18 22:00 06/15/18 22:31 Desyrel - PO Not Given HS [facility]
== END 2018-06-16 21:00 | DRG 180 ==
LOC: JER 13:13 → JERBED 19:37 → J7W 22:38
PROVIDERS: ADMIT Family Medicine; ATTEND Family Medicine
DX: C34.90 Malignant neoplasm of unspecified part of unspecified bronchus or lung (principal); J18.9 Pneumonia, unspecified organism; E11.00 Type 2 diabetes mellitus with hyperosmolarity without nonketotic hyperglycemic-hyperosmolar coma (NKHHC); E43 Unspecified severe protein-calorie malnutrition; Z68.1 Body mass index [BMI] 19.9 or less, adult; R64 Cachexia; R62.7 Adult failure to thrive; I25.10 Atherosclerotic heart disease of native coronary artery without angina pectoris; I10 Essential (primary) hypertension; E78.5 Hyperlipidemia, unspecified; J44.9 Chronic obstructive pulmonary disease, unspecified; I25.2 Old myocardial infarction; E11.9 Type 2 diabetes mellitus without complications; D72.829 Elevated white blood cell count, unspecified; E86.0 Dehydration; E11.65 Type 2 diabetes mellitus with hyperglycemia; E87.6 Hypokalemia; F69 Unspecified disorder of adult personality and behavior; D64.9 Anemia, unspecified; F41.8 Other specified anxiety disorders; Z87.891 Personal history of nicotine dependence; Z95.5 Presence of coronary angioplasty implant and graft; R00.0 Tachycardia, unspecified
CPT/HCPCS: 36415; 71045-TC-FY; 76700-TC; 80048; 80053; 81003; 82009; 82550; 82962; 83036; 83605; 83735; 83970; 84443; 84484; 85025; 85027; 87040; 87086; 87899; 93005; 93010; 94640; 97116-GP; 97161-GP; 99283-25; J7030